=== PATIENT | male | born 1970 | race Caucasian/White ===

== ENCOUNTER 2017-05-18 09:06 | Inpatient (IN) | payer OTHER ==
[~2017-05-18 09:06] MED LIST: TAMSULOSIN HCL 0.4 MG CAP.ER.24H (FP) PO SCH
--- NOTE | 2017-05-18 09:18 | PDOC ---
History of Present Illness - General Chief Complaint: Shortness of Breath Stated Complaint: Shortness of Breath Time Seen by Provider: 05/18/17 09:08 History Source: Patient, EMS - History of Present Illness Initial Comments: 05/18/17 09:37 Patient is a 47 year old male with a PMH of CP, MR, Epilepsy, Factor VIII disorder, osteoporosis, testicular hypogonadism presents form [facility] for hypoxia, (SpO2 80's) and tachycardic (hr 123) noted this morning. As per [facility], @ bedside patient has had a two day h/o non- productive cough as well as intermittent blood in nares (no active epistaxis). At baseline patient alert, sometimes tracks with eyes but in general is non- responsive. Some sick contacts @ [facility]. At presentation VS significant for tachycardia 121, SpO2 95% on RA, RR 30, afebrile. NKDA Surgical: L femoral neck fracture Past History - Past Medical History Allergies/Adverse Reactions: Allergies Allergy/AdvReac Type Severity Reaction Status Date / Time No Known Allergies Allergy Verified 05/18/17 12:02 Home Medications: Ambulatory Orders Carbamazepine [Carbamazepine ER] 300 mg PO Q12H 05/18/17 Cholecalciferol (Vitamin D3) [Vitamin D3] 2,000 unit PO BID 05/18/17 Diphenhydramine [Benadryl Oral Solution -] 10 ml PO Q6H 05/18/17 Lactase [Lactaid Fast Act] 1 tab PO TID 05/18/17 Lactulose 30 ml PO TID 05/18/17 Levetiracetam 1,000 mg PO TID 05/18/17 Multivitamins [Tab-A-Vit -] 1 tab PO DAILY 05/18/17 [place]-3S/Dha/Epa/Fish Oil [Fish Oil [place]-3 Softgel] 1 each PO BID 05/18/17 Phenobarbital 32.4 mg PO HS 05/18/17 Phenobarbital 64.8 mg PO HS 05/18/17 Rufinamide [Banzel] 200 mg PO BID 05/18/17 Sennosides [Senna] 8.6 mg PO BID 05/18/17 Tamsulosin HCl [Flomax] 0.4 mg PO HS 05/18/17 Disorders: Yes (bilateral nephrolethiasis) Seizures: Yes - Suicide/Smoking/Psychosocial Hx Smoking History: Never smoked *Physical Exam - Physical Exam Comments: 05/18/17 09:50 GENERAL: Awake, eyes closed, diaphoretic, withdraws from pain HEAD: No signs of trauma EYES: PERRLA, EOMI, sclera anicteric, conjunctiva clear ENT: Dried blood @ nares, moist mucosa NECK: Nontender, no stepoffs, Normal ROM, supple, no lymphadenopathy, JVD, or masses LUNGS: B/L Rhonchi and wheezing in anterior and posterior lung tay No crackles HEART: Regular rate and rhythm, normal S1 and S2, no murmurs, rubs or gallops ABDOMEN: Soft, nontender, normoactive bowel sounds. No guarding, no rebound. No masses EXTREMITIES: Normal range of motion, B/L pedal edema - noted to be chronic SKIN: Warm, Dry, normal turgor, no rashes or lesions noted. ED Treatment Course - LABORATORY CBC & Chemistry Diagram: 05/18/17 10:05 05/18/17 11:20 Medical Decision Making - Medical Decision Making 05/18/17 09:56 47 year old male presents from [facility] with reported hypoxia (SpO2 80's). Physical exam significant for B/L rhonci, wheezing. DDx includes PNA, Influenza. Duo-Nebs x2. Reassess. 05/18/17 10:15 HR 117, SpO2 95% on RA, Labs and Influenza A pending. ECG shows NSR, HR 123, no HENRY/STD non-ischemic ECG. 05/18/17 10:23 BP 158/111, Tachycardic @ 120's 05/18/17 10:36 As patient remains hypoxic, will start patient on BIPAP. 05/18/17 11:27 Lactic Acid 2.5, likely 2/2 to dehydration --> 1 L IV normal saline 05/18/17 11:56 CXR shows PVR. No infiltrate/consolidation Repeat VS: BP 147/91, HR 115, SpO2 95% on BIPAP (). Will start prophylatic abx - tachycardia, continued rhonci, suspect PNA. Will admit for observation, further evaluation. Hospitalist paged 05/18/17 12:02 Patient initially responding appropriately to BIPAP however subsequently somnolent. ABG ordered to r/o hypercapnia. 05/18/17 12:03 Patient admitted to inpatient hospitalist service. Requests CT scan to r/o infiltrates. 05/18/17 13:23 ABG shows PCO2 50.8, O2 71.2, pH 7.32 -- will continue to monitor in ED, CT once patient stabilized. 05/18/17 18:22 Patient transferred to inpatient medicine floor. *DC/Admit/Observation/Transfer Diagnosis at time of Disposition: Shortness of breath - Discharge Dispostion Condition at time of disposition: Fair Admit: Yes - Referrals - Patient Instructions - Post Discharge Activity
[2017-05-18] MEDS ORDERED: ALBUTEROL SO4 2.5/IPRATROPIUM 0.5 INH SOL 3 ML VIAL.NEB. NEB ONE ×4 (09:21→15:18)
--- NOTE | 2017-05-18 09:22 | PDOC ---
Attending Attestation - Resident Resident Name: StaceyRenate - ED Attending Attestation I have performed the following: I have examined & evaluated the patient, The case was reviewed & discussed with the resident, I agree w/resident's findings & plan, Exceptions are as noted - HPI HPI: 05/18/17 09:42 47-year-old gentleman history of factor VIII (deficiency?), cerebral palsy, profound MR sent for evaluation of hypoxia from his facility, there was also mention of epistaxis has since resolved. Per the patient's Aide the patient was fine 2 days ago he was off yesterday so is uncertain of the patient's status he does endorse some coughing the past few days, no fever. Per the aide there is also been a cough, cold going around at the patient's facility. On arrival by EMS the patient was in no distress however he did have rhonchorous breath sounds bilaterally with some wheezing. His vitals revealed O2 sat in the low 90s on room air. There was some pitting edema that is chronic per aide. Suspect cold versus influenza versus pneumonia. Will check labs, chest x-ray, will go to note for symptomatically relief Will check EKG 05/18/17 19:33 - Physicial Exam PE: 05/18/17 19:34 see above - Critical Care Time Total Critical Care Time: 45 Critical Care Statement: The care of this patient involved high complexity decision making to prevent further life threatening deterioration of the patient 's condition and/or to evaluate & treat vital organ system(s) failure or risk of failure. - Medical Decision Making pts labs reviewed lactic acid was at 2.5, was rpeated and was normal trop was at .10, will repeat ct cest sugestive of pna pt s/p abx will admit pt for further mangaement pt currently on bipap and seems sable 05/18/17 19:33 Heart Score/ECG Review - ECG Impressions Comment:: 05/18/17 11:00 Twelve-lead EKG was performed and reviewed by me. There is normal sinus rhythm Rate of 123 Nonspecific T wave abnormality
[2017-05-18 09:57] VITALS: BMI 25.4
[2017-05-18] MEDS ORDERED: ALBUTEROL SO4 0.083% IH SOL 2.5 MG/3 ML VIAL.NEB. NEB ONE (10:05)
[2017-05-18 10:26] LABS: BASO % 0.3 % (0-2.0); EOS % 0.2 % (0-4.5); HEMOGLOBIN 13.4 GM/dL (11.7-16.9); LYMPH % 7.4 % (8-40); MCH 29.2 pg (25.7-33.7); MCHC 32.7 g/dl (32.0-35.9); MEAN CELL VOLUME 89.2 fl (80-96); MEAN PLT VOLUME 9.3 fl (7.5-11.1); MONO % 4.9 % (3.8-10.2); NEUT % 87.2 % (42.8-82.8); PLATELET COUNT 243 K/MM3 (134-434); RDW 17.8 % (11.9-15.9)
[2017-05-18] MEDS ORDERED: ACETAMINOPHEN 1000 MG/100 ML VIAL (NON FORMULARY) IVPB ONE (10:45)
[2017-05-18 10:46] LABS: INR 1.15 (0.82-1.09)
[2017-05-18 10:49] LABS: ACTIVATED PTT 31.2 SECONDS (26.9-34.4)
[2017-05-18 10:58] LABS: VENOUS PC02 52.2 mmHg (38-52); VENOUS PH 7.32 (7.32-7.42); VENOUS PO2 89.1 mmHg (28-48)
[2017-05-18] MEDS ORDERED: ACETAMINOPHEN INJECTION 100 ML IVPB ONE (10:58)
[2017-05-18] MEDS ORDERED: SODIUM CHLORIDE 0.9% 500 ML INFUS.BAG IV ONE (11:27)
[2017-05-18 11:42] LABS: ALBUMIN 2.6 g/dl (3.4-5.0); ALK PHOS 124 U/L (45-117); ANION GAP 6 (8-16); BILIRUBIN,TOTAL 0.1 mg/dL (0.2-1.0); BLOOD UREA NITROGEN 15 mg/dL (7-18); CALCIUM 8.1 mg/dL (8.5-10.1); CHLORIDE 112 mmol/L (98-107); CO2 28 mmol/L (21-32); CREATININE 0.9 mg/dL (0.7-1.3); GLUCOSE,RANDOM 154 mg/dL (74-106); POTASSIUM 3.5 mmol/L (3.5-5.1); SGOT/AST 21 U/L (15-37); SGPT/ALT 31 U/L (12-78); SODIUM 146 mmol/L (136-145)
[2017-05-18 11:50] LABS: URINE APPEARANCE CLEAR; URINE BILIRUBIN NEGATIVE (<2.0 mg/dL); URINE BLOOD NEGATIVE (NEGATIVE); URINE COLOR AMBER; URINE GLUCOSE (UA) NEGATIVE (NEGATIVE); URINE KETONE TRACE (NEGATIVE); URINE LEUK ESTERASE NEGATIVE (NEGATIVE); URINE NITRITE NEGATIVE (NEGATIVE); URINE UROBILINOGEN NEGATIVE mg/dL (0.2-1.0)
[2017-05-18 11:51] LABS: URINE PROTEIN 3+ (NEGATIVE)
[2017-05-18 11:54] LABS: EPI CELLS RARE /HPF (FEW); GRANULAR CASTS 2 /lpf; URINE HYALINE CAST 32 /lpf; URINE MUCUS FEW
[2017-05-18] MEDS ORDERED: VANCOMYCIN 1,500 MG in DEXTROSE 5%-WATER - 500 ML IVPB ONE (11:54)
[2017-05-18] MEDS ORDERED: PIPERACIL/TAZOB 3.375 GM 3.375 GM/50 ML PREMIX IVPB ONE (11:55)
[2017-05-18] MEDS ORDERED: PIPERACILLIN/TAZOB 3.375 GM 3.375 GM/50 ML BAG IVPB ONE (12:05)
[2017-05-18 12:33] LABS: ARTERIAL BLD GAS O2 SATURATION 91.8 % (90-98.9); ARTERIAL BLOOD GAS BASE EXCESS -0.9 meq/l (-2-2); ARTERIAL BLOOD GAS PCO2 50.8 mmHg (35-45); ARTERIAL BLOOD GAS PO2 71.2 mmHg (80-100); ARTERIAL BLOOD GAS pH 7.32 (7.35-7.45); CARBOXYHEMOGLOBIN 1.8 gm% (0.5-2.0)
[2017-05-18 12:37] LABS: ALLENS TEST POSITIVE
--- NOTE | 2017-05-18 13:23 | HP ---
CHIEF COMPLAINT: Hypoxia, cough PCP: Dr. Eisenberg, [facility] HISTORY OF PRESENT ILLNESS: 47 year-old male resident of [facility], with a PMH significant for profound intellectual disability, cerebral palsy, seizure disorder, and Factor VIII deficiency. Brought to ED with non-productive cough, hypoxia with SpO2 80s , and tachycardia to 120s. ER course was notable for: (1) T 99.3, WBC 11.0 (2) ABG 7.32/50/71/25/92% on BiPAP 30% FiO2 (3) CXR: progressive congestive changes, possible infiltrate (4) Zosyn x 1; Vanco x 1; duoneb x 1; NS x 1L; Tylenol IV 1g x 1 Recent Travel No PAST MEDICAL HISTORY: Profound intellectual disability Cerebral palsy Seizure disorder Factor VIII deficiency PAST SURGICAL HISTORY: Left femoral neck fracture repair Social History: Smoking: no Alcohol: no Drugs: no Family History: Allergies No Known Allergies Allergy (Verified 05/18/17 12:02) HOME MEDICATIONS: Home Medications Medication Instructions Recorded Carbamazepine [Carbamazepine ER] 300 mg PO Q12H 05/18/17 Cholecalciferol (Vitamin D3) 2,000 unit PO BID 05/18/17 [Vitamin D3] Diphenhydramine [Benadryl Oral 10 ml PO Q6H 05/18/17 Solution -] Lactase [Lactaid Fast Act] 1 tab PO TID 05/18/17 Lactulose 30 ml PO TID 05/18/17 Levetiracetam 1,000 mg PO TID 05/18/17 Multivitamins [Tab-A-Vit -] 1 tab PO DAILY 05/18/17 [place]-3S/Dha/Epa/Fish Oil [Fish 1 each PO BID 05/18/17 Oil [place]-3 Softgel] Phenobarbital 32.4 mg PO HS 05/18/17 Phenobarbital 64.8 mg PO HS 05/18/17 Rufinamide [Banzel] 200 mg PO BID 05/18/17 Sennosides [Senna] 8.6 mg PO BID 05/18/17 Tamsulosin HCl [Flomax] 0.4 mg PO HS 05/18/17 REVIEW OF SYSTEMS Unable to obtain due to patient's mental status PHYSICAL EXAMINATION Vital Signs - 24 hr 05/18/17 05/18/17 05/18/17 09:10 10:00 11:18 Temperature 99.3 F Pulse Rate 121 H 87 Pulse Rate [ 118 H Apical] Respiratory 30 H 32 H Rate Blood Pressure 151/89 Blood Pressure 157/102 [Left Arm] O2 Sat by Pulse 95 97 99 Oximetry (%) 05/18/17 11:27 Temperature Pulse Rate Pulse Rate [ 118 H Apical] Respiratory 28 H Rate Blood Pressure Blood Pressure 162/94 [Left Arm] O2 Sat by Pulse 94 L Oximetry (%) GENERAL: Eyes closed but resists opening; non-verbal at baseline, does not follow commands; on BiPAP HEAD: Normal with no signs of trauma. EYES: Pupils equal, round and reactive to light, extraocular movements intact, sclera anicteric, conjunctiva clear. No lid lag. LUNGS: Rhonchorous breath sounds; tachypnic HEART: Regular rate and rhythm, normal S1 and S2 ABDOMEN: Soft, nontender, not distended, normoactive bowel sounds, no guarding, no rebound UPPER EXTREMITIES: 2+ pulses, warm, well-perfused. No cyanosis. No clubbing. No peripheral edema. LOWER EXTREMITIES: 2+ pulses, warm, well-perfused. No calf tenderness. 1+ bilateral pedal and pretibial edema Laboratory Results - last 24 hr 05/18/17 05/18/17 05/18/17 10:05 10:15 10:15 WBC 11.0 H RBC 4.60 Hgb 13.4 Hct 41.0 MCV 89.2 MCH 29.2 MCHC 32.7 RDW 17.8 H Plt Count 243 MPV 9.3 Neutrophils % 87.2 H Lymphocytes % 7.4 L Monocytes % 4.9 Eosinophils % 0.2 Basophils % 0.3 PT with INR 13.00 H INR 1.15 H PTT (Actin FS) 31.2 Puncture Site ABG pH ABG pCO2 at Pt Temp ABG pO2 at Pt Temp ABG HCO3 ABG O2 Sat (Measured) ABG O2 Content ABG Base Excess Adrian Test VBG pH POC VBG pCO2 POC VBG pO2 Mixed VBG HCO3 Carboxyhemoglobin Methemoglobin O2 Delivery Device Oxygen Flow Rate Vent Mode Vent Rate Mechanical Rate PEEP Pressure Support Vent Sodium Potassium Chloride Carbon Dioxide Anion Gap BUN Creatinine Creat Clearance w eGFR Random Glucose Lactic Acid 2.5 H* Calcium Total Bilirubin AST ALT Alkaline Phosphatase Troponin I Total Protein Albumin Urine Color Urine Appearance Urine pH Ur Specific [place] Urine Protein Urine Glucose (UA) Urine Ketones Urine Blood Urine Nitrite Urine Bilirubin Urine Urobilinogen Ur Leukocyte Esterase Urine WBC (Auto) Urine RBC (Auto) Ur Epithelial Cells Hyaline Casts Granular Casts Urine Mucus 05/18/17 05/18/17 05/18/17 10:48 11:20 11:20 WBC RBC Hgb Hct MCV MCH MCHC RDW Plt Count MPV Neutrophils % Lymphocytes % Monocytes % Eosinophils % Basophils % PT with INR INR PTT (Actin FS) Puncture Site ABG pH ABG pCO2 at Pt Temp ABG pO2 at Pt Temp ABG HCO3 ABG O2 Sat (Measured) ABG O2 Content ABG Base Excess Adrian Test VBG pH 7.32 POC VBG pCO2 52.2 H POC VBG pO2 89.1 H Mixed VBG HCO3 26.1 H Carboxyhemoglobin Methemoglobin O2 Delivery Device Oxygen Flow Rate Vent Mode Vent Rate Mechanical Rate PEEP Pressure Support Vent Sodium 146 H Potassium 3.5 Chloride 112 H Carbon Dioxide 28 Anion Gap 6 L BUN 15 Creatinine 0.9 Creat Clearance w eGFR > 60 Random Glucose 154 H Lactic Acid Calcium 8.1 L Total Bilirubin 0.1 L AST 21 ALT 31 Alkaline Phosphatase 124 H Troponin I 0.10 H Total Protein 6.0 L Albumin 2.6 L Urine Color [place] Urine Appearance Clear Urine pH 5.0 Ur Specific [place] 1.032 Urine Protein 3+ H Urine Glucose (UA) Negative Urine Ketones Trace H Urine Blood Negative Urine Nitrite Negative Urine Bilirubin Negative Urine Urobilinogen Negative Ur Leukocyte Esterase Negative Urine WBC (Auto) 7 Urine RBC (Auto) 6 Ur Epithelial Cells Rare Hyaline Casts 32 Granular Casts 2 Urine Mucus Few 05/18/17 12:20 WBC RBC Hgb Hct MCV MCH MCHC RDW Plt Count MPV Neutrophils % Lymphocytes % Monocytes % Eosinophils % Basophils % PT with INR INR PTT (Actin FS) Puncture Site Right radial ABG pH 7.32 L ABG pCO2 at Pt Temp 50.8 H ABG pO2 at Pt Temp 71.2 L ABG HCO3 25.4 ABG O2 Sat (Measured) 91.8 ABG O2 Content 16.9 ABG Base Excess -0.9 Adrian Test Positive VBG pH POC VBG pCO2 POC VBG pO2 Mixed VBG HCO3 Carboxyhemoglobin 1.8 Methemoglobin 0.9 O2 Delivery Device Bipap Oxygen Flow Rate 30% Vent Mode St Vent Rate 10 Mechanical Rate Yes PEEP 0.0 Pressure Support Vent 10/5 Sodium Potassium Chloride Carbon Dioxide Anion Gap BUN Creatinine Creat Clearance w eGFR Random Glucose Lactic Acid Calcium Total Bilirubin AST ALT Alkaline Phosphatase Troponin I Total Protein Albumin Urine Color Urine Appearance Urine pH Ur Specific [place] Urine Protein Urine Glucose (UA) Urine Ketones Urine Blood Urine Nitrite Urine Bilirubin Urine Urobilinogen Ur Leukocyte Esterase Urine WBC (Auto) Urine RBC (Auto) Ur Epithelial Cells Hyaline Casts Granular Casts Urine Mucus ASSESSMENT/PLAN 47 year-old male resident of [facility], with a PMH significant for profound intellectual disability, cerebral palsy, seizure disorder, and Factor VIII deficiency. Admitted for cough and hypoxia. Hypoxic and hypercapneic respiratory failure Pneumonia --05/18 CT Chest: patchy nodular infiltrates bilateral upper lobes and RML --mild leukocytosis, afebrile --start levofloxacin IV --on BiPAP, repeat ABG pending Heart failure, NOS Small pericardial effusion --05/18 CT chest: very small left pleural effusion; left ventricular dilation ; small pericardial effusion --mild bilateral lower extremity edema --BNP 11,454 --echo ordered --Lasix IV 40mg x 1 Elevated troponins --troponin 0.10-->0.15, third pending --non-specific ST changes in V3-V5 Functional quadriplegia --profound intellectual disability, requires assistance for all ADLs FEN Fluids: PO intake adequate Electrolytes: replete as indicated Nutrition: NPO on BiPAP DVT prophylaxis: Dispo: continues to require inpatient care. Full code. Visit type - Emergency Visit Emergency Visit: Yes ED Registration Date: 05/18/17 Care time: The patient presented to the Emergency Department on the above date and was hospitalized for further evaluation of their emergent condition. - New Patient This patient is new to me today: Yes Date on this admission: 05/18/17 - Critical Care Critical Care patient: No Hospitalist Screening - Colonoscopy Questionnaire Colonoscopy Questionnaire: Colonoscopy Questionnaire - Patient: 50 - 75 years old and never had a screening colonoscopy: No History of colon or rectal polyps, or CA: No History of IBD, Crohn's disease or UC: No History of abdominal radiation therapy as a child: No - Relative: 1 with colon or rectal CA, or polyps at age 60 or younger: Unknown Colon or rectal CA diagnosed at age 45 or younger: Unknown Multiple relatives with colon or rectal CA: Unknown - Outcome: Screening Result: Negative Screen
--- NOTE | 2017-05-18 14:13 | EKG ---
Test Reason : Blood Pressure : / mmHG Vent. Rate : 123 BPM Atrial Rate : 123 BPM P-R Int : 122 ms QRS Dur : 092 ms QT Int : 298 ms P-R-T Axes : 082 054 -01 degrees QTc Int : 426 ms SINUS TACHYCARDIA LEFT ATRIAL ENLARGEMENT NONSPECIFIC T WAVE ABNORMALITY ABNORMAL ECG WHEN COMPARED WITH ECG OF 23-OCT-2014 12:58, NON-SPECIFIC CHANGE IN ST SEGMENT IN ANTERIOR LEADS Confirmed by ANCELMO OTTO, PAL ([id number]) on 05/18/2017 2:12:59 PM Referred By: Confirmed By:PAL AG MD
[2017-05-18] MEDS ORDERED: carBAMazepine 100 MG TAB.CHEW PO SCH (15:00)
[2017-05-18] MEDS ORDERED: LACTASE PO SCH (15:00)
[2017-05-18] MEDS: LACTULOSE 20 GM/30 ML UDC (FOR ORAL USE ONLY) PO SCH ×2 (16:31→23:20)
[2017-05-18] MEDS ORDERED: ASPIRIN 325 MG ENTERIC COATED TABLET (FP) PO ONE (16:35)
[2017-05-18] MEDS ORDERED: carBAMazepine XR 200 MG TAB.ER.12H PO SCH (17:30)
[2017-05-18] MEDS ORDERED: diazePAM ACUDIAL 5-7.5-10 MG 1 EACH KIT PR ONE (17:30)
[2017-05-18] MEDS ORDERED: FUROSEMIDE 40 MG/4 ML INJECTABLE VIAL IVPUSH ONE (18:00)
[2017-05-18] MEDS ORDERED: diazePAM ACUDIAL 5-7.5-10 MG 1 EACH KIT RC PRN (18:00)
[2017-05-18] MEDS: diphenhydrAMINE HCL 12.5 MG/5 ML UNIT-DOSE CUPS PO SCH ×2 (18:04→23:14)
--- NOTE | 2017-05-18 18:40 | CON.CARD ---
Cardiology Consult (text) - Consultation Consultation Note: CC: tachycardia/abnormal troponin. 47 yo resident of [facility] with history of hypoxic injury at /infantile cerebral palsy, epilepsy, osteoporosis s/p multiple fractures, renal stones s/p lithotripsy and stent, testicular hypogonadism who p/w hypoxia/tachycardia, ER course notable for abnormal troponins. Per report, SpO2 80's, tachycardic (hr 123) this morning. As per aide, patient had 2 history of cough, congestion. + sick contacts @ [facility] patient has chronic cough with eating, prefers to eat liquid foods. At baseline patient awake but non-verbal with limited ability to communicate. bed bound. ROS limited due to patient's cognitive status, but did not appear to be in discomfort leading up to the events. s/p abx, ivf, nebs in ER. pmhx/pshx: per hpi, L femoral neck fracture social hx: never smoker. from [facility]. has aide. family hx: per report no cardiac history ros: per hpi Ambulatory Orders Carbamazepine [Carbamazepine ER] 300 mg PO Q12H 05/18/17 Cholecalciferol (Vitamin D3) [Vitamin D3] 2,000 unit PO BID 05/18/17 Diphenhydramine [Benadryl Oral Solution -] 10 ml PO Q6H 05/18/17 Lactase [Lactaid Fast Act] 1 tab PO TID 05/18/17 Lactulose 30 ml PO TID 05/18/17 Levetiracetam 1,000 mg PO TID 05/18/17 Multivitamins [Tab-A-Vit -] 1 tab PO DAILY 05/18/17 [place]-3S/Dha/Epa/Fish Oil [Fish Oil [place]-3 Softgel] 1 each PO BID 05/18/17 Phenobarbital 32.4 mg PO HS 05/18/17 Phenobarbital 64.8 mg PO HS 05/18/17 Rufinamide [Banzel] 200 mg PO BID 05/18/17 Sennosides [Senna] 8.6 mg PO BID 05/18/17 Tamsulosin HCl [Flomax] 0.4 mg PO HS 05/18/17 Current Medications Aspirin (Asa -) 81 mg PO DAILY CATHERINE Carbamazepine (Tegretol Xr -) 600 mg PO BID CATHERINE Diazepam (Diastat Rectal Gel -) 5 mg RC PRN PRN PRN Reason: SEIZURE Stop: 05/19/17 17:59 Diphenhydramine HCl (Benadryl Oral Solution -) 25 mg PO QID [facility] Last Admin: 05/18/17 18:04 Dose: Not Given Heparin Sodium (Porcine) (Heparin -) 5,000 unit SQ TID [facility] Lactulose (Cephulac (Oral Use)) 30 gm PO TID [facility] Last Admin: 05/18/17 16:31 Dose: Not Given Levetiracetam (Keppra -) 1,000 mg PO TID [facility] Non-Formulary Medication (Lactase [Lactaid Fast Act]) 1 tab PO TID [facility] Non-Formulary Medication (Rufinamide [Banzel]) 1,400 mg PO BID [facility] Phenobarbital (Phenobarbital -) 30 mg PO HS [facility] Phenobarbital (Phenobarbital -) 60 mg PO HS [facility] Senna (Senna -) 1 tab PO BID [facility] Tamsulosin HCl (Flomax -) 0.4 mg PO 0830 [facility] Zonisamide (Zonegran -) 500 mg PO HS [facility] Vital Signs - 24 hr 05/18/17 05/18/17 05/18/17 09:10 10:00 11:18 Temperature 99.3 F Pulse Rate 121 H 87 Pulse Rate [ 118 H Apical] Respiratory 30 H 32 H Rate Blood Pressure 151/89 Blood Pressure 157/102 [Left Arm] O2 Sat by Pulse 95 97 99 Oximetry (%) 05/18/17 05/18/17 05/18/17 11:27 13:35 14:40 Temperature 99.8 F H Pulse Rate Pulse Rate [ 118 H 108 H Apical] Respiratory 28 H 27 H Rate Blood Pressure Blood Pressure 162/94 160/99 [Left Arm] O2 Sat by Pulse 94 L 94 L Oximetry (%) 05/18/17 05/18/17 05/18/17 15:44 16:29 16:36 Temperature Pulse Rate Pulse Rate [ 109 H 104 H Apical] Respiratory 28 H 26 H Rate Blood Pressure Blood Pressure 150/98 145/86 [Left Arm] O2 Sat by Pulse 97 100 96 Oximetry (%) 05/18/17 18:37 Temperature Pulse Rate Pulse Rate [ Apical] Respiratory Rate Blood Pressure Blood Pressure [Left Arm] O2 Sat by Pulse 95 Oximetry (%) Intake & Output 05/16/17 05/17/17 05/18/1730/18 07:59 07:59 07:59 07:59 Weight 130 lb nad, on bipap jvd flat, neck supple diffuse rhonchi, nl effort tachycardic, regular. nl s1, s2 no mrg. non-displaced pmi + bs soft nt nd, no hsm ext with trace soft edema. no c/c + dp/pt awake no jaundice, diaphoresis. CBC, BMP 05/18/17 10:05 05/18/17 11:20 Laboratory Tests 05/18/17 05/18/17 05/18/17 10:15 10:15 11:20 INR 1.15 H ABG pH ABG pCO2 at Pt Temp ABG pO2 at Pt Temp O2 Delivery Device Lactic Acid 2.5 H* Total Bilirubin 0.1 L AST 21 ALT 31 Alkaline Phosphatase 124 H Creatine Kinase Troponin I 0.10 H B-Natriuretic Peptide Albumin 2.6 L 05/18/17 05/18/17 05/18/17 12:20 13:20 13:20 INR ABG pH 7.32 L ABG pCO2 at Pt Temp 50.8 H ABG pO2 at Pt Temp 71.2 L O2 Delivery Device Bipap Lactic Acid 1.3 Total Bilirubin AST ALT Alkaline Phosphatase Creatine Kinase 109 Troponin I 0.15 H D B-Natriuretic Peptide Albumin 05/18/17 15:30 INR ABG pH ABG pCO2 at Pt Temp ABG pO2 at Pt Temp O2 Delivery Device Lactic Acid Total Bilirubin AST ALT Alkaline Phosphatase Creatine Kinase Troponin I B-Natriuretic Peptide 93451.31 H Albumin ekg: sinus tach. non-specific st-t wave abnormalities. no acue ischemic changes. tele: sr/sinus tach. chest ct: images and report reviewed. bilateral pulmonary infiltrates. very small left pleural effusion. small pericardial effusion. see emr for detailed findings. ASSESSMENT/PLAN 47 yo resident of [facility] with history of hypoxic injury at /infantile cerebral palsy, epilepsy, osteoporosis s/p multiple fractures, renal stones s/p lithotripsy and stent, testicular hypogonadism who p/w hypoxia/tachycardia, ER course notable for abnormal troponins. sob/hypoxia - chest ct and clinical picture c/w pna/infectious etiology. eval/mgm't per pmd elevated troponins - flat trend c/w demand in setting of tachycardia and infection. no acute ischemic changes on ekg. con't paul. echo pending. - lyte repletion prn - respiratory support per pmd to minimize tachycardia. ok for ivf if needed. - no diagnosis of htn, bp improving with improvement in respiratory status, con' t to monitor. If remains elevated, can consider adding anti-hypertensive. hypernatremia - per pmd.
[2017-05-18] MEDS ORDERED: FUROSEMIDE 40 MG/4 ML INJECTABLE VIAL ONE (18:55)
[2017-05-18 19:11] LABS: ARTERIAL BLD GAS O2 SATURATION 97.4 % (90-98.9); ARTERIAL BLOOD GAS BASE EXCESS -0.1 meq/l (-2-2); ARTERIAL BLOOD GAS PCO2 41.4 mmHg (35-45); ARTERIAL BLOOD GAS PO2 96.7 mmHg (80-100); ARTERIAL BLOOD GAS pH 7.39 (7.35-7.45)
[2017-05-18 19:17] LABS: ALLENS TEST POSITIVE
[2017-05-18] MEDS ORDERED: RUFINAMIDE PO SCH (22:00)
[2017-05-18] MEDS ORDERED: PHENobarbital 30 MG TABLET PO SCH ×3 (22:00)
[2017-05-18] MEDS ORDERED: RUFINAMIDE 200 MG PO SCH (22:00)
[2017-05-18] MEDS: levETIRAcetam 500 MG TABLET (FP) PO SCH (23:04)
[2017-05-18] MEDS: ZONISAMIDE 100 MG CAPSULE PO SCH (23:11)
[2017-05-18] MEDS: HEPARIN NA (PORCINE) 5,000 UNITS/ML 1ML VIAL SQ SCH (23:11)
[2017-05-18] MEDS: SENNOSIDES 8.6MG TABLET (FP) PO SCH (23:13)
[2017-05-19] MEDS: POTASSIUM CHLORIDE 10 MEQ in SODIUM CHLORIDE 100 ML IVPB SCH ×3 (00:18→02:45)
[2017-05-19] MEDS: HEPARIN NA (PORCINE) 5,000 UNITS/ML 1ML VIAL SQ SCH ×3 (07:00→23:08)
[2017-05-19] MEDS: levETIRAcetam 500 MG TABLET (FP) PO SCH ×2 (07:00→13:13)
[2017-05-19] MEDS: LACTULOSE 20 GM/30 ML UDC (FOR ORAL USE ONLY) PO SCH ×3 (07:00→22:31)
[2017-05-19 08:14] LABS: BASO % 0.3 % (0-2.0); EOS % 0.7 % (0-4.5); HEMATOCRIT 40.4 % (35.4-49); LYMPH % 8.7 % (8-40); MCH 28.9 pg (25.7-33.7); MCHC 32.2 g/dl (32.0-35.9); MEAN CELL VOLUME 89.6 fl (80-96); MEAN PLT VOLUME 9.7 fl (7.5-11.1); MONO % 6.2 % (3.8-10.2); NEUT % 84.1 % (42.8-82.8); PLATELET COUNT 236 K/MM3 (134-434); RBC 4.51 M/mm3 (4.00-5.60); RDW 17.9 % (11.9-15.9); WHITE BLOOD COUNT 9.3 K/mm3 (4.0-10.0)
[2017-05-19 08:26] LABS: ALBUMIN 2.3 g/dl (3.4-5.0); ANION GAP 7 (8-16); BLOOD UREA NITROGEN 9 mg/dL (7-18); CALCIUM 7.7 mg/dL (8.5-10.1); CHLORIDE 112 mmol/L (98-107); CO2 30 mmol/L (21-32); GLUCOSE,RANDOM 71 mg/dL (74-106); MAGNESIUM 1.9 mg/dL (1.8-2.4); POTASSIUM 3.9 mmol/L (3.5-5.1); SODIUM 149 mmol/L (136-145)
[2017-05-19 08:30] LABS: ALK PHOS 112 U/L (45-117); BILIRUBIN,TOTAL 0.2 mg/dL (0.2-1.0); CREATININE 0.6 mg/dL (0.7-1.3); PHOSPHOROUS 3.4 mg/dL (2.5-4.9); SGOT/AST 21 U/L (15-37); SGPT/ALT 28 U/L (12-78); TOT PROT 5.6 g/dl (6.4-8.2)
[2017-05-19] MEDS: SENNOSIDES 8.6MG TABLET (FP) PO SCH ×2 (10:00→22:31)
[2017-05-19] MEDS ORDERED: ASPIRIN 81 MG CHEWABLE TABLETS PO SCH (10:00)
[2017-05-19] MEDS: diphenhydrAMINE HCL 12.5 MG/5 ML UNIT-DOSE CUPS PO SCH ×4 (10:00→22:31)
[2017-05-19] MEDS: TAMSULOSIN HCL 0.4 MG CAP.ER.24H (FP) PO SCH (10:01)
[2017-05-19] MEDS: CARBAMAZEPINE PO SCH ×2 (10:03→22:31)
--- NOTE | 2017-05-19 11:27 | PN ---
Progress Note (short form) - Note Progress Note: s: not communicating well, no overnight events o: Vital Signs Period Temp Pulse Resp BP Sys/[place] Pulse Ox Last 24 Hr 98 F-99.8 F 101-118 24-28 145-162/86-109 94-100 nad jvd flat, neck supple diffuse rhonchi, nl effort regular rr. nl s1, s2 no mrg. + bs soft nt nd, no hsm ext with trace soft edema. no c/c awake no jaundice, diaphoresis. Current Medications Generic Name Dose Route Start Last Admin Trade Name Freq PRN Reason Stop Dose Admin Aspirin 81 mg 05/19/17 10:00 05/19/17 10:00 Asa - PO 81 mg DAILY CATHERINE Administration Carbamazepine 400 mg/ 600 mg 05/19/17 10:00 05/19/17 10:03 Carbamazepine 200 mg PO 600 mg BID CATHERINE Administration Diazepam 5 mg 05/18/17 18:00 Diastat Rectal Gel - RC 05/19/17 17:59 PRN PRN SEIZURE Diphenhydramine HCl 25 mg 05/18/17 18:00 05/19/17 10:00 Benadryl Oral Solution - PO 25 mg QID CATHERINE Administration Heparin Sodium (Porcine) 5,000 unit 05/18/17 22:00 05/19/17 07:00 Heparin - SQ 5,000 unit TID CATHERINE Administration Lactulose 30 gm 05/18/17 15:15 05/19/17 07:00 Cephulac (Oral Use) PO 30 gm TID CATHERINE Administration Levetiracetam 1,000 mg 05/18/17 22:00 05/19/17 07:00 Keppra - PO 1,000 mg TID CATHERINE Administration Non-Formulary Medication 1 tab 05/18/17 15:00 Lactase [Lactaid Fast Act] PO TID CATHERINE Non-Formulary Medication 1,400 mg 05/18/17 22:00 Rufinamide [Banzel] PO BID CATHERINE Phenobarbital 30 mg 05/18/17 22:00 05/18/17 23:11 Phenobarbital - PO 30 mg HS CATHERINE Administration Phenobarbital 60 mg 05/18/17 22:00 05/18/17 23:11 Phenobarbital - PO 60 mg HS CATHERINE Administration Senna 1 tab 05/18/17 22:00 05/19/17 10:00 Senna - PO 1 tab BID CATHERINE Administration Tamsulosin HCl 0.4 mg 05/19/17 08:30 05/19/17 10:01 Flomax - PO 0.4 mg 0830 CATHERINE Administration Zonisamide 500 mg 05/18/17 22:00 05/18/17 23:11 Zonegran - PO Not Given HS CATHERINE CBC, BMP 05/19/17 06:49 05/19/17 06:49 ekg: sinus tach. non-specific st-t wave abnormalities. no acue ischemic changes. tele: sr/sinus tach. chest ct: images and report reviewed. bilateral pulmonary infiltrates. very small left pleural effusion. small pericardial effusion. see emr for detailed findings. ASSESSMENT/PLAN 47 yo resident of [facility] with history of hypoxic injury at /infantile cerebral palsy, epilepsy, osteoporosis s/p multiple fractures, renal stones s/p lithotripsy and stent, testicular hypogonadism who p/w hypoxia/tachycardia, ER course notable for abnormal troponins. sob/hypoxia - chest ct and clinical picture c/w pna/infectious etiology. elevated troponins - flat trend c/w demand in setting of tachycardia and infection. no acute ischemic changes on ekg. echo pending. - lyte repletion prn - respiratory support per pmd to minimize tachycardia. ok for ivf if needed. - no diagnosis of htn, bp improving with improvement in respiratory status, con' t to monitor. hypernatremia - per pmd.
--- NOTE | 2017-05-19 14:00 | PN ---
Physical Exam: SUBJECTIVE: Patient seen and examined at bedside. OBJECTIVE: Vital Signs Period Temp Pulse Resp BP Sys/Velasco Pulse Ox Last 24 Hr 98 F-99.8 F 101-110 24-28 145-153/86-109 95-100 GENERAL: Awake, eyes open, reacting to physical stimuli, more alert than yesterday LUNGS: Rhonchorous breath sounds, wheezing, tachypnic HEART: Regular rate and rhythm, normal S1 and S2 ABDOMEN: Soft, nontender, not distended, normoactive bowel sounds, no guarding, no rebound UPPER EXTREMITIES: 2+ pulses, warm, well-perfused. No cyanosis. No clubbing. No peripheral edema. LOWER EXTREMITIES: 2+ pulses, warm, well-perfused. No calf tenderness. 1+ bilateral pedal and pretibial edema Laboratory Results - last 24 hr 05/18/17 05/18/17 05/18/17 13:20 13:20 15:30 WBC RBC Hgb Hct MCV MCH MCHC RDW Plt Count MPV Neutrophils % Lymphocytes % Monocytes % Eosinophils % Basophils % Anticoagulation Therapy Puncture Site ABG pH ABG pCO2 at Pt Temp ABG pO2 at Pt Temp ABG HCO3 ABG O2 Sat (Measured) ABG O2 Content ABG Base Excess Adrian Test O2 Delivery Device Oxygen Flow Rate Vent Mode Vent Rate Mechanical Rate Pressure Support Vent Sodium Potassium Chloride Carbon Dioxide Anion Gap BUN Creatinine Creat Clearance w eGFR Random Glucose Lactic Acid 1.3 Calcium Phosphorus Magnesium Total Bilirubin AST ALT Alkaline Phosphatase Creatine Kinase 109 Troponin I 0.15 H D B-Natriuretic Peptide 20881.31 H Total Protein Albumin 05/18/17 05/18/17 05/19/17 19:00 20:00 06:49 WBC 9.3 RBC 4.51 Hgb 13.0 Hct 40.4 MCV 89.6 MCH 28.9 MCHC 32.2 RDW 17.9 H Plt Count 236 MPV 9.7 Neutrophils % 84.1 H Lymphocytes % 8.7 Monocytes % 6.2 Eosinophils % 0.7 D Basophils % 0.3 Anticoagulation Therapy No Result Required. Puncture Site Right radial ABG pH 7.39 ABG pCO2 at Pt Temp 41.4 ABG pO2 at Pt Temp 96.7 D ABG HCO3 24.4 ABG O2 Sat (Measured) 97.4 ABG O2 Content 18.7 ABG Base Excess -0.1 Adrian Test Positive O2 Delivery Device Bipap Oxygen Flow Rate 30 Vent Mode No Result Required. Vent Rate No Result Required. Mechanical Rate No Result Required. Pressure Support Vent No Result Required. Sodium Potassium Chloride Carbon Dioxide Anion Gap BUN Creatinine Creat Clearance w eGFR Random Glucose Lactic Acid Calcium Phosphorus Magnesium Total Bilirubin AST ALT Alkaline Phosphatase Creatine Kinase Troponin I 0.10 H D B-Natriuretic Peptide Total Protein Albumin 05/19/17 06:49 WBC RBC Hgb Hct MCV MCH MCHC RDW Plt Count MPV Neutrophils % Lymphocytes % Monocytes % Eosinophils % Basophils % Anticoagulation Therapy Puncture Site ABG pH ABG pCO2 at Pt Temp ABG pO2 at Pt Temp ABG HCO3 ABG O2 Sat (Measured) ABG O2 Content ABG Base Excess Adrian Test O2 Delivery Device Oxygen Flow Rate Vent Mode Vent Rate Mechanical Rate Pressure Support Vent Sodium 149 H Potassium 3.9 Chloride 112 H Carbon Dioxide 30 Anion Gap 7 L BUN 9 D Creatinine 0.6 L D Creat Clearance w eGFR > 60 Random Glucose 71 L D Lactic Acid Calcium 7.7 L Phosphorus 3.4 Magnesium 1.9 Total Bilirubin 0.2 D AST 21 ALT 28 Alkaline Phosphatase 112 Creatine Kinase Troponin I B-Natriuretic Peptide Total Protein 5.6 L Albumin 2.3 L Active Medications Generic Name Dose Route Start Last Admin Trade Name Freq PRN Reason Stop Dose Admin Aspirin 81 mg 05/19/17 10:00 05/19/17 10:00 Asa - PO 81 mg DAILY CATHERINE Administration Carbamazepine 400 mg/ 600 mg 05/19/17 10:00 05/19/17 10:03 Carbamazepine 200 mg PO 600 mg BID CATHERINE Administration Diazepam 5 mg 05/18/17 18:00 Diastat Rectal Gel - RC 05/19/17 17:59 PRN PRN SEIZURE Diphenhydramine HCl 25 mg 05/18/17 18:00 05/19/17 13:13 Benadryl Oral Solution - PO 25 mg QID CATHERINE Administration Heparin Sodium (Porcine) 5,000 unit 05/18/17 22:00 05/19/17 13:13 Heparin - SQ 5,000 unit TID CATHERINE Administration Levofloxacin 750 mg in 150 mls @ 100 mls/hr 05/19/17 13:45 Levaquin 750 Mg Premixed Ivpb - IVPB 05/24/17 11:29 DAILY CATHERINE Lactulose 30 gm 05/18/17 15:15 05/19/17 13:13 Cephulac (Oral Use) PO 30 gm TID CATHERINE Administration Levetiracetam 1,000 mg 05/18/17 22:00 05/19/17 13:13 Keppra - PO 1,000 mg TID CATHERINE Administration Non-Formulary Medication 1 tab 05/18/17 15:00 Lactase [Lactaid Fast Act] PO TID CATHERINE Non-Formulary Medication 1,400 mg 05/18/17 22:00 Rufinamide [Banzel] PO BID CATHERINE Phenobarbital 30 mg 05/18/17 22:00 05/18/17 23:11 Phenobarbital - PO 30 mg HS CATHERINE Administration Phenobarbital 60 mg 05/18/17 22:00 05/18/17 23:11 Phenobarbital - PO 60 mg HS CATHERINE Administration Senna 1 tab 05/18/17 22:00 05/19/17 10:00 Senna - PO 1 tab BID CATHERINE Administration Tamsulosin HCl 0.4 mg 05/19/17 08:30 05/19/17 10:01 Flomax - PO 0.4 mg 0830 CATHERINE Administration Zonisamide 500 mg 05/18/17 22:00 05/18/17 23:11 Zonegran - PO Not Given HS CATHERINE ASSESSMENT/PLAN 47 year-old male resident of [facility], with a PMH significant for profound intellectual disability, cerebral palsy, seizure disorder, systolic heart failure, and Factor VIII deficiency. Admitted for cough and hypoxia. Hypoxic and hypercapneic respiratory failure Pneumonia --05/18 CT Chest: patchy nodular infiltrates bilateral upper lobes and RML --fever to 101, leukocytosis resolved --continue levofloxacin IV --bronchospasms, start solumedrol 40mg q8h --sats 87% on room air, 100% on NRB; respiratory to titrate O2 to 95% Systolic heart failure Small pericardial effusion --05/19 Echo: suboptimal study but LV function "at least" moderately reduced, cannot exclude RWMA --05/18 CT chest: very small left pleural effusion; left ventricular dilation ; small pericardial effusion --mild bilateral lower extremity edema --BNP 11,454 --Lasix IV 40mg daily --strict I&Os, daily weights --cardiology following Elevated troponins --troponin 0.10-->0.15-->0.10, flat trending, likely result of infection --non-specific ST changes in V3-V5 Functional quadriplegia --profound intellectual disability, requires assistance for all ADLs FEN Fluids: PO intake adequate Electrolytes: replete as indicated Nutrition: NPO on BiPAP DVT prophylaxis: Dispo: continues to require inpatient care. Full code. Visit type - Emergency Visit Emergency Visit: Yes ED Registration Date: 05/18/17 Care time: The patient presented to the Emergency Department on the above date and was hospitalized for further evaluation of their emergent condition. - New Patient This patient is new to me today: No - Critical Care Critical Care patient: No
[2017-05-19] MEDS ORDERED: FUROSEMIDE 40 MG/4 ML INJECTABLE VIAL IVPUSH SCH (14:15)
[2017-05-19] MEDS ORDERED: ACETAMINOPHEN 325 MG TABLET (FP) PO PRN (14:24)
[2017-05-19] MEDS ORDERED: ALBUTEROL SO4 2.5/IPRATROPIUM 0.5 INH SOL 3 ML VIAL.NEB. NEB PRN (15:38)
[2017-05-19] MEDS ORDERED: ALBUTEROL SO4 0.083% IH SOL 2.5 MG/3 ML VIAL.NEB. NEB PRN (15:40)
[2017-05-19] MEDS ORDERED: FOSPHENYTOIN SODIUM 1,000 MG in SODIUM CHLORIDE 100 ML IVPB ONE (16:22)
[2017-05-19] MEDS ORDERED: ACETAMINOPHEN 1000 MG/100 ML VIAL (NON FORMULARY) IVPB ONE (16:25)
[2017-05-19] MEDS ORDERED: LORazepam 2 MG/ML SDV VIAL IVPUSH ONE (16:30)
--- NOTE | 2017-05-19 16:30 | RAPID ---
Physical Examination Vital Signs: Vital Signs Temperature 101 F H 05/19/17 14:26 Pulse Rate 93 H 05/19/17 14:26 Respiratory Rate 24 05/19/17 08:16 Blood Pressure 128/87 05/19/17 14:26 O2 Sat by Pulse Oximetry (%) 98 05/19/17 08:16 Constitutional: Yes: Diaphoresis Neurological: Yes: Seizure Labs: CBC, BMP 05/19/17 06:49 05/19/17 06:49 Rapid Response - Rapid Response Assessment: Summoned to patient's room by natural gas treating unit operator. Patient found in bed, on his left side , with generalized tonic-clonic movements of the upper body. Patient on NRB at 15L and satting 98 percent. According to MANAN Wood, patient started seizing at 15: 55. Patient given Diastat at 16:05. He continued to seize. At 16:05 given ativan 2mg IVP x 1 and seizure activity continued. Discussed with Dr. Cote, neurologist. Will give fosphenytoin 1000mg IVPB over 30 minutes, and then 200mg IVPB q12h. This will be in addition to all of the other anti-seizure medications patient receives. Seizure activity stopped at 16:45. Lasted 50 minutes. Patient maintained O2 sat >95% throughout. Will get cbc, cmp, Mg, Phos. Will get CXR. Tylenol IV 1g q6h scheduled Will broaden antibiotic coverage to Vanc and Zosyn. Suctioning. ID consult. Neuro consult. Transfer to ICU. Critical Care Total Critical Care Time (in minutes): 90 Critical Care Statement: The care of this patient involved high complexity decision making to prevent further life threatening deterioration of the patient 's condition and/or to evaluate & treat vital organ system(s) failure or risk of failure.
[2017-05-19] MEDS: methylPREDNISolone NA SUCC 40 MG/1 ML VIAL IVPUSH SCH ×2 (16:40→20:11)
[2017-05-19] MEDS ORDERED: VANCOMYCIN 1,000 MG in DEXTROSE 5%-WATER - 250 ML IVPB SCH (17:00)
[2017-05-19] MEDS: ACETAMINOPHEN 1000 MG/100 ML VIAL (NON FORMULARY) IVPB SCH (17:08)
--- NOTE | 2017-05-19 17:15 | PN ---
Progress Note (short form) - Note Progress Note: ID consult dictated imp/reccd 47 year old man with profound MR, CP, seizure disorder admitted with hypoxia cough and fever chest ct with bilateral nodular infiltrates treated with vancomycin/zosyn/levaquin in ED seen by cardiology for positive troponin today developed seizures intermittently lasting 45 minutes and is being transferred to ICU asked to see for management of pneumonia he is fed by aides, no GT status epilepticus pneumonia- ?aspiration d/c levaquin vanco/zosyn f/u cultures urinary antigens Problem List - Problems (1) Status epilepticus Code(s): G40.901 - EPILEPSY, UNSP, NOT INTRACTABLE, WITH STATUS EPILEPTICUS (2) Pneumonia Code(s): J18.9 - PNEUMONIA, UNSPECIFIED ORGANISM
[2017-05-19 17:34] LABS: ARTERIAL BLOOD GAS BASE EXCESS 0.3 meq/l (-2-2); ARTERIAL BLOOD GAS PCO2 68.4 mmHg (35-45); ARTERIAL BLOOD GAS pH 7.25 (7.35-7.45)
[2017-05-19 17:40] LABS: ALLENS TEST POSITIVE
[2017-05-19] MEDS: ALBUTEROL SO4 2.5/IPRATROPIUM 0.5 INH SOL 3 ML VIAL.NEB. NEB SCH ×2 (17:46→19:55)
[2017-05-19] MEDS ORDERED: PIPERACIL/TAZOB 3.375 GM 3.375 GM/50 ML PREMIX IVPB SCH (18:00)
[2017-05-19] MEDS ORDERED: PIPERACILLIN/TAZOB 3.375 GM 3.375 GM in DEXTROSE 5%-WATER - 50 ML IVPB SCH (18:00)
[2017-05-19] MEDS ORDERED: PIPERACILLIN/TAZOB 4.5 GM/100 ML PREMIX BAG IVPB SCH (18:00)
--- NOTE | 2017-05-19 18:49 | CONSULT ---
Consultation: REQUESTING PROVIDER: CONSULT REQUEST: We have been asked to medically evaluate this patient to monitor airway in post-ictal state. HISTORY OF PRESENT ILLNESS: 47M with PMH of seizure disorder, cerebral palsy, Factor VIII deficiency, profound intellectual disability, admitted from [facility] for sepsis 2/ 2 lung source (with non-productive cough, hypoxia (SpO2 to 80's), tachypnea and tachycardia). Today pt had status epilepticus (seizing for 50 minutes), and was transferred to ICU for airway monitoring in post-ictal state. REVIEW OF SYSTEMS: Pt is nonverbal. PHYSICAL EXAMINATION Vital Signs - 24 hr 05/18/17 05/18/17 05/18/17 18:37 19:18 19:26 Temperature 98 F Pulse Rate Pulse Rate [ 103 H Apical] Respiratory 26 H Rate Blood Pressure Blood Pressure 151/101 [Left Arm] O2 Sat by Pulse 95 100 Oximetry (%) 05/18/17 05/18/17 05/18/17 20:31 21:10 21:50 Temperature 99.5 F Pulse Rate 102 H Pulse Rate [ 106 H Apical] Respiratory 24 24 Rate Blood Pressure 153/98 Blood Pressure 148/109 [Left Arm] O2 Sat by Pulse 100 99 99 Oximetry (%) 05/19/17 05/19/17 05/19/17 00:34 02:45 03:42 Temperature 99.2 F Pulse Rate 104 H Pulse Rate [ Apical] Respiratory 24 Rate Blood Pressure 152/98 Blood Pressure [Left Arm] O2 Sat by Pulse 96 98 Oximetry (%) 05/19/17 05/19/17 05/19/17 06:00 06:06 07:58 Temperature 99.6 F Pulse Rate 101 H Pulse Rate [ Apical] Respiratory 24 Rate Blood Pressure 150/88 Blood Pressure [Left Arm] O2 Sat by Pulse 98 98 Oximetry (%) 05/19/17 05/19/17 05/19/17 08:10 08:16 14:26 Temperature 99.3 F 101 F H Pulse Rate 110 H 93 H Pulse Rate [ Apical] Respiratory 24 24 Rate Blood Pressure 149/87 128/87 Blood Pressure [Left Arm] O2 Sat by Pulse 98 Oximetry (%) GENERAL: post-ictal, eyes closed, diaphoretic. HEAD: Normal with no signs of trauma. EYES: SALLY. EARS, NOSE, THROAT: small amount of blood at Left nare. [facility] Aid at bedside said this is unchanged, and happens sometimes from the nasal cannula. LUNGS: Rhonchorous breath sounds, tachypneic. HEART: Regular rate and rhythm, normal S1 and S2 without murmur, rub or gallop. ABDOMEN: Soft, nontender, not distended, normoactive bowel sounds, no guarding. LOWER EXTREMITIES: Warm, well-perfused. No peripheral edema. NEUROLOGICAL: No facial droop. Unable to complete neuro exam as pt unable to follow commands or answer questions. Laboratory Results - last 24 hr 05/18/17 05/18/17 05/18/17 15:30 19:00 20:00 WBC RBC Hgb Hct MCV MCH MCHC RDW Plt Count MPV Neutrophils % Lymphocytes % Monocytes % Eosinophils % Basophils % Anticoagulation Therapy No Result Required. Puncture Site Right radial ABG pH 7.39 ABG pCO2 at Pt Temp 41.4 ABG pO2 at Pt Temp 96.7 D ABG HCO3 24.4 ABG O2 Sat (Measured) 97.4 ABG O2 Content 18.7 ABG Base Excess -0.1 Adrian Test Positive O2 Delivery Device Bipap Oxygen Flow Rate 30 Vent Mode No Result Required. Vent Rate No Result Required. Mechanical Rate No Result Required. Pressure Support Vent No Result Required. Sodium Potassium Chloride Carbon Dioxide Anion Gap BUN Creatinine Creat Clearance w eGFR Random Glucose Calcium Phosphorus Magnesium Total Bilirubin AST ALT Alkaline Phosphatase Troponin I 0.10 H D B-Natriuretic Peptide 48301.31 H Total Protein Albumin 05/19/17 05/19/17 05/19/17 06:49 06:49 17:10 WBC 9.3 RBC 4.51 Hgb 13.0 Hct 40.4 MCV 89.6 MCH 28.9 MCHC 32.2 RDW 17.9 H Plt Count 236 MPV 9.7 Neutrophils % 84.1 H Lymphocytes % 8.7 Monocytes % 6.2 Eosinophils % 0.7 D Basophils % 0.3 Anticoagulation Therapy No Result Required. Puncture Site ABG pH ABG pCO2 at Pt Temp ABG pO2 at Pt Temp ABG HCO3 ABG O2 Sat (Measured) ABG O2 Content ABG Base Excess Adrian Test O2 Delivery Device No Result Required. Oxygen Flow Rate No Result Required. Vent Mode No Result Required. Vent Rate No Result Required. Mechanical Rate No Result Required. Pressure Support Vent No Result Required. Sodium 149 H Potassium 3.9 Chloride 112 H Carbon Dioxide 30 Anion Gap 7 L BUN 9 D Creatinine 0.6 L D Creat Clearance w eGFR > 60 Random Glucose 71 L D Calcium 7.7 L Phosphorus 3.4 Magnesium 1.9 Total Bilirubin 0.2 D AST 21 ALT 28 Alkaline Phosphatase 112 Troponin I B-Natriuretic Peptide Total Protein 5.6 L Albumin 2.3 L Active Medications Generic Name Dose Route Start Last Admin Trade Name Freq PRN Reason Stop Dose Admin Acetaminophen 1,000 mg 05/19/17 17:00 05/19/17 17:08 Ofirmev Injection - IVPB 05/20/17 11:01 Not Given Q6H CATHERINE Albuterol Sulfate 1 amp 05/19/17 15:40 Ventolin 0.083% Nebulizer Soln - NEB Q4H PRN SHORT OF BREATH/WHEEZING Albuterol/Ipratropium 1 amp 05/19/17 16:00 Duoneb - NEB RQID CATHERINE Aspirin 81 mg 05/19/17 10:00 05/19/17 10:00 Asa - PO 81 mg DAILY CATHERINE Administration Carbamazepine 400 mg/ 600 mg 05/19/17 10:00 05/19/17 10:03 Carbamazepine 200 mg PO 600 mg BID CATHERINE Administration Chlorhexidine Gluconate 1 applic 05/19/17 22:00 Hibiclens For Decolonization - TP HS CATHERINE Diazepam 5 mg 05/18/17 18:00 05/19/17 16:38 Diastat Rectal Gel - RC 05/19/17 17:59 5 mg PRN PRN Administration SEIZURE Diphenhydramine HCl 25 mg 05/18/17 18:00 05/19/17 17:08 Benadryl Oral Solution - PO Not Given QID [facility] Fosphenytoin Sodium 200 mg 05/20/17 06:00 Cerebyx - IVPB Q12H [facility] Heparin Sodium (Porcine) 5,000 unit 05/18/17 22:00 05/19/17 13:13 Heparin - SQ 5,000 unit TID [facility] Administration Vancomycin HCl 1,000 mg/ 250 mls @ 250 mls/hr 05/19/17 17:00 Dextrose IVPB Q12H [facility] Protocol Piperacillin Sod/Tazobactam 100 mls @ 200 mls/hr 05/19/17 18:00 Sod 4.5 gm/ Dextrose IVPB Q8H-IV CATHERINE Lactulose 30 gm 05/18/17 15:15 05/19/17 13:13 Cephulac (Oral Use) PO 30 gm TID CATHERINE Administration Levetiracetam 1,000 mg 05/18/17 22:00 05/19/17 13:13 Keppra - PO 1,000 mg TID CATHERINE Administration Methylprednisolone Sodium Succinate 40 mg 05/19/17 14:45 05/19/17 16:40 Solu-Medrol - IVPUSH 40 mg Q8H-IV CATHERINE Administration Mupirocin 1 applic 05/19/17 22:00 Bactroban Ointment (For Decolonization) - NS 05/24/17 21:59 BID CATHERINE Non-Formulary Medication 1 tab 05/18/17 15:00 Lactase [Lactaid Fast Act] PO TID CATHERINE Non-Formulary Medication 1,400 mg 05/18/17 22:00 Rufinamide [Banzel] PO BID CATHERINE Phenobarbital 30 mg 05/18/17 22:00 05/18/17 23:11 Phenobarbital - PO 30 mg HS CATHERINE Administration Phenobarbital 60 mg 05/18/17 22:00 05/18/17 23:11 Phenobarbital - PO 60 mg HS CATHERINE Administration Senna 1 tab 05/18/17 22:00 05/19/17 10:00 Senna - PO 1 tab BID CATHERINE Administration Tamsulosin HCl 0.4 mg 05/19/17 08:30 05/19/17 10:01 Flomax - PO 0.4 mg 0830 CATHERINE Administration Zonisamide 500 mg 05/18/17 22:00 05/18/17 23:11 Zonegran - PO Not Given HS CATHERINE IMAGIN05/19/17 CXR -> Shallow inspiration with low lung volumes. Pulmonary vascular congestion has increased since prior study. Patchy ely airspace opacities, small Left pleural effusion with atelectasis vs consolidation in Left lung base , unchanged. 05/19/17 Echo -> Although wall motion not well visualized, Left ventricular systolic function appears grossly at least moderately reduced. No pericardial effusion. ASSESSMENT/PLAN: 47M with PMH of seizure disorder, cerebral palsy, Factor VIII deficiency, profound intellectual disability, admitted from [facility] for sepsis 2/ 2 pneumonia, and transferred to ICU s/p status epilepticus for 50 minutes on . # status epilepticus - monitor airway patency and O2 sat - continue O2 prn, currently on Venti mask 50% satting at 98% - pt given Diastat, Ativan, and Fosphenytoin during seizure - Fosphenytoin IVPB BID added - continue home meds of Carbamazepine, Keppra, Phenobarbital - continue Diazepam prn and Zonegran # pneumonia - f/u CXR results as above, showing low lung volumes, otherwise unchanged - IV antibiotics broadened to Vancomycin and Zosyn - ID Consult - continue suctioning prn - bipap contraindicated if pt remains unconscious, will continue to monitor - duoneb QID added - continue Albuterol and Solu-medrol # small pericardial effusion - Echo results as above, Left ventriclar systolic function moderately reduced - Lasix 40mg IVpush given today # FEN - Fluids: hold for diuresis - Electrolytes: hypernatremia noted, continue to monitor - Nutrition: npo # Prophylaxis - DVT ppx with Heparin TID Dispo: We will continue to follow the patient. Thank you for this consultative opportunity. <Charla Guzman - Last Filed: 05/19/17 18:54> Consultation: REQUESTING PROVIDER: CONSULT REQUEST: We have been asked to medically evaluate this patient for ( specify). HISTORY OF PRESENT ILLNESS: REVIEW OF SYSTEMS: CONSTITUTIONAL: Absent: fever, chills, diaphoresis, generalized weakness, malaise, loss of appetite, weight change HEENT: Absent: rhinorrhea, nasal congestion, throat pain, throat swelling, difficulty swallowing, mouth swelling, ear pain, eye pain, visual changes CARDIOVASCULAR: Absent: chest pain, syncope, palpitations, irregular heart rate, lightheadedness , peripheral edema RESPIRATORY: Absent: cough, shortness of breath, dyspnea with exertion, orthopnea, wheezing, stridor, hemoptysis GASTROINTESTINAL: Absent: abdominal pain, abdominal distension, nausea, vomiting, diarrhea, constipation, melena, hematochezia GENITOURINARY: Absent: dysuria, frequency, urgency, hesitancy, hematuria, flank pain, genital pain MUSCULOSKELETAL: Absent: myalgia, arthralgia, joint swelling, back pain, neck pain SKIN: Absent: rash, itching, pallor HEMATOLOGIC/IMMUNOLOGIC: Absent: easy bleeding, easy bruising, lymphadenopathy, frequent infections ENDOCRINE: Absent: unexplained weight gain, unexplained weight loss, heat intolerance, cold intolerance NEUROLOGIC: Absent: headache, focal weakness or paresthesias, dizziness, unsteady gait, seizure, mental status changes, bladder or bowel incontinence PSYCHIATRIC: Absent: anxiety, depression, suicidal or homicidal ideation, hallucinations. PHYSICAL EXAMINATION Vital Signs - 24 hr 05/19/17 05/19/17 05/19/17 18:15 18:30 20:00 Temperature 101 F H Pulse Rate 112 H 105 H Respiratory 26 H 28 H Rate Blood Pressure 163/95 148/72 O2 Sat by Pulse 97 Oximetry (%) 05/19/17 05/19/17 05/19/17 20:36 20:47 23:00 Temperature 99.3 F Pulse Rate 104 H Respiratory 26 H 28 H Rate Blood Pressure 141/79 O2 Sat by Pulse 100 98 Oximetry (%) 05/20/17 05/20/17 05/20/17 00:00 02:00 06:44 Temperature 100.7 F H 100.6 F H Pulse Rate 107 H 104 H 91 H Respiratory 26 H 26 H 26 H Rate Blood Pressure 155/82 150/89 144/79 O2 Sat by Pulse Oximetry (%) 05/20/17 05/20/17 05/20/17 08:00 08:30 10:00 Temperature 99 F 98.9 F Pulse Rate 97 H 96 H Respiratory 26 H 26 H 24 Rate Blood Pressure 129/94 130/76 O2 Sat by Pulse 98 Oximetry (%) 05/20/17 12:00 Temperature Pulse Rate 96 H Respiratory 24 Rate Blood Pressure 131/68 O2 Sat by Pulse Oximetry (%) GENERAL: Awake, alert, and fully oriented, in no acute distress. HEAD: Normal with no signs of trauma. EYES: Pupils equal, round and reactive to light, extraocular movements intact, sclera anicteric, conjunctiva clear. No lid lag. EARS, NOSE, THROAT: Ears normal, nares patent, oropharynx clear without exudates. Moist mucous membranes. NECK: Normal range of motion, supple without lymphadenopathy, JVD, or masses. LUNGS: Breath sounds equal, clear to auscultation bilaterally. No wheezes, and no crackles. No accessory muscle use. HEART: Regular rate and rhythm, normal S1 and S2 without murmur, rub or gallop. ABDOMEN: Soft, nontender, not distended, normoactive bowel sounds, no guarding, no rebound, no masses. No hepatomegaly or splenomegaly. MUSCULOSKELETAL: Normal range of motion at all joints. No bony deformities or tenderness. No CVA tenderness. UPPER EXTREMITIES: 2+ pulses, warm, well-perfused. No cyanosis. No clubbing. Cap refill <2 seconds. No peripheral edema. LOWER EXTREMITIES: 2+ pulses, warm, well-perfused. No calf tenderness. No peripheral edema. NEUROLOGICAL: Cranial nerves II-XII intact. Normal speech. Normal gait. PSYCHIATRIC: Cooperative. Good eye contact. Appropriate mood and affect. SKIN: Warm, dry, normal turgor, no rashes or lesions noted. Laboratory Results - last 24 hr 05/19/17 05/19/17 05/19/17 17:10 18:30 18:30 WBC 8.4 RBC 4.64 Hgb 13.5 Hct 42.1 MCV 90.7 MCH 29.1 MCHC 32.1 RDW 17.9 H Plt Count 264 MPV 9.3 Neutrophils % 79.3 Lymphocytes % 13.0 D Monocytes % 7.1 Eosinophils % 0.3 Basophils % 0.3 Anticoagulation Therapy No Result Required. Puncture Site Left radial ABG pH 7.25 L ABG pCO2 at Pt Temp 68.4 H* D ABG pO2 at Pt Temp 109.0 H ABG HCO3 29.0 H ABG O2 Sat (Measured) 97.0 ABG O2 Content 18.9 ABG Base Excess 0.3 Adrian Test Positive O2 Delivery Device No Result Required. Oxygen Flow Rate Yes Vent Mode No Result Required. Vent Rate No Result Required. Mechanical Rate No Result Required. Pressure Support Vent No Result Required. Sodium 156 H Potassium 4.1 Chloride 120 H Carbon Dioxide 29 Anion Gap 7 L BUN 12 D Creatinine 0.9 D Creat Clearance w eGFR > 60 Random Glucose 76 Calcium 8.3 L Magnesium Total Bilirubin 0.2 AST 35 D ALT 38 D Alkaline Phosphatase 128 H Total Protein 6.2 L Albumin 2.5 L Phenytoin Carbamazepine 05/19/17 05/20/17 05/20/17 19:30 05:55 05:55 WBC 10.3 H RBC 4.38 Hgb 13.1 Hct 39.6 MCV 90.3 MCH 29.9 MCHC 33.1 RDW 18.0 H Plt Count 263 MPV 9.3 Neutrophils % 85.7 H Lymphocytes % 8.7 D Monocytes % 5.4 Eosinophils % 0.0 D Basophils % 0.2 Anticoagulation Therapy No Result Required. Puncture Site Right radial ABG pH 7.33 L ABG pCO2 at Pt Temp 52.0 H D ABG pO2 at Pt Temp 89.4 ABG HCO3 26.7 H ABG O2 Sat (Measured) 96.3 ABG O2 Content 19.6 ABG Base Excess 0.4 Adrian Test Positive O2 Delivery Device Ventimask Oxygen Flow Rate Fio2 50% Vent Mode No Result Required. Vent Rate No Result Required. Mechanical Rate No Result Required. Pressure Support Vent No Result Required. Sodium 156 H Potassium 4.0 Chloride 118 H Carbon Dioxide 28 Anion Gap 10 BUN 15 D Creatinine 0.8 Creat Clearance w eGFR Random Glucose 68 L Calcium 8.3 L Magnesium 2.4 D Total Bilirubin AST ALT Alkaline Phosphatase Total Protein Albumin Phenytoin Carbamazepine 05/20/17 05:55 WBC RBC Hgb Hct MCV MCH MCHC RDW Plt Count MPV Neutrophils % Lymphocytes % Monocytes % Eosinophils % Basophils % Anticoagulation Therapy Puncture Site ABG pH ABG pCO2 at Pt Temp ABG pO2 at Pt Temp ABG HCO3 ABG O2 Sat (Measured) ABG O2 Content ABG Base Excess Adrian Test O2 Delivery Device Oxygen Flow Rate Vent Mode Vent Rate Mechanical Rate Pressure Support Vent Sodium Potassium Chloride Carbon Dioxide Anion Gap BUN Creatinine Creat Clearance w eGFR Random Glucose Calcium Magnesium Total Bilirubin AST ALT Alkaline Phosphatase Total Protein Albumin Phenytoin < 2.5 L Carbamazepine 4.8 Active Medications Generic Name Dose Route Start Last Admin Trade Name Freq PRN Reason Stop Dose Admin Albuterol Sulfate 1 amp 05/20/17 08:46 Ventolin 0.083% Nebulizer Soln - NEB Q4H PRN SHORT OF BREATH/WHEEZING Albuterol/Ipratropium 1 amp 05/20/17 12:00 05/20/17 12:09 Duoneb - NEB 1 amp RQID CATHERINE Administration Aspirin 81 mg 05/20/17 10:00 05/20/17 10:33 Asa - PO 81 mg DAILY CATHERINE Administration Carbamazepine 400 mg/ 600 mg 05/20/17 10:00 05/20/17 10:35 Carbamazepine 200 mg PO 600 mg BID CATHERINE Administration Chlorhexidine Gluconate 1 applic 05/19/17 22:00 05/19/17 21:35 Hibiclens For Decolonization - TP 1 applic HS CATHERINE Administration Diphenhydramine HCl 25 mg 05/20/17 10:00 05/20/17 14:17 Benadryl Oral Solution - PO 25 mg QID CATHERINE Administration Fosphenytoin Sodium 200 mg 05/20/17 06:00 05/20/17 08:30 Cerebyx - IVPB 200 mg Q12H CATHERINE Administration Heparin Sodium (Porcine) 5,000 unit 05/20/17 14:00 05/20/17 14:18 Heparin - SQ 5,000 unit TID CATHERINE Administration Piperacillin Sod/Tazobactam 100 mls @ 200 mls/hr 05/19/17 18:00 05/20/17 13: 21 Sod 4.5 gm/ Dextrose IVPB 200 mls/hr Q8H-IV CATHERINE Administration Dextrose 1,000 mls @ 42 mls/hr 05/20/17 01:45 05/20/17 01:00 D5w - IV 42 mls/hr ASDIR CATHERINE Administration Lactulose 30 gm 05/20/17 14:00 05/20/17 14:17 Cephulac (Oral Use) PO 30 gm TID CATHERINE Administration Levetiracetam 1,000 mg 05/19/17 22:00 05/20/17 14:18 Keppra Injection - IVPB 1,000 mg TID CATHERINE Administration Methylprednisolone Sodium Succinate 40 mg 05/20/17 10:00 05/20/17 10:33 Solu-Medrol - IVPUSH 40 mg Q8H-IV CATHERINE Administration Mupirocin 1 applic 05/19/17 22:00 05/20/17 10:33 Bactroban Ointment (For Decolonization) - NS 05/24/17 21:59 1 applic BID CATHERINE Administration Non-Formulary Medication 1 tab 05/20/17 14:00 Lactase [Lactaid Fast Act] PO TID CATHERINE Non-Formulary Medication 1,400 mg 05/20/17 10:00 Rufinamide [Banzel] PO BID CATHERINE Phenobarbital 90 mg 05/19/17 22:00 05/20/17 00:10 Phenobarbital Injection - IV 90 mg HS CATHERINE Administration Senna 1 tab 05/20/17 10:00 05/20/17 10:32 Senna - PO 1 tab BID CATHERINE Administration Tamsulosin HCl 0.4 mg 05/21/17 08:30 Flomax - PO 0830 CATHERINE Zonisamide 500 mg 05/20/17 22:00 Zonegran - PO HS CATHERINE ASSESSMENT/PLAN: Dispo: We will continue to follow the patient. Thank you for this consultative opportunity. <Christel Cote - Last Filed: 05/20/17 14:49> Visit type - Emergency Visit Emergency Visit: Yes ED Registration Date: 05/18/17 Care time: The patient presented to the Emergency Department on the above date and was hospitalized for further evaluation of their emergent condition. - New Patient This patient is new to me today: Yes Date on this admission: 05/19/17 - Critical Care Critical Care patient: Yes Total Critical Care Time (in minutes): 45 Critical Care Statement: The care of this patient involved high complexity decision making to prevent further life threatening deterioration of the patient 's condition and/or to evaluate & treat vital organ system(s) failure or risk of failure. <Charla Guzman - Last Filed: 05/19/17 18:54>
[2017-05-19 18:55] LABS: BASO % 0.3 % (0-2.0); EOS % 0.3 % (0-4.5); HEMATOCRIT 42.1 % (35.4-49); HEMOGLOBIN 13.5 GM/dL (11.7-16.9); MCH 29.1 pg (25.7-33.7); MCHC 32.1 g/dl (32.0-35.9); MEAN CELL VOLUME 90.7 fl (80-96); MEAN PLT VOLUME 9.3 fl (7.5-11.1); MONO % 7.1 % (3.8-10.2); NEUT % 79.3 % (42.8-82.8); PLATELET COUNT 264 K/MM3 (134-434); RBC 4.64 M/mm3 (4.00-5.60); RDW 17.9 % (11.9-15.9); WHITE BLOOD COUNT 8.4 K/mm3 (4.0-10.0)
[2017-05-19 20:11] LABS: ARTERIAL BLD GAS O2 SATURATION 96.3 % (90-98.9); ARTERIAL BLOOD GAS BASE EXCESS 0.4 meq/l (-2-2); ARTERIAL BLOOD GAS PO2 89.4 mmHg (80-100); ARTERIAL BLOOD GAS pH 7.33 (7.35-7.45)
[2017-05-19 20:13] LABS: ALLENS TEST POSITIVE
[2017-05-19] MEDS: VANCOMYCIN 1,000 MG in DEXTROSE 5%-WATER - 250 ML IVPB SCH (20:24)
[2017-05-19 20:27] LABS: ALBUMIN 2.5 g/dl (3.4-5.0); ANION GAP 7 (8-16); BLOOD UREA NITROGEN 12 mg/dL (7-18); CALCIUM 8.3 mg/dL (8.5-10.1); CHLORIDE 120 mmol/L (98-107); CO2 29 mmol/L (21-32); CREATININE 0.9 mg/dL (0.7-1.3); GLUCOSE,RANDOM 76 mg/dL (74-106); POTASSIUM 4.1 mmol/L (3.5-5.1); SGOT/AST 35 U/L (15-37); SODIUM 156 mmol/L (136-145)
[2017-05-19 20:41] LABS: ALK PHOS 128 U/L (45-117); BILIRUBIN,TOTAL 0.2 mg/dL (0.2-1.0); SGPT/ALT 38 U/L (12-78); TOT PROT 6.2 g/dl (6.4-8.2)
--- NOTE | 2017-05-19 21:12 | CONS ---
INFECTIOUS DISEASE CONSULTATION DATE OF CONSULTATION: DATE OF DICTATION: 05/19/2017 REQUESTING PHYSICIAN: The hospitalist service. This is a 47-year-old man from the [facility]. He was admitted yesterday from the [facility] with complaints of nonproductive cough, hypoxia, and tachycardia. He had apparently had a progressive cough there for the last 2 days. At baseline, he is alert but is generally nonresponsive. He has a history of cerebral palsy, profound mental retardation, and seizure disorder. He was admitted via the emergency room. He received fluids and antibiotics. He had a low-grade fever of 99.8. He was given a dose of vancomycin, Zosyn, and Levaquin in the emergency room and admitted on Levaquin. This afternoon, he had a fever of 101. He had generalized seizures that were prolonged. Per the aide from the [facility] [place], he does occasionally have seizures. He has seen him have seizures in the past, but it is unclear how often. He says it is not very often and definitely not monthly. MEDICATIONS AT THE LONG TERM: Include testosterone, oxycodone, phenobarbital, Diastat, Keppra, Banzel, carbamazepine, vitamin D3, multivitamins, tamsulosin, Lactaid, diphenhydramine, lactulose, fish oil, senna. PAST MEDICAL HISTORY: Notable for infantile cerebral palsy, seizure disorder, congenital scoliosis, mild myopia. Apparently, he has a history of factor VIII deficiency. He has had a left femoral neck fracture repair. ALLERGIES: He has no known drug allergies. SOCIAL HISTORY: He resides at the [facility]. There is no smoking or illicit drug use. FAMILY HISTORY: Not available. REVIEW OF SYSTEMS: As well, not obtainable. PHYSICAL EXAMINATION: General: He has a moist cough. Vital Signs: His T-max is 101. Pulse is 93, blood pressure 128/87. He is on a nonrebreather mask, saturating 98%. HEENT: He is normocephalic. Eyes are anicteric. Lungs: He has bilateral rhonchi. Heart: Regular rate and rhythm. Abdomen: Soft, nontender. Extremities: Without edema. DIAGNOSTIC DATA: His white count on admission was 11, this morning is 9.3; platelets are 236. BUN is 9 and creatinine 0.6. Liver function tests are normal. He has positive troponins of 0.10. Urinalysis is negative. Cultures are pending. Influenza screen is negative. CAT scan of his chest was done in the emergency room and shows bilateral pulmonary infiltrates, patchy nodular infiltrates in both lungs; very small left pleural effusion with cardiomegaly. In summary, this is a 47-year-old man from the [facility] with cerebral palsy, profound mental retardation, seizure disorder, admitted for pneumonia, who now has status and has been sedated with benzodiazepines and is to be transferred to the ICU. I am asked to see him for management of pneumonia. As well, he could have aspiration given the fevers. Would recommend switching him to vancomycin and Zosyn at this time. Would stop his Levaquin. Cultures have been sent and are pending. Would send urinary antigens as well for completion; it can sometimes help us make a diagnosis. Would follow up his cultures and make further recommendations. He should have a followup chest x-ray tomorrow. Of note, he is being followed by Cardiology for positive troponins. He is to be seen by Neurology as well. Further recommendations to follow. I discussed his case with the hospitalist. The ICU has been called to evaluate for ICU admission. TYSHAWN PATRICK M.D. [id number]
--- NOTE | 2017-05-19 21:20 | CONSULT ---
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 Noted to have BUL opacities on CXR. Admitted and being treated for HCAP with Zosyn and Vanco m/l 2/2 to aspiration pneumonitis. Cardiology consulted for + troponins m/l demand ischemia in setting of SOB and tachycardia. Also noted to have a BNP>11,000. While on the floor [employer] called for seizure. Found to be in status epilepticus resistant to ativan doses. Neuro consulted and loaded with fosphenytoin 1G. Seizure resolved after ~50mins. He is now transferred to ICU for continued treatment. In ICU non verbal, with some labored breathing, O2 sat 99% on 50% venti-mask, BP 148/72, HR 105. Rhonchorous breath sounds, no cough. 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, seizures) - Alcohol/Substance Use Hx Alcohol Use: No - Smoking History Smoking history: Never smoked Home Medications - Allergies Allergies/Adverse Reactions: Allergies Allergy/AdvReac Type Severity Reaction Status Date / Time No Known Allergies Allergy Verified 05/18/17 12:02 - Home Medications Home Medications: Ambulatory Orders Carbamazepine [Carbamazepine ER] 300 mg PO Q12H 05/18/17 Cholecalciferol (Vitamin D3) [Vitamin D3] 2,000 unit PO BID 05/18/17 Diphenhydramine [Benadryl Oral Solution -] 10 ml PO Q6H 05/18/17 Lactase [Lactaid Fast Act] 1 tab PO TID 05/18/17 Lactulose 30 ml PO TID 05/18/17 Levetiracetam 1,000 mg PO TID 05/18/17 Multivitamins [Tab-A-Vit -] 1 tab PO DAILY 05/18/17 Berkey-3S/Dha/Epa/Fish Oil [Fish Oil Berkey-3 Softgel] 1 each PO BID 05/18/17 Phenobarbital 32.4 mg PO HS 05/18/17 Phenobarbital 64.8 mg PO HS 05/18/17 Rufinamide [Banzel] 200 mg PO BID 05/18/17 Sennosides [Senna] 8.6 mg PO BID 05/18/17 Tamsulosin HCl [Flomax] 0.4 mg PO HS 05/18/17 Family Disease History - Family Disease History Family History: Unable to Obtain Review of Systems Unable to obtain ROS, reason: Unable- non-verbal Physical Exam Vital Signs: Vital Signs Temperature 101 F H 05/19/17 18:15 Pulse Rate 112 H 05/19/17 18:15 Respiratory Rate 26 H 05/19/17 20:36 Blood Pressure 163/95 05/19/17 18:15 O2 Sat by Pulse Oximetry (%) 98 05/19/17 20:47 Intake & Output 05/16/17 05/17/17 05/18/17 05/19/17 23:59 23:59 23:59 23:59 Intake Total 470 Balance 470 Weight 58.967 kg Constitutional: Yes: Well Nourished, Mild Distress Eyes: Yes: Conjunctiva Clear, PERRL HENT: Yes: Atraumatic Neck: Yes: Trachea Midline Cardiovascular: Yes: Tachycardia, S1, S2 Respiratory: Yes: On Venti-Mask, Rhonchi Gastrointestinal: Yes: Normal Bowel Sounds, Soft, Abdomen, Obese Renal/: Yes: Incontinence Extremities: Yes: Deformity, Other (Warm) Edema: No Peripheral Pulses WNL: Yes Neurological: Yes: Other (Grimaces and grunts with stimulation) Labs: CBC, BMP 05/19/17 18:30 05/19/17 18:30 CBC,CMP WBC 8.4 K/mm3 (4.0-10.0) 05/19/17 18:30 RBC 4.64 M/mm3 (4.00-5.60) 05/19/17 18:30 Hgb 13.5 GM/dL (11.7-16.9) 05/19/17 18:30 Hct 42.1 % (35.4-49) 05/19/17 18:30 MCV 90.7 fl (80-96) 05/19/17 18:30 MCH 29.1 pg (25.7-33.7) 05/19/17 18:30 MCHC 32.1 g/dl (32.0-35.9) 05/19/17 18:30 RDW 17.9 % (11.9-15.9) H 05/19/17 18:30 Plt Count 264 K/MM3 (134-434) 05/19/17 18:30 MPV 9.3 fl (7.5-11.1) 05/19/17 18:30 Neutrophils % 79.3 % (42.8-82.8) 05/19/17 18:30 Lymphocytes % 13.0 % (8-40) D 05/19/17 18:30 Monocytes % 7.1 % (3.8-10.2) 05/19/17 18:30 Eosinophils % 0.3 % (0-4.5) 05/19/17 18:30 Basophils % 0.3 % (0-2.0) 05/19/17 18:30 Sodium 156 mmol/L (136-145) H 05/19/17 18:30 Potassium 4.1 mmol/L (3.5-5.1) 05/19/17 18:30 Chloride 120 mmol/L (98-107) H 05/19/17 18:30 Carbon Dioxide 29 mmol/L (21-32) 05/19/17 18:30 Anion Gap 7 (8-16) L 05/19/17 18:30 BUN 12 mg/dL (7-18) D 05/19/17 18:30 Creatinine 0.9 mg/dL (0.7-1.3) D 05/19/17 18:30 Creat Clearance w eGFR > 60 (>60) 05/19/17 18:30 Random Glucose 76 mg/dL (74-106) 05/19/17 18:30 Lactic Acid 1.3 mmol/L (0.0-2.0) 05/18/17 13:20 Calcium 8.3 mg/dL (8.5-10.1) L 05/19/17 18:30 Phosphorus 3.4 mg/dL (2.5-4.9) 05/19/17 06:49 Magnesium 1.9 mg/dL (1.8-2.4) 05/19/17 06:49 Total Bilirubin 0.2 mg/dL (0.2-1.0) 05/19/17 18:30 AST 35 U/L (15-37) D 05/19/17 18:30 ALT 38 U/L (12-78) D 05/19/17 18:30 Alkaline Phosphatase 128 U/L (45-117) H 05/19/17 18:30 Creatine Kinase 109 IU/L (39-308) 05/18/17 13:20 Troponin I 0.10 ng/ml (0.00-0.05) H D 05/18/17 20:00 B-Natriuretic Peptide 56969.31 pg/ml (5-125) H 05/18/17 15:30 Total Protein 6.2 g/dl (6.4-8.2) L 05/19/17 18:30 Albumin 2.5 g/dl (3.4-5.0) L 05/19/17 18:30 Current Medications Acetaminophen (Ofirmev Injection -) 1,000 mg IVPB Q6H [facility] Stop: 05/20/17 11:01 Last Admin: 05/19/17 17:08 Dose: Not Given Albuterol Sulfate (Ventolin 0.083% Nebulizer Soln -) 1 amp NEB Q4H PRN PRN Reason: SHORT OF BREATH/WHEEZING Albuterol/Ipratropium (Duoneb -) 1 amp NEB RQID [facility] Last Admin: 05/19/17 19:55 Dose: 1 amp Aspirin (Asa -) 81 mg PO DAILY [facility] Last Admin: 05/19/17 10:00 Dose: 81 mg Carbamazepine 400 mg/ (Carbamazepine 200 mg) 600 mg PO BID [facility] Last Admin: 05/19/17 10:03 Dose: 600 mg Chlorhexidine Gluconate (Hibiclens For Decolonization -) 1 applic TP HS [facility] Last Admin: 05/19/17 21:35 Dose: 1 applic Diphenhydramine HCl (Benadryl Oral Solution -) 25 mg PO QID [facility] Last Admin: 05/19/17 17:08 Dose: Not Given Fosphenytoin Sodium (Cerebyx -) 200 mg IVPB Q12H [facility] Heparin Sodium (Porcine) (Heparin -) 5,000 unit SQ TID [facility] Last Admin: 05/19/17 13:13 Dose: 5,000 unit Vancomycin HCl 1,000 mg/ (Dextrose) 250 mls @ 250 mls/hr IVPB Q12H [facility] PRN Reason: Protocol Last Admin: 05/19/17 20:24 Dose: 250 mls/hr Piperacillin Sod/Tazobactam (Sod 4.5 gm/ Dextrose) 100 mls @ 200 mls/hr IVPB Q8H-IV [facility] Last Admin: 05/19/17 21:34 Dose: 200 mls/hr Lactulose (Cephulac (Oral Use)) 30 gm PO TID [facility] Last Admin: 05/19/17 13:13 Dose: 30 gm Levetiracetam (Keppra Injection -) 1,000 mg IVPB TID [facility] Methylprednisolone Sodium Succinate (Solu-Medrol -) 40 mg IVPUSH Q8H-IV [facility] Last Admin: 05/19/17 20:11 Dose: 40 mg Mupirocin (Bactroban Ointment (For Decolonization) -) 1 applic NS BID [facility] Stop: 05/24/17 21:59 Last Admin: 05/19/17 21:34 Dose: 1 applic Non-Formulary Medication (Lactase [Lactaid Fast Act]) 1 tab PO TID [facility] Non-Formulary Medication (Rufinamide [Banzel]) 1,400 mg PO BID [facility] Phenobarbital (Phenobarbital Injection -) 90 mg IV HS [facility] Senna (Senna -) 1 tab PO BID [facility] Last Admin: 05/19/17 10:00 Dose: 1 tab Tamsulosin HCl (Flomax -) 0.4 mg PO 0830 [facility] Last Admin: 05/19/17 10:01 Dose: 0.4 mg Zonisamide (Zonegran -) 500 mg PO [facility] Last Admin: 05/18/17 23:11 Dose: Not Given Imaging - Results Chest X-ray: Report Reviewed Problem List - Problems (1) Pneumonia Code(s): J18.9 - PNEUMONIA, UNSPECIFIED ORGANISM (2) Shortness of breath Code(s): R06.02 - SHORTNESS OF BREATH (3) Status epilepticus Code(s): G40.901 - EPILEPSY, UNSP, NOT INTRACTABLE, WITH STATUS EPILEPTICUS Assessment/Plan 47yom with PMHx of cerebral palsy,seizure disorder, profound intellectual disability, Factor VIII deficiency admitted with hypoxic respiratory dysfunction m/l d/t HCAP+/- aspiration pneumonitis hospital course c/b episode of status epilepticus lasting ~50mins. Plan: -O2 support for o2sat>92% -Regular CPT and pulm toilet -Aspiration precautions -Continue antibiotics for empiric HCAP coverage Zosyn and vanco -Consider Azithro for atypicals -f/u cultures -Trend lactate -lasix diuresis for possible CHF -Demand ischemia- trend troponin -Monitor UOP and BMP -Hypernatremia-calculated free water deficit; D5W repletion -Continue anti epileptics as IV dosing -NPO -DVT prophylaxis Jeanne Calles, RAFAELAP CC time 35mins
[2017-05-19] MEDS: MUPIROCIN 2% TOPICAL OINTMENT FOR DECOLONIZATION NS SCH (21:34)
[2017-05-19] MEDS: PIPERACILLIN/TAZOB 4.5 GM 4.5 GM in DEXTROSE 5%-WATER 100 ML IVPB SCH (21:34)
[2017-05-19] MEDS ORDERED: CHLORHEXIDINE GLUCONATE 4% CLEANSER FOR DECOLONIZATION TP SCH (22:00)
[2017-05-19] MEDS ORDERED: VANCOMYCIN 1,250 MG in DEXTROSE 5%-WATER - 250 ML IVPB ONE (22:00)
[2017-05-19] MEDS ORDERED: VANCOMYCIN 1,250 MG in DEXTROSE 5%-WATER - 250 ML IVPB SCH (22:00)
[2017-05-19] MEDS ORDERED: PHENobarbital SODIUM 130 MG/1 ML VIAL IV SCH (22:00)
[2017-05-19] MEDS: ZONISAMIDE 100 MG CAPSULE PO SCH (22:31)
[2017-05-19] MEDS: levETIRAcetam 500 MG/5 ML INJECTION VIAL IVPB SCH (23:45)
[2017-05-20] MEDS: ACETAMINOPHEN 1000 MG/100 ML VIAL (NON FORMULARY) IVPB SCH ×3 (01:14→11:05)
[2017-05-20] MEDS: PIPERACILLIN/TAZOB 4.5 GM 4.5 GM in DEXTROSE 5%-WATER 100 ML IVPB SCH ×3 (01:32→19:36)
[2017-05-20] MEDS: methylPREDNISolone NA SUCC 40 MG/1 ML VIAL IVPUSH SCH ×2 (01:32→19:36)
[2017-05-20] MEDS ORDERED: DEXTROSE 5%-WATER - 1,000 ML IV SCH ×3 (01:45→19:00)
[2017-05-20] MEDS ORDERED: FOSPHENYTOIN SODIUM 100 MG/2 ML VIAL IVPB SCH (06:00)
[2017-05-20 06:35] LABS: BASO % 0.2 % (0-2.0); HEMATOCRIT 39.6 % (35.4-49); HEMOGLOBIN 13.1 GM/dL (11.7-16.9); LYMPH % 8.7 % (8-40); MCH 29.9 pg (25.7-33.7); MCHC 33.1 g/dl (32.0-35.9); MEAN CELL VOLUME 90.3 fl (80-96); MEAN PLT VOLUME 9.3 fl (7.5-11.1); MONO % 5.4 % (3.8-10.2); NEUT % 85.7 % (42.8-82.8); PLATELET COUNT 263 K/MM3 (134-434); RBC 4.38 M/mm3 (4.00-5.60); WHITE BLOOD COUNT 10.3 K/mm3 (4.0-10.0)
[2017-05-20] MEDS: VANCOMYCIN 1,000 MG in DEXTROSE 5%-WATER - 250 ML IVPB SCH (06:48)
[2017-05-20] MEDS: HEPARIN NA (PORCINE) 5,000 UNITS/ML 1ML VIAL SQ SCH ×2 (06:49→21:59)
[2017-05-20] MEDS: LACTULOSE 20 GM/30 ML UDC (FOR ORAL USE ONLY) PO SCH ×2 (06:49→21:59)
--- NOTE | 2017-05-20 06:51 | PN ---
Progress Note, Physician Chief Complaint: ID Vancomycin and Zosyn day 1 Fever noted - Current Medication List Current Medications: Active Medications Acetaminophen (Ofirmev Injection -) 1,000 mg IVPB Q6H [facility] Stop: 05/20/17 11:01 Last Admin: 05/20/17 06:35 Dose: 1,000 mg Albuterol Sulfate (Ventolin 0.083% Nebulizer Soln -) 1 amp NEB Q4H PRN PRN Reason: SHORT OF BREATH/WHEEZING Albuterol/Ipratropium (Duoneb -) 1 amp NEB RQID [facility] Last Admin: 05/19/17 19:55 Dose: 1 amp Aspirin (Asa -) 81 mg PO DAILY [facility] Last Admin: 05/19/17 10:00 Dose: 81 mg Carbamazepine 400 mg/ (Carbamazepine 200 mg) 600 mg PO BID [facility] Last Admin: 05/19/17 22:31 Dose: Not Given Chlorhexidine Gluconate (Hibiclens For Decolonization -) 1 applic TP HS [facility] Last Admin: 05/19/17 21:35 Dose: 1 applic Diphenhydramine HCl (Benadryl Oral Solution -) 25 mg PO QID [facility] Last Admin: 05/19/17 22:31 Dose: Not Given Fosphenytoin Sodium (Cerebyx -) 200 mg IVPB Q12H [facility] Heparin Sodium (Porcine) (Heparin -) 5,000 unit SQ TID [facility] Last Admin: 05/19/17 23:08 Dose: 5,000 unit Vancomycin HCl 1,000 mg/ (Dextrose) 250 mls @ 250 mls/hr IVPB Q12H [facility] PRN Reason: Protocol Last Admin: 05/19/17 20:24 Dose: 250 mls/hr Piperacillin Sod/Tazobactam (Sod 4.5 gm/ Dextrose) 100 mls @ 200 mls/hr IVPB Q8H-IV [facility] Last Admin: 05/20/17 01:32 Dose: 200 mls/hr Dextrose (D5w -) 1,000 mls @ 42 mls/hr IV [facility] Last Admin: 05/20/17 01:00 Dose: 42 mls/hr Lactulose (Cephulac (Oral Use)) 30 gm PO TID [facility] Last Admin: 05/19/17 22:31 Dose: Not Given Levetiracetam (Keppra Injection -) 1,000 mg IVPB TID [facility] Last Admin: 05/19/17 23:45 Dose: 1,000 mg Methylprednisolone Sodium Succinate (Solu-Medrol -) 40 mg IVPUSH Q8H-IV [facility] Last Admin: 05/20/17 01:32 Dose: 40 mg Mupirocin (Bactroban Ointment (For Decolonization) -) 1 applic NS BID [facility] Stop: 05/24/17 21:59 Last Admin: 05/19/17 21:34 Dose: 1 applic Non-Formulary Medication (Lactase [Lactaid Fast Act]) 1 tab PO TID [facility] Non-Formulary Medication (Rufinamide [Banzel]) 1,400 mg PO BID [facility] Phenobarbital (Phenobarbital Injection -) 90 mg IV [facility] Last Admin: 05/20/17 00:10 Dose: 90 mg Senna (Senna -) 1 tab PO BID [facility] Last Admin: 05/19/17 22:31 Dose: Not Given Tamsulosin HCl (Flomax -) 0.4 mg PO 0830 [facility] Last Admin: 05/19/17 10:01 Dose: 0.4 mg Zonisamide (Zonegran -) 500 mg PO [facility] Last Admin: 05/19/17 22:31 Dose: Not Given - Objective Vital Signs: Vital Signs Temperature 100.6 F H 05/20/17 06:44 Pulse Rate 91 H 05/20/17 06:44 Respiratory Rate 26 H 05/20/17 06:44 Blood Pressure 144/79 05/20/17 06:44 O2 Sat by Pulse Oximetry (%) 98 05/19/17 20:47 Constitutional: Yes: Mild Distress Cardiovascular: Yes: S1, S2 Respiratory: Yes: WNL, Regular, CTA Bilaterally, Tachypnea Gastrointestinal: Yes: Soft. No: Tenderness Edema: No Labs: INR, PTT INR 1.15 (0.82-1.09) H 05/18/17 10:15 Assessment/Plan Microbiology 05/18/17 11:20 Urine - Urine Clean Catch Urine Culture - Final NO GROWTH OBTAINED 05/18/17 10:22 Nasopharyngeal Swab Influenza Types A,B Antigen (NELSY) - Final 05/18/17 10:22 Nasopharyngeal Swab - Final 05/18/17 09:57 Blood - Peripheral Venous Blood Culture - Preliminary NO GROWTH OBTAINED AFTER 24 HOURS, INCUBATION TO CONTINUE FOR 4 DAYS. 05/18/17 09:57 Blood - Peripheral Venous Blood Culture - Preliminary NO GROWTH OBTAINED AFTER 24 HOURS, INCUBATION TO CONTINUE FOR 4 DAYS. Laboratory Tests 05/19/17 05/19/17 05/19/17 18:30 18:30 19:30 WBC 8.4 Hgb Plt Count 264 ABG pH 7.33 L ABG pCO2 at Pt Temp 52.0 H D ABG pO2 at Pt Temp 89.4 Oxygen Flow Rate Fio2 50% BUN 12 D Creatinine 0.9 D 05/20/17 05:55 WBC Pending Hgb Pending Plt Count Pending ABG pH ABG pCO2 at Pt Temp ABG pO2 at Pt Temp Oxygen Flow Rate BUN Creatinine Assesment Seizures Status epilepiticus Pneumonia ? aspiration Respiratory failure Cerebral palsy Plan Stop vanomycin and continue Zosyn as ordered Gita Pelayo MD
[2017-05-20 06:59] LABS: CHLORIDE 118 mmol/L (98-107); SODIUM 156 mmol/L (136-145)
[2017-05-20 07:04] LABS: ANION GAP 10 (8-16); BLOOD UREA NITROGEN 15 mg/dL (7-18); CALCIUM 8.3 mg/dL (8.5-10.1); CO2 28 mmol/L (21-32); CREATININE 0.8 mg/dL (0.7-1.3); GLUCOSE,RANDOM 68 mg/dL (74-106); MAGNESIUM 2.4 mg/dL (1.8-2.4)
[2017-05-20 07:14] LABS: CARBAMAZEPINE (TEGRETOL) 4.8 ug/ml (4.0-12.0); PHENYTOIN (DILANTIN) < 2.5 ug/ml (10.0-20.0)
[2017-05-20] MEDS: ALBUTEROL SO4 2.5/IPRATROPIUM 0.5 INH SOL 3 ML VIAL.NEB. NEB SCH ×3 (08:15→21:35)
[2017-05-20] MEDS: TAMSULOSIN HCL 0.4 MG CAP.ER.24H (FP) PO SCH (08:30)
[2017-05-20] MEDS ORDERED: ALBUTEROL SO4 0.083% IH SOL 2.5 MG/3 ML VIAL.NEB. NEB PRN ×2 (08:46→17:12)
[2017-05-20] MEDS: levETIRAcetam 500 MG/5 ML INJECTION VIAL IVPB SCH ×3 (09:30→21:59)
[2017-05-20] MEDS ORDERED: methylPREDNISolone NA SUCC 40 MG/1 ML VIAL IVPUSH SCH (10:00)
[2017-05-20] MEDS ORDERED: SENNOSIDES 8.6MG TABLET (FP) PO SCH (10:00)
[2017-05-20] MEDS ORDERED: ASPIRIN 81 MG CHEWABLE TABLETS PO SCH (10:00)
[2017-05-20] MEDS ORDERED: CARBAMAZEPINE PO SCH ×2 (10:00)
[2017-05-20] MEDS ORDERED: RUFINAMIDE PO SCH ×2 (10:00→22:00)
[2017-05-20] MEDS: MUPIROCIN 2% TOPICAL OINTMENT FOR DECOLONIZATION NS SCH (10:33)
[2017-05-20] MEDS: diphenhydrAMINE HCL 12.5 MG/5 ML UNIT-DOSE CUPS PO SCH ×4 (10:41→21:56)
--- NOTE | 2017-05-20 10:52 | PN ---
Progress Note (short form) - Note Progress Note: PULMONARY/CCM Pt seen and examined in the ICU. No further seizures noted. Febrile to 101 overnight. Saturating 100% on 50% ventimask. Last Vital Signs Temp Pulse Resp BP Pulse Ox 100.6 F H 91 H 26 H 144/79 98 05/20/17 06:44 05/20/17 06:44 05/20/17 08:30 05/20/17 06:44 05/20/17 08:30 Intake & Output 05/17/17 05/18/17 05/19/17 05/20/17 23:59 23:59 23:59 23:59 Intake Total 1020 Balance 1020 Weight 58.967 kg 66.814 kg Gen: somnolent but arousable Heart: RRR Lung: bilateral rhonchi, wheezes Abd: soft, nontender Ext: no edema CBC, BMP 05/20/17 05:55 05/20/17 05:55 Active Medications Acetaminophen (Ofirmev Injection -) 1,000 mg IVPB Q6H [facility] Stop: 05/20/17 11:01 Last Admin: 05/20/17 06:35 Dose: 1,000 mg Albuterol Sulfate (Ventolin 0.083% Nebulizer Soln -) 1 amp NEB Q4H PRN PRN Reason: SHORT OF BREATH/WHEEZING Albuterol/Ipratropium (Duoneb -) 1 amp NEB RQID [facility] Aspirin (Asa -) 81 mg PO DAILY [facility] Last Admin: 05/20/17 10:33 Dose: 81 mg Carbamazepine 400 mg/ (Carbamazepine 200 mg) 600 mg PO BID [facility] Last Admin: 05/20/17 10:35 Dose: 600 mg Chlorhexidine Gluconate (Hibiclens For Decolonization -) 1 applic TP HS [facility] Last Admin: 05/19/17 21:35 Dose: 1 applic Diphenhydramine HCl (Benadryl Oral Solution -) 25 mg PO QID [facility] Last Admin: 05/20/17 10:41 Dose: 25 mg Fosphenytoin Sodium (Cerebyx -) 200 mg IVPB Q12H [facility] Last Admin: 05/20/17 08:30 Dose: 200 mg Heparin Sodium (Porcine) (Heparin -) 5,000 unit SQ TID [facility] Piperacillin Sod/Tazobactam (Sod 4.5 gm/ Dextrose) 100 mls @ 200 mls/hr IVPB Q8H-IV [facility] Last Admin: 05/20/17 01:32 Dose: 200 mls/hr Dextrose (D5w -) 1,000 mls @ 42 mls/hr IV [facility] Last Admin: 05/20/17 01:00 Dose: 42 mls/hr Lactulose (Cephulac (Oral Use)) 30 gm PO TID [facility] Levetiracetam (Keppra Injection -) 1,000 mg IVPB TID [facility] Last Admin: 05/20/17 09:30 Dose: 1,000 mg Methylprednisolone Sodium Succinate (Solu-Medrol -) 40 mg IVPUSH Q8H-IV [facility] Last Admin: 05/20/17 10:33 Dose: 40 mg Mupirocin (Bactroban Ointment (For Decolonization) -) 1 applic NS BID [facility] Stop: 05/24/17 21:59 Last Admin: 05/20/17 10:33 Dose: 1 applic Non-Formulary Medication (Lactase [Lactaid Fast Act]) 1 tab PO TID [facility] Non-Formulary Medication (Rufinamide [Banzel]) 1,400 mg PO BID [facility] Phenobarbital (Phenobarbital Injection -) 90 mg IV HS [facility] Last Admin: 05/20/17 00:10 Dose: 90 mg Senna (Senna -) 1 tab PO BID [facility] Last Admin: 05/20/17 10:32 Dose: 1 tab Tamsulosin HCl (Flomax -) 0.4 mg PO 0830 [facility] Zonisamide (Zonegran -) 500 mg PO [facility] A/P Status Epilepticus resolved Seizure Disorder Pneumonia likely Aspiration Acute Bronchospasm Hypernatremia Mental Retardation Cerebral Palsy - continue antibiotics - f/u cultures - continue medrol - inhaled bronchodilators - taper FiO2 to keep SpO2 >90%, can place on nasal cannula - aspiration precautions - continue antiepileptics - seizure precautions - DVT prophylaxis - can monitor on floor
[2017-05-20] MEDS ORDERED: HEPARIN NA (PORCINE) 5,000 UNITS/ML 1ML VIAL SQ SCH (14:00)
[2017-05-20] MEDS ORDERED: LACTASE PO SCH ×2 (14:00→22:00)
[2017-05-20] MEDS ORDERED: LACTULOSE 20 GM/30 ML UDC (FOR ORAL USE ONLY) PO SCH (14:00)
--- NOTE | 2017-05-20 14:40 | CON.NEURO ---
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 Noted to have BUL opacities on CXR. Admitted and being treated for HCAP with Zosyn and Vanco m/l 2/2 to aspiration pneumonitis. Cardiology consulted for + troponins m/l demand ischemia in setting of SOB and tachycardia. Also noted to have a BNP>11,000. While on the floor [employer] ROOM NURSE called for seizure. Found to be in status epilepticus resistant to ativan doses. Neuro consulted and loaded with fosphenytoin 1G. Seizure resolved after ~50mins. He is now transferred to ICU for continued treatment. 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, seizures) - Alcohol/Substance Use Hx Alcohol Use: No - Smoking History Smoking history: Never smoked Home Medications - Allergies Allergies/Adverse Reactions: Allergies Allergy/AdvReac Type Severity Reaction Status Date / Time No Known Allergies Allergy Verified 05/18/17 12:02 - Home Medications Home Medications: Ambulatory Orders Carbamazepine [Carbamazepine ER] 300 mg PO Q12H 05/18/17 Cholecalciferol (Vitamin D3) [Vitamin D3] 2,000 unit PO BID 05/18/17 Diphenhydramine [Benadryl Oral Solution -] 10 ml PO Q6H 05/18/17 Lactase [Lactaid Fast Act] 1 tab PO TID 05/18/17 Lactulose 30 ml PO TID 05/18/17 Levetiracetam 1,000 mg PO TID 05/18/17 Multivitamins [Tab-A-Vit -] 1 tab PO DAILY 05/18/17 [place]-3S/Dha/Epa/Fish Oil [Fish Oil [place]-3 Softgel] 1 each PO BID 05/18/17 Phenobarbital 32.4 mg PO HS 05/18/17 Phenobarbital 64.8 mg PO HS 05/18/17 Rufinamide [Banzel] 200 mg PO BID 05/18/17 Sennosides [Senna] 8.6 mg PO BID 05/18/17 Tamsulosin HCl [Flomax] 0.4 mg PO HS 05/18/17 Physical Exam-Neuro Vital Signs: Vital Signs Temperature 98.9 F 05/20/17 10:00 Pulse Rate 96 H 05/20/17 12:00 Respiratory Rate 24 05/20/17 12:00 Blood Pressure 131/68 05/20/17 12:00 O2 Sat by Pulse Oximetry (%) 98 05/20/17 08:30 Labs: CBC, BMP 05/20/17 05:55 05/20/17 05:55 INR, PTT INR 1.15 (0.82-1.09) H 05/18/17 10:15 - Neuro Exam Level Of Consciousness: Yes: Obtunded (To deep pain opens eyes, does not follow commands) Eyes: Yes: PERRL Speech: Other (Non-verbal) Mini Mental Exam: Not testable DTR's: 0 Left Achilles, 0 Right Achilles (Bilat knees-3+), 2+ Left Bicep, 2+ Right Bicep, 2+ Left Tricep, 2+ Right Tricep, 2+ Left Brachioradialis Babinski: Present (atrophic bilat LEs, bilat upgoing toes) Motor Strength: 1/5: Right Arm, Left Arm (Moves both arms to pain only, not legs ) Gait: Other (Not testable) Assessment/Plan Pt. with hypoxic brain inj. at seizure d/o, now being rx. for pneumonia ? aspiration,respiratory failure. He does not appear to be status epilepticus now. Seizures likely trigerred by infectiopn. Suggest: Cont standing doses of AEDs -Fosphenytoin 300mg daily i/v for now. After infection is treated can d/c fosphenytoin Thank you, Nirav Cote MD
[2017-05-20] MEDS ORDERED: LORazepam 2 MG/ML SDV VIAL IVPUSH ONE (18:00)
--- NOTE | 2017-05-20 18:11 | PN ---
Progress Note (short form) - Note Progress Note: cc: hypoxic resp failure. s: currently appears comfortable on nasal cannula. transferred out of icu. no other events per aide at bedside. o: Current Medications Albuterol Sulfate (Ventolin 0.083% Nebulizer Soln -) 1 amp NEB Q4H PRN PRN Reason: SHORT OF BREATH/WHEEZING Albuterol/Ipratropium (Duoneb -) 1 amp NEB RQID [facility] Aspirin (Asa -) 81 mg PO DAILY [facility] Carbamazepine 400 mg/ (Carbamazepine 200 mg) 600 mg PO BID [facility] Diphenhydramine HCl (Benadryl Oral Solution -) 25 mg PO QID [facility] Fosphenytoin Sodium (Cerebyx -) 200 mg IVPB Q12H [facility] Heparin Sodium (Porcine) (Heparin -) 5,000 unit SQ TID [facility] Dextrose (D5w -) 1,000 mls @ 42 mls/hr IV [facility] Piperacillin Sod/Tazobactam (Sod 4.5 gm/ Dextrose) 100 mls @ 200 mls/hr IVPB Q8H-IV [facility] Lactulose (Cephulac (Oral Use)) 30 gm PO TID [facility] Levetiracetam (Keppra Injection -) 1,000 mg IVPB TID [facility] Methylprednisolone Sodium Succinate (Solu-Medrol -) 40 mg IVPUSH Q8H-IV [facility] Non-Formulary Medication (Lactase [Lactaid Fast Act]) 1 tab PO TID [facility] Non-Formulary Medication (Rufinamide [Banzel]) 1,400 mg PO BID [facility] Phenobarbital (Phenobarbital Injection -) 90 mg IV HS [facility] Senna (Senna -) 1 tab PO BID [facility] Tamsulosin HCl (Flomax -) 0.4 mg PO DAILY@0830 [facility] Zonisamide (Zonegran -) 500 mg PO HS [facility] Vital Signs - 24 hr 05/19/17 05/19/17 05/19/17 18:15 18:30 20:00 Temperature 101 F H Pulse Rate 112 H 105 H Respiratory 26 H 28 H Rate Blood Pressure 163/95 148/72 O2 Sat by Pulse 97 Oximetry (%) 05/19/17 05/19/17 05/19/17 20:36 20:47 23:00 Temperature 99.3 F Pulse Rate 104 H Respiratory 26 H 28 H Rate Blood Pressure 141/79 O2 Sat by Pulse 100 98 Oximetry (%) 05/20/17 05/20/17 05/20/17 00:00 02:00 06:44 Temperature 100.7 F H 100.6 F H Pulse Rate 107 H 104 H 91 H Respiratory 26 H 26 H 26 H Rate Blood Pressure 155/82 150/89 144/79 O2 Sat by Pulse Oximetry (%) 05/20/17 05/20/17 05/20/17 08:00 08:30 10:00 Temperature 99 F 98.9 F Pulse Rate 97 H 96 H Respiratory 26 H 26 H 24 Rate Blood Pressure 129/94 130/76 O2 Sat by Pulse 98 Oximetry (%) 05/20/17 05/20/17 12:00 16:00 Temperature Pulse Rate 96 H 90 Respiratory 24 26 H Rate Blood Pressure 131/68 125/78 O2 Sat by Pulse Oximetry (%) Intake & Output 05/18/17 05/19/17 05/20/17 05/21/17 07:59 07:59 07:59 07:59 Intake Total 300 720 Balance 300 720 Weight 130 lb 147 lb 4.8 oz nad, non-verbal jvd flat, neck supple diffuse rhonchi, nl effort regular rr. nl s1, s2 no mrg. + bs soft nt nd, no hsm ext with trace soft edema. no c/c awake + dp/pt no jaundice, diaphoresis. CBC, BMP 05/20/17 05:55 05/20/17 05:55 ekg: sinus tach. non-specific st-t wave abnormalities. no acue ischemic changes. tele: sr/sinus tach. chest ct: images and report reviewed. bilateral pulmonary infiltrates. very small left pleural effusion. small pericardial effusion. see emr for detailed findings. 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 sob/hypoxia - chest ct and clinical picture c/w pna/infectious etiology. elevated troponins - flat trend c/w demand in setting of tachycardia and infection. no acute ischemic changes on ekg. echo pending. - lyte repletion prn - respiratory support per pmd to minimize tachycardia. ok for ivf if needed. - no diagnosis of htn, bp improving with improvement in respiratory status, con' t to monitor. hypernatremia - per pmd. seizures - improved. ongoing mgm't per neuro/pmd
--- NOTE | 2017-05-20 18:47 | PN ---
Physical Exam: SUBJECTIVE: Patient seen and examined. Stable on NC, sleeping, aid at bedside. OBJECTIVE: Vital Signs Period Temp Pulse Resp BP Sys/Velasco Pulse Ox Last 24 Hr 98.9 F-100.7 F 87-107 24-28 125-155/68-94 98-100 PE Neuro: sleeping, no distress, non verbal Pulm: rhonchi + NC CV: s1 s2 rrr Abd: s nt nd +bs Ext: RUE scratches red, non draining Laboratory Results - last 24 hr 05/19/17 05/19/17 05/19/17 18:30 18:30 19:30 WBC 8.4 RBC 4.64 Hgb 13.5 Hct 42.1 MCV 90.7 MCH 29.1 MCHC 32.1 RDW 17.9 H Plt Count 264 MPV 9.3 Neutrophils % 79.3 Lymphocytes % 13.0 D Monocytes % 7.1 Eosinophils % 0.3 Basophils % 0.3 Anticoagulation Therapy No Result Required. Puncture Site Right radial ABG pH 7.33 L ABG pCO2 at Pt Temp 52.0 H D ABG pO2 at Pt Temp 89.4 ABG HCO3 26.7 H ABG O2 Sat (Measured) 96.3 ABG O2 Content 19.6 ABG Base Excess 0.4 Adrian Test Positive O2 Delivery Device Ventimask Oxygen Flow Rate Fio2 50% Vent Mode No Result Required. Vent Rate No Result Required. Mechanical Rate No Result Required. Pressure Support Vent No Result Required. Sodium 156 H Potassium 4.1 Chloride 120 H Carbon Dioxide 29 Anion Gap 7 L BUN 12 D Creatinine 0.9 D Creat Clearance w eGFR > 60 Random Glucose 76 Calcium 8.3 L Magnesium Total Bilirubin 0.2 AST 35 D ALT 38 D Alkaline Phosphatase 128 H Total Protein 6.2 L Albumin 2.5 L Phenytoin Carbamazepine 05/20/17 05/20/17 05/20/17 05:55 05:55 05:55 WBC 10.3 H RBC 4.38 Hgb 13.1 Hct 39.6 MCV 90.3 MCH 29.9 MCHC 33.1 RDW 18.0 H Plt Count 263 MPV 9.3 Neutrophils % 85.7 H Lymphocytes % 8.7 D Monocytes % 5.4 Eosinophils % 0.0 D Basophils % 0.2 Anticoagulation Therapy Puncture Site ABG pH ABG pCO2 at Pt Temp ABG pO2 at Pt Temp ABG HCO3 ABG O2 Sat (Measured) ABG O2 Content ABG Base Excess Adrian Test O2 Delivery Device Oxygen Flow Rate Vent Mode Vent Rate Mechanical Rate Pressure Support Vent Sodium 156 H Potassium 4.0 Chloride 118 H Carbon Dioxide 28 Anion Gap 10 BUN 15 D Creatinine 0.8 Creat Clearance w eGFR Random Glucose 68 L Calcium 8.3 L Magnesium 2.4 D Total Bilirubin AST ALT Alkaline Phosphatase Total Protein Albumin Phenytoin < 2.5 L Carbamazepine 4.8 Active Medications Generic Name Dose Route Start Last Admin Trade Name Freq PRN Reason Stop Dose Admin Albuterol Sulfate 1 amp 05/20/17 17:12 Ventolin 0.083% Nebulizer Soln - NEB Q4H PRN SHORT OF BREATH/WHEEZING Albuterol/Ipratropium 1 amp 05/20/17 20:00 Duoneb - NEB RQID CATHERINE Aspirin 81 mg 05/21/17 10:00 Asa - PO DAILY CATHERINE Carbamazepine 400 mg/ 600 mg 05/20/17 22:00 Carbamazepine 200 mg PO BID [facility]INE Diphenhydramine HCl 25 mg 05/20/17 18:00 Benadryl Oral Solution - PO QID CATHERINE Fosphenytoin Sodium 200 mg 05/20/17 20:30 Cerebyx - IVPB Q12H C[facility]INE Heparin Sodium (Porcine) 5,000 unit 05/20/17 22:00 Heparin - SQ TID CATHERINE Dextrose 1,000 mls @ 42 mls/hr 05/20/17 17:12 D5w - IV ASDIR CATHERINE Piperacillin Sod/Tazobactam 100 mls @ 200 mls/hr 05/20/17 18:00 Sod 4.5 gm/ Dextrose IVPB Q8H-IV [facility]INE Lactulose 30 gm 05/20/17 22:00 Cephulac (Oral Use) PO TID CATHERINE Levetiracetam 1,000 mg 05/20/17 22:00 Keppra Injection - IVPB TID CATHERINE Methylprednisolone Sodium Succinate 40 mg 05/20/17 18:00 Solu-Medrol - IVPUSH Q8H-IV CATHERINE Non-Formulary Medication 1 tab 05/20/17 22:00 Lactase [Lactaid Fast Act] PO TID CATHERINE Non-Formulary Medication 1,400 mg 05/20/17 22:00 Rufinamide [Banzel] PO BID CATHERINE Phenobarbital 90 mg 05/20/17 22:00 Phenobarbital Injection - IV HS CATHERINE Senna 1 tab 05/20/17 22:00 Senna - PO BID CATHERINE Tamsulosin HCl 0.4 mg 05/21/17 08:30 Flomax - PO DAILY@0830 C[facility]INE Zonisamide 500 mg 05/20/17 22:00 Zonegran - PO HS CATHERINE Imaging: - 05/19 Echo: suboptimal study but LV function "at least" moderately reduced, cannot exclude RWMA - 05/18 CT chest: very small left pleural effusion; left ventricular dilation; small pericardial effusion Assessment: 47 year old male with PMHx of 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 with hypoxia, tachycardia and cough, treated for HCAP, was sent to ICU after [employer] for status epilepticus ~50mins, resistant to ativan , now returns to floor. Plan: 1. Seizures - Fosphenytoin 300mg daily - can dc after infection cleared - Keppra 1000mg TID - Carbamazepine 600mg BID - Appreciate neuro assistance 2. Hypoxic and hypercapneic respiratory failure - Improving - Stable on NC 3. Pneumonia - Zosyn q8h - Solumdrol 40mg q8hr 4. Elevated troponins - Trops flat, likely demand d.t infectious process - Echo LV moderately reduced 5. Functional quadriplegia - Profound intellectual disability, requires assistance for all ADLs 6. Hypernatremia - Start DW5 100cc/hr x1L - Trend Visit type - Emergency Visit Emergency Visit: Yes ED Registration Date: 05/18/17 Care time: The patient presented to the Emergency Department on the above date and was hospitalized for further evaluation of their emergent condition. - New Patient This patient is new to me today: Yes Date on this admission: 05/20/17 - Critical Care Critical Care patient: No
[2017-05-20] MEDS: FOSPHENYTOIN SODIUM 100 MG/2 ML VIAL IVPB SCH (21:56)
[2017-05-20] MEDS ORDERED: PHENobarbital SODIUM 130 MG/1 ML VIAL IV SCH (22:00)
[2017-05-20] MEDS: SENNOSIDES 8.6MG TABLET (FP) PO SCH (22:00)
[2017-05-20] MEDS ORDERED: ZONISAMIDE 100 MG CAPSULE PO SCH (22:00)
[2017-05-20] MEDS: CARBAMAZEPINE PO SCH (23:06)
[2017-05-20] MEDS: ZONISAMIDE 100 MG CAPSULE PO SCH (23:08)
[2017-05-20] MEDS: PHENobarbital SODIUM 65 MG/1 ML VIAL IVPUSH SCH (23:21)
[2017-05-21] MEDS: PIPERACILLIN/TAZOB 4.5 GM 4.5 GM in DEXTROSE 5%-WATER 100 ML IVPB SCH ×3 (02:48→17:54)
[2017-05-21] MEDS: methylPREDNISolone NA SUCC 40 MG/1 ML VIAL IVPUSH SCH ×3 (02:48→17:54)
[2017-05-21] MEDS ORDERED: FUROSEMIDE 40 MG/4 ML INJECTABLE VIAL IVPUSH ONE (03:04)
[2017-05-21 03:17] LABS: ARTERIAL BLD GAS O2 SATURATION 96.5 % (90-98.9); ARTERIAL BLOOD GAS BASE EXCESS -1.6 meq/l (-2-2); ARTERIAL BLOOD GAS PO2 99.2 mmHg (80-100)
[2017-05-21 03:18] LABS: ALLENS TEST POSITIVE
[2017-05-21 03:19] LABS: ARTERIAL BLOOD GAS PCO2 67.4 mmHg (35-45); ARTERIAL BLOOD GAS pH 7.24 (7.35-7.45)
--- NOTE | 2017-05-21 03:43 | HOSP ---
Subjective - Review of Symptoms Events since last encounter: Hospitalist Encounter Notified by the nurse that the patient was tachycardiac 130's, in respiratory distress. Arrived to bedside, patient was lethargic- baseline, tachypneic, with rales and crackles throughout, using accessory muscles. Ordered Lasix 40mg IV stat, EKG In patient's current state ghe will need to be transferred to ICU for intubation Advised the Nursing Product Support Sales Representative of pt's status, bed assigned Call placed to Anesthesia for Intubation Pt's Health Aide was at bedside was made aware Patient was intubated by the Anesthesiologist and placed on mechanical ventilation Vent Settings: 450/14/60/5 NGT placed by RN Chest Xray- pending Pts vitals: T 103, P 111, BP 119/70, Spo2 98% Tylenol pr ordered Pulmonary: Yes: Dyspnea Physical Examination Vital Signs: Vital Signs Temperature 98.9 F 05/20/17 22:00 Pulse Rate 96 H 05/20/17 22:00 Respiratory Rate 24 05/20/17 22:00 Blood Pressure 109/80 05/20/17 22:00 O2 Sat by Pulse Oximetry (%) 98 05/20/17 21:00 Labs: CBC, BMP 05/20/17 05:55 05/20/17 05:55 Hospitalist Encounter Assessment: 47 year-old male resident of [facility], with a PMH significant for profound intellectual disability, cerebral palsy, seizure disorder, and Factor VIII deficiency. Admitted for cough and hypoxia. Outcome: Resp status has improved Vitals: P 104, BP 119/70, Spo2 99% Will continue with current ABXs IVF d/c Will repeat ABG in 2hrs Critical Care Total Critical Care Time (in minutes): 60 Critical Care Statement: The care of this patient involved high complexity decision making to prevent further life threatening deterioration of the patient 's condition and/or to evaluate & treat vital organ system(s) failure or risk of failure.
[2017-05-21] MEDS ORDERED: ACETAMINOPHEN 650 MG SUPP.RECT PR PRN (04:15)
[2017-05-21] MEDS: PROPOFOL 1,000,000 MCG/100 ML VIAL IVPB SCH ×3 (06:00→12:19)
[2017-05-21 06:19] LABS: BASO % 0.2 % (0-2.0); HEMATOCRIT 43.7 % (35.4-49); HEMOGLOBIN 13.9 GM/dL (11.7-16.9); LYMPH % 3.7 % (8-40); MCH 28.7 pg (25.7-33.7); MCHC 31.9 g/dl (32.0-35.9); MEAN PLT VOLUME 9.7 fl (7.5-11.1); MONO % 4.1 % (3.8-10.2); PLATELET COUNT 265 K/MM3 (134-434); RBC 4.85 M/mm3 (4.00-5.60); RDW 18.2 % (11.9-15.9); WHITE BLOOD COUNT 12.9 K/mm3 (4.0-10.0)
[2017-05-21 06:29] LABS: ALBUMIN 2.3 g/dl (3.4-5.0); ANION GAP 8 (8-16); BILIRUBIN,TOTAL 0.2 mg/dL (0.2-1.0); BLOOD UREA NITROGEN 13 mg/dL (7-18); CALCIUM 7.9 mg/dL (8.5-10.1); CHLORIDE 116 mmol/L (98-107); CO2 30 mmol/L (21-32); CREATININE 1.1 mg/dL (0.7-1.3); GLUCOSE,RANDOM 208 mg/dL (74-106); MAGNESIUM 1.9 mg/dL (1.8-2.4); PHOSPHOROUS 2.7 mg/dL (2.5-4.9); POTASSIUM 3.6 mmol/L (3.5-5.1); SGOT/AST 38 U/L (15-37); SGPT/ALT 46 U/L (12-78); SODIUM 154 mmol/L (136-145); TOT PROT 5.8 g/dl (6.4-8.2)
[2017-05-21 06:30] LABS: ALK PHOS 114 U/L (45-117)
[2017-05-21 06:49] LABS: ALLENS TEST POSITIVE; ARTERIAL BLD GAS O2 SATURATION 98.5 % (90-98.9); ARTERIAL BLOOD GAS PCO2 42.8 mmHg (35-45); ARTERIAL BLOOD GAS PO2 99.8 mmHg (80-100); ARTERIAL BLOOD GAS pH 7.45 (7.35-7.45)
[2017-05-21] MEDS: HEPARIN NA (PORCINE) 5,000 UNITS/ML 1ML VIAL SQ SCH ×3 (07:01→21:49)
[2017-05-21] MEDS: levETIRAcetam 500 MG/5 ML INJECTION VIAL IVPB SCH ×3 (07:06→21:49)
[2017-05-21] MEDS: LACTULOSE 20 GM/30 ML UDC (FOR ORAL USE ONLY) PO SCH ×3 (07:32→21:50)
--- NOTE | 2017-05-21 07:55 | PN ---
Progress Note (short form) - Note Progress Note: chart reviewed transferred back to ICU for respiratory distress intubated febrile to 103.2 on propofol Vital Signs Period Temp Pulse Resp BP Sys/Velasco Pulse Ox Last 24 Hr 98.9 F-103.6 F 83-126 14-38 98-168/59-96 97-98 cor-rrr lungs decreased bs at bases abd soft,nt ext no edema cxray enlarged heart, increased markings 05/21/17 05:05 05/21/17 05:05 Microbiology 05/18/17 09:57 Blood - Peripheral Venous Blood Culture - Preliminary NO GROWTH OBTAINED AFTER 48 HOURS, INCUBATION TO CONTINUE FOR 3 DAYS. 05/18/17 09:57 Blood - Peripheral Venous Blood Culture - Preliminary NO GROWTH OBTAINED AFTER 48 HOURS, INCUBATION TO CONTINUE FOR 3 DAYS. 05/18/17 11:20 Urine - Urine Clean Catch Urine Culture - Final NO GROWTH OBTAINED 05/18/17 10:22 Nasopharyngeal Swab Influenza Types A,B Antigen (NELSY) - Final 05/18/17 10:22 Nasopharyngeal Swab - Final a/p acute respiratory failure fevers probable aspiration pneumonia he did have pneumonia on admission so will resume atypical coverage with zithromax apparently history of renal stones, check renal/bladder sonogram suctioned sputum for culture/gram staine legionella urinary antigen status epilepticus- on meds cp/mr over 35 minutes spent in the care of this ICU patient Problem List - Problems (1) Status epilepticus Code(s): G40.901 - EPILEPSY, UNSP, NOT INTRACTABLE, WITH STATUS EPILEPTICUS (2) Pneumonia Code(s): J18.9 - PNEUMONIA, UNSPECIFIED ORGANISM
[2017-05-21] MEDS: ALBUTEROL SO4 2.5/IPRATROPIUM 0.5 INH SOL 3 ML VIAL.NEB. NEB SCH ×4 (08:20→20:11)
[2017-05-21] MEDS ORDERED: TAMSULOSIN HCL 0.4 MG CAP.ER.24H (FP) PO SCH (08:30)
--- NOTE | 2017-05-21 09:24 | PN ---
Progress Note (short form) - Note Progress Note: PULMONARY/CCM Pt seen and examined in the ICU. Transferred back down for respiratory failure. Febrile, tachycardic. Last Vital Signs Temp Pulse Resp BP Pulse Ox 102 F H 83 14 98/59 98 05/21/17 06:00 05/21/17 06:00 05/21/17 08:30 05/21/17 06:00 05/21/17 04:28 Intake & Output 05/18/17 05/19/17 05/20/17 05/21/17 23:59 23:59 23:59 23:59 Intake Total 1020 510 210 Balance 1020 510 210 Weight 58.967 kg 66.814 kg 63.6 kg Gen: intubated, sedated Heart: tachycardic, regular Lung: bilateral rhonchi, wheezes Abd: soft, nontender Ext: no edema, +groin rash CBC, BMP 05/21/17 05:05 05/21/17 05:05 Active Medications Acetaminophen (Tylenol Suppository -) 650 mg MN Q6H PRN PRN Reason: FEVER Last Admin: 05/21/17 08:56 Dose: 650 mg Albuterol Sulfate (Ventolin 0.083% Nebulizer Soln -) 1 amp NEB Q4H PRN PRN Reason: SHORT OF BREATH/WHEEZING Albuterol/Ipratropium (Duoneb -) 1 amp NEB RQID [facility] Last Admin: 05/21/17 08:20 Dose: 1 amp Aspirin (Asa -) 81 mg PO DAILY [facility] Carbamazepine 400 mg/ (Carbamazepine 200 mg) 600 mg PO BID [facility] Last Admin: 05/20/17 23:06 Dose: 600 mg Diphenhydramine HCl (Benadryl Oral Solution -) 25 mg PO QID [facility] Last Admin: 05/20/17 21:56 Dose: 25 mg Fosphenytoin Sodium (Cerebyx -) 200 mg IVPB Q12H [facility] Last Admin: 05/20/17 21:56 Dose: 200 mg Heparin Sodium (Porcine) (Heparin -) 5,000 unit SQ TID [facility] Last Admin: 05/21/17 07:01 Dose: 5,000 unit Piperacillin Sod/Tazobactam (Sod 4.5 gm/ Dextrose) 100 mls @ 200 mls/hr IVPB Q8H-IV CATHERINE Last Admin: 05/21/17 02:48 Dose: 200 mls/hr Propofol (Diprivan -) 1,000,000 mcg in 100 mls @ 2.004 mls/hr IVPB TITR CATHERINE; 5 MCG/KG/MIN PRN Reason: Protocol Last Admin: 05/21/17 07:00 Dose: 25 mcg/kg/min, 10.022 mls/hr Azithromycin 500 mg/ Dextrose 250 mls @ 250 mls/hr IVPB DAILY [facility] Vancomycin HCl 1,000 mg/ (Dextrose) 250 mls @ 250 mls/hr IVPB BID [facility] Lactulose (Cephulac (Oral Use)) 30 gm PO TID [facility] Last Admin: 05/21/17 07:32 Dose: Not Given Levetiracetam (Keppra Injection -) 1,000 mg IVPB TID [facility] Last Admin: 05/21/17 07:06 Dose: 1,000 mg Methylprednisolone Sodium Succinate (Solu-Medrol -) 40 mg IVPUSH Q8H-IV [facility] Last Admin: 05/21/17 02:48 Dose: 40 mg Non-Formulary Medication (Lactase [Lactaid Fast Act]) 1 tab PO TID [facility] Non-Formulary Medication (Rufinamide [Banzel]) 1,400 mg PO BID [facility] Phenobarbital (Phenobarbital Injection -) 90 mg IVPUSH [facility] Last Admin: 05/20/17 23:21 Dose: 90 mg Senna (Senna -) 1 tab PO BID [facility] Last Admin: 05/20/17 22:00 Dose: 1 tab Tamsulosin HCl (Flomax -) 0.4 mg PO DAILY@0830 [facility] Zonisamide (Zonegran -) 500 mg PO [facility] Last Admin: 05/20/17 23:08 Dose: 500 mg A/P Acute Hypoxic and Hypercapneic Respiratory Failure Status Epilepticus resolved Seizure Disorder Pneumonia likely Aspiration Sepsis Acute Bronchospasm Hypernatremia Mental Retardation Cerebral Palsy - continue antibiotics - f/u cultures - replace free water - continue antiepileptics - seizure precautions - continue medrol - inhaled bronchodilators - taper FiO2 to keep SpO2 >90% - spontaneos breathing trials as tolerated - DVT/GI prophylaxis - continue ICU monitoring critical care time spent in reviewing chart, evaluating patient and formulating plan 35 min
[2017-05-21] MEDS ORDERED: DEXTROSE 5%-WATER - 1,000 ML IV SCH (09:45)
[2017-05-21] MEDS: TAMSULOSIN HCL 0.4 MG CAP.ER.24H (FP) PO SCH (09:49)
[2017-05-21] MEDS: FOSPHENYTOIN SODIUM 100 MG/2 ML VIAL IVPB SCH ×2 (09:49→21:42)
[2017-05-21] MEDS: diphenhydrAMINE HCL 12.5 MG/5 ML UNIT-DOSE CUPS PO SCH ×4 (10:00→21:50)
[2017-05-21] MEDS ORDERED: VANCOMYCIN 1 GRAM (PRE-DOCKED) 1,000 MG/250 ML BAG IVPB SCH (10:00)
[2017-05-21] MEDS ORDERED: FAMOTIDINE IV 20 MG/12 ML VIAL IVPUSH SCH (10:30)
--- NOTE | 2017-05-21 11:01 | PN ---
Physical Exam: SUBJECTIVE: Patient seen and examined in ICU. intubated AC mode, sedated. Aid at bedside OBJECTIVE: Vital Signs Period Temp Pulse Resp BP Sys/Velasco Pulse Ox Last 24 Hr 98.9 F-103.6 F 83-126 14-38 98-168/59-96 97-98 PE Neuro: sedated Pulm: intubated, course bs rhonchi CV: s1 s2 rrr Abd: s nt nd +bs : jo Ext: RUE scratches red, non draining Laboratory Results - last 24 hr 05/21/17 05/21/17 05/21/17 03:14 03:17 05:05 WBC 12.9 H RBC 4.85 Hgb 13.9 Hct 43.7 MCV 90.0 MCH 28.7 MCHC 31.9 L RDW 18.2 H Plt Count 265 MPV 9.7 Neutrophils % 92.0 H Lymphocytes % 3.7 L D Monocytes % 4.1 Eosinophils % 0.0 Basophils % 0.2 Anticoagulation Therapy Puncture Site Right radial ABG pH 7.24 L* ABG pCO2 at Pt Temp 67.4 H* D ABG pO2 at Pt Temp 99.2 ABG HCO3 27.5 H ABG O2 Sat (Measured) 96.5 ABG O2 Content 20.3 ABG Base Excess -1.6 Adrian Test Positive O2 Delivery Device Bipap Oxygen Flow Rate 65% Vent Mode S/t Vent Rate 20 Mechanical Rate PEEP 0.0 Pressure Support Vent 10/5 Sodium Potassium Chloride Carbon Dioxide Anion Gap BUN Creatinine Creat Clearance w eGFR POC Glucometer 158 Random Glucose Calcium Phosphorus Magnesium Total Bilirubin AST ALT Alkaline Phosphatase Total Protein Albumin 05/21/17 05/21/17 05:05 06:30 WBC RBC Hgb Hct MCV MCH MCHC RDW Plt Count MPV Neutrophils % Lymphocytes % Monocytes % Eosinophils % Basophils % Anticoagulation Therapy No Result Required. Puncture Site Right radial ABG pH 7.45 D ABG pCO2 at Pt Temp 42.8 D ABG pO2 at Pt Temp 99.8 ABG HCO3 29.2 H ABG O2 Sat (Measured) 98.5 ABG O2 Content 18.7 ABG Base Excess 5.0 H Adrian Test Positive O2 Delivery Device No Result Required. Oxygen Flow Rate No Result Required. Vent Mode No Result Required. Vent Rate 12 Mechanical Rate No Result Required. PEEP Pressure Support Vent 450 Sodium 154 H Potassium 3.6 Chloride 116 H Carbon Dioxide 30 Anion Gap 8 BUN 13 Creatinine 1.1 D Creat Clearance w eGFR > 60 POC Glucometer Random Glucose 208 H D Calcium 7.9 L Phosphorus 2.7 D Magnesium 1.9 D Total Bilirubin 0.2 AST 38 H ALT 46 D Alkaline Phosphatase 114 Total Protein 5.8 L Albumin 2.3 L Active Medications Generic Name Dose Route Start Last Admin Trade Name Freq PRN Reason Stop Dose Admin Acetaminophen 650 mg 05/21/17 04:15 05/21/17 08:56 Tylenol Suppository - [place] 650 mg Q6H PRN Administration FEVER Albuterol Sulfate 1 amp 05/20/17 17:12 Ventolin 0.083% Nebulizer Soln - NEB Q4H PRN SHORT OF BREATH/WHEEZING Albuterol/Ipratropium 1 amp 05/20/17 20:00 05/21/17 08:20 Duoneb - NEB 1 amp RQID CATHERINE Administration Aspirin 81 mg 05/21/17 10:00 Asa - PO DAILY C[facility] Carbamazepine 400 mg/ 600 mg 05/20/17 22:00 05/20/17 23:06 Carbamazepine 200 mg PO 600 mg BID CATHERINE Administration Diphenhydramine HCl 25 mg 05/20/17 18:00 05/20/17 21:56 Benadryl Oral Solution - PO 25 mg QID CATHERINE Administration Fosphenytoin Sodium 200 mg 05/20/17 20:30 05/21/17 09:49 Cerebyx - IVPB 200 mg Q12H CATHERINE Administration Heparin Sodium (Porcine) 5,000 unit 05/20/17 22:00 05/21/17 07:01 Heparin - SQ 5,000 unit TID CATHERINE Administration Piperacillin Sod/Tazobactam 100 mls @ 200 mls/hr 05/20/17 18:00 05/21/17 02: 48 Sod 4.5 gm/ Dextrose IVPB 200 mls/hr Q8H-IV CATHERINE Administration Propofol 1,000,000 mcg in 100 mls @ 2.004 mls/hr 05/21/17 05:45 05/21/17 07: 00 Diprivan - IVPB 25 mcg/kg/min TITR CATHERINE 10.022 mls/hr Protocol Administration 5 MCG/KG/MIN Azithromycin 500 mg/ Dextrose 250 mls @ 250 mls/hr 05/21/17 10:00 IVPB DAILY [facility] Vancomycin HCl 1,000 mg/ 250 mls @ 250 mls/hr 05/21/17 10:00 Dextrose IVPB BID CATHERINE Dextrose 1,000 mls @ 75 mls/hr 05/21/17 09:45 D5w - IV 05/21/17 23:04 ASDIR CATHERINE Famotidine/Sodium Chloride 20 mg in 50 mls @ 100 mls/hr 05/21/17 11:00 Pepcid 20 Mg Premixed Ivpb - IVPB BID C[facility]ERINE Lactulose 30 gm 05/20/17 22:00 05/21/17 07:32 Cephulac (Oral Use) PO Not Given TID CATHERINE Levetiracetam 1,000 mg 05/20/17 22:00 05/21/17 07:06 Keppra Injection - IVPB 1,000 mg TID CATHERINE Administration Methylprednisolone Sodium Succinate 40 mg 05/20/17 18:00 05/21/17 02:48 Solu-Medrol - IVPUSH 40 mg Q8H-IV CATHERINE Administration Non-Formulary Medication 1 tab 05/20/17 22:00 Lactase [Lactaid Fast Act] PO TID CATHERINE Non-Formulary Medication 1,400 mg 05/20/17 22:00 Rufinamide [Banzel] PO BID CATHERINE Nystatin 1 applic 05/21/17 10:00 Nystop Powder - TP DAILY [facility] Phenobarbital 90 mg 05/20/17 22:30 05/20/17 23:21 Phenobarbital Injection - IVPUSH 90 mg HS CATHERINE Administration Senna 1 tab 05/20/17 22:00 05/20/17 22:00 Senna - PO 1 tab BID C[facility]ERINE Administration Tamsulosin HCl 0.4 mg 05/21/17 08:30 05/21/17 09:49 Flomax - PO 0.4 mg DAILY@0830 [facility] Administration Zonisamide 500 mg 05/20/17 22:00 05/20/17 23:08 Zonegran - PO 500 mg HS CATHERINE Administration Imaging: - 05/19 Echo: suboptimal study but LV function "at least" moderately reduced, cannot exclude RWMA - 05/18 CT chest: very small left pleural effusion; left ventricular dilation; small pericardial effusion Assessment: 47 year old male with PMHx of 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 Plan: 1. Acute hypoxic respiratory failure - Intubated, sedated - Spontaneous breathing trials 2. Fever - Follow sputum and urine cx 3. Seizures - Fosphenytoin 300mg daily - can dc after infection cleared - Keppra 1000mg TID - Carbamazepine 600mg BID - Appreciate neuro assistance 4. Pneumonia - Zosyn q8h - Solumdrol 40mg q8hr 5. Elevated troponins - Trops flat, likely demand d.t infectious process - Echo LV moderately reduced 6. Functional quadriplegia - Profound intellectual disability, requires assistance for all ADLs 7. Hypernatremia - Improved - D5w 75cc/hr Visit type - Emergency Visit Emergency Visit: Yes ED Registration Date: 05/18/17 Care time: The patient presented to the Emergency Department on the above date and was hospitalized for further evaluation of their emergent condition. - New Patient This patient is new to me today: No - Critical Care Critical Care patient: No
[2017-05-21] MEDS ORDERED: PT OWN MED DRAWER 7, Y5N ONE ×5 (11:10→21:19)
[2017-05-21] MEDS: FAMOTIDINE 20 MG/50 ML IVPB 20 MG/50 ML MG IVPB SCH ×2 (11:26→21:44)
[2017-05-21] MEDS: ASPIRIN 81 MG CHEWABLE TABLETS PO SCH (11:26)
[2017-05-21] MEDS: CARBAMAZEPINE PO SCH (11:26)
[2017-05-21] MEDS: NYSTATIN POWDER 100,000 UNITS/GM - 15 GM TOPICAL POWDER TP SCH (11:27)
[2017-05-21] MEDS: VANCOMYCIN 1,000 MG in DEXTROSE 5%-WATER - 250 ML IVPB SCH ×2 (11:27→21:51)
[2017-05-21] MEDS: SENNOSIDES 8.6MG TABLET (FP) PO SCH ×2 (13:31→21:51)
[2017-05-21] MEDS: AZITHROMYCIN IVPB 500 MG in DEXTROSE 5%-WATER - 250 ML IVPB SCH (15:30)
--- NOTE | 2017-05-21 15:58 | EKG ---
Test Reason : Blood Pressure : / mmHG Vent. Rate : 129 BPM Atrial Rate : 129 BPM P-R Int : 114 ms QRS Dur : 090 ms QT Int : 306 ms P-R-T Axes : 081 023 063 degrees QTc Int : 448 ms SINUS TACHYCARDIA LEFT ATRIAL ENLARGEMENT LEFT VENTRICULAR HYPERTROPHY NONSPECIFIC ST ABNORMALITY ABNORMAL ECG Confirmed by MD FELIPA, RALPH ([id number] on 05/21/2017 3:57:48 PM Referred By: Confirmed By:RALPH LEO MD
--- NOTE | 2017-05-21 17:18 | PN ---
Progress Note (short form) - Note Progress Note: cc: hypoxic resp failure S: intubated overnight for worsening resp distress, transferred to icu. sedated on propofol drip. sbp's on low end. + uop. Current Medications Acetaminophen (Tylenol Suppository -) 650 mg [place] Q6H PRN PRN Reason: FEVER Last Admin: 05/21/17 08:56 Dose: 650 mg Albuterol Sulfate (Ventolin 0.083% Nebulizer Soln -) 1 amp NEB Q4H PRN PRN Reason: SHORT OF BREATH/WHEEZING Albuterol/Ipratropium (Duoneb -) 1 amp NEB RQID [facility] Last Admin: 05/21/17 16:00 Dose: 1 amp Aspirin (Asa -) 81 mg PO DAILY [facility] Last Admin: 05/21/17 11:26 Dose: 81 mg Carbamazepine 400 mg/ (Carbamazepine 200 mg) 600 mg PO BID [facility] Last Admin: 05/21/17 11:26 Dose: 600 mg Diphenhydramine HCl (Benadryl Oral Solution -) 25 mg PO QID [facility] Last Admin: 05/21/17 14:20 Dose: 25 mg Fosphenytoin Sodium (Cerebyx -) 200 mg IVPB Q12H [facility] Last Admin: 05/21/17 09:49 Dose: 200 mg Heparin Sodium (Porcine) (Heparin -) 5,000 unit SQ TID [facility] Last Admin: 05/21/17 14:41 Dose: 5,000 unit Piperacillin Sod/Tazobactam (Sod 4.5 gm/ Dextrose) 100 mls @ 200 mls/hr IVPB Q8H-IV [facility] Last Admin: 05/21/17 11:25 Dose: 200 mls/hr Propofol (Diprivan -) 1,000,000 mcg in 100 mls @ 2.004 mls/hr IVPB TITR [facility]; 5 MCG/KG/MIN PRN Reason: Protocol Last Admin: 05/21/17 12:19 Dose: 25 mcg/kg/min, 10.022 mls/hr Azithromycin 500 mg/ Dextrose 250 mls @ 250 mls/hr IVPB DAILY [facility] Last Admin: 05/21/17 15:30 Dose: 250 mls/hr Vancomycin HCl 1,000 mg/ (Dextrose) 250 mls @ 250 mls/hr IVPB BID [facility] Last Admin: 04/01/18 11:27 Dose: 250 mls/hr Dextrose (D5w -) 1,000 mls @ 75 mls/hr IV ASDIR [facility] Stop: 05/21/17 23:04 Last Admin: 05/21/17 11:28 Dose: 75 mls/hr Famotidine/Sodium Chloride (Pepcid 20 Mg Premixed Ivpb -) 20 mg in 50 mls @ 100 mls/hr IVPB BID [facility] Last Admin: 05/21/17 11:26 Dose: 100 mls/hr Lactulose (Cephulac (Oral Use)) 30 gm PO TID [facility] Last Admin: 05/21/17 14:13 Dose: Not Given Levetiracetam (Keppra Injection -) 1,000 mg IVPB TID [facility] Last Admin: 05/21/17 14:33 Dose: 1,000 mg Methylprednisolone Sodium Succinate (Solu-Medrol -) 40 mg IVPUSH Q8H-IV [facility] Last Admin: 05/21/17 11:26 Dose: 40 mg Non-Formulary Medication (Lactase [Lactaid Fast Act]) 1 tab PO TID [facility] Non-Formulary Medication (Rufinamide [Banzel]) 1,400 mg PO BID [facility] Nystatin (Nystop Powder -) 1 applic TP DAILY [facility] Last Admin: 05/21/17 11:27 Dose: 1 applic Phenobarbital (Phenobarbital Injection -) 90 mg IVPUSH [facility] Last Admin: 05/20/17 23:21 Dose: 90 mg Senna (Senna -) 1 tab PO BID [facility] Last Admin: 05/21/17 13:31 Dose: Not Given Tamsulosin HCl (Flomax -) 0.4 mg PO DAILY@0830 [facility] Last Admin: 05/21/17 09:49 Dose: 0.4 mg Zonisamide (Zonegran -) 500 mg PO [facility] Last Admin: 05/20/17 23:08 Dose: 500 mg Vital Signs - 24 hr 05/20/17 05/20/17 05/21/17 21:00 22:00 02:00 Temperature 98.9 F Pulse Rate 96 H Respiratory 24 Rate Blood Pressure 109/80 O2 Sat by Pulse 98 97 Oximetry (%) 05/21/17 05/21/17 05/21/17 03:40 04:00 04:28 Temperature 103.6 F H 101.2 F H Pulse Rate 126 H 116 H 110 H Respiratory 38 H 25 H 14 Rate Blood Pressure 168/96 119/70 O2 Sat by Pulse 98 Oximetry (%) 05/21/17 05/21/17 05/21/17 06:00 07:36 08:00 Temperature 102 F H 102.1 F H Pulse Rate 83 80 Respiratory 15 14 13 Rate Blood Pressure 98/59 102/62 O2 Sat by Pulse Oximetry (%) 05/21/17 05/21/17 05/21/17 08:30 09:30 10:00 Temperature 101.4 F H Pulse Rate 78 Respiratory 14 16 15 Rate Blood Pressure 131/71 O2 Sat by Pulse Oximetry (%) 05/21/17 05/21/17 05/21/17 11:45 14:00 14:35 Temperature 100.5 F H Pulse Rate 85 Respiratory 14 16 14 Rate Blood Pressure 123/70 O2 Sat by Pulse Oximetry (%) 05/21/17 05/21/17 05/21/17 16:00 16:15 16:59 Temperature 100.3 F H Pulse Rate 79 Respiratory 14 14 Rate Blood Pressure 108/74 O2 Sat by Pulse 99 Oximetry (%) Intake & Output 05/19/17 05/20/17 05/21/17 05/22/17 07:59 07:59 07:59 07:59 Intake Total 300 720 720 Output Total 600 Balance 300 720 720 -600 Weight 130 lb 147 lb 4.8 oz 140 lb 3.424 oz intubated, sedated nad, non-verbal jvd flat, neck supple diffuse rhonchi, nl effort regular rr. nl s1, s2 no mrg. + bs soft nt nd, no hsm ext with trace soft edema. no c/c + dp/pt no jaundice, diaphoresis. CBC, BMP 05/21/17 05:05 05/21/17 05:05 ekg: sinus tach. non-specific st-t wave abnormalities. no acue ischemic changes. tele: sr/sinus tach. echo 04/2017 tds: gross decrease in systolic fn (moderate). tds for rwma. RV/ atria not well visualized. no significant MV/AV abnormaliteis. TV/PV not well visualized. no pericardial effusion. chest ct: images and report reviewed. bilateral pulmonary infiltrates. very small left pleural effusion. small pericardial effusion. see emr for detailed findings. 05/20 cxr: no significant change. ASSESSMENT/PLAN 47 yo resident of [facility] with history of hypoxic injury at /infantile cerebral palsy, epilepsy, osteoporosis s/p multiple fractures, renal stones s/p lithotripsy and stent, testicular hypogonadism who p/w hypoxia/tachycardia, ER course notable for abnormal troponins. sob/hypoxia - chest ct and clinical picture c/w pna/infectious etiology. - s/p resp decompensation/intubation 05/21. ongoing mgm't per pmd/pulm/critical care. - recommend cvp in light of cardiomyopathy and increase in volume intake. elevated troponins - flat trend c/w demand in setting of tachycardia and infection. no acute ischemic changes on ekg. - lyte repletion prn - echo with new systolic cardiomyopathy in setting of pna. Recommend reassessment of EF as outpatient when acute illness improves to assess for resolution. hypernatremia - per pmd. cct 35 min
[2017-05-21] MEDS: PHENobarbital SODIUM 65 MG/1 ML VIAL IVPUSH SCH (21:50)
[2017-05-21] MEDS: carBAMazepine 200 MG TABLET NGT SCH (21:51)
[2017-05-21] MEDS: ZONISAMIDE 100 MG CAPSULE PO SCH (21:52)
[2017-05-21] MEDS ORDERED: carBAMazepine 200 MG TABLET PO SCH (22:00)
[2017-05-22] MEDS: methylPREDNISolone NA SUCC 40 MG/1 ML VIAL IVPUSH SCH ×3 (03:11→18:22)
[2017-05-22] MEDS: PIPERACILLIN/TAZOB 4.5 GM 4.5 GM in DEXTROSE 5%-WATER 100 ML IVPB SCH ×3 (03:11→17:38)
[2017-05-22] MEDS: LACTULOSE 20 GM/30 ML UDC (FOR ORAL USE ONLY) PO SCH ×3 (05:56→21:21)
[2017-05-22] MEDS: levETIRAcetam 500 MG/5 ML INJECTION VIAL IVPB SCH ×3 (05:56→21:18)
[2017-05-22] MEDS: HEPARIN NA (PORCINE) 5,000 UNITS/ML 1ML VIAL SQ SCH ×3 (05:56→21:20)
[2017-05-22] MEDS: PROPOFOL 1,000,000 MCG/100 ML VIAL IVPB SCH ×5 (05:56→21:21)
[2017-05-22 06:01] LABS: BASO % 0.3 % (0-2.0); EOS % 2.1 % (0-4.5); HEMATOCRIT 38.6 % (35.4-49); HEMOGLOBIN 12.7 GM/dL (11.7-16.9); LYMPH % 12.4 % (8-40); MCH 29.1 pg (25.7-33.7); MCHC 32.9 g/dl (32.0-35.9); MEAN CELL VOLUME 88.3 fl (80-96); MEAN PLT VOLUME 9.5 fl (7.5-11.1); MONO % 3.8 % (3.8-10.2); NEUT % 81.4 % (42.8-82.8); PLATELET COUNT 209 K/MM3 (134-434); RBC 4.37 M/mm3 (4.00-5.60); RDW 17.6 % (11.9-15.9); WHITE BLOOD COUNT 8.4 K/mm3 (4.0-10.0)
[2017-05-22 06:26] LABS: CHLORIDE 109 mmol/L (98-107); SODIUM 143 mmol/L (136-145)
[2017-05-22 06:34] LABS: ALBUMIN 1.8 g/dl (3.4-5.0); ALK PHOS 88 U/L (45-117); ANION GAP 8 (8-16); BILIRUBIN,TOTAL 0.3 mg/dL (0.2-1.0); BLOOD UREA NITROGEN 9 mg/dL (7-18); CO2 26 mmol/L (21-32); CREATININE 0.7 mg/dL (0.7-1.3); GLUCOSE,RANDOM 111 mg/dL (74-106); MAGNESIUM 1.8 mg/dL (1.8-2.4); PHOSPHOROUS 2.6 mg/dL (2.5-4.9); SGOT/AST 26 U/L (15-37); SGPT/ALT 37 U/L (12-78)
[2017-05-22 06:47] LABS: ARTERIAL BLOOD GAS BASE EXCESS 2.6 meq/l (-2-2); ARTERIAL BLOOD GAS pH 7.49 (7.35-7.45)
[2017-05-22 06:50] LABS: ALLENS TEST POSITIVE
--- NOTE | 2017-05-22 07:02 | PN ---
Progress Note, Physician Chief Complaint: ID Intubated Zosyn continues with addition of Azithromycin - Current Medication List Current Medications: Active Medications Acetaminophen (Tylenol Suppository -) 650 mg [place] Q6H PRN PRN Reason: FEVER Last Admin: 05/21/17 08:56 Dose: 650 mg Albuterol Sulfate (Ventolin 0.083% Nebulizer Soln -) 1 amp NEB Q4H PRN PRN Reason: SHORT OF BREATH/WHEEZING Albuterol/Ipratropium (Duoneb -) 1 amp NEB RQID [facility] Last Admin: 05/21/17 20:11 Dose: 1 amp Aspirin (Asa -) 81 mg PO DAILY [facility] Last Admin: 05/21/17 11:26 Dose: 81 mg Carbamazepine (Tegretol -) 600 mg NGT BID [facility] Last Admin: 05/21/17 21:51 Dose: 600 mg Diphenhydramine HCl (Benadryl Oral Solution -) 25 mg PO QID [facility] Last Admin: 05/21/17 21:50 Dose: 25 mg Fosphenytoin Sodium (Cerebyx -) 200 mg IVPB Q12H [facility] Last Admin: 05/21/17 21:42 Dose: 200 mg Heparin Sodium (Porcine) (Heparin -) 5,000 unit SQ TID [facility] Last Admin: 05/22/17 05:56 Dose: 5,000 unit Piperacillin Sod/Tazobactam (Sod 4.5 gm/ Dextrose) 100 mls @ 200 mls/hr IVPB Q8H-IV [facility] Last Admin: 05/22/17 03:11 Dose: 200 mls/hr Propofol (Diprivan -) 1,000,000 mcg in 100 mls @ 2.004 mls/hr IVPB TITR [facility]; 5 MCG/KG/MIN PRN Reason: Protocol Last Admin: 05/22/17 05:56 Dose: 25 mcg/kg/min, 10.022 mls/hr Azithromycin 500 mg/ Dextrose 250 mls @ 250 mls/hr IVPB DAILY [facility] Last Admin: 05/21/17 15:30 Dose: 250 mls/hr Vancomycin HCl 1,000 mg/ (Dextrose) 250 mls @ 250 mls/hr IVPB BID [facility] Last Admin: 05/21/17 21:51 Dose: 250 mls/hr Famotidine/Sodium Chloride (Pepcid 20 Mg Premixed Ivpb -) 20 mg in 50 mls @ 100 mls/hr IVPB BID [facility] Last Admin: 05/21/17 21:44 Dose: 100 mls/hr Lactulose (Cephulac (Oral Use)) 30 gm PO TID [facility] Last Admin: 05/22/17 05:56 Dose: Not Given Levetiracetam (Keppra Injection -) 1,000 mg IVPB TID [facility] Last Admin: 05/22/17 05:56 Dose: 1,000 mg Methylprednisolone Sodium Succinate (Solu-Medrol -) 40 mg IVPUSH Q8H-IV [facility] Last Admin: 05/22/17 03:11 Dose: 40 mg Non-Formulary Medication (Lactase [Lactaid Fast Act]) 1 tab PO TID [facility] Non-Formulary Medication (Rufinamide [Banzel]) 1,400 mg PO BID [facility] Nystatin (Nystop Powder -) 1 applic TP DAILY [facility] Last Admin: 05/21/17 11:27 Dose: 1 applic Phenobarbital (Phenobarbital Injection -) 90 mg IVPUSH [facility] Last Admin: 05/21/17 21:50 Dose: 90 mg Senna (Senna -) 1 tab PO BID [facility] Last Admin: 05/21/17 21:51 Dose: Not Given Tamsulosin HCl (Flomax -) 0.4 mg PO DAILY@0830 [facility] Last Admin: 05/21/17 09:49 Dose: 0.4 mg Zonisamide (Zonegran -) 500 mg PO [facility] Last Admin: 05/21/17 21:52 Dose: 500 mg - Objective Vital Signs: Vital Signs Temperature 98.7 F 05/22/17 04:00 Pulse Rate 59 L 05/22/17 04:00 Respiratory Rate 16 05/22/17 05:32 Blood Pressure 120/78 05/22/17 04:00 O2 Sat by Pulse Oximetry (%) 99 05/21/17 16:59 Cardiovascular: Yes: S1, S2 Respiratory: Yes: WNL, Regular, CTA Bilaterally, Rhonchi Gastrointestinal: Yes: Soft. No: Tenderness Edema: No Labs: CBC, BMP 05/22/17 05:00 05/22/17 05:00 INR, PTT INR 1.15 (0.82-1.09) H 05/18/17 10:15 Assessment/Plan Microbiology 05/21/17 09:20 Urine - Urine Gunn Legionella Antigen - Final 05/21/17 09:20 Urine - Urine Gunn Streptococcus pneumoniae Antigen (M - Final 05/21/17 09:20 Sputum - Endotrachea Suction/Ventilator Gram Stain - Final 05/18/17 11:20 Urine - Urine Clean Catch Urine Culture - Final NO GROWTH OBTAINED 05/18/17 10:22 Nasopharyngeal Swab Influenza Types A,B Antigen (NELSY) - Final 05/18/17 10:22 Nasopharyngeal Swab - Final 05/18/17 09:57 Blood - Peripheral Venous Blood Culture - Preliminary NO GROWTH OBTAINED AFTER 72 HOURS, INCUBATION TO CONTINUE FOR 2 DAYS. 05/18/17 09:57 Blood - Peripheral Venous Blood Culture - Preliminary NO GROWTH OBTAINED AFTER 72 HOURS, INCUBATION TO CONTINUE FOR 2 DAYS. Laboratory Tests 05/22/17 05/22/17 05/22/17 05:00 05:00 06:12 WBC 8.4 D Hgb 12.7 Hct 38.6 Plt Count 209 D ABG pH Pending ABG pCO2 at Pt Temp Pending ABG pO2 at Pt Temp Pending BUN 9 D Total Bilirubin 0.3 D AST 26 D Assessment Respiratory failure Status epilepticus Fever secondary pneumonia unspecified as of now Plan Pending sputum cultures continue current therapy Gita OTTO
[2017-05-22 07:06] LABS: ARTERIAL BLD GAS O2 SATURATION 99.9 % (90-98.9)
[2017-05-22 08:01] LABS: CALCIUM 6.9 mg/dL (8.5-10.1); POTASSIUM 2.7 mmol/L (3.5-5.1)
[2017-05-22] MEDS: ALBUTEROL SO4 2.5/IPRATROPIUM 0.5 INH SOL 3 ML VIAL.NEB. NEB SCH ×3 (08:15→15:27)
[2017-05-22] MEDS ORDERED: PT OWN MED DRAWER 7, Y5N ONE ×4 (09:21→21:28)
[2017-05-22] MEDS: SENNOSIDES 8.6MG TABLET (FP) PO SCH ×2 (09:47→21:18)
[2017-05-22] MEDS: carBAMazepine 200 MG TABLET NGT SCH ×2 (09:48→22:13)
[2017-05-22] MEDS: TAMSULOSIN HCL 0.4 MG CAP.ER.24H (FP) PO SCH (09:48)
[2017-05-22] MEDS: FAMOTIDINE 20 MG/50 ML IVPB 20 MG/50 ML MG IVPB SCH ×2 (09:49→21:18)
[2017-05-22] MEDS: diphenhydrAMINE HCL 12.5 MG/5 ML UNIT-DOSE CUPS PO SCH ×4 (09:49→22:11)
[2017-05-22] MEDS: ASPIRIN 81 MG CHEWABLE TABLETS PO SCH (09:49)
[2017-05-22] MEDS: AZITHROMYCIN IVPB 500 MG in DEXTROSE 5%-WATER - 250 ML IVPB SCH (09:50)
[2017-05-22] MEDS: FOSPHENYTOIN SODIUM 100 MG/2 ML VIAL IVPB SCH (10:08)
[2017-05-22] MEDS: VANCOMYCIN 1,000 MG in DEXTROSE 5%-WATER - 250 ML IVPB SCH ×2 (10:16→21:20)
--- NOTE | 2017-05-22 11:04 | PN ---
Physical Exam: SUBJECTIVE: Patient seen and examined at bedside in ICU. OBJECTIVE: Vital Signs Period Temp Pulse Resp BP Sys/Velasco Pulse Ox Last 24 Hr 98.5 F-100.5 F 53-85 14-18 102-132/67-81 99-99 GENERAL: Intubated. Sedated. LUNGS: Rhonchorous breath sounds, wheezing HEART: Regular rate and rhythm, normal S1 and S2 ABDOMEN: Soft, nontender, not distended, normoactive bowel sounds, no guarding, no rebound UPPER EXTREMITIES: 2+ pulses, warm, well-perfused. No cyanosis. No clubbing. No peripheral edema. LOWER EXTREMITIES: 2+ pulses, warm, well-perfused. No calf tenderness. 1+ bilateral pedal and pretibial edema Laboratory Results - last 24 hr 05/20/17 05/22/17 05/22/17 05:55 05:00 05:00 WBC 8.4 D RBC 4.37 Hgb 12.7 Hct 38.6 MCV 88.3 MCH 29.1 MCHC 32.9 RDW 17.6 H Plt Count 209 D MPV 9.5 Neutrophils % 81.4 Lymphocytes % 12.4 D Monocytes % 3.8 Eosinophils % 2.1 D Basophils % 0.3 Puncture Site ABG pH ABG pCO2 at Pt Temp ABG pO2 at Pt Temp ABG HCO3 ABG O2 Sat (Measured) ABG O2 Content ABG Base Excess Adrian Test O2 Delivery Device Oxygen Flow Rate Vent Rate PEEP Pressure Support Vent Sodium 143 Potassium 2.7 L* D Chloride 109 H Carbon Dioxide 26 Anion Gap 8 BUN 9 D Creatinine 0.7 D Creat Clearance w eGFR > 60 Random Glucose 111 H D Calcium 6.9 L* Phosphorus 2.6 Magnesium 1.8 Total Bilirubin 0.3 D AST 26 D ALT 37 Alkaline Phosphatase 88 D Total Protein 5.0 L Albumin 1.8 L D Levetiracetam 28.8 05/22/17 06:12 WBC RBC Hgb Hct MCV MCH MCHC RDW Plt Count MPV Neutrophils % Lymphocytes % Monocytes % Eosinophils % Basophils % Puncture Site Right radial ABG pH 7.49 H ABG pCO2 at Pt Temp 33.0 L D ABG pO2 at Pt Temp 156.0 H* ABG HCO3 25.1 ABG O2 Sat (Measured) 99.9 H* ABG O2 Content 18.2 ABG Base Excess 2.6 H Adrian Test Positive O2 Delivery Device Vent Oxygen Flow Rate 40% Vent Rate 14 PEEP 5.0 Pressure Support Vent 450 Sodium Potassium Chloride Carbon Dioxide Anion Gap BUN Creatinine Creat Clearance w eGFR Random Glucose Calcium Phosphorus Magnesium Total Bilirubin AST ALT Alkaline Phosphatase Total Protein Albumin Levetiracetam Active Medications Generic Name Dose Route Start Last Admin Trade Name Freq PRN Reason Stop Dose Admin Acetaminophen 650 mg 05/21/17 04:15 05/21/17 08:56 Tylenol Suppository - [place] 650 mg Q6H PRN Administration FEVER Albuterol Sulfate 1 amp 05/20/17 17:12 Ventolin 0.083% Nebulizer Soln - NEB Q4H PRN SHORT OF BREATH/WHEEZING Albuterol/Ipratropium 1 amp 05/20/17 20:00 05/22/17 08:15 Duoneb - NEB 1 amp RQID [facility] Administration Aspirin 81 mg 05/21/17 10:00 05/22/17 09:49 Asa - PO 81 mg DAILY [facility] Administration Carbamazepine 600 mg 05/21/17 22:00 05/22/17 09:48 Tegretol - NGT 600 mg BID [facility] Administration Diphenhydramine HCl 25 mg 05/20/17 18:00 05/22/17 09:49 Benadryl Oral Solution - PO 25 mg QID [facility] Administration Fosphenytoin Sodium 200 mg 05/20/17 20:30 05/22/17 10:08 Cerebyx - IVPB 200 mg Q12H [facility] Administration Heparin Sodium (Porcine) 5,000 unit 05/20/17 22:00 05/22/17 05:56 Heparin - SQ 5,000 unit TID [facility] Administration Piperacillin Sod/Tazobactam 100 mls @ 200 mls/hr 05/20/17 18:00 05/22/17 03: 11 Sod 4.5 gm/ Dextrose IVPB 200 mls/hr Q8H-IV [facility] Administration Propofol 1,000,000 mcg in 100 mls @ 2.004 mls/hr 05/21/17 05:45 05/22/17 05: 56 Diprivan - IVPB 25 mcg/kg/min TITR [facility] 10.022 mls/hr Protocol Administration 5 MCG/KG/MIN Azithromycin 500 mg/ Dextrose 250 mls @ 250 mls/hr 05/21/17 10:00 05/22/17 09 :50 IVPB 250 mls/hr DAILY [facility] Administration Vancomycin HCl 1,000 mg/ 250 mls @ 250 mls/hr 05/21/17 10:00 05/22/17 10:16 Dextrose IVPB 250 mls/hr BID [facility] Administration Famotidine/Sodium Chloride 20 mg in 50 mls @ 100 mls/hr 05/21/17 11:00 09:49 Pepcid 20 Mg Premixed Ivpb - IVPB 100 mls/hr BID [facility] Administration Lactulose 30 gm 05/20/17 22:00 05/22/17 05:56 Cephulac (Oral Use) PO Not Given TID [facility] Levetiracetam 1,000 mg 05/20/17 22:00 05/22/17 05:56 Keppra Injection - IVPB 1,000 mg TID [facility] Administration Methylprednisolone Sodium Succinate 40 mg 05/20/17 18:00 05/22/17 09:48 Solu-Medrol - IVPUSH 40 mg Q8H-IV [facility] Administration Non-Formulary Medication 1,400 mg 05/20/17 22:00 Rufinamide [Banzel] PO BID [facility] Nystatin 1 applic 05/21/17 10:00 05/21/17 11:27 Nystop Powder - TP 1 applic DAILY [facility] Administration Phenobarbital 90 mg 05/20/17 22:30 05/21/17 21:50 Phenobarbital Injection - IVPUSH 90 mg HS [facility] Administration Senna 1 tab 05/20/17 22:00 05/22/17 09:47 Senna - PO 1 tab BID [facility] Administration Tamsulosin HCl 0.4 mg 05/21/17 08:30 05/22/17 09:48 Flomax - PO 0.4 mg DAILY@0830 [facility] Administration Zonisamide 500 mg 05/20/17 22:00 05/21/17 21:52 Zonegran - PO 500 mg HS [facility] Administration Imaging: - 05/19 Echo: suboptimal study but LV function "at least" moderately reduced, cannot exclude RWMA - 05/18 CT chest: patchy nodular infiltrates bilateral upper lobes and RML; very small left pleural effusion; left ventricular dilation; small pericardial effusion 47 year-old male resident of [facility], with a PMH significant for profound intellectual disability, cerebral palsy, seizure disorder, systolic heart failure, and Factor VIII deficiency. Admitted for pneumonia. Hospital course complicated by status epilepticus x 50 minutes. Now intubated, sedated in ICU. Hypoxic and hypercapneic respiratory failure Pneumonia --continue Zosyn, azithromycin --solumedrol Seizure disorder Status epilepticus episode 05/19 --continue rufinamide, carbamazepine, Keppra, zonisamide, phenobarbitol, fosphenytoin (per neuro, switch to 300mg IVPB daily) Systolic heart failure Small pericardial effusion --Lasix PRN, maintain negative balance --CVP monitoring recommended to ICU team by cardiology --net negative balance --strict I&Os, daily weights --cardiology following Elevated troponins --troponin 0.10-->0.15-->0.10, flat trending, likely result of infection --non-specific ST changes in V3-V5 Hypokalemia --repleted Hypernatremia --resolved Functional quadriplegia --profound intellectual disability, requires assistance for all ADLs FEN Fluids: PO intake adequate Electrolytes: replete as indicated Nutrition: tube feeds DVT prophylaxis: subq heparin Dispo: continues to require ICU level care. Full code. Visit type - Emergency Visit Emergency Visit: Yes ED Registration Date: 05/18/17 Care time: The patient presented to the Emergency Department on the above date and was hospitalized for further evaluation of their emergent condition. - New Patient This patient is new to me today: No - Critical Care Critical Care patient: Yes Total Critical Care Time (in minutes): 35 Critical Care Statement: The care of this patient involved high complexity decision making to prevent further life threatening deterioration of the patient 's condition and/or to evaluate & treat vital organ system(s) failure or risk of failure.
[2017-05-22] MEDS: NYSTATIN POWDER 100,000 UNITS/GM - 15 GM TOPICAL POWDER TP SCH (11:49)
--- NOTE | 2017-05-22 11:54 | PN ---
Teaching Attending Note Name of Resident: Charla Guzman ATTENDING PHYSICIAN STATEMENT I saw and evaluated the patient. I reviewed the resident's note and discussed the case with the resident. I agree with the resident's findings and plan as documented. SUBJECTIVE: Patient seen and examined in the ICU. Remains intubated and sedated. AC Mode of vent, 40% FiO2. No pressors. CXR: Improving infiltrates Intake & Output 05/19/17 05/20/17 05/21/17 05/22/17 23:59 23:59 23:59 23:59 Intake Total 1630 447 5884 1550 Output Total 800 600 Balance 7433 898 8585 950 Weight 147 lb 4.8 oz 140 lb 3.424 oz 143 lb 1.28 oz Last Vital Signs Temp Pulse Resp BP Pulse Ox 98.5 F 63 14 124/77 99 05/22/17 10:00 05/22/17 10:22 05/22/17 10:00 05/22/17 10:00 05/22/17 10:22 Active Medications Acetaminophen (Tylenol Suppository -) 650 mg [place] Q6H PRN PRN Reason: FEVER Last Admin: 05/21/17 08:56 Dose: 650 mg Albuterol Sulfate (Ventolin 0.083% Nebulizer Soln -) 1 amp NEB Q4H PRN PRN Reason: SHORT OF BREATH/WHEEZING Albuterol/Ipratropium (Duoneb -) 1 amp NEB RQID [facility] Last Admin: 05/22/17 08:15 Dose: 1 amp Aspirin (Asa -) 81 mg PO DAILY [facility] Last Admin: 05/22/17 09:49 Dose: 81 mg Carbamazepine (Tegretol -) 600 mg NGT BID [facility] Last Admin: 05/22/17 09:48 Dose: 600 mg Diphenhydramine HCl (Benadryl Oral Solution -) 25 mg PO QID [facility] Last Admin: 05/22/17 09:49 Dose: 25 mg Fosphenytoin Sodium (Cerebyx -) 200 mg IVPB Q12H [facility] Last Admin: 05/22/17 10:08 Dose: 200 mg Heparin Sodium (Porcine) (Heparin -) 5,000 unit SQ TID [facility] Last Admin: 05/22/17 05:56 Dose: 5,000 unit Piperacillin Sod/Tazobactam (Sod 4.5 gm/ Dextrose) 100 mls @ 200 mls/hr IVPB Q8H-IV [facility] Last Admin: 05/22/17 11:48 Dose: 200 mls/hr Propofol (Diprivan -) 1,000,000 mcg in 100 mls @ 2.004 mls/hr IVPB TITR [facility]; 5 MCG/KG/MIN PRN Reason: Protocol Last Admin: 05/22/17 05:56 Dose: 25 mcg/kg/min, 10.022 mls/hr Azithromycin 500 mg/ Dextrose 250 mls @ 250 mls/hr IVPB DAILY [facility] Last Admin: 05/22/17 09:50 Dose: 250 mls/hr Vancomycin HCl 1,000 mg/ (Dextrose) 250 mls @ 250 mls/hr IVPB BID [facility] Last Admin: 05/22/17 10:16 Dose: 250 mls/hr Famotidine/Sodium Chloride (Pepcid 20 Mg Premixed Ivpb -) 20 mg in 50 mls @ 100 mls/hr IVPB BID [facility] Last Admin: 05/22/17 09:49 Dose: 100 mls/hr Lactulose (Cephulac (Oral Use)) 30 gm PO TID [facility] Last Admin: 05/22/17 05:56 Dose: Not Given Levetiracetam (Keppra Injection -) 1,000 mg IVPB TID [facility] Last Admin: 05/22/17 05:56 Dose: 1,000 mg Methylprednisolone Sodium Succinate (Solu-Medrol -) 40 mg IVPUSH Q8H-IV [facility] Last Admin: 05/22/17 09:48 Dose: 40 mg Non-Formulary Medication (Rufinamide [Banzel]) 1,400 mg PO BID [facility] Nystatin (Nystop Powder -) 1 applic TP DAILY [facility] Last Admin: 05/22/17 11:49 Dose: 1 applic Phenobarbital (Phenobarbital Injection -) 90 mg IVPUSH [facility] Last Admin: 05/21/17 21:50 Dose: 90 mg Senna (Senna -) 1 tab PO BID [facility] Last Admin: 05/22/17 09:47 Dose: 1 tab Tamsulosin HCl (Flomax -) 0.4 mg PO DAILY@0830 [facility] Last Admin: 05/22/17 09:48 Dose: 0.4 mg Zonisamide (Zonegran -) 500 mg PO [facility] Last Admin: 05/21/17 21:52 Dose: 500 mg Gen: intubated, sedated Heart: tachycardic, regular Lung: bilateral rhonchi, wheezes Abd: soft, nontender Ext: no edema, +groin rash Laboratory Results - last 24 hr 05/20/17 05/22/17 05/22/17 05:55 05:00 05:00 WBC 8.4 D RBC 4.37 Hgb 12.7 Hct 38.6 MCV 88.3 MCH 29.1 MCHC 32.9 RDW 17.6 H Plt Count 209 D MPV 9.5 Neutrophils % 81.4 Lymphocytes % 12.4 D Monocytes % 3.8 Eosinophils % 2.1 D Basophils % 0.3 Puncture Site ABG pH ABG pCO2 at Pt Temp ABG pO2 at Pt Temp ABG HCO3 ABG O2 Sat (Measured) ABG O2 Content ABG Base Excess Adrian Test O2 Delivery Device Oxygen Flow Rate Vent Rate PEEP Pressure Support Vent Sodium 143 Potassium 2.7 L* D Chloride 109 H Carbon Dioxide 26 Anion Gap 8 BUN 9 D Creatinine 0.7 D Creat Clearance w eGFR > 60 Random Glucose 111 H D Calcium 6.9 L* Phosphorus 2.6 Magnesium 1.8 Total Bilirubin 0.3 D AST 26 D ALT 37 Alkaline Phosphatase 88 D Total Protein 5.0 L Albumin 1.8 L D Levetiracetam 28.8 05/22/17 06:12 WBC RBC Hgb Hct MCV MCH MCHC RDW Plt Count MPV Neutrophils % Lymphocytes % Monocytes % Eosinophils % Basophils % Puncture Site Right radial ABG pH 7.49 H ABG pCO2 at Pt Temp 33.0 L D ABG pO2 at Pt Temp 156.0 H* ABG HCO3 25.1 ABG O2 Sat (Measured) 99.9 H* ABG O2 Content 18.2 ABG Base Excess 2.6 H Adrian Test Positive O2 Delivery Device Vent Oxygen Flow Rate 40% Vent Rate 14 PEEP 5.0 Pressure Support Vent 450 Sodium Potassium Chloride Carbon Dioxide Anion Gap BUN Creatinine Creat Clearance w eGFR Random Glucose Calcium Phosphorus Magnesium Total Bilirubin AST ALT Alkaline Phosphatase Total Protein Albumin Levetiracetam A/P Acute Hypoxic and Hypercapneic Respiratory Failure Status Epilepticus resolved Seizure Disorder Pneumonia likely Aspiration Sepsis Acute Bronchospasm Hypernatremia Mental Retardation Cerebral Palsy - continue antibiotics - replace lytes - continue antiepileptics - seizure precautions - medrol - inhaled bronchodilators - taper FiO2 to keep SpO2 >90% - spontaneous breathing trials as tolerated - DVT/GI prophylaxis - continue ICU monitoring Dr Cary Critical care time spent in reviewing chart, evaluating patient and formulating plan 35 min
[2017-05-22] MEDS ORDERED: POTASSIUM CHLORIDE ORAL LIQUID 20 MEQ/15 ML PO ONE ×4 (12:15→23:30)
[2017-05-22] MEDS: KCL 10 MEQ IVPB 10 MEQ/100 ML INFUS.BAG IVPB SCH ×3 (13:38→16:02)
--- NOTE | 2017-05-22 14:52 | PN ---
Physical Exam: SUBJECTIVE: Patient seen and examined in the ICU. Pt is intubated and sedated, looks comfortable. FiO2 reduced from 40% to 30% this morning. OBJECTIVE: Vital Signs Period Temp Pulse Resp BP Sys/Velasco Pulse Ox Last 24 Hr 98.5 F-100.3 F 53-79 14-18 102-132/67-81 97-99 GENERAL: intubated, sedated, looks comfortable LUNGS: ely rhonchorous breath sounds, wheezes to Left upper lung appreciated on anterior auscultation HEART: Regular rate and rhythm, normal S1 and S2 without murmur, rub or gallop. ABDOMEN: Soft, nontender, not distended. LOWER EXTREMITIES: Warm, well-perfused. No peripheral edema. NEUROLOGICAL: No facial droop. Unable to complete neuro exam as pt unable to follow commands or answer questions. Laboratory Results - last 24 hr 05/20/17 05/22/17 05/22/17 05:55 05:00 05:00 WBC 8.4 D RBC 4.37 Hgb 12.7 Hct 38.6 MCV 88.3 MCH 29.1 MCHC 32.9 RDW 17.6 H Plt Count 209 D MPV 9.5 Neutrophils % 81.4 Lymphocytes % 12.4 D Monocytes % 3.8 Eosinophils % 2.1 D Basophils % 0.3 Puncture Site ABG pH ABG pCO2 at Pt Temp ABG pO2 at Pt Temp ABG HCO3 ABG O2 Sat (Measured) ABG O2 Content ABG Base Excess Adrian Test O2 Delivery Device Oxygen Flow Rate Vent Rate PEEP Pressure Support Vent Sodium 143 Potassium 2.7 L* D Chloride 109 H Carbon Dioxide 26 Anion Gap 8 BUN 9 D Creatinine 0.7 D Creat Clearance w eGFR > 60 Random Glucose 111 H D Calcium 6.9 L* Phosphorus 2.6 Magnesium 1.8 Total Bilirubin 0.3 D AST 26 D ALT 37 Alkaline Phosphatase 88 D Total Protein 5.0 L Albumin 1.8 L D Levetiracetam 28.8 05/22/17 06:12 WBC RBC Hgb Hct MCV MCH MCHC RDW Plt Count MPV Neutrophils % Lymphocytes % Monocytes % Eosinophils % Basophils % Puncture Site Right radial ABG pH 7.49 H ABG pCO2 at Pt Temp 33.0 L D ABG pO2 at Pt Temp 156.0 H* ABG HCO3 25.1 ABG O2 Sat (Measured) 99.9 H* ABG O2 Content 18.2 ABG Base Excess 2.6 H Adrian Test Positive O2 Delivery Device Vent Oxygen Flow Rate 40% Vent Rate 14 PEEP 5.0 Pressure Support Vent 450 Sodium Potassium Chloride Carbon Dioxide Anion Gap BUN Creatinine Creat Clearance w eGFR Random Glucose Calcium Phosphorus Magnesium Total Bilirubin AST ALT Alkaline Phosphatase Total Protein Albumin Levetiracetam Active Medications Generic Name Dose Route Start Last Admin Trade Name Freq PRN Reason Stop Dose Admin Acetaminophen 650 mg 05/21/17 04:15 05/21/17 08:56 Tylenol Suppository - MT 650 mg Q6H PRN Administration FEVER Albuterol Sulfate 1 amp 05/20/17 17:12 Ventolin 0.083% Nebulizer Soln - NEB Q4H PRN SHORT OF BREATH/WHEEZING Albuterol/Ipratropium 1 amp 05/20/17 20:00 05/22/17 11:35 Duoneb - NEB 1 amp RQID CATHERINE Administration Aspirin 81 mg 05/21/17 10:00 05/22/17 09:49 Asa - PO 81 mg DAILY CATHERINE Administration Carbamazepine 600 mg 05/21/17 22:00 05/22/17 09:48 Tegretol - NGT 600 mg BID CATHERINE Administration Diphenhydramine HCl 25 mg 05/20/17 18:00 05/22/17 14:16 Benadryl Oral Solution - PO 25 mg QID CATHERINE Administration Fosphenytoin Sodium 200 mg 05/20/17 20:30 05/22/17 10:08 Cerebyx - IVPB 200 mg Q12H CATHERINE Administration Heparin Sodium (Porcine) 5,000 unit 05/20/17 22:00 05/22/17 14:15 Heparin - SQ 5,000 unit TID CATHERINE Administration Piperacillin Sod/Tazobactam 100 mls @ 200 mls/hr 05/20/17 18:00 05/22/17 11: 48 Sod 4.5 gm/ Dextrose IVPB 200 mls/hr Q8H-IV CATHERINE Administration Propofol 1,000,000 mcg in 100 mls @ 2.004 mls/hr 05/21/17 05:45 05/22/17 05: 56 Diprivan - IVPB 25 mcg/kg/min TITR CATHERINE 10.022 mls/hr Protocol Administration 5 MCG/KG/MIN Azithromycin 500 mg/ Dextrose 250 mls @ 250 mls/hr 05/21/17 10:00 05/22/17 09 :50 IVPB 250 mls/hr DAILY CATHERINE Administration Vancomycin HCl 1,000 mg/ 250 mls @ 250 mls/hr 05/21/17 10:00 05/22/17 10:16 Dextrose IVPB 250 mls/hr BID CATHERINE Administration Famotidine/Sodium Chloride 20 mg in 50 mls @ 100 mls/hr 05/21/17 11:00 09:49 Pepcid 20 Mg Premixed Ivpb - IVPB 100 mls/hr BID CATHERINE Administration Potassium Chloride 10 meq in 100 mls @ 100 mls/hr 05/22/17 12:00 05/22/17 13: 38 Potassium Chloride 10 Meq Premix Ivpb - IVPB 05/22/17 14:59 100 mls/hr Q60M CATHERINE Administration Lactulose 30 gm 05/20/17 22:00 05/22/17 13:38 Cephulac (Oral Use) PO Not Given TID CATHERINE Levetiracetam 1,000 mg 05/20/17 22:00 05/22/17 13:49 Keppra Injection - IVPB 1,000 mg TID CATHERINE Administration Methylprednisolone Sodium Succinate 40 mg 05/20/17 18:00 05/22/17 09:48 Solu-Medrol - IVPUSH 40 mg Q8H-IV CATHERINE Administration Non-Formulary Medication 1,400 mg 05/20/17 22:00 Rufinamide [Banzel] PO BID CATHERINE Nystatin 1 applic 05/21/17 10:00 05/22/17 11:49 Nystop Powder - TP 1 applic DAILY CATHERINE Administration Phenobarbital 90 mg 05/20/17 22:30 05/21/17 21:50 Phenobarbital Injection - IVPUSH 90 mg HS CATHERINE Administration Senna 1 tab 05/20/17 22:00 05/22/17 09:47 Senna - PO 1 tab BID CATHERINE Administration Tamsulosin HCl 0.4 mg 05/21/17 08:30 05/22/17 09:48 Flomax - PO 0.4 mg DAILY@0830 CATHERINE Administration Zonisamide 500 mg 05/20/17 22:00 05/21/17 21:52 Zonegran - PO 500 mg HS CATHERINE Administration IMAGIN05/21/17 Renal US -> both kidneys unremarkable 05/22/17 CXR -> slight improvement, retro cardiac area appears better aerated ASSESSMENT/PLAN: 47M with PMH of seizure disorder, cerebral palsy, Factor VIII deficiency, profound intellectual disability, admitted from [facility] for sepsis 2/ 2 pneumonia. # acute on chronic hypoxic and hypercapneic respiratory failure - taper FiO2 to keep SpO2 > 90% - continue duonebs, Albuterol prn - continue Solu-medrol - spontaneous breathing trials as tolerated # status epilepticus - resolved # seizure disorder - continue home meds of Carbamazepine, Keppra, Phenobarbital - continue Diazepam prn, Fosphenytoin, and Zonegran # sepsis 2/2 pneumonia - likely 2/2 aspiration - ID (Dr. Pelayo) recs appreciated: continue current therapy of IV Azithromycin, Vancomycin and Zosyn - continue suctioning prn - blood cultures (-) x 72 hrs # FEN - Fluids: water 20 ml/hr in addition to tube feeding - Electrolytes: hypokalemia repleted with KCl 10meq IVPB x 3 bags and with K- dur oral liquid 40 meq, continue to monitor - Nutrition: Osmolite 1.2 @ 20 ml/hr, increase to goal of 50 ml/hr x 24 hrs. # Prophylaxis - DVT ppx with Heparin TID - GI ppx with Pepcid Visit type - Emergency Visit Emergency Visit: Yes ED Registration Date: 05/18/17 Care time: The patient presented to the Emergency Department on the above date and was hospitalized for further evaluation of their emergent condition. - New Patient This patient is new to me today: No - Critical Care Critical Care patient: Yes Total Critical Care Time (in minutes): 45 Critical Care Statement: The care of this patient involved high complexity decision making to prevent further life threatening deterioration of the patient 's condition and/or to evaluate & treat vital organ system(s) failure or risk of failure.
[2017-05-22 16:15] LABS: ANION GAP 9 (8-16); BLOOD UREA NITROGEN 8 mg/dL (7-18); CALCIUM 7.2 mg/dL (8.5-10.1); CHLORIDE 110 mmol/L (98-107); CO2 26 mmol/L (21-32); CREATININE 0.8 mg/dL (0.7-1.3); GLUCOSE,RANDOM 159 mg/dL (74-106); SODIUM 145 mmol/L (136-145)
--- NOTE | 2017-05-22 16:42 | PN ---
Progress Note (short form) - Note Progress Note: cc: hypoxic resp failure S: IVF down titrated yesterday, also given lasix 40 mg x 1, but still overall net positive. + uop. cxr improved today. hypernatremia resolved, but now hypokalemic. Current Medications Acetaminophen (Tylenol Suppository -) 650 mg IN Q6H PRN PRN Reason: FEVER Last Admin: 05/21/17 08:56 Dose: 650 mg Albuterol Sulfate (Ventolin 0.083% Nebulizer Soln -) 1 amp NEB Q4H PRN PRN Reason: SHORT OF BREATH/WHEEZING Albuterol/Ipratropium (Duoneb -) 1 amp NEB RQID [facility] Last Admin: 05/22/17 15:27 Dose: 1 amp Aspirin (Asa -) 81 mg PO DAILY [facility] Last Admin: 05/22/17 09:49 Dose: 81 mg Carbamazepine (Tegretol -) 600 mg NGT BID [facility] Last Admin: 05/22/17 09:48 Dose: 600 mg Diphenhydramine HCl (Benadryl Oral Solution -) 25 mg PO QID [facility] Last Admin: 05/22/17 14:16 Dose: 25 mg Fosphenytoin Sodium (Cerebyx -) 200 mg IVPB Q12H [facility] Last Admin: 05/22/17 10:08 Dose: 200 mg Heparin Sodium (Porcine) (Heparin -) 5,000 unit SQ TID [facility] Last Admin: 05/22/17 14:15 Dose: 5,000 unit Piperacillin Sod/Tazobactam (Sod 4.5 gm/ Dextrose) 100 mls @ 200 mls/hr IVPB Q8H-IV [facility] Last Admin: 05/22/17 11:48 Dose: 200 mls/hr Propofol (Diprivan -) 1,000,000 mcg in 100 mls @ 2.004 mls/hr IVPB TITR CATHERINE; 5 MCG/KG/MIN PRN Reason: Protocol Last Admin: 05/22/17 05:56 Dose: 25 mcg/kg/min, 10.022 mls/hr Azithromycin 500 mg/ Dextrose 250 mls @ 250 mls/hr IVPB DAILY [facility] Last Admin: 05/22/17 09:50 Dose: 250 mls/hr Vancomycin HCl 1,000 mg/ (Dextrose) 250 mls @ 250 mls/hr IVPB BID [facility] Last Admin: 05/22/17 10:16 Dose: 250 mls/hr Famotidine/Sodium Chloride (Pepcid 20 Mg Premixed Ivpb -) 20 mg in 50 mls @ 100 mls/hr IVPB BID [facility] Last Admin: 05/22/17 09:49 Dose: 100 mls/hr Lactulose (Cephulac (Oral Use)) 30 gm PO TID [facility] Last Admin: 05/22/17 13:38 Dose: Not Given Levetiracetam (Keppra Injection -) 1,000 mg IVPB TID [facility] Last Admin: 05/22/17 13:49 Dose: 1,000 mg Methylprednisolone Sodium Succinate (Solu-Medrol -) 40 mg IVPUSH Q8H-IV [facility] Last Admin: 05/22/17 09:48 Dose: 40 mg Non-Formulary Medication (Rufinamide [Banzel]) 1,400 mg PO BID [facility] Nystatin (Nystop Powder -) 1 applic TP DAILY [facility] Last Admin: 05/22/17 11:49 Dose: 1 applic Phenobarbital (Phenobarbital Injection -) 90 mg IVPUSH [facility] Last Admin: 05/21/17 21:50 Dose: 90 mg Senna (Senna -) 1 tab PO BID [facility] Last Admin: 05/22/17 09:47 Dose: 1 tab Tamsulosin HCl (Flomax -) 0.4 mg PO DAILY@0830 [facility] Last Admin: 05/22/17 09:48 Dose: 0.4 mg Zonisamide (Zonegran -) 500 mg PO [facility] Last Admin: 05/21/17 21:52 Dose: 500 mg Vital Signs - 24 hr 05/21/17 05/21/17 05/21/17 16:59 18:02 18:42 Temperature 99.7 F H Pulse Rate 70 Respiratory 14 14 Rate Blood Pressure 115/69 O2 Sat by Pulse 99 Oximetry (%) 05/21/17 05/21/17 05/21/17 20:00 20:20 21:00 Temperature 99.9 F H 99.8 F H Pulse Rate 65 64 Respiratory 14 14 15 Rate Blood Pressure 123/67 O2 Sat by Pulse Oximetry (%) 05/21/17 05/21/17 05/22/17 21:10 22:20 00:00 Temperature 99.3 F 99 F Pulse Rate 65 62 Respiratory 15 14 Rate Blood Pressure 123/67 110/71 O2 Sat by Pulse Oximetry (%) 05/22/17 05/22/17 05/22/17 00:04 02:00 02:36 Temperature 98.7 F Pulse Rate 56 L Respiratory 14 18 14 Rate Blood Pressure 102/69 O2 Sat by Pulse Oximetry (%) 05/22/17 05/22/17 05/22/17 04:00 05:32 06:00 Temperature 98.7 F 98.7 F Pulse Rate 59 L 53 L Respiratory 16 16 16 Rate Blood Pressure 120/78 113/77 O2 Sat by Pulse Oximetry (%) 05/22/17 05/22/17 05/22/17 08:00 08:30 10:00 Temperature 98.5 F Pulse Rate 66 60 Respiratory 14 15 14 Rate Blood Pressure 132/81 124/77 O2 Sat by Pulse Oximetry (%) 05/22/17 05/22/17 05/22/17 10:20 10:22 11:35 Temperature Pulse Rate 63 Respiratory 14 Rate Blood Pressure O2 Sat by Pulse 97 99 Oximetry (%) 05/22/17 05/22/17 05/22/17 12:00 14:00 14:05 Temperature Pulse Rate 56 L 64 Respiratory 14 16 15 Rate Blood Pressure 124/68 138/97 O2 Sat by Pulse Oximetry (%) 05/22/17 05/22/17 16:00 16:33 Temperature Pulse Rate 69 Respiratory 14 Rate Blood Pressure 125/91 O2 Sat by Pulse 100 Oximetry (%) Intake & Output 05/20/17 05/21/17 05/22/17 05/23/17 07:59 07:59 07:59 07:59 Intake Total 486 725 4826 Output Total 1400 1300 Balance 360 097 8124 -1300 Weight 147 lb 4.8 oz 140 lb 3.424 oz 143 lb 1.28 oz intubated, sedated nad, non-verbal jvd flat, neck supple diffuse rhonchi, nl effort regular rr. nl s1, s2 no mrg. + bs soft nt nd, no hsm ext with trace soft edema. no c/c + dp/pt no jaundice, diaphoresis. CBC, BMP 05/22/17 05:00 Laboratory Tests 05/21/17 05/22/17 05/22/17 05:05 05:00 06:12 ABG pH 7.49 H ABG pCO2 at Pt Temp 33.0 L D ABG pO2 at Pt Temp 156.0 H* O2 Delivery Device Vent Oxygen Flow Rate 40% Potassium 3.6 Magnesium 1.8 Total Bilirubin 0.3 D AST 26 D ALT 37 Alkaline Phosphatase 88 D Total Protein 5.0 L ekg: sinus tach. non-specific st-t wave abnormalities. no acue ischemic changes. tele: sr --> sb echo 04/2017 tds: gross decrease in systolic fn (moderate). tds for rwma. RV/ atria not well visualized. no significant MV/AV abnormaliteis. TV/PV not well visualized. no pericardial effusion. chest ct: images and report reviewed. bilateral pulmonary infiltrates. very small left pleural effusion. small pericardial effusion. see emr for detailed findings. 05/20 cxr: no significant change. 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 sob/hypoxia - chest ct and clinical picture c/w pna/infectious etiology. - s/p resp decompensation/intubation 05/21. ongoing mgm't per pmd/pulm/critical care. - recommend cvp in light of cardiomyopathy and increase in volume intake. elevated troponins/new systolic cardiomyopathy - flat trend c/w demand in setting of tachycardia and infection. no acute ischemic changes on ekg. - lyte repletion prn - echo with new systolic cardiomyopathy in setting of pna. Recommend reassessment of EF as outpatient when acute illness improves to assess for resolution. hypernatremia - s/p IVF. resolved. per pmd. cct 35 min
[2017-05-22 16:58] LABS: POTASSIUM 2.8 mmol/L (3.5-5.1)
[2017-05-22] MEDS ORDERED: POTASSIUM CHLORIDE TABS 20 MEQ TABLET.ER (FP) PO ONE (17:20)
[2017-05-22] MEDS ORDERED: KCL 10 MEQ IVPB 10 MEQ/100 ML INFUS.BAG IVPB SCH (17:30)
[2017-05-22] MEDS ORDERED: MAGNESIUM SULF 50% (8.12 MEQ/2 ML-1 GM VIAL) IVPB ONE (18:00)
[2017-05-22] MEDS ORDERED: FOSPHENYTOIN SODIUM 100 MG in SODIUM CHLORIDE 100 ML IVPB ONE (18:14)
[2017-05-22] MEDS ORDERED: SODIUM CHLORIDE 100 ML with POTASSIUM CHLORIDE 10 MEQ IVPB SCH (18:15)
[2017-05-22] MEDS ORDERED: WATER IVPB ONE (19:45)
[2017-05-22] MEDS ORDERED: DEXTROSE 5% IVPB ONE (19:45)
[2017-05-22] MEDS ORDERED: FOSPHENYTOIN SODIUM IVPB ONE (19:45)
[2017-05-22 20:57] LABS: MAGNESIUM 2.3 mg/dL (1.8-2.4); POTASSIUM 3.3 mmol/L (3.5-5.1)
[2017-05-22] MEDS: POTASSIUM CHLORIDE 10 MEQ in SODIUM CHLORIDE 100 ML IVPB SCH ×2 (21:17→22:36)
[2017-05-22] MEDS: ZONISAMIDE 100 MG CAPSULE PO SCH (22:12)
[2017-05-22] MEDS: PHENobarbital SODIUM 65 MG/1 ML VIAL IVPUSH SCH (22:38)
[2017-05-23] MEDS ORDERED: PROPOFOL 1,000,000 MCG/100 ML VIAL ONE (00:16)
[2017-05-23] MEDS: POTASSIUM CHLORIDE 10 MEQ in SODIUM CHLORIDE 100 ML IVPB SCH (00:49)
[2017-05-23] MEDS: PIPERACILLIN/TAZOB 4.5 GM 4.5 GM in DEXTROSE 5%-WATER 100 ML IVPB SCH ×3 (02:17→17:36)
[2017-05-23] MEDS: methylPREDNISolone NA SUCC 40 MG/1 ML VIAL IVPUSH SCH ×3 (02:17→17:35)
[2017-05-23] MEDS ORDERED: PT OWN MED DRAWER 7, Y5N ONE ×4 (06:01→17:26)
[2017-05-23] MEDS: levETIRAcetam 500 MG/5 ML INJECTION VIAL IVPB SCH ×3 (06:04→22:46)
[2017-05-23] MEDS: HEPARIN NA (PORCINE) 5,000 UNITS/ML 1ML VIAL SQ SCH ×3 (06:05→22:46)
[2017-05-23] MEDS: LACTULOSE 20 GM/30 ML UDC (FOR ORAL USE ONLY) PO SCH ×3 (06:05→22:50)
[2017-05-23 06:19] LABS: HEMATOCRIT 42.6 % (35.4-49); HEMOGLOBIN 14.1 GM/dL (11.7-16.9); MCH 29.2 pg (25.7-33.7); MCHC 33.1 g/dl (32.0-35.9); MEAN CELL VOLUME 88.4 fl (80-96); MEAN PLT VOLUME 9.8 fl (7.5-11.1); PLATELET COUNT 228 K/MM3 (134-434); RBC 4.82 M/mm3 (4.00-5.60); RDW 17.5 % (11.9-15.9); WHITE BLOOD COUNT 9.3 K/mm3 (4.0-10.0)
[2017-05-23] MEDS: PROPOFOL 1,000,000 MCG/100 ML VIAL IVPB SCH (06:24)
[2017-05-23 06:31] LABS: CHLORIDE 118 mmol/L (98-107); POTASSIUM 4.6 mmol/L (3.5-5.1); SODIUM 147 mmol/L (136-145)
[2017-05-23 06:44] LABS: ANION GAP 8 (8-16); BLOOD UREA NITROGEN 7 mg/dL (7-18); CALCIUM 7.4 mg/dL (8.5-10.1); CO2 21 mmol/L (21-32); CREATININE 0.7 mg/dL (0.7-1.3); GLUCOSE,RANDOM 169 mg/dL (74-106); MAGNESIUM 2.3 mg/dL (1.8-2.4); PHOSPHOROUS 1.9 mg/dL (2.5-4.9)
[2017-05-23] MEDS: ALBUTEROL SO4 2.5/IPRATROPIUM 0.5 INH SOL 3 ML VIAL.NEB. NEB SCH ×5 (07:40→21:30)
--- NOTE | 2017-05-23 08:27 | PN ---
Progress Note (short form) - Note Progress Note: remains intubated afebrile Vital Signs Period Temp Pulse Resp BP Sys/Velasco Pulse Ox Last 24 Hr 97.3 F-98.5 F 56-90 14-16 96-138/63-97 97-100 cor-rrr lungs decreased bs at bases abd soft,nt ext no edema CBC, BMP 05/23/17 05:00 05/23/17 05:00 Microbiology 05/18/17 09:57 Blood - Peripheral Venous Blood Culture - Preliminary NO GROWTH OBTAINED AFTER 96 HOURS, INCUBATION TO CONTINUE FOR 1 DAYS. 05/18/17 09:57 Blood - Peripheral Venous Blood Culture - Preliminary NO GROWTH OBTAINED AFTER 96 HOURS, INCUBATION TO CONTINUE FOR 1 DAYS. 05/21/17 09:20 Sputum - Endotrachea Suction/Ventilator Gram Stain - Final 05/21/17 09:20 Sputum - Endotrachea Suction/Ventilator Sputum Culture - Preliminary Yeast Like Organism 05/21/17 09:20 Urine - Urine Gunn Legionella Antigen - Final 05/21/17 09:20 Urine - Urine Gunn Streptococcus pneumoniae Antigen (M - Final 05/18/17 11:20 Urine - Urine Clean Catch Urine Culture - Final NO GROWTH OBTAINED 05/18/17 10:22 Nasopharyngeal Swab Influenza Types A,B Antigen (NELSY) - Final 05/18/17 10:22 Nasopharyngeal Swab - Final meds reviewed cxray pending renal/bladder sono- no hydro a/p acute respiratory failure fevers probable aspiration pneumonia cp/mr cultures reviewed no MRSA isolated so will d/c vancomycin continue zosyn/zithromax-day #3 zosyn, day #2 zithromax Problem List - Problems (1) Status epilepticus Code(s): G40.901 - EPILEPSY, UNSP, NOT INTRACTABLE, WITH STATUS EPILEPTICUS (2) Pneumonia Code(s): J18.9 - PNEUMONIA, UNSPECIFIED ORGANISM
[2017-05-23] MEDS ORDERED: FOSPHENYTOIN SODIUM 100 MG/2 ML VIAL IVPB SCH (10:00)
--- NOTE | 2017-05-23 10:24 | PN ---
Progress Note (short form) - Note Progress Note: cc: hypoxic resp failure S: + uop. cxr improved today. Remains intubated and sedated. Current Medications Acetaminophen (Tylenol Suppository -) 650 mg NV Q6H PRN PRN Reason: FEVER Last Admin: 05/21/17 08:56 Dose: 650 mg Albuterol Sulfate (Ventolin 0.083% Nebulizer Soln -) 1 amp NEB Q4H PRN PRN Reason: SHORT OF BREATH/WHEEZING Albuterol/Ipratropium (Duoneb -) 1 amp NEB RQID [facility] Last Admin: 05/23/17 07:40 Dose: 1 amp Aspirin (Asa -) 81 mg PO DAILY [facility] Last Admin: 05/22/17 09:49 Dose: 81 mg Carbamazepine (Tegretol -) 600 mg NGT BID [facility] Last Admin: 05/22/17 22:13 Dose: 600 mg Diphenhydramine HCl (Benadryl Oral Solution -) 25 mg PO QID [facility] Last Admin: 05/22/17 22:11 Dose: 25 mg Heparin Sodium (Porcine) (Heparin -) 5,000 unit SQ TID [facility] Last Admin: 05/23/17 06:05 Dose: 5,000 unit Piperacillin Sod/Tazobactam (Sod 4.5 gm/ Dextrose) 100 mls @ 200 mls/hr IVPB Q8H-IV [facility] Last Admin: 05/23/17 02:17 Dose: 200 mls/hr Propofol (Diprivan -) 1,000,000 mcg in 100 mls @ 2.004 mls/hr IVPB TITR CATHERINE; 5 MCG/KG/MIN PRN Reason: Protocol Last Admin: 05/23/17 06:24 Dose: Not Given Azithromycin 500 mg/ Dextrose 250 mls @ 250 mls/hr IVPB DAILY [facility] Last Admin: 05/22/17 09:50 Dose: 250 mls/hr Famotidine/Sodium Chloride (Pepcid 20 Mg Premixed Ivpb -) 20 mg in 50 mls @ 100 mls/hr IVPB BID [facility] Last Admin: 05/22/17 21:18 Dose: 100 mls/hr Fosphenytoin Sodium 300 mg/ (Dextrose) 106 mls @ 424 mls/hr IVPB DAILY [facility] Sodium Phosphate 15 mm/ (Dextrose) 255 mls @ 62.5 mls/hr IVPB ONCE ONE Stop: 05/23/17 11:28 Lactulose (Cephulac (Oral Use)) 30 gm PO TID [facility] Last Admin: 05/23/17 06:05 Dose: Not Given Levetiracetam (Keppra Injection -) 1,000 mg IVPB TID [facility] Last Admin: 05/23/17 06:04 Dose: 1,000 mg Methylprednisolone Sodium Succinate (Solu-Medrol -) 40 mg IVPUSH Q8H-IV [facility] Last Admin: 05/23/17 02:17 Dose: 40 mg Non-Formulary Medication (Rufinamide [Banzel]) 1,400 mg PO BID [facility] Nystatin (Nystop Powder -) 1 applic TP DAILY [facility] Last Admin: 05/22/17 11:49 Dose: 1 applic Phenobarbital (Phenobarbital Injection -) 90 mg IVPUSH [facility] Last Admin: 05/22/17 22:38 Dose: 90 mg Senna (Senna -) 1 tab PO BID [facility] Last Admin: 05/22/17 21:18 Dose: 1 tab Tamsulosin HCl (Flomax -) 0.4 mg PO DAILY@0830 [facility] Last Admin: 05/22/17 09:48 Dose: 0.4 mg Zonisamide (Zonegran -) 500 mg PO [facility] Last Admin: 05/22/17 22:12 Dose: 500 mg Vital Signs - 24 hr 05/22/17 05/22/17 05/22/17 11:35 12:00 14:00 Temperature Pulse Rate 56 L 64 Respiratory 14 14 16 Rate Blood Pressure 124/68 138/97 O2 Sat by Pulse Oximetry (%) 05/22/17 05/22/17 05/22/17 14:05 16:00 16:25 Temperature Pulse Rate 69 Respiratory 15 14 14 Rate Blood Pressure 125/91 O2 Sat by Pulse Oximetry (%) 05/22/17 05/22/17 05/22/17 16:33 18:00 18:47 Temperature Pulse Rate 68 Respiratory 14 14 Rate Blood Pressure 107/81 O2 Sat by Pulse 100 Oximetry (%) 05/22/17 05/22/17 05/22/17 20:00 21:00 21:30 Temperature Pulse Rate 68 Respiratory 14 14 14 Rate Blood Pressure 125/90 O2 Sat by Pulse Oximetry (%) 05/22/17 05/23/1705/23/18 22:00 00:00 00:31 Temperature 98.3 F Pulse Rate 68 90 Respiratory 14 14 14 Rate Blood Pressure 111/76 102/63 O2 Sat by Pulse 100 Oximetry (%) 05/23/17 05/23/17 05/23/17 02:00 03:30 04:00 Temperature 97.3 F L Pulse Rate 63 70 Respiratory 14 14 14 Rate Blood Pressure 99/72 96/70 O2 Sat by Pulse Oximetry (%) 05/23/17 05/23/17 05/23/17 06:00 06:40 08:00 Temperature 97.8 F Pulse Rate 67 68 Respiratory 14 15 14 Rate Blood Pressure 101/80 128/84 O2 Sat by Pulse 100 Oximetry (%) 05/23/17 05/23/17 08:16 08:18 Temperature Pulse Rate 74 Respiratory 16 Rate Blood Pressure O2 Sat by Pulse 97 Oximetry (%) Intake & Output 05/21/17 05/22/17 05/23/17 05/24/17 07:59 07:59 07:59 07:59 Intake Total 720 4223 1551 Output Total 1400 2900 Balance 720 2823 -1349 Weight 140 lb 3.424 oz 143 lb 1.28 oz 145 lb intubated, sedated nad, non-verbal jvd flat, neck supple diffuse rhonchi, nl effort regular rr. nl s1, s2 no mrg. + bs soft nt nd, no hsm ext with trace soft edema. no c/c + dp/pt no jaundice, diaphoresis. CBC, BMP 05/23/17 05:00 05/23/17 05:00 mg 2.3 ekg: sinus tach. non-specific st-t wave abnormalities. no acue ischemic changes. tele: echo 04/2017 tds: gross decrease in systolic fn (moderate). tds for rwma. RV/ atria not well visualized. no significant MV/AV abnormaliteis. TV/PV not well visualized. no pericardial effusion. chest ct: images and report reviewed. bilateral pulmonary infiltrates. very small left pleural effusion. small pericardial effusion. see emr for detailed findings. 05/20 cxr: no significant change. ASSESSMENT/PLAN 47 yo resident of [facility] with history of hypoxic injury at /infantile cerebral palsy, epilepsy, osteoporosis s/p multiple fractures, renal stones s/p lithotripsy and stent, testicular hypogonadism who p/w hypoxia/tachycardia, ER course notable for abnormal troponins. sob/hypoxia/sepsis - chest ct and clinical picture c/w pna/infectious etiology. - s/p resp decompensation/intubation 05/21. ongoing mgm't per pmd/pulm/critical care. - consider monitoring cvp in light of cardiomyopathy and increase in volume intake. elevated troponins/new systolic cardiomyopathy - flat trend c/w demand in setting of tachycardia and infection. no acute ischemic changes on ekg. - lyte repletion prn - echo with new systolic cardiomyopathy in setting of pna/sepsis. Recommend reassessment of EF as outpatient when acute illness improves to assess for resolution. hypernatremia - s/p IVF. On tube feeds. Improving. Ongoing mgm't per pmd/critical care team. status epilepticus - resolved. ongoing seizure mgm't per neuro. cct 35 min
[2017-05-23] MEDS: ASPIRIN 81 MG CHEWABLE TABLETS PO SCH (10:32)
[2017-05-23] MEDS: diphenhydrAMINE HCL 12.5 MG/5 ML UNIT-DOSE CUPS PO SCH ×3 (10:32→22:50)
[2017-05-23] MEDS: WATER IVPB SCH (10:33)
[2017-05-23] MEDS: DEXTROSE 5% IVPB SCH (10:33)
[2017-05-23] MEDS: FOSPHENYTOIN SODIUM IVPB SCH (10:33)
[2017-05-23] MEDS: FAMOTIDINE 20 MG/50 ML IVPB 20 MG/50 ML MG IVPB SCH ×2 (10:34→22:46)
[2017-05-23] MEDS: NYSTATIN POWDER 100,000 UNITS/GM - 15 GM TOPICAL POWDER TP SCH (10:34)
[2017-05-23] MEDS: SENNOSIDES 8.6MG TABLET (FP) PO SCH ×2 (10:34→22:50)
[2017-05-23] MEDS: TAMSULOSIN HCL 0.4 MG CAP.ER.24H (FP) PO SCH (10:34)
[2017-05-23] MEDS: carBAMazepine 200 MG TABLET NGT SCH ×2 (10:36→22:50)
[2017-05-23] MEDS: AZITHROMYCIN IVPB 500 MG in DEXTROSE 5%-WATER - 250 ML IVPB SCH (10:37)
[2017-05-23] MEDS ORDERED: SODIUM PHOSPHATE - 15 MM in DEXTROSE 5%-WATER - 250 ML IVPB ONE (10:45)
--- NOTE | 2017-05-23 12:04 | PN ---
Teaching Attending Note Name of Resident: Charla Guzman ATTENDING PHYSICIAN STATEMENT I saw and evaluated the patient. I reviewed the resident's note and discussed the case with the resident. I agree with the resident's findings and plan as documented. SUBJECTIVE: Patient seen and examined in the ICU. Remains intubated and sedated. AC Mode of vent, 30% FiO2. No pressors. CXR: Improved infiltrates Intake & Output 05/20/17 05/21/17 05/22/17 05/23/17 23:59 23:59 23:59 23:59 Intake Total 510 2883 1650 1451 Output Total 800 2500 1000 Balance 510 2083 -850 451 Weight 147 lb 4.8 oz 140 lb 3.424 oz 143 lb 1.28 oz 145 lb Last Vital Signs Temp Pulse Resp BP Pulse Ox 98 F 64 16 104/68 97 05/23/17 10:00 05/23/17 10:00 05/23/17 11:10 05/23/17 10:00 05/23/17 08:18 Active Medications Acetaminophen (Tylenol Suppository -) 650 mg MA Q6H PRN PRN Reason: FEVER Last Admin: 05/21/17 08:56 Dose: 650 mg Albuterol Sulfate (Ventolin 0.083% Nebulizer Soln -) 1 amp NEB Q4H PRN PRN Reason: SHORT OF BREATH/WHEEZING Albuterol/Ipratropium (Duoneb -) 1 amp NEB RQID [facility] Last Admin: 05/23/17 11:28 Dose: 1 amp Aspirin (Asa -) 81 mg PO DAILY [facility] Last Admin: 05/23/17 10:32 Dose: 81 mg Carbamazepine (Tegretol -) 600 mg NGT BID [facility] Last Admin: 05/23/17 10:36 Dose: 600 mg Diphenhydramine HCl (Benadryl Oral Solution -) 25 mg PO QID [facility] Last Admin: 05/23/17 10:32 Dose: 25 mg Heparin Sodium (Porcine) (Heparin -) 5,000 unit SQ TID [facility] Last Admin: 05/23/17 06:05 Dose: 5,000 unit Piperacillin Sod/Tazobactam (Sod 4.5 gm/ Dextrose) 100 mls @ 200 mls/hr IVPB Q8H-IV [facility] Last Admin: 05/23/17 10:38 Dose: 200 mls/hr Propofol (Diprivan -) 1,000,000 mcg in 100 mls @ 2.004 mls/hr IVPB TITR [facility]; 5 MCG/KG/MIN PRN Reason: Protocol Last Admin: 05/23/17 06:24 Dose: Not Given Azithromycin 500 mg/ Dextrose 250 mls @ 250 mls/hr IVPB DAILY [facility] Last Admin: 05/23/17 10:37 Dose: 250 mls/hr Famotidine/Sodium Chloride (Pepcid 20 Mg Premixed Ivpb -) 20 mg in 50 mls @ 100 mls/hr IVPB BID [facility] Last Admin: 05/23/17 10:34 Dose: 100 mls/hr Fosphenytoin Sodium 300 mg/ (Dextrose) 106 mls @ 424 mls/hr IVPB DAILY [facility] Last Admin: 05/23/17 10:33 Dose: 424 mls/hr Sodium Phosphate 15 mm/ (Dextrose) 255 mls @ 62.5 mls/hr IVPB ONCE ONE Stop: 05/23/17 14:49 Lactulose (Cephulac (Oral Use)) 30 gm PO TID [facility] Last Admin: 05/23/17 06:05 Dose: Not Given Levetiracetam (Keppra Injection -) 1,000 mg IVPB TID [facility] Last Admin: 05/23/17 06:04 Dose: 1,000 mg Methylprednisolone Sodium Succinate (Solu-Medrol -) 40 mg IVPUSH Q8H-IV [facility] Last Admin: 05/23/17 10:35 Dose: 40 mg Non-Formulary Medication (Rufinamide [Banzel]) 1,400 mg PO BID [facility] Nystatin (Nystop Powder -) 1 applic TP DAILY [facility] Last Admin: 05/23/17 10:34 Dose: 1 applic Phenobarbital (Phenobarbital Injection -) 90 mg IVPUSH [facility] Last Admin: 05/22/17 22:38 Dose: 90 mg Senna (Senna -) 1 tab PO BID [facility] Last Admin: 05/23/17 10:34 Dose: 1 tab Tamsulosin HCl (Flomax -) 0.4 mg PO DAILY@0830 [facility] Last Admin: 05/23/17 10:34 Dose: Not Given Zonisamide (Zonegran -) 500 mg PO [facility] Last Admin: 05/22/17 22:12 Dose: 500 mg Gen: intubated, sedated Heart: tachycardic, regular Lung: few scattered rhonchi, no wheezes Abd: soft, nontender Ext: no edema, +groin rash Laboratory Results - last 24 hr 05/22/17 05/22/17 05/23/17 15:10 20:05 05:00 WBC 9.3 RBC 4.82 Hgb 14.1 D Hct 42.6 MCV 88.4 MCH 29.2 MCHC 33.1 RDW 17.5 H Plt Count 228 MPV 9.8 Sodium 145 Potassium 2.8 L* 3.3 L Chloride 110 H Carbon Dioxide 26 Anion Gap 9 BUN 8 Creatinine 0.8 Random Glucose 159 H D Calcium 7.2 L Phosphorus Magnesium 2.3 D 05/23/17 05:00 WBC RBC Hgb Hct MCV MCH MCHC RDW Plt Count MPV Sodium 147 H Potassium 4.6 D Chloride 118 H Carbon Dioxide 21 Anion Gap 8 BUN 7 Creatinine 0.7 Random Glucose 169 H Calcium 7.4 L Phosphorus 1.9 L D Magnesium 2.3 A/P Acute Hypoxic and Hypercapneic Respiratory Failure Status Epilepticus resolved Seizure Disorder Pneumonia likely Aspiration Sepsis Acute Bronchospasm Hypernatremia Mental Retardation Cerebral Palsy - ABX per ID - continue antiepileptics - seizure precautions - Medrol - Inhaled bronchodilators - taper FiO2 to keep SpO2 >90% - Spontaneous breathing trials with hopes of extubation - DVT/GI prophylaxis - continue ICU monitoring Dr Cary Critical care time spent in reviewing chart, evaluating patient and formulating plan 35 min
--- NOTE | 2017-05-23 14:38 | PN ---
Physical Exam: SUBJECTIVE: Patient seen and examined in the ICU. Pt was successfully extubated this afternoon. Pt remains afebrile. No pressors. OBJECTIVE: Vital Signs Period Temp Pulse Resp BP Sys/Velasco Pulse Ox Last 24 Hr 97.3 F-98.3 F 63-91 14-16 96-128/63-91 97-100 GENERAL: nonverbal, NAD LUNGS: CTAB HEART: Regular rate and rhythm, normal S1 and S2 without murmur, rub or gallop. ABDOMEN: Soft, nontender, not distended, normoactive bowel sounds. LOWER EXTREMITIES: Warm, well-perfused. No peripheral edema. NEUROLOGICAL: No facial droop. Unable to complete neuro exam as pt unable to follow commands or answer questions. Laboratory Results - last 24 hr 05/22/17 05/22/17 05/23/17 15:10 20:05 05:00 WBC 9.3 RBC 4.82 Hgb 14.1 D Hct 42.6 MCV 88.4 MCH 29.2 MCHC 33.1 RDW 17.5 H Plt Count 228 MPV 9.8 Sodium 145 Potassium 2.8 L* 3.3 L Chloride 110 H Carbon Dioxide 26 Anion Gap 9 BUN 8 Creatinine 0.8 Random Glucose 159 H D Calcium 7.2 L Phosphorus Magnesium 2.3 D 05/23/17 05:00 WBC RBC Hgb Hct MCV MCH MCHC RDW Plt Count MPV Sodium 147 H Potassium 4.6 D Chloride 118 H Carbon Dioxide 21 Anion Gap 8 BUN 7 Creatinine 0.7 Random Glucose 169 H Calcium 7.4 L Phosphorus 1.9 L D Magnesium 2.3 Active Medications Generic Name Dose Route Start Last Admin Trade Name Lloydq PRN Reason Stop Dose Admin Acetaminophen 650 mg 05/21/17 04:15 05/21/17 08:56 Tylenol Suppository - [place] 650 mg Q6H PRN Administration FEVER Albuterol Sulfate 1 amp 05/20/17 17:12 Ventolin 0.083% Nebulizer Soln - NEB Q4H PRN SHORT OF BREATH/WHEEZING Albuterol/Ipratropium 1 amp 05/20/17 20:00 05/23/17 12:40 Duoneb - NEB Not Given RQID [facility] Aspirin 81 mg 05/21/17 10:00 05/23/17 10:32 Asa - PO 81 mg DAILY [facility] Administration Carbamazepine 600 mg 05/21/17 22:00 05/23/17 10:36 Tegretol - NGT 600 mg BID [facility] Administration Diphenhydramine HCl 25 mg 05/20/17 18:00 05/23/17 10:32 Benadryl Oral Solution - PO 25 mg QID [facility] Administration Heparin Sodium (Porcine) 5,000 unit 05/20/17 22:00 05/23/17 06:05 Heparin - SQ 5,000 unit TID [facility] Administration Piperacillin Sod/Tazobactam 100 mls @ 200 mls/hr 05/20/17 18:00 05/23/17 10: 38 Sod 4.5 gm/ Dextrose IVPB 200 mls/hr Q8H-IV [facility] Administration Propofol 1,000,000 mcg in 100 mls @ 2.004 mls/hr 05/21/17 05:45 05/23/17 06: 24 Diprivan - IVPB Not Given TITR [facility] Protocol 5 MCG/KG/MIN Azithromycin 500 mg/ Dextrose 250 mls @ 250 mls/hr 05/21/17 10:00 05/23/17 10 :37 IVPB 250 mls/hr DAILY [facility] Administration Famotidine/Sodium Chloride 20 mg in 50 mls @ 100 mls/hr 05/21/17 11:00 10:34 Pepcid 20 Mg Premixed Ivpb - IVPB 100 mls/hr BID [facility] Administration Fosphenytoin Sodium 300 mg/ 106 mls @ 424 mls/hr 05/23/17 10:00 05/23/17 10: 33 Dextrose IVPB 424 mls/hr DAILY [facility] Administration Sodium Phosphate 15 mm/ 255 mls @ 62.5 mls/hr 05/23/17 10:45 Dextrose IVPB 05/23/17 14:49 ONCE ONE Lactulose 30 gm 05/20/17 22:00 05/23/17 06:05 Cephulac (Oral Use) PO Not Given TID [facility] Levetiracetam 1,000 mg 05/20/17 22:00 05/23/17 06:04 Keppra Injection - IVPB 1,000 mg TID [facility] Administration Methylprednisolone Sodium Succinate 40 mg 05/20/17 18:00 05/23/17 10:35 Solu-Medrol - IVPUSH 40 mg Q8H-IV [facility] Administration Non-Formulary Medication 1,400 mg 05/20/17 22:00 Rufinamide [Banzel] PO BID [facility] Nystatin 1 applic 05/21/17 10:00 05/23/17 10:34 Nystop Powder - TP 1 applic DAILY [facility] Administration Phenobarbital 90 mg 05/20/17 22:30 05/22/17 22:38 Phenobarbital Injection - IVPUSH 90 mg HS [facility] Administration Senna 1 tab 05/20/17 22:00 05/23/17 10:34 Senna - PO 1 tab BID [facility] Administration Tamsulosin HCl 0.4 mg 05/21/17 08:30 05/23/17 10:34 Flomax - PO Not Given DAILY@0830 [facility] Zonisamide 500 mg 05/20/17 22:00 05/22/17 22:12 Zonegran - PO 500 mg HS [facility] Administration IMAGIN05/23/17 CXR -> low inspiration. No evidence of vascular congestive changes, PTX , pulmonary consolidations. ASSESSMENT/PLAN: 47M with PMH of seizure disorder, cerebral palsy, Factor VIII deficiency, profound intellectual disability, admitted from [facility] for sepsis 2/ 2 pneumonia. # sepsis 2/2 pneumonia - likely 2/2 aspiration - ID (Dr. Palomo) recs appreciated: Vancomycin D/Bobby since no MRSA isolated. - Day 3 of IV Zosyn and Day 2 of IV Azithromycin - continue suctioning prn - blood cultures (-) x 5 days # acute on chronic hypoxic and hypercapneic respiratory failure - successful extubation this afternoon - continue duonebs, Albuterol prn - continue Solu-medrol # status epilepticus - resolved # seizure disorder - continue home meds of Carbamazepine, Keppra, Phenobarbital - continue Diazepam prn, Fosphenytoin, and Zonegran # electrolyte abnormalities - hypophosphatemia repleted with Sodium Phosphate IVPB 15 mm in D5 - hypernatremia noted, additional water increased to 25 ml/hr # FEN - Fluids: water 25 ml/hr in addition to tube feeding - Electrolytes: continue to monitor - Nutrition: Osmolite 1.2 @ 20 ml/hr, increase to goal of 50 ml/hr x 24 hrs # Prophylaxis - DVT ppx with Heparin TID - GI ppx with Pepcid Visit type - Emergency Visit Emergency Visit: Yes ED Registration Date: 05/18/17 Care time: The patient presented to the Emergency Department on the above date and was hospitalized for further evaluation of their emergent condition. - New Patient This patient is new to me today: No - Critical Care Critical Care patient: Yes Total Critical Care Time (in minutes): 45 Critical Care Statement: The care of this patient involved high complexity decision making to prevent further life threatening deterioration of the patient 's condition and/or to evaluate & treat vital organ system(s) failure or risk of failure.
--- NOTE | 2017-05-23 15:10 | PN ---
Physical Exam: SUBJECTIVE: Patient seen and examined at bedside in ICU. OBJECTIVE: Vital Signs Period Temp Pulse Resp BP Sys/Velasco Pulse Ox Last 24 Hr 97.3 F-98.3 F 63-91 14-16 96-128/63-91 97-100 GENERAL: Awake. Extubated on venti mask. In no apparent distress. LUNGS: Wheezing appreciated anteriorly; no accessory muscle use HEART: Regular rate and rhythm, S1, S2 ABDOMEN: Soft, nontender, nondistended, normoactive bowel sounds, no guarding, no rebound EXTREMITIES: 2+ pulses, warm, well-perfused, no edema. Laboratory Results - last 24 hr 05/22/17 05/22/17 05/23/17 15:10 20:05 05:00 WBC 9.3 RBC 4.82 Hgb 14.1 D Hct 42.6 MCV 88.4 MCH 29.2 MCHC 33.1 RDW 17.5 H Plt Count 228 MPV 9.8 Sodium 145 Potassium 2.8 L* 3.3 L Chloride 110 H Carbon Dioxide 26 Anion Gap 9 BUN 8 Creatinine 0.8 Random Glucose 159 H D Calcium 7.2 L Phosphorus Magnesium 2.3 D 05/23/17 05:00 WBC RBC Hgb Hct MCV MCH MCHC RDW Plt Count MPV Sodium 147 H Potassium 4.6 D Chloride 118 H Carbon Dioxide 21 Anion Gap 8 BUN 7 Creatinine 0.7 Random Glucose 169 H Calcium 7.4 L Phosphorus 1.9 L D Magnesium 2.3 Active Medications Generic Name Dose Route Start Last Admin Trade Name Freq PRN Reason Stop Dose Admin Acetaminophen 650 mg 05/21/17 04:15 05/21/17 08:56 Tylenol Suppository - [place] 650 mg Q6H PRN Administration FEVER Albuterol Sulfate 1 amp 05/20/17 17:12 Ventolin 0.083% Nebulizer Soln - NEB Q4H PRN SHORT OF BREATH/WHEEZING Albuterol/Ipratropium 1 amp 05/20/17 20:00 05/23/17 12:40 Duoneb - NEB Not Given RQID [facility] Aspirin 81 mg 05/21/17 10:00 05/23/17 10:32 Asa - PO 81 mg DAILY [facility] Administration Carbamazepine 600 mg 05/21/17 22:00 05/23/17 10:36 Tegretol - NGT 600 mg BID [facility] Administration Diphenhydramine HCl 25 mg 05/20/17 18:00 05/23/17 10:32 Benadryl Oral Solution - PO 25 mg QID [facility] Administration Heparin Sodium (Porcine) 5,000 unit 05/20/17 22:00 05/23/17 06:05 Heparin - SQ 5,000 unit TID [facility] Administration Piperacillin Sod/Tazobactam 100 mls @ 200 mls/hr 05/20/17 18:00 05/23/17 10: 38 Sod 4.5 gm/ Dextrose IVPB 200 mls/hr Q8H-IV [facility] Administration Propofol 1,000,000 mcg in 100 mls @ 2.004 mls/hr 05/21/17 05:45 05/23/17 06: 24 Diprivan - IVPB Not Given TITR [facility] Protocol 5 MCG/KG/MIN Azithromycin 500 mg/ Dextrose 250 mls @ 250 mls/hr 05/21/17 10:00 05/23/17 10 :37 IVPB 250 mls/hr DAILY [facility] Administration Famotidine/Sodium Chloride 20 mg in 50 mls @ 100 mls/hr 05/21/17 11:00 10:34 Pepcid 20 Mg Premixed Ivpb - IVPB 100 mls/hr BID [facility] Administration Fosphenytoin Sodium 300 mg/ 106 mls @ 424 mls/hr 05/23/17 10:00 05/23/17 10: 33 Dextrose IVPB 424 mls/hr DAILY [facility] Administration Lactulose 30 gm 05/20/17 22:00 05/23/17 06:05 Cephulac (Oral Use) PO Not Given TID [facility] Levetiracetam 1,000 mg 05/20/17 22:00 05/23/17 06:04 Keppra Injection - IVPB 1,000 mg TID [facility] Administration Methylprednisolone Sodium Succinate 40 mg 05/20/17 18:00 05/23/17 10:35 Solu-Medrol - IVPUSH 40 mg Q8H-IV [facility] Administration Non-Formulary Medication 1,400 mg 05/20/17 22:00 Rufinamide [Banzel] PO BID [facility] Nystatin 1 applic 05/21/17 10:00 05/23/17 10:34 Nystop Powder - TP 1 applic DAILY [facility] Administration Phenobarbital 90 mg 05/20/17 22:30 05/22/17 22:38 Phenobarbital Injection - IVPUSH 90 mg HS [facility] Administration Senna 1 tab 05/20/17 22:00 05/23/17 10:34 Senna - PO 1 tab BID [facility] Administration Tamsulosin HCl 0.4 mg 05/21/17 08:30 05/23/17 10:34 Flomax - PO Not Given DAILY@0830 [facility] Zonisamide 500 mg 05/20/17 22:00 05/22/17 22:12 Zonegran - PO 500 mg HS [facility] Administration Imaging: - 05/19 Echo: suboptimal study but LV function "at least" moderately reduced, cannot exclude RWMA - 05/18 CT chest: patchy nodular infiltrates bilateral upper lobes and RML; very small left pleural effusion; left ventricular dilation; small pericardial effusion ASSESSMENT/PLAN 47 year-old male resident of [facility], with a PMH significant for profound intellectual disability, cerebral palsy, seizure disorder, systolic heart failure, and Factor VIII deficiency. Admitted for pneumonia. Hospital course complicated by status epilepticus x 50 minutes. Intubated 05/21, extubated 05/23. Hypoxic and hypercapneic respiratory failure, improved Pneumonia --extubated today --continue Zosyn (day #3), azithromycin (day #2) --solumedrol Seizure disorder Status epilepticus episode 05/19 --no further seizure activity --continue rufinamide, carbamazepine, Keppra, zonisamide, phenobarbitol, --continue fosphenytoin; per neuro, switch to 300mg IVPB daily; can d/c once infection clears Systolic heart failure Small pericardial effusion --see echo above --Lasix PRN, maintain negative balance --CVP monitoring recommended to ICU team by cardiology --strict I&Os, daily weights --cardiology following Elevated troponins --troponin 0.10-->0.15-->0.10, flat trending, likely result of infection --non-specific ST changes in V3-V5 Hypokalemia --repleted Hypernatremia --increase free water to 30mL/hr with tube feeds Functional quadriplegia --profound intellectual disability, requires assistance for all ADLs FEN Fluids: PO intake adequate Electrolytes: replete as indicated Nutrition: tube feeds DVT prophylaxis: subq heparin Dispo: continues to require ICU level care. Full code. Visit type - Emergency Visit Emergency Visit: Yes ED Registration Date: 05/18/17 Care time: The patient presented to the Emergency Department on the above date and was hospitalized for further evaluation of their emergent condition. - New Patient This patient is new to me today: No - Critical Care Critical Care patient: Yes Total Critical Care Time (in minutes): 35 Critical Care Statement: The care of this patient involved high complexity decision making to prevent further life threatening deterioration of the patient 's condition and/or to evaluate & treat vital organ system(s) failure or risk of failure.
--- NOTE | 2017-05-23 17:12 | PN ---
Progress Note (short form) - Note Progress Note: Pt extubated today; discontinuing NG feeds as pt does not have NGT at this moment --Pt will need Speech and swallow evaluation, but would recommend seeing tomorrow for pt's musculature to strengthen
[2017-05-23] MEDS: PHENobarbital SODIUM 65 MG/1 ML VIAL IVPUSH SCH (22:47)
[2017-05-23] MEDS: ZONISAMIDE 100 MG CAPSULE PO SCH (22:50)
[2017-05-24] MEDS: PIPERACILLIN/TAZOB 4.5 GM 4.5 GM in DEXTROSE 5%-WATER 100 ML IVPB SCH ×3 (02:41→17:50)
[2017-05-24] MEDS: methylPREDNISolone NA SUCC 40 MG/1 ML VIAL IVPUSH SCH ×3 (02:44→21:20)
[2017-05-24] MEDS ORDERED: PT OWN MED DRAWER 7, Y5N ONE ×4 (06:13→20:10)
[2017-05-24] MEDS: levETIRAcetam 500 MG/5 ML INJECTION VIAL IVPB SCH ×3 (06:21→21:21)
[2017-05-24] MEDS: HEPARIN NA (PORCINE) 5,000 UNITS/ML 1ML VIAL SQ SCH ×3 (06:21→21:20)
[2017-05-24] MEDS: LACTULOSE 20 GM/30 ML UDC (FOR ORAL USE ONLY) PO SCH ×4 (06:23→21:20)
[2017-05-24] MEDS: PROPOFOL 1,000,000 MCG/100 ML VIAL IVPB SCH (06:23)
[2017-05-24 07:48] LABS: ANION GAP 9 (8-16); BLOOD UREA NITROGEN 10 mg/dL (7-18); CALCIUM 7.5 mg/dL (8.5-10.1); CHLORIDE 114 mmol/L (98-107); CO2 23 mmol/L (21-32); CREATININE 0.7 mg/dL (0.7-1.3); GLUCOSE,RANDOM 92 mg/dL (74-106); PHOSPHOROUS 3.9 mg/dL (2.5-4.9); SODIUM 146 mmol/L (136-145)
[2017-05-24] MEDS ORDERED: FUROSEMIDE 40 MG/4 ML INJECTABLE VIAL IVPUSH ONE (07:50)
[2017-05-24] MEDS: ALBUTEROL SO4 2.5/IPRATROPIUM 0.5 INH SOL 3 ML VIAL.NEB. NEB SCH ×4 (08:53→21:23)
[2017-05-24] MEDS: diphenhydrAMINE HCL 12.5 MG/5 ML UNIT-DOSE CUPS PO SCH ×5 (10:04→21:16)
[2017-05-24] MEDS: ASPIRIN 81 MG CHEWABLE TABLETS PO SCH (10:04)
[2017-05-24] MEDS: NYSTATIN POWDER 100,000 UNITS/GM - 15 GM TOPICAL POWDER TP SCH (10:04)
[2017-05-24] MEDS: TAMSULOSIN HCL 0.4 MG CAP.ER.24H (FP) PO SCH (10:04)
[2017-05-24] MEDS: FAMOTIDINE 20 MG/50 ML IVPB 20 MG/50 ML MG IVPB SCH ×2 (10:05→21:16)
[2017-05-24] MEDS: carBAMazepine 200 MG TABLET NGT SCH ×2 (10:07→22:20)
[2017-05-24] MEDS: SENNOSIDES 8.6MG TABLET (FP) PO SCH ×2 (10:07→21:21)
[2017-05-24] MEDS: AZITHROMYCIN IVPB 500 MG in DEXTROSE 5%-WATER - 250 ML IVPB SCH (10:08)
--- NOTE | 2017-05-24 10:59 | PN ---
Progress Note (short form) - Note Progress Note: cc: hypoxic resp failure S: extubated. appears comfortable. does not communicate well Current Medications Generic Name Dose Route Start Last Admin Trade Name Freq PRN Reason Stop Dose Admin Acetaminophen 650 mg 05/21/17 04:15 05/21/17 08:56 Tylenol Suppository - [place] 650 mg Q6H PRN Administration FEVER Albuterol Sulfate 1 amp 05/20/17 17:12 Ventolin 0.083% Nebulizer Soln - NEB Q4H PRN SHORT OF BREATH/WHEEZING Albuterol/Ipratropium 1 amp 05/20/17 20:00 05/24/17 08:53 Duoneb - NEB 1 amp RQID [facility] Administration Aspirin 81 mg 05/21/17 10:00 05/24/17 10:04 Asa - PO 81 mg DAILY [facility] Administration Carbamazepine 600 mg 05/21/17 22:00 05/24/17 10:07 Tegretol - NGT 600 mg BID [facility] Administration Diphenhydramine HCl 25 mg 05/20/17 18:00 05/24/17 10:04 Benadryl Oral Solution - PO 25 mg QID [facility] Administration Heparin Sodium (Porcine) 5,000 unit 05/20/17 22:00 05/24/17 06:21 Heparin - SQ 5,000 unit TID [facility] Administration Piperacillin Sod/Tazobactam 100 mls @ 200 mls/hr 05/20/17 18:00 05/24/17 10: 08 Sod 4.5 gm/ Dextrose IVPB 200 mls/hr Q8H-IV [facility] Administration Propofol 1,000,000 mcg in 100 mls @ 2.004 mls/hr 05/21/17 05:45 05/24/17 06: 23 Diprivan - IVPB Not Given TITR [facility] Protocol 5 MCG/KG/MIN Azithromycin 500 mg/ Dextrose 250 mls @ 250 mls/hr 05/21/17 10:00 05/24/17 10 :08 IVPB 250 mls/hr DAILY [facility] Administration Famotidine/Sodium Chloride 20 mg in 50 mls @ 100 mls/hr 05/21/17 11:00 10:05 Pepcid 20 Mg Premixed Ivpb - IVPB 100 mls/hr BID [facility] Administration Fosphenytoin Sodium 300 mg/ 106 mls @ 424 mls/hr 05/23/17 10:00 05/23/17 10: 33 Dextrose IVPB 424 mls/hr DAILY [facility] Administration Dextrose/Sodium Chloride 1,000 mls @ 50 mls/hr 05/24/17 08:15 D5-1/2ns - IV ASDIR C[facility]INE Lactulose 30 gm 05/20/17 22:00 05/24/17 06:23 Cephulac (Oral Use) PO Not Given TID [facility] Levetiracetam 1,000 mg 05/20/17 22:00 05/24/17 06:21 Keppra Injection - IVPB 1,000 mg TID [facility] Administration Methylprednisolone Sodium Succinate 40 mg 05/20/17 18:00 05/24/17 10:07 Solu-Medrol - IVPUSH 40 mg Q8H-IV [facility] Administration Non-Formulary Medication 1,400 mg 05/20/17 22:00 Rufinamide [Banzel] PO BID [facility] Nystatin 1 applic 05/21/17 10:00 05/24/17 10:04 Nystop Powder - TP 1 applic DAILY [facility] Administration Phenobarbital 90 mg 05/20/17 22:30 05/23/17 22:47 Phenobarbital Injection - IVPUSH 90 mg HS [facility]INE Administration Senna 1 tab 05/20/17 22:00 05/24/17 10:07 Senna - PO 1 tab BID [facility] Administration Tamsulosin HCl 0.4 mg 05/21/17 08:30 05/24/17 10:04 Flomax - PO 0.4 mg DAILY@0830 [facility] Administration Zonisamide 500 mg 05/20/17 22:00 05/23/17 22:50 Zonegran - PO 500 mg HS CATHERINE Administration Vital Signs Period Temp Pulse Resp BP Sys/Velasco Pulse Ox Last 24 Hr 98.0 F-98.4 F 76-91 14-32 107-128/65-91 99-100 nad, non-verbal jvd flat, neck supple diffuse rhonchi, nl effort regular rr. nl s1, s2 no mrg. + bs soft nt nd, no hsm ext with trace soft edema. no c/c no jaundice, diaphoresis. CBC, BMP 05/23/17 05:00 05/24/17 06:05 ekg: sinus tach. non-specific st-t wave abnormalities. no acue ischemic changes. tele: sr echo 04/2017 tds: gross decrease in systolic fn (moderate). tds for rwma. RV/ atria not well visualized. no significant MV/AV abnormaliteis. TV/PV not well visualized. no pericardial effusion. chest ct: images and report reviewed. bilateral pulmonary infiltrates. very small left pleural effusion. small pericardial effusion. see emr for detailed findings. 05/20 cxr: no significant change. ASSESSMENT/PLAN 47 yo resident of [facility] with history of hypoxic injury at /infantile cerebral palsy, epilepsy, osteoporosis s/p multiple fractures, renal stones s/p lithotripsy and stent, testicular hypogonadism who p/w hypoxia/tachycardia, ER course notable for abnormal troponins. sob/hypoxia/sepsis - chest ct and clinical picture c/w pna/infectious etiology. - s/p resp decompensation/intubation 05/21. ongoing mgm't per pmd/pulm/critical care. now extubated. elevated troponins/new systolic cardiomyopathy - flat trend c/w demand in setting of tachycardia and infection. no acute ischemic changes on ekg. - lyte repletion prn - echo with new systolic cardiomyopathy in setting of pna/sepsis. Recommend reassessment of EF as outpatient when acute illness improves to assess for resolution. hypernatremia - s/p IVF. On tube feeds. Improving. Ongoing mgm't per pmd/critical care team. status epilepticus - resolved. ongoing seizure mgm't per neuro.
--- NOTE | 2017-05-24 11:07 | PN ---
Teaching Attending Note Name of Resident: Charla Guzman ATTENDING PHYSICIAN STATEMENT I saw and evaluated the patient. I reviewed the resident's note and discussed the case with the resident. I agree with the resident's findings and plan as documented. SUBJECTIVE: Pt seen and examined in the ICU. Extubated yesterday without incident. Saturating well on 40% ventimask. Pt nonverbal. OBJECTIVE: Last Vital Signs Temp Pulse Resp BP Pulse Ox 98.4 F 83 32 H 124/80 100 05/24/17 10:00 05/24/17 10:00 05/24/17 10:00 05/24/17 10:00 05/24/17 08:50 Intake & Output 05/21/17 05/22/17 05/23/17 05/24/17 23:59 23:59 23:59 23:59 Intake Total 2883 1650 1955 410 Output Total 800 2500 1900 200 Balance 2083 -850 55 210 Weight 63.6 kg 64.9 kg 65.771 kg 65.68 kg Gen: mildly tachypneic at rest Heart: RRR Lung: decreased breath sounds at the bases Abd: soft, nontender Ext: no edema CBC, BMP 05/23/17 05:00 05/24/17 06:05 Active Medications Acetaminophen (Tylenol Suppository -) 650 mg CO Q6H PRN PRN Reason: FEVER Last Admin: 05/21/17 08:56 Dose: 650 mg Albuterol Sulfate (Ventolin 0.083% Nebulizer Soln -) 1 amp NEB Q4H PRN PRN Reason: SHORT OF BREATH/WHEEZING Albuterol/Ipratropium (Duoneb -) 1 amp NEB RQID [facility] Last Admin: 05/24/17 08:53 Dose: 1 amp Aspirin (Asa -) 81 mg PO DAILY [facility] Last Admin: 05/24/17 10:04 Dose: 81 mg Carbamazepine (Tegretol -) 600 mg NGT BID [facility] Last Admin: 05/24/17 10:07 Dose: 600 mg Diphenhydramine HCl (Benadryl Oral Solution -) 25 mg PO QID [facility] Last Admin: 05/24/17 10:04 Dose: 25 mg Heparin Sodium (Porcine) (Heparin -) 5,000 unit SQ TID [facility] Last Admin: 05/24/17 06:21 Dose: 5,000 unit Piperacillin Sod/Tazobactam (Sod 4.5 gm/ Dextrose) 100 mls @ 200 mls/hr IVPB Q8H-IV [facility] Last Admin: 05/24/17 10:08 Dose: 200 mls/hr Propofol (Diprivan -) 1,000,000 mcg in 100 mls @ 2.004 mls/hr IVPB TITR [facility]; 5 MCG/KG/MIN PRN Reason: Protocol Last Admin: 05/24/17 06:23 Dose: Not Given Azithromycin 500 mg/ Dextrose 250 mls @ 250 mls/hr IVPB DAILY [facility] Last Admin: 05/24/17 10:08 Dose: 250 mls/hr Famotidine/Sodium Chloride (Pepcid 20 Mg Premixed Ivpb -) 20 mg in 50 mls @ 100 mls/hr IVPB BID [facility] Last Admin: 05/24/17 10:05 Dose: 100 mls/hr Fosphenytoin Sodium 300 mg/ (Dextrose) 106 mls @ 424 mls/hr IVPB DAILY [facility] Last Admin: 05/23/17 10:33 Dose: 424 mls/hr Dextrose/Sodium Chloride (D5-1/2ns -) 1,000 mls @ 50 mls/hr IV ASDIR [facility] Lactulose (Cephulac (Oral Use)) 30 gm PO TID [facility] Last Admin: 05/24/17 06:23 Dose: Not Given Levetiracetam (Keppra Injection -) 1,000 mg IVPB TID [facility] Last Admin: 05/24/17 06:21 Dose: 1,000 mg Methylprednisolone Sodium Succinate (Solu-Medrol -) 40 mg IVPUSH Q8H-IV [facility] Last Admin: 05/24/17 10:07 Dose: 40 mg Non-Formulary Medication (Rufinamide [Banzel]) 1,400 mg PO BID [facility] Nystatin (Nystop Powder -) 1 applic TP DAILY [facility] Last Admin: 05/24/17 10:04 Dose: 1 applic Phenobarbital (Phenobarbital Injection -) 90 mg IVPUSH HS [facility] Last Admin: 05/23/17 22:47 Dose: 90 mg Senna (Senna -) 1 tab PO BID [facility] Last Admin: 05/24/17 10:07 Dose: 1 tab Tamsulosin HCl (Flomax -) 0.4 mg PO DAILY@0830 [facility] Last Admin: 05/24/17 10:04 Dose: 0.4 mg Zonisamide (Zonegran -) 500 mg PO HS [facility] Last Admin: 05/23/17 22:50 Dose: 500 mg ASSESSMENT AND PLAN: Acute Hypoxic and Hypercapneic Respiratory Failure improving Status Epilepticus resolved Seizure Disorder Pneumonia likely Aspiration Sepsis Acute Bronchospasm Hypernatremia Mental Retardation Cerebral Palsy - continue antibiotics - replace free water - continue antiepileptics - seizure precautions - continue medrol, can decrease to q12h - inhaled bronchodilators - taper FiO2 to keep SpO2 >90% - aspiration precautions - DVT/GI prophylaxis - continue ICU monitoring critical care time spent in reviewing chart, evaluating patient and formulating plan 35 min
--- NOTE | 2017-05-24 11:57 | PN ---
Physical Exam: SUBJECTIVE: Patient seen and examined in the ICU. Pt alert, nonverbal. Pt remains afebrile. No pressors. OBJECTIVE: Vital Signs Period Temp Pulse Resp BP Sys/Velasco Pulse Ox Last 24 Hr 98.0 F-98.4 F 76-91 14-32 107-128/65-91 99-100 GENERAL: nonverbal, NAD NECK: Supple, no JVD. LUNGS: CTAB, tachypneic HEART: Regular rate and rhythm, normal S1 and S2 without murmur, rub or gallop. ABDOMEN: Soft, nontender, not distended, normoactive bowel sounds. LOWER EXTREMITIES: Warm, well-perfused. No peripheral edema. Laboratory Results - last 24 hr 05/24/17 06:05 Sodium 146 H Potassium 4.0 Chloride 114 H Carbon Dioxide 23 Anion Gap 9 BUN 10 D Creatinine 0.7 Random Glucose 92 D Calcium 7.5 L Phosphorus 3.9 D Magnesium 2.0 Active Medications Generic Name Dose Route Start Last Admin Trade Name Freq PRN Reason Stop Dose Admin Acetaminophen 650 mg 05/21/17 04:15 05/21/17 08:56 Tylenol Suppository - NM 650 mg Q6H PRN Administration FEVER Albuterol Sulfate 1 amp 05/20/17 17:12 Ventolin 0.083% Nebulizer Soln - NEB Q4H PRN SHORT OF BREATH/WHEEZING Albuterol/Ipratropium 1 amp 05/20/17 20:00 05/24/17 08:53 Duoneb - NEB 1 amp RQID [facility] Administration Aspirin 81 mg 05/21/17 10:00 05/24/17 10:04 Asa - PO 81 mg DAILY [facility] Administration Carbamazepine 600 mg 05/21/17 22:00 05/24/17 10:07 Tegretol - NGT 600 mg BID [facility] Administration Diphenhydramine HCl 25 mg 05/20/17 18:00 05/24/17 10:04 Benadryl Oral Solution - PO 25 mg QID [facility] Administration Heparin Sodium (Porcine) 5,000 unit 05/20/17 22:00 05/24/17 06:21 Heparin - SQ 5,000 unit TID [facility] Administration Piperacillin Sod/Tazobactam 100 mls @ 200 mls/hr 05/20/17 18:00 05/24/17 10: 08 Sod 4.5 gm/ Dextrose IVPB 200 mls/hr Q8H-IV [facility] Administration Propofol 1,000,000 mcg in 100 mls @ 2.004 mls/hr 05/21/17 05:45 05/24/17 06: 23 Diprivan - IVPB Not Given TITR [facility] Protocol 5 MCG/KG/MIN Azithromycin 500 mg/ Dextrose 250 mls @ 250 mls/hr 05/21/17 10:00 05/24/17 10 :08 IVPB 250 mls/hr DAILY [facility] Administration Famotidine/Sodium Chloride 20 mg in 50 mls @ 100 mls/hr 05/21/17 11:00 10:05 Pepcid 20 Mg Premixed Ivpb - IVPB 100 mls/hr BID [facility] Administration Fosphenytoin Sodium 300 mg/ 106 mls @ 424 mls/hr 05/23/17 10:00 05/23/17 10: 33 Dextrose IVPB 424 mls/hr DAILY [facility] Administration Dextrose/Sodium Chloride 1,000 mls @ 50 mls/hr 05/24/17 08:15 D5-1/2ns - IV ASDIR [facility] Lactulose 30 gm 05/20/17 22:00 05/24/17 06:23 Cephulac (Oral Use) PO Not Given TID [facility] Levetiracetam 1,000 mg 05/20/17 22:00 05/24/17 06:21 Keppra Injection - IVPB 1,000 mg TID [facility] Administration Methylprednisolone Sodium Succinate 40 mg 05/24/17 22:00 Solu-Medrol - IVPUSH BID [facility] Non-Formulary Medication 1,400 mg 05/20/17 22:00 Rufinamide [Banzel] PO BID [facility] Nystatin 1 applic 05/21/17 10:00 05/24/17 10:04 Nystop Powder - TP 1 applic DAILY [facility] Administration Phenobarbital 90 mg 05/20/17 22:30 05/23/17 22:47 Phenobarbital Injection - IVPUSH 90 mg HS [facility] Administration Senna 1 tab 05/20/17 22:00 05/24/17 10:07 Senna - PO 1 tab BID [facility] Administration Tamsulosin HCl 0.4 mg 05/21/17 08:30 05/24/17 10:04 Flomax - PO 0.4 mg DAILY@0830 [facility] Administration Zonisamide 500 mg 05/20/17 22:00 04/03/18 22:50 Zonegran - PO 500 mg HS [facility] Administration IMAGIN05/24/17 CXR -> some congestive changes with some atelectasis at Left lung base. ASSESSMENT/PLAN: 47M with PMH of seizure disorder, cerebral palsy, Factor VIII deficiency, profound intellectual disability, admitted from [facility] for sepsis 2/ 2 pneumonia. # sepsis 2/2 pneumonia - likely 2/2 aspiration - Day 4 of IV Zosyn and Day 3 of IV Azithromycin - continue suctioning prn # acute on chronic hypoxic and hypercapneic respiratory failure - improving - continue duonebs, Albuterol prn - taper Solu-medrol # status epilepticus - resolved # seizure disorder - continue home meds of Carbamazepine, Keppra, Phenobarbital - continue Diazepam prn, Fosphenytoin, and Zonegran # FEN - Fluids: D5-1/2NS @ 50 ml/hr - Electrolytes: hypernatremia again noted, continue to monitor - Nutrition: low cholesterol, low fat, lactose free diet # Prophylaxis - DVT ppx with Heparin TID - GI ppx with Pepcid Visit type - Emergency Visit Emergency Visit: Yes ED Registration Date: 05/18/17 Care time: The patient presented to the Emergency Department on the above date and was hospitalized for further evaluation of their emergent condition. - New Patient This patient is new to me today: No - Critical Care Critical Care patient: Yes Total Critical Care Time (in minutes): 40 Critical Care Statement: The care of this patient involved high complexity decision making to prevent further life threatening deterioration of the patient 's condition and/or to evaluate & treat vital organ system(s) failure or risk of failure.
[2017-05-24] MEDS: DEXTROSE 5%-0.45% SALINE 1,000 ML IV SCH (14:13)
[2017-05-24] MEDS: WATER IVPB SCH (14:14)
[2017-05-24] MEDS: FOSPHENYTOIN SODIUM IVPB SCH (14:14)
[2017-05-24] MEDS: DEXTROSE 5% IVPB SCH (14:14)
--- NOTE | 2017-05-24 15:13 | PN ---
Progress Note (short form) - Note Progress Note: extubated yesterday no oxygen! oxygen sat is 98% resting comfortably Vital Signs Period Temp Pulse Resp BP Sys/Velasco Pulse Ox Last 24 Hr 98.0 F-98.6 F 77-104 15-32 111-134/73-91 90-100 cor-rrr lungs decreased bs at bases abd soft,nt ext no edema CBC, BMP 05/23/17 05:00 05/24/17 06:05 Microbiology 05/21/17 09:20 Sputum - Endotrachea Suction/Ventilator Gram Stain - Final 05/21/17 09:20 Sputum - Endotrachea Suction/Ventilator Sputum Culture - Final Yeast Like Organism 05/18/17 09:57 Blood - Peripheral Venous Blood Culture - Final NO GROWTH AFTER 5 DAYS INCUBATION 05/18/17 09:57 Blood - Peripheral Venous Blood Culture - Final NO GROWTH AFTER 5 DAYS INCUBATION 05/21/17 09:20 Urine - Urine Gunn Legionella Antigen - Final 05/21/17 09:20 Urine - Urine Gunn Streptococcus pneumoniae Antigen (M - Final 05/18/17 11:20 Urine - Urine Clean Catch Urine Culture - Final NO GROWTH OBTAINED 05/18/17 10:22 Nasopharyngeal Swab Influenza Types A,B Antigen (NELSY) - Final 05/18/17 10:22 Nasopharyngeal Swab - Final a/p s/p extubation probable aspiration pneumonia cp/mr continue zosyn day #4 will d/c zithromax- Problem List - Problems (1) Status epilepticus Code(s): G40.901 - EPILEPSY, UNSP, NOT INTRACTABLE, WITH STATUS EPILEPTICUS (2) Pneumonia Code(s): J18.9 - PNEUMONIA, UNSPECIFIED ORGANISM
--- NOTE | 2017-05-24 17:19 | PN ---
Physical Exam: SUBJECTIVE: Patient seen and examined in ICU. OBJECTIVE: Vital Signs Period Temp Pulse Resp BP Sys/Velasco Pulse Ox Last 24 Hr 98.0 F-98.6 F 77-104 15-32 111-134/65-91 90-100 GENERAL: Awake. Extubated on nebulizer mask. Eyes open, responds to touch. LUNGS: Minimal wheezing, much improved HEART: Regular rate and rhythm, S1, S2 ABDOMEN: Soft, nontender, nondistended, normoactive bowel sounds, no guarding, no rebound EXTREMITIES: 2+ pulses, warm, well-perfused, no edema. Laboratory Results - last 24 hr 05/24/17 06:05 Sodium 146 H Potassium 4.0 Chloride 114 H Carbon Dioxide 23 Anion Gap 9 BUN 10 D Creatinine 0.7 Random Glucose 92 D Calcium 7.5 L Phosphorus 3.9 D Magnesium 2.0 Active Medications Generic Name Dose Route Start Last Admin Trade Name Freq PRN Reason Stop Dose Admin Acetaminophen 650 mg 05/21/17 04:15 05/21/17 08:56 Tylenol Suppository - AL 650 mg Q6H PRN Administration FEVER Albuterol Sulfate 1 amp 05/20/17 17:12 Ventolin 0.083% Nebulizer Soln - NEB Q4H PRN SHORT OF BREATH/WHEEZING Albuterol/Ipratropium 1 amp 05/20/17 20:00 05/24/17 15:58 Duoneb - NEB 1 amp RQID [facility] Administration Aspirin 81 mg 05/21/17 10:00 05/24/17 10:04 Asa - PO 81 mg DAILY [facility] Administration Carbamazepine 600 mg 05/21/17 22:00 05/24/17 10:07 Tegretol - NGT 600 mg BID [facility] Administration Diphenhydramine HCl 25 mg 05/20/17 18:00 05/24/17 14:26 Benadryl Oral Solution - PO Not Given QID [facility] Heparin Sodium (Porcine) 5,000 unit 05/20/17 22:00 05/24/17 14:20 Heparin - SQ 5,000 unit TID [facility] Administration Piperacillin Sod/Tazobactam 100 mls @ 200 mls/hr 05/20/17 18:00 05/24/17 10: 08 Sod 4.5 gm/ Dextrose IVPB 200 mls/hr Q8H-IV [facility] Administration Famotidine/Sodium Chloride 20 mg in 50 mls @ 100 mls/hr 05/21/17 11:00 10:05 Pepcid 20 Mg Premixed Ivpb - IVPB 100 mls/hr BID [facility] Administration Fosphenytoin Sodium 300 mg/ 106 mls @ 424 mls/hr 05/23/17 10:00 05/24/17 14: 14 Dextrose IVPB 424 mls/hr DAILY [facility] Administration Dextrose/Sodium Chloride 1,000 mls @ 50 mls/hr 05/24/17 08:15 05/24/17 14:13 D5-1/2ns - IV 50 mls/hr ASDIR [facility] Administration Lactulose 30 gm 05/20/17 22:00 05/24/17 14:27 Cephulac (Oral Use) PO Not Given TID [facility] Levetiracetam 1,000 mg 05/20/17 22:00 05/24/17 14:19 Keppra Injection - IVPB 1,000 mg TID [facility] Administration Methylprednisolone Sodium Succinate 40 mg 05/24/17 22:00 Solu-Medrol - IVPUSH BID [facility] Non-Formulary Medication 1,400 mg 05/20/17 22:00 Rufinamide [Banzel] PO BID [facility] Nystatin 1 applic 05/21/17 10:00 05/24/17 10:04 Nystop Powder - TP 1 applic DAILY [facility] Administration Phenobarbital 90 mg 05/20/17 22:30 05/23/17 22:47 Phenobarbital Injection - IVPUSH 90 mg HS [facility] Administration Senna 1 tab 05/20/17 22:00 05/24/17 10:07 Senna - PO 1 tab BID [facility] Administration Tamsulosin HCl 0.4 mg 05/21/17 08:30 05/24/17 10:04 Flomax - PO 0.4 mg DAILY@0830 [facility] Administration Zonisamide 500 mg 05/20/17 22:00 05/23/17 22:50 Zonegran - PO 500 mg HS [facility] Administration Imaging: - 05/19 Echo: suboptimal study but LV function "at least" moderately reduced, cannot exclude RWMA - 05/18 CT chest: patchy nodular infiltrates bilateral upper lobes and RML; very small left pleural effusion; left ventricular dilation; small pericardial effusion ASSESSMENT/PLAN 47 year-old male resident of [facility], with a PMH significant for profound intellectual disability, cerebral palsy, seizure disorder, systolic heart failure, and Factor VIII deficiency. Admitted for pneumonia. Hospital course complicated by status epilepticus x 50 minutes. Intubated 05/21, extubated 05/23. Hypoxic and hypercapneic respiratory failure, improved Pneumonia --extubated 05/23 --continue Zosyn (day #4), azithromycin (completed 4 days) --solumedrol Seizure disorder Status epilepticus episode 05/19 --no further seizure activity --continue rufinamide, carbamazepine, Keppra, zonisamide, phenobarbitol, --continue fosphenytoin; per neuro, switch to 300mg IVPB daily; can d/c once infection clears Systolic heart failure Small pericardial effusion --see echo above --Lasix PRN, maintain negative balance --CVP monitoring recommended to ICU team by cardiology --strict I&Os, daily weights --cardiology following Elevated troponins --troponin 0.10-->0.15-->0.10, flat trending, likely result of infection --non-specific ST changes in V3-V5 Hypokalemia --repleted Hypernatremia --increase free water to 30mL/hr with tube feeds Functional quadriplegia --profound intellectual disability, requires assistance for all ADLs FEN Fluids: PO intake adequate Electrolytes: replete as indicated Nutrition: tube feeds DVT prophylaxis: subq heparin Dispo: continues to require ICU level care. Full code. Visit type - Emergency Visit Emergency Visit: Yes ED Registration Date: 05/18/17 Care time: The patient presented to the Emergency Department on the above date and was hospitalized for further evaluation of their emergent condition. - New Patient This patient is new to me today: No - Critical Care Critical Care patient: Yes Total Critical Care Time (in minutes): 35 Critical Care Statement: The care of this patient involved high complexity decision making to prevent further life threatening deterioration of the patient 's condition and/or to evaluate & treat vital organ system(s) failure or risk of failure.
[2017-05-24] MEDS ORDERED: DEXTROSE 5%-WATER 100 ML IVPB ONE (17:43)
[2017-05-24] MEDS ORDERED: PIPERACILLIN/TAZOBACTAM 4.5 GM VIAL IVPB ONE (17:43)
[2017-05-24] MEDS: PHENobarbital SODIUM 65 MG/1 ML VIAL IVPUSH SCH (21:21)
[2017-05-24] MEDS: ZONISAMIDE 100 MG CAPSULE PO SCH (22:20)
[2017-05-25] MEDS ORDERED: PIPERACILLIN/TAZOBACTAM 4.5 GM VIAL IVPB ONE ×3 (02:35→16:53)
[2017-05-25] MEDS ORDERED: DEXTROSE 5%-WATER 100 ML IVPB ONE ×3 (02:36→16:54)
[2017-05-25] MEDS: PIPERACILLIN/TAZOB 4.5 GM 4.5 GM in DEXTROSE 5%-WATER 100 ML IVPB SCH ×3 (02:51→17:11)
[2017-05-25] MEDS ORDERED: PT OWN MED DRAWER 7, Y5N ONE ×5 (04:01→20:24)
[2017-05-25] MEDS: levETIRAcetam 500 MG/5 ML INJECTION VIAL IVPB SCH ×3 (05:53→21:23)
[2017-05-25] MEDS: HEPARIN NA (PORCINE) 5,000 UNITS/ML 1ML VIAL SQ SCH ×3 (05:53→21:22)
[2017-05-25] MEDS: LACTULOSE 20 GM/30 ML UDC (FOR ORAL USE ONLY) PO SCH (05:53)
--- NOTE | 2017-05-25 06:31 | PN ---
Progress Note, Physician Chief Complaint: ID Remains stable ON antibiotics( since admission) 7 days High fever initially however temp flat for some time NAD - Current Medication List Current Medications: Active Medications Acetaminophen (Tylenol Suppository -) 650 mg TN Q6H PRN PRN Reason: FEVER Last Admin: 05/21/17 08:56 Dose: 650 mg Albuterol Sulfate (Ventolin 0.083% Nebulizer Soln -) 1 amp NEB Q4H PRN PRN Reason: SHORT OF BREATH/WHEEZING Albuterol/Ipratropium (Duoneb -) 1 amp NEB RQID [facility] Last Admin: 05/24/17 21:23 Dose: 1 amp Aspirin (Asa -) 81 mg PO DAILY [facility] Last Admin: 05/24/17 10:04 Dose: 81 mg Carbamazepine (Tegretol -) 600 mg NGT BID [facility] Last Admin: 05/24/17 22:20 Dose: 600 mg Diphenhydramine HCl (Benadryl Oral Solution -) 25 mg PO QID [facility] Last Admin: 05/24/17 21:16 Dose: 25 mg Heparin Sodium (Porcine) (Heparin -) 5,000 unit SQ TID [facility] Last Admin: 05/25/17 05:53 Dose: 5,000 unit Piperacillin Sod/Tazobactam (Sod 4.5 gm/ Dextrose) 100 mls @ 200 mls/hr IVPB Q8H-IV [facility] Last Admin: 05/25/17 02:51 Dose: 200 mls/hr Famotidine/Sodium Chloride (Pepcid 20 Mg Premixed Ivpb -) 20 mg in 50 mls @ 100 mls/hr IVPB BID [facility] Last Admin: 05/24/17 21:16 Dose: 100 mls/hr Fosphenytoin Sodium 300 mg/ (Dextrose) 106 mls @ 424 mls/hr IVPB DAILY [facility] Last Admin: 05/24/17 14:14 Dose: 424 mls/hr Dextrose/Sodium Chloride (D5-1/2ns -) 1,000 mls @ 50 mls/hr IV ASDIR [facility] Last Admin: 05/24/17 14:13 Dose: 50 mls/hr Lactulose (Cephulac (Oral Use)) 30 gm PO TID [facility] Last Admin: 05/25/17 05:53 Dose: 30 gm Levetiracetam (Keppra Injection -) 1,000 mg IVPB TID [facility] Last Admin: 05/25/17 05:53 Dose: 1,000 mg Methylprednisolone Sodium Succinate (Solu-Medrol -) 40 mg IVPUSH BID [facility] Last Admin: 05/24/17 21:20 Dose: 40 mg Non-Formulary Medication (Rufinamide [Banzel]) 1,400 mg PO BID [facility] Nystatin (Nystop Powder -) 1 applic TP DAILY [facility] Last Admin: 05/24/17 10:04 Dose: 1 applic Phenobarbital (Phenobarbital Injection -) 90 mg IVPUSH [facility] Last Admin: 05/24/17 21:21 Dose: 90 mg Senna (Senna -) 1 tab PO BID [facility] Last Admin: 05/24/17 21:21 Dose: 1 tab Tamsulosin HCl (Flomax -) 0.4 mg PO DAILY@0830 [facility] Last Admin: 05/24/17 10:04 Dose: 0.4 mg Zonisamide (Zonegran -) 500 mg PO [facility] Last Admin: 05/24/17 22:20 Dose: 500 mg - Objective Vital Signs: Vital Signs Temperature 98.6 F 05/25/17 06:00 Pulse Rate 91 H 05/25/17 06:00 Respiratory Rate 20 05/25/17 06:00 Blood Pressure 135/83 05/25/17 06:00 O2 Sat by Pulse Oximetry (%) 94 L 05/25/17 06:00 Constitutional: Yes: Well Nourished Cardiovascular: Yes: S1, S2 Respiratory: Yes: WNL, Regular, CTA Bilaterally, Diminished Gastrointestinal: Yes: WNL, Normal Bowel Sounds, Soft. No: Tenderness Edema: No Labs: CBC, BMP 05/23/17 05:00 05/24/17 06:05 INR, PTT INR 1.15 (0.82-1.09) H 05/18/17 10:15 Assessment/Plan Microbiology 05/21/17 09:20 Urine - Urine Gunn Legionella Antigen - Final 05/21/17 09:20 Urine - Urine Gunn Streptococcus pneumoniae Antigen (M - Final 05/21/17 09:20 Sputum - Endotrachea Suction/Ventilator Gram Stain - Final 05/21/17 09:20 Sputum - Endotrachea Suction/Ventilator Sputum Culture - Final Yeast Like Organism 05/18/17 11:20 Urine - Urine Clean Catch Urine Culture - Final NO GROWTH OBTAINED 05/18/17 10:22 Nasopharyngeal Swab Influenza Types A,B Antigen (NELSY) - Final 05/18/17 10:22 Nasopharyngeal Swab - Final 05/18/17 09:57 Blood - Peripheral Venous Blood Culture - Final NO GROWTH AFTER 5 DAYS INCUBATION 05/18/17 09:57 Blood - Peripheral Venous Blood Culture - Final NO GROWTH AFTER 5 DAYS INCUBATION Laboratory Tests 05/23/17 05/23/17 05:00 05:00 WBC 9.3 Hgb 14.1 D Plt Count 228 BUN 7 Creatinine 0.7 Assessment Presumed he aspirated with bilateral infiltrates seen on initial chest CT unspecified PNA Respiratory failure now extubated Seizure disorder Cerebral palsy Plan Will place order to stop antibiotics tomorrow and will sign off now Please recall if needed Gita OTTO
--- NOTE | 2017-05-25 07:46 | PN ---
Physical Exam: SUBJECTIVE: Patient seen and examined in ICU. He is awake, appears stable, no resp distress. Aid at bedside OBJECTIVE: Vital Signs Period Temp Pulse Resp BP Sys/Velasco Pulse Ox Last 24 Hr 98.4 F-99.6 F 80-104 17-36 101-141/55-91 90-100 PE Neuro: awake, alert, non verbal Pulm: scattered rhonchi, + cough CV: s1 s2 rrr no mrg Abd: s nt nd + bs : Jo Ext: no le edema CMP Sodium 147 mmol/L (136-145) H 05/25/17 07:24 Potassium 4.1 mmol/L (3.5-5.1) 05/25/17 07:24 Chloride 114 mmol/L (98-107) H 05/25/17 07:24 Carbon Dioxide 21 mmol/L (21-32) 05/25/17 07:24 Anion Gap 12 (8-16) 05/25/17 07:24 BUN 12 mg/dL (7-18) 05/25/17 07:24 Creatinine 0.8 mg/dL (0.7-1.3) 05/25/17 07:24 Creat Clearance w eGFR > 60 (>60) 05/22/17 05:00 Calcium 8.0 mg/dL (8.5-10.1) L 05/25/17 07:24 Total Bilirubin 0.3 mg/dL (0.2-1.0) D 05/22/17 05:00 AST 26 U/L (15-37) D 05/22/17 05:00 ALT 37 U/L (12-78) 05/22/17 05:00 Alkaline Phosphatase 88 U/L (45-117) D 05/22/17 05:00 Total Protein 5.0 g/dl (6.4-8.2) L 05/22/17 05:00 Albumin 1.8 g/dl (3.4-5.0) L D 05/22/17 05:00 Active Medications Generic Name Dose Route Start Last Admin Trade Name Freq PRN Reason Stop Dose Admin Acetaminophen 650 mg 05/21/17 04:15 05/21/17 08:56 Tylenol Suppository - [place] 650 mg Q6H PRN Administration FEVER Albuterol Sulfate 1 amp 05/20/17 17:12 Ventolin 0.083% Nebulizer Soln - NEB Q4H PRN SHORT OF BREATH/WHEEZING Albuterol/Ipratropium 1 amp 05/20/17 20:00 05/24/17 21:23 Duoneb - NEB 1 amp RQID CATHERINE Administration Aspirin 81 mg 05/21/17 10:00 05/24/17 10:04 Asa - PO 81 mg DAILY CATHERINE Administration Carbamazepine 600 mg 05/21/17 22:00 05/24/17 22:20 Tegretol - NGT 600 mg BID CATHERINE Administration Diphenhydramine HCl 25 mg 05/20/17 18:00 05/24/17 21:16 Benadryl Oral Solution - PO 25 mg QID CATHERINE Administration Heparin Sodium (Porcine) 5,000 unit 05/20/17 22:00 05/25/17 05:53 Heparin - SQ 5,000 unit TID CATHERINE Administration Piperacillin Sod/Tazobactam 100 mls @ 200 mls/hr 05/20/17 18:00 05/25/17 02: 51 Sod 4.5 gm/ Dextrose IVPB 05/26/17 03:00 200 mls/hr Q8H-IV CATHERINE Administration Famotidine/Sodium Chloride 20 mg in 50 mls @ 100 mls/hr 05/21/17 11:00 21:16 Pepcid 20 Mg Premixed Ivpb - IVPB 100 mls/hr BID CATHERINE Administration Fosphenytoin Sodium 300 mg/ 106 mls @ 424 mls/hr 05/23/17 10:00 05/24/17 14: 14 Dextrose IVPB 424 mls/hr DAILY CATHERINE Administration Dextrose/Sodium Chloride 1,000 mls @ 50 mls/hr 05/24/17 08:15 05/24/17 14:13 D5-1/2ns - IV 50 mls/hr ASDIR CATHERINE Administration Lactulose 30 gm 05/20/17 22:00 05/25/17 05:53 Cephulac (Oral Use) PO 30 gm TID CATHERINE Administration Levetiracetam 1,000 mg 05/20/17 22:00 05/25/17 05:53 Keppra Injection - IVPB 1,000 mg TID CATHERINE Administration Methylprednisolone Sodium Succinate 40 mg 05/24/17 22:00 05/24/17 21:20 Solu-Medrol - IVPUSH 40 mg BID CATHERINE Administration Non-Formulary Medication 1,400 mg 05/20/17 22:00 Rufinamide [Banzel] PO BID CATHERINE Nystatin 1 applic 05/21/17 10:00 05/24/17 10:04 Nystop Powder - TP 1 applic DAILY CATHERINE Administration Phenobarbital 90 mg 05/20/17 22:30 05/24/17 21:21 Phenobarbital Injection - IVPUSH 90 mg HS CATHERINE Administration Senna 1 tab 05/20/17 22:00 05/24/17 21:21 Senna - PO 1 tab BID CATHERINE Administration Tamsulosin HCl 0.4 mg 05/21/17 08:30 05/24/17 10:04 Flomax - PO 0.4 mg DAILY@0830 CATHERINE Administration Zonisamide 500 mg 05/20/17 22:00 05/24/17 22:20 Zonegran - PO 500 mg HS CATHERINE Administration Assessment: 47 year old male with PMHx of 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 Plan: 1. Hypoxic and hypercapneic respiratory failure - s/p extubation, stable on RA - Continue solumedrol 40mg BID 2. Pneumonia - Complete antibiotic course tomorrow - Appreciate ID assistance 3. Seizure disorder - s/p status epilepticus episode 05/19 - Continue rufinamide, carbamazepine, Keppra, zonisamide, phenobarbitol, - Changed fosphenytoin daily, will DC on discharge 4. Systolic heart failure - Lasix PRN, maintain negative balance - DC jo today, start voiding trial 5. Elevated troponins - Trops flat, likely due to infectious process 6. Hypernatremia - Start 250cc water flushes x24 hrs - Stop IVF - Free water to 30mL/hr with tube feeds 7. Functional quadriplegia - Profound intellectual disability, requires assistance for all ADLs 8. DVT prophylaxis: subq heparin Dispo: - Transfer to floor Visit type - Emergency Visit Emergency Visit: Yes ED Registration Date: 05/18/17 Care time: The patient presented to the Emergency Department on the above date and was hospitalized for further evaluation of their emergent condition. - New Patient This patient is new to me today: No - Critical Care Critical Care patient: No
[2017-05-25] MEDS: ALBUTEROL SO4 2.5/IPRATROPIUM 0.5 INH SOL 3 ML VIAL.NEB. NEB SCH ×4 (08:29→20:32)
[2017-05-25 08:39] LABS: ANION GAP 12 (8-16); BLOOD UREA NITROGEN 12 mg/dL (7-18); CHLORIDE 114 mmol/L (98-107); CO2 21 mmol/L (21-32); CREATININE 0.8 mg/dL (0.7-1.3); GLUCOSE,RANDOM 85 mg/dL (74-106); MAGNESIUM 2.1 mg/dL (1.8-2.4); PHOSPHOROUS 2.4 mg/dL (2.5-4.9); POTASSIUM 4.1 mmol/L (3.5-5.1); SODIUM 147 mmol/L (136-145)
--- NOTE | 2017-05-25 08:58 | PN ---
Physical Exam: SUBJECTIVE: Patient seen and examined. Overnight, no acute events. Pt afebrile, resting comfortably in bed, non-verbal at baseline. Per aid, pt acting his normal self. OBJECTIVE: Vital Signs Period Temp Pulse Resp BP Sys/Velasco Pulse Ox Last 24 Hr 98.4 F-99.6 F 83-104 18-36 101-141/55-84 90-98 GENERAL: middle aged male, lying in bed, awake, comfortable, non-verbal HEENT: NC, AT LUNGS: anterior lung sounds clear HEART: Regular rate and rhythm, S1, S2 without murmur, rub or gallop. ABDOMEN: soft, NT, ND EXTREMITIES: 2+ pulses, warm, well-perfused, no edema. NEUROLOGICAL: EOMI, PEARRLLA Active Medications Generic Name Dose Route Start Last Admin Trade Name Freq PRN Reason Stop Dose Admin Acetaminophen 650 mg 05/21/17 04:15 05/21/17 08:56 Tylenol Suppository - [place] 650 mg Q6H PRN Administration FEVER Albuterol Sulfate 1 amp 05/20/17 17:12 Ventolin 0.083% Nebulizer Soln - NEB Q4H PRN SHORT OF BREATH/WHEEZING Albuterol/Ipratropium 1 amp 05/20/17 20:00 05/25/17 08:29 Duoneb - NEB Not Given RQID CATHERINE Aspirin 81 mg 05/21/17 10:00 05/24/17 10:04 Asa - PO 81 mg DAILY CATHERINE Administration Carbamazepine 600 mg 05/21/17 22:00 05/24/17 22:20 Tegretol - NGT 600 mg BID CATHERINE Administration Diphenhydramine HCl 25 mg 05/20/17 18:00 05/24/17 21:16 Benadryl Oral Solution - PO 25 mg QID CATHERINE Administration Heparin Sodium (Porcine) 5,000 unit 05/20/17 22:00 05/25/17 05:53 Heparin - SQ 5,000 unit TID CATHERINE Administration Piperacillin Sod/Tazobactam 100 mls @ 200 mls/hr 05/20/17 18:00 05/25/17 02: 51 Sod 4.5 gm/ Dextrose IVPB 05/26/17 03:00 200 mls/hr Q8H-IV CATHERINE Administration Fosphenytoin Sodium 300 mg/ 106 mls @ 424 mls/hr 05/23/17 10:00 05/24/17 14: 14 Dextrose IVPB 424 mls/hr DAILY CATHERINE Administration Dextrose/Sodium Chloride 1,000 mls @ 50 mls/hr 05/24/17 08:15 05/24/17 14:13 D5-1/2ns - IV 50 mls/hr ASDIR CATHERINE Administration Lactulose 30 gm 05/20/17 22:00 05/25/17 05:53 Cephulac (Oral Use) PO 30 gm TID CATHERINE Administration Levetiracetam 1,000 mg 05/20/17 22:00 05/25/17 05:53 Keppra Injection - IVPB 1,000 mg TID CATHERINE Administration Methylprednisolone Sodium Succinate 40 mg 05/24/17 22:00 05/24/17 21:20 Solu-Medrol - IVPUSH 40 mg BID CATHERINE Administration Non-Formulary Medication 1,400 mg 05/20/17 22:00 Rufinamide [Banzel] PO BID CATHERINE Nystatin 1 applic 05/21/17 10:00 05/24/17 10:04 Nystop Powder - TP 1 applic DAILY CATHERINE Administration Pantoprazole Sodium 40 mg 05/25/17 10:00 Protonix - PO DAILY CATHERINE Phenobarbital 90 mg 05/20/17 22:30 05/24/17 21:21 Phenobarbital Injection - IVPUSH 90 mg HS CATHERINE Administration Senna 1 tab 05/20/17 22:00 05/24/17 21:21 Senna - PO 1 tab BID CATHERINE Administration Tamsulosin HCl 0.4 mg 05/21/17 08:30 05/24/17 10:04 Flomax - PO 0.4 mg DAILY@0830 CATHERINE Administration Zonisamide 500 mg 05/20/17 22:00 05/24/17 22:20 Zonegran - PO 500 mg HS CATHERINE Administration ASSESSMENT/PLAN: 47M w/ hx of seizure disorder, cerebral palsy, Factor VIII deficiency, profound intellectual disability, admitted from [facility] for sepsis 2/2 pneumonia, being treated with zosyn. ID # sepsis 2/2 pneumonia- no fever, no leukocytosis - ID on board, recs appreciated. - Day 5 of IV Zosyn - continue suctioning prn Resp # acute on chronic hypoxic and hypercapneic respiratory failure - improving - satting 94% on RA - continue duonebs, Albuterol prn - change from solumedrol 40mg BID to prednisone 30mg daily. Continue for 3 days , then can discontinue. Neuro # status epilepticus - resolved # seizure disorder - continue home meds of Carbamazepine, Keppra, Phenobarbital - continue Diazepam prn, Fosphenytoin, and Zonegran. Per neuro, can d/c fosphenytoin once infection clears. - rufinamide not on formulary in pharmacy. Will restart on d/c GI #diarrhea - hold senna and lactulose -monitor for resolution FEN/ppx - Fluids: D5-1/2NS @ 50 ml/hr - Electrolytes: slight hypernatremia - Nutrition: dysphagia puree - DVT ppx with Heparin TID - GI ppx with Pepcid Dispo - stable for transfer to floors or home Case discussed with attending, Dr. Cary. -Eleuterio Cox MD PGY1 ICU Team Visit type - Emergency Visit Emergency Visit: Yes ED Registration Date: 05/18/17 Care time: The patient presented to the Emergency Department on the above date and was hospitalized for further evaluation of their emergent condition. - New Patient This patient is new to me today: Yes Date on this admission: 05/25/17 - Critical Care Critical Care patient: Yes Total Critical Care Time (in minutes): 35 Critical Care Statement: The care of this patient involved high complexity decision making to prevent further life threatening deterioration of the patient 's condition and/or to evaluate & treat vital organ system(s) failure or risk of failure.
[2017-05-25] MEDS: TAMSULOSIN HCL 0.4 MG CAP.ER.24H (FP) PO SCH (09:39)
[2017-05-25] MEDS: ASPIRIN 81 MG CHEWABLE TABLETS PO SCH (09:42)
[2017-05-25] MEDS: PANTOPRAZOLE 40 MG TABLET (FP) PO SCH (09:43)
[2017-05-25] MEDS: methylPREDNISolone NA SUCC 40 MG/1 ML VIAL IVPUSH SCH (09:46)
[2017-05-25] MEDS: carBAMazepine 200 MG TABLET NGT SCH ×2 (09:47→21:23)
[2017-05-25] MEDS: SENNOSIDES 8.6MG TABLET (FP) PO SCH (09:48)
[2017-05-25] MEDS: diphenhydrAMINE HCL 12.5 MG/5 ML UNIT-DOSE CUPS PO SCH ×4 (09:49→21:25)
[2017-05-25] MEDS: NYSTATIN POWDER 100,000 UNITS/GM - 15 GM TOPICAL POWDER TP SCH (09:56)
--- NOTE | 2017-05-25 10:51 | PN ---
Progress Note (short form) - Note Progress Note: cc: hypoxic resp failure S: appears comfortable. does not communicate well Current Medications Generic Name Dose Route Start Last Admin Trade Name Freq PRN Reason Stop Dose Admin Acetaminophen 650 mg 05/21/17 04:15 05/21/17 08:56 Tylenol Suppository - [place] 650 mg Q6H PRN Administration FEVER Albuterol Sulfate 1 amp 05/20/17 17:12 Ventolin 0.083% Nebulizer Soln - NEB Q4H PRN SHORT OF BREATH/WHEEZING Albuterol/Ipratropium 1 amp 05/20/17 20:00 05/25/17 08:29 Duoneb - NEB Not Given RQID CATHERINE Aspirin 81 mg 05/21/17 10:00 05/25/17 09:42 Asa - PO 81 mg DAILY CATHERINE Administration Carbamazepine 600 mg 05/21/17 22:00 05/25/17 09:47 Tegretol - NGT 600 mg BID CATHERINE Administration Diphenhydramine HCl 25 mg 05/20/17 18:00 05/25/17 09:49 Benadryl Oral Solution - PO 25 mg QID CATHERINE Administration Heparin Sodium (Porcine) 5,000 unit 05/20/17 22:00 05/25/17 05:53 Heparin - SQ 5,000 unit TID CATHERINE Administration Piperacillin Sod/Tazobactam 100 mls @ 200 mls/hr 05/20/17 18:00 05/25/17 09: 45 Sod 4.5 gm/ Dextrose IVPB 05/26/17 03:00 200 mls/hr Q8H-IV CATHERINE Administration Fosphenytoin Sodium 300 mg/ 106 mls @ 424 mls/hr 05/23/17 10:00 05/24/17 14: 14 Dextrose IVPB 424 mls/hr DAILY CATHERINE Administration Dextrose/Sodium Chloride 1,000 mls @ 50 mls/hr 05/24/17 08:15 05/24/17 14:13 D5-1/2ns - IV 50 mls/hr ASDIR CATHERINE Administration Lactulose 30 gm 05/20/17 22:00 05/25/17 05:53 Cephulac (Oral Use) PO 30 gm TID CATHERINE Administration Levetiracetam 1,000 mg 05/20/17 22:00 05/25/17 05:53 Keppra Injection - IVPB 1,000 mg TID CATHERINE Administration Methylprednisolone Sodium Succinate 40 mg 05/24/17 22:00 05/25/17 09:46 Solu-Medrol - IVPUSH 40 mg BID CATHERINE Administration Non-Formulary Medication 1,400 mg 05/20/17 22:00 Rufinamide [Banzel] PO BID CATHERINE Nystatin 1 applic 05/21/17 10:00 05/25/17 09:56 Nystop Powder - TP 1 applic DAILY CATHERINE Administration Pantoprazole Sodium 40 mg 05/25/17 10:00 05/25/17 09:43 Protonix - PO 40 mg DAILY CATHERINE Administration Phenobarbital 90 mg 05/20/17 22:30 05/24/17 21:21 Phenobarbital Injection - IVPUSH 90 mg HS CATHERINE Administration Senna 1 tab 05/20/17 22:00 05/25/17 09:48 Senna - PO Not Given BID CATHERINE Tamsulosin HCl 0.4 mg 05/21/17 08:30 05/25/17 09:39 Flomax - PO 0.4 mg DAILY@0830 CATHERINE Administration Zonisamide 500 mg 05/20/17 22:00 05/24/17 22:20 Zonegran - PO 500 mg HS CATHERINE Administration Vital Signs Period Temp Pulse Resp BP Sys/Velasco Pulse Ox Last 24 Hr 98.4 F-99.6 F 84-104 18-36 101-153/55-97 94-98 nad, non-verbal jvd flat, neck supple diffuse rhonchi, nl effort regular rr. nl s1, s2 no mrg. + bs soft nt nd, no hsm ext with trace soft edema. no c/c no jaundice, diaphoresis. CBC, BMP 05/23/17 05:00 05/25/17 07:24 ekg: sinus tach. non-specific st-t wave abnormalities. no acue ischemic changes. tele: sr echo 04/2017 tds: gross decrease in systolic fn (moderate). tds for rwma. RV/ atria not well visualized. no significant MV/AV abnormaliteis. TV/PV not well visualized. no pericardial effusion. chest ct: images and report reviewed. bilateral pulmonary infiltrates. very small left pleural effusion. small pericardial effusion. see emr for detailed findings. 05/20 cxr: no significant change. 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 sob/hypoxia/sepsis - chest ct and clinical picture c/w pna/infectious etiology. - s/p resp decompensation/intubation 05/21. ongoing mgm't per pmd/pulm/critical care. now extubated. elevated troponins/new systolic cardiomyopathy - flat trend c/w demand in setting of tachycardia and infection. no acute ischemic changes on ekg. - lyte repletion prn - echo with new systolic cardiomyopathy in setting of pna/sepsis. Recommend reassessment of EF as outpatient when acute illness improves to assess for resolution. hypernatremia - s/p IVF. On tube feeds. Improving. Ongoing mgm't per pmd/critical care team. status epilepticus - resolved. ongoing seizure mgm't per neuro.
--- NOTE | 2017-05-25 11:43 | PN ---
Teaching Attending Note Name of Resident: Eleuterio Cox ATTENDING PHYSICIAN STATEMENT I saw and evaluated the patient. I reviewed the resident's note and discussed the case with the resident. I agree with the resident's findings and plan as documented. SUBJECTIVE: Patient seen and examined in the ICU. Remains extubated. NAD on NC O2. Intake & Output 05/22/17 05/23/17 05/24/17 05/25/17 23:59 23:59 23:59 23:59 Intake Total 1650 1955 1785 632.5 Output Total 2500 1900 600 250 Balance -175 71 5486 382.5 Weight 143 lb 1.28 oz 145 lb 144 lb 12.8 oz 145 lb 8 oz Last Vital Signs Temp Pulse Resp BP Pulse Ox 98.6 F 95 H 25 H 153/97 94 L 05/25/17 10:00 05/25/17 10:00 05/25/17 10:00 05/25/17 10:00 05/25/17 08:12 Active Medications Acetaminophen (Tylenol Suppository -) 650 mg [place] Q6H PRN PRN Reason: FEVER Last Admin: 05/21/17 08:56 Dose: 650 mg Albuterol Sulfate (Ventolin 0.083% Nebulizer Soln -) 1 amp NEB Q4H PRN PRN Reason: SHORT OF BREATH/WHEEZING Albuterol/Ipratropium (Duoneb -) 1 amp NEB RQID [facility] Last Admin: 05/25/17 08:29 Dose: Not Given Aspirin (Asa -) 81 mg PO DAILY [facility] Last Admin: 05/25/17 09:42 Dose: 81 mg Carbamazepine (Tegretol -) 600 mg NGT BID [facility] Last Admin: 05/25/17 09:47 Dose: 600 mg Diphenhydramine HCl (Benadryl Oral Solution -) 25 mg PO QID [facility] Last Admin: 05/25/17 09:49 Dose: 25 mg Heparin Sodium (Porcine) (Heparin -) 5,000 unit SQ TID [facility] Last Admin: 05/25/17 05:53 Dose: 5,000 unit Piperacillin Sod/Tazobactam (Sod 4.5 gm/ Dextrose) 100 mls @ 200 mls/hr IVPB Q8H-IV CATHERINE Stop: 05/26/17 03:00 Last Admin: 05/25/17 09:45 Dose: 200 mls/hr Fosphenytoin Sodium 300 mg/ (Dextrose) 106 mls @ 424 mls/hr IVPB DAILY [facility] Last Admin: 05/24/17 14:14 Dose: 424 mls/hr Dextrose/Sodium Chloride (D5-1/2ns -) 1,000 mls @ 50 mls/hr IV ASDIR [facility] Last Admin: 05/24/17 14:13 Dose: 50 mls/hr Lactulose (Cephulac (Oral Use)) 30 gm PO TID [facility] Last Admin: 05/25/17 05:53 Dose: 30 gm Levetiracetam (Keppra Injection -) 1,000 mg IVPB TID [facility] Last Admin: 05/25/17 05:53 Dose: 1,000 mg Non-Formulary Medication (Rufinamide [Banzel]) 1,400 mg PO BID [facility] Nystatin (Nystop Powder -) 1 applic TP DAILY [facility] Last Admin: 05/25/17 09:56 Dose: 1 applic Pantoprazole Sodium (Protonix -) 40 mg PO DAILY [facility] Last Admin: 05/25/17 09:43 Dose: 40 mg Phenobarbital (Phenobarbital Injection -) 90 mg IVPUSH [facility] Last Admin: 05/24/17 21:21 Dose: 90 mg Prednisone (Deltasone -) 30 mg PO DAILY [facility] Senna (Senna -) 1 tab PO BID [facility] Last Admin: 05/25/17 09:48 Dose: Not Given Tamsulosin HCl (Flomax -) 0.4 mg PO DAILY@0830 [facility] Last Admin: 05/25/17 09:39 Dose: 0.4 mg Zonisamide (Zonegran -) 500 mg PO [facility] Last Admin: 05/24/17 22:20 Dose: 500 mg Gen: Extubated, NAD on RA Heart: S1S2, regular Lung: few scattered rhonchi, no wheezes Abd: soft, nontender Ext: no edema, +groin rash Laboratory Results - last 24 hr 05/25/17 07:24 Sodium 147 H Potassium 4.1 Chloride 114 H Carbon Dioxide 21 Anion Gap 12 BUN 12 Creatinine 0.8 Random Glucose 85 Calcium 8.0 L Phosphorus 2.4 L D Magnesium 2.1 A/P Acute Hypoxic and Hypercapneic Respiratory Failure Status Epilepticus resolved Seizure Disorder Pneumonia likely Aspiration Sepsis Acute Bronchospasm Hypernatremia Mental Retardation Cerebral Palsy - Consider change ABX/Steroids to PO therapy - AEDs - Seizure precautions - Inhaled bronchodilators - DVT/GI prophylaxis Dr Cary
[2017-05-25] MEDS ORDERED: SENNOSIDES 8.6MG TABLET (FP) PO PRN (13:02)
[2017-05-25] MEDS ORDERED: LACTULOSE 20 GM/30 ML UDC (FOR ORAL USE ONLY) PO PRN (13:02)
[2017-05-25] MEDS: DEXTROSE 5% IVPB SCH (13:09)
[2017-05-25] MEDS: FOSPHENYTOIN SODIUM IVPB SCH (13:09)
[2017-05-25] MEDS: WATER IVPB SCH (13:09)
[2017-05-25] MEDS ORDERED: NAPH,MB-DB/K PH,MBDB POWDER PACKET PO ONE (14:45)
[2017-05-25] MEDS: DEXTROSE 5%-0.45% SALINE 1,000 ML IV SCH (19:18)
[2017-05-25] MEDS: PHENobarbital SODIUM 65 MG/1 ML VIAL IVPUSH SCH (21:24)
[2017-05-25] MEDS: ZONISAMIDE 100 MG CAPSULE PO SCH (21:24)
[2017-05-26] MEDS: PIPERACILLIN/TAZOB 4.5 GM 4.5 GM in DEXTROSE 5%-WATER 100 ML IVPB SCH (01:11)
[2017-05-26 06:03] LABS: BASO % 0.3 % (0-2.0); EOS % 3.6 % (0-4.5); HEMATOCRIT 40.7 % (35.4-49); HEMOGLOBIN 13.5 GM/dL (11.7-16.9); LYMPH % 20.3 % (8-40); MCH 29.5 pg (25.7-33.7); MCHC 33.3 g/dl (32.0-35.9); MEAN CELL VOLUME 88.6 fl (80-96); MEAN PLT VOLUME 9.6 fl (7.5-11.1); MONO % 5.5 % (3.8-10.2); NEUT % 70.3 % (42.8-82.8); PLATELET COUNT 305 K/MM3 (134-434); RBC 4.59 M/mm3 (4.00-5.60); RDW 18.5 % (11.9-15.9); WHITE BLOOD COUNT 9.6 K/mm3 (4.0-10.0)
[2017-05-26] MEDS: HEPARIN NA (PORCINE) 5,000 UNITS/ML 1ML VIAL SQ SCH ×2 (06:40→15:05)
[2017-05-26] MEDS: levETIRAcetam 500 MG/5 ML INJECTION VIAL IVPB SCH ×2 (06:40→15:07)
[2017-05-26] MEDS: ALBUTEROL SO4 2.5/IPRATROPIUM 0.5 INH SOL 3 ML VIAL.NEB. NEB SCH ×2 (08:25→11:37)
[2017-05-26] MEDS ORDERED: PT OWN MED DRAWER 7, Y5N ONE (09:20)
[2017-05-26] MEDS: PANTOPRAZOLE 40 MG TABLET (FP) PO SCH (09:25)
[2017-05-26] MEDS: TAMSULOSIN HCL 0.4 MG CAP.ER.24H (FP) PO SCH (09:25)
[2017-05-26] MEDS: ASPIRIN 81 MG CHEWABLE TABLETS PO SCH (09:25)
[2017-05-26] MEDS: diphenhydrAMINE HCL 12.5 MG/5 ML UNIT-DOSE CUPS PO SCH ×2 (09:27→15:04)
[2017-05-26] MEDS: carBAMazepine 200 MG TABLET NGT SCH (09:28)
[2017-05-26] MEDS: DEXTROSE 5% IVPB SCH (09:28)
[2017-05-26] MEDS: WATER IVPB SCH (09:28)
[2017-05-26] MEDS: FOSPHENYTOIN SODIUM IVPB SCH (09:28)
[2017-05-26] MEDS: NYSTATIN POWDER 100,000 UNITS/GM - 15 GM TOPICAL POWDER TP SCH (09:28)
[2017-05-26] MEDS ORDERED: predniSONE 20 MG TABLET (UD) PO SCH (10:00)
[2017-05-26] MEDS ORDERED: predniSONE 10 MG TABLET (UD) PO SCH (10:00)
[2017-05-26 10:19] LABS: ANION GAP 10 (8-16); BLOOD UREA NITROGEN 10 mg/dL (7-18); CHLORIDE 113 mmol/L (98-107); CO2 21 mmol/L (21-32); CREATININE 0.9 mg/dL (0.7-1.3); GLUCOSE,RANDOM 92 mg/dL (74-106); MAGNESIUM 1.9 mg/dL (1.8-2.4); PHOSPHOROUS 3.1 mg/dL (2.5-4.9); POTASSIUM 4.3 mmol/L (3.5-5.1); SODIUM 144 mmol/L (136-145)
--- NOTE | 2017-05-26 10:59 | DS ---
Physical Exam: SUBJECTIVE: Patient seen and examined. Stable on RA, appears calm. Events: Will remove jo today, excoriation to buttocks improved, senna and lacutulose stopped. OBJECTIVE: Vital Signs Period Temp Pulse Resp BP Sys/Velasco Pulse Ox Last 24 Hr 98.4 F-99.3 F 88-93 18-35 119-145/71-90 94-94 PE Neuro: awake, alert, non verbal Pulm: scattered rhonchi, + cough CV: s1 s2 rrr no mrg Abd: s nt nd + bs : Jo Ext: no le edema Laboratory Results - last 24 hr 05/26/17 05/26/17 05:05 05:05 WBC 9.6 RBC 4.59 Hgb 13.5 Hct 40.7 MCV 88.6 MCH 29.5 MCHC 33.3 RDW 18.5 H Plt Count 305 D MPV 9.6 Neutrophils % 70.3 Lymphocytes % 20.3 D Monocytes % 5.5 Eosinophils % 3.6 Basophils % 0.3 Sodium 144 Potassium 4.3 Chloride 113 H Carbon Dioxide 21 Anion Gap 10 BUN 10 Creatinine 0.9 Random Glucose 92 Calcium 8.0 L Phosphorus 3.1 D Magnesium 1.9 HOSPITAL COURSE: Date of Admission:05/18/17 Date of Discharge: 05/26/17 Minutes to complete discharge: 38 Discharge Summary Reason For Visit: HYPOXIA Current Active Problems Pneumonia (Acute) Shortness of breath (Acute) Status epilepticus (Acute) Hospital Course: Assessment: 47 year old male with PMHx of 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 with hypoxia, tachycardia and cough, treated for HCAP, was sent to ICU after [employer] for status epilepticus ~50mins 05/19, Intubated 05/21, extubated 05/23. Plan: 1. Hypoxic and hypercapneic respiratory failure - s/p extubation, stable on RA - Continue solumedrol 40mg BID 2. Pneumonia - Complete antibiotic course tomorrow - Appreciate ID assistance 3. Seizure disorder - s/p status epilepticus episode 05/19 - Continue rufinamide, carbamazepine, Keppra, zonisamide, phenobarbitol, - Changed fosphenytoin daily, will DC on discharge 4. Systolic heart failure - Lasix PRN, maintain negative balance - DC jo today, start voiding trial 5. Elevated troponins - Trops flat, likely due to infectious process 6. Hypernatremia - Start 250cc water flushes x24 hrs - Stop IVF - Free water to 30mL/hr with tube feeds 7. Functional quadriplegia - Profound intellectual disability, requires assistance for all ADLs 8. DVT prophylaxis: subq heparin Dispo: - Transfer to floor Condition: Fair - Instructions Referrals: Byron Mcfarlane MD, MD [Primary Care Provider] - - Home Medications Comprehensive Discharge Medication List: Ambulatory Orders Carbamazepine [Carbamazepine ER] 300 mg PO Q12H 05/18/17 Cholecalciferol (Vitamin D3) [Vitamin D3] 2,000 unit PO BID 05/18/17 Diphenhydramine [Benadryl Oral Solution -] 10 ml PO Q6H 05/18/17 Lactase [Lactaid Fast Act] 1 tab PO TID 05/18/17 Levetiracetam 1,000 mg PO TID 05/18/17 Multivitamins [Tab-A-Vit -] 1 tab PO DAILY 05/18/17 [place]-3S/Dha/Epa/Fish Oil [Fish Oil [place]-3 Softgel] 1 each PO BID 05/18/17 Phenobarbital 32.4 mg PO HS 05/18/17 Phenobarbital 64.8 mg PO HS 05/18/17 Rufinamide [Banzel] 200 mg PO BID 05/18/17 Tamsulosin HCl [Flomax] 0.4 mg PO HS 05/18/17
--- NOTE | 2017-05-26 11:04 | DS ---
Physical Exam: SUBJECTIVE: Patient seen and examined. Stable on RA, appears calm. Events: Will remove jo today, excoriation to buttocks improved, senna and lacutulose stopped. Objective: Vital Signs Period Temp Pulse Resp BP Sys/Velasco Pulse Ox Last 24 Hr 98.4 F-99.3 F 88-93 18-35 119-145/71-90 94-94 PE Neuro: awake, alert, non verbal Pulm: scattered rhonchi, + cough CV: s1 s2 rrr no mrg Abd: s nt nd + bs : Jo Ext: no le edema Laboratory Results - last 24 hr 05/26/17 05/26/17 05:05 05:05 WBC 9.6 RBC 4.59 Hgb 13.5 Hct 40.7 MCV 88.6 MCH 29.5 MCHC 33.3 RDW 18.5 H Plt Count 305 D MPV 9.6 Neutrophils % 70.3 Lymphocytes % 20.3 D Monocytes % 5.5 Eosinophils % 3.6 Basophils % 0.3 Sodium 144 Potassium 4.3 Chloride 113 H Carbon Dioxide 21 Anion Gap 10 BUN 10 Creatinine 0.9 Random Glucose 92 Calcium 8.0 L Phosphorus 3.1 D Magnesium 1.9 HOSPITAL COURSE: Date of Admission:05/18/17 Date of Discharge: 05/26/17 Minutes to complete discharge: 37 Discharge Summary Reason For Visit: HYPOXIA Current Active Problems Pneumonia (Acute) Shortness of breath (Acute) Status epilepticus (Acute) Hospital Course: Discharge Summary: Briefly, this 47 year old male with PMHx of 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 Plan: 1. Hypoxic and hypercapneic respiratory failure - s/p extubation, stable on RA - Completed steroid course 2. Pneumonia - Completed 8 days zosyn, no fever, stable off abx 3. Seizure disorder - s/p status epilepticus episode 05/19 - Continue rufinamide, carbamazepine, Keppra, zonisamide, phenobarbitol, - Stopped fosphenytoin on discharge 4. Systolic heart failure - Not in exacerbation 5. Elevated troponins - Trops flat, likely due to infectious process 6. Hypernatremia - Resolved 7. Functional quadriplegia - Profound intellectual disability, requires assistance for all ADLs Dispo: - Return to [facility], d/w Dr. Eisenberg, DC summary to be sent to ATT: Dr. Cristina Avery Condition: Stable - Instructions Diet, Activity, Other Instructions: Please return to the ED for any new, persistent, or worsening symptoms. Follow up with your PCP in 1 week Resume home medications as directed Referrals: Bennie Evans MD [Staff Physician] - Byron Mcfarlane MD, MD [Primary Care Provider] - Disposition: HOME - Home Medications Comprehensive Discharge Medication List: Ambulatory Orders Carbamazepine [Carbamazepine ER] 300 mg PO Q12H 05/18/17 Cholecalciferol (Vitamin D3) [Vitamin D3] 2,000 unit PO BID 05/18/17 Diphenhydramine [Benadryl 12.5 MG/5 ML Oral Solution -] 10 ml PO Q6H 05/18/17 Lactase [Lactaid Fast Act] 1 tab PO TID 05/18/17 Levetiracetam 1,000 mg PO TID 05/18/17 Multivitamins [Multivit ([facility] Formulary)] 1 tab PO DAILY 05/18/17 Rumsey-3S/Dha/Epa/Fish Oil [Fish Oil Rumsey-3 Softgel] 1 each PO BID 05/18/17 Phenobarbital 32.4 mg PO HS 05/18/17 Phenobarbital 64.8 mg PO HS 05/18/17 Rufinamide [Banzel] 200 mg PO BID 05/18/17 Tamsulosin HCl [Flomax] 0.4 mg PO HS 05/18/17 This patient is new to me today: No Emergency Visit: Yes ED Registration Date: 05/18/17 Care time: The patient presented to the Emergency Department on the above date and was hospitalized for further evaluation of their emergent condition. Critical Care patient: No - Discharge Referral Referred to [facility] Med P.C.: No
--- NOTE | 2017-05-26 11:45 | PN ---
Teaching Attending Note Name of Resident: Charla Guzman ATTENDING PHYSICIAN STATEMENT I saw and evaluated the patient. I reviewed the resident's note and discussed the case with the resident. I agree with the resident's findings and plan as documented. SUBJECTIVE: Patient seen and examined in the ICU. Remains extubated. NAD on RA. Intake & Output 05/23/17 05/24/17 05/25/17 05/26/17 23:59 23:59 23:59 23:59 Intake Total 1955 1785 1482.5 1000 Output Total 5446 391 5747 1300 Balance 55 1185 432.5 -300 Weight 145 lb 144 lb 12.8 oz 145 lb 8 oz 141 lb 1.533 oz Last Vital Signs Temp Pulse Resp BP Pulse Ox 98.6 F 93 H 35 H 141/87 94 L 05/26/17 10:00 05/26/17 10:00 05/26/17 10:00 05/26/17 10:00 05/26/17 08:55 Active Medications Acetaminophen (Tylenol Suppository -) 650 mg OH Q6H PRN PRN Reason: FEVER Last Admin: 05/21/17 08:56 Dose: 650 mg Albuterol Sulfate (Ventolin 0.083% Nebulizer Soln -) 1 amp NEB Q4H PRN PRN Reason: SHORT OF BREATH/WHEEZING Albuterol/Ipratropium (Duoneb -) 1 amp NEB RQID [facility] Last Admin: 05/26/17 11:37 Dose: 1 amp Aspirin (Asa -) 81 mg PO DAILY [facility] Last Admin: 05/26/17 09:25 Dose: 81 mg Carbamazepine (Tegretol -) 600 mg NGT BID [facility] Last Admin: 05/26/17 09:28 Dose: 600 mg Diphenhydramine HCl (Benadryl Oral Solution -) 25 mg PO QID [facility] Last Admin: 05/26/17 09:27 Dose: 25 mg Heparin Sodium (Porcine) (Heparin -) 5,000 unit SQ TID [facility] Last Admin: 05/26/17 06:40 Dose: 5,000 unit Lactulose (Cephulac (Oral Use)) 30 gm PO TID PRN PRN Reason: CONSTIPATION Levetiracetam (Keppra Injection -) 1,000 mg IVPB TID [facility] Last Admin: 05/26/17 06:40 Dose: 1,000 mg Nystatin (Nystop Powder -) 1 applic TP DAILY [facility] Last Admin: 05/26/17 09:28 Dose: 1 applic Pantoprazole Sodium (Protonix -) 40 mg PO DAILY [facility] Last Admin: 05/26/17 09:25 Dose: 40 mg Phenobarbital (Phenobarbital Injection -) 90 mg IVPUSH HS [facility] Last Admin: 05/25/17 21:24 Dose: 90 mg Prednisone (Deltasone -) 40 mg PO DAILY [facility] Last Admin: 05/26/17 09:26 Dose: 40 mg Senna (Senna -) 1 tab PO BID PRN PRN Reason: CONSTIPATION Tamsulosin HCl (Flomax -) 0.4 mg PO DAILY@0830 [facility] Last Admin: 05/26/17 09:25 Dose: 0.4 mg Zonisamide (Zonegran -) 500 mg PO HS [facility] Last Admin: 05/25/17 21:24 Dose: 500 mg Gen: Extubated, NAD on RA Heart: S1S2, regular Lung: few scattered rhonchi, no wheezes Abd: soft, nontender Ext: no edema, +groin rash Laboratory Results - last 24 hr 05/26/17 05/26/17 05:05 05:05 WBC 9.6 RBC 4.59 Hgb 13.5 Hct 40.7 MCV 88.6 MCH 29.5 MCHC 33.3 RDW 18.5 H Plt Count 305 D MPV 9.6 Neutrophils % 70.3 Lymphocytes % 20.3 D Monocytes % 5.5 Eosinophils % 3.6 Basophils % 0.3 Sodium 144 Potassium 4.3 Chloride 113 H Carbon Dioxide 21 Anion Gap 10 BUN 10 Creatinine 0.9 Random Glucose 92 Calcium 8.0 L Phosphorus 3.1 D Magnesium 1.9 A/P Acute Hypoxic and Hypercapneic Respiratory Failure Status Epilepticus resolved Seizure Disorder Pneumonia likely Aspiration Sepsis Acute Bronchospasm Hypernatremia Mental Retardation Cerebral Palsy - AEDs - Seizure precautions - Inhaled bronchodilators - DVT/GI prophylaxis - D/C planning Dr Cary
--- NOTE | 2017-05-26 15:03 | PN ---
Physical Exam: SUBJECTIVE: Patient seen and examined in the ICU. Pt alert, nonverbal. Pt remains afebrile. No pressors. NAD on room air. OBJECTIVE: Vital Signs Period Temp Pulse Resp BP Sys/Velasco Pulse Ox Last 24 Hr 98.4 F-99.2 F 88-93 18-35 119-145/71-90 94-94 GENERAL: nonverbal, NAD NECK: Supple, no JVD. LUNGS: CTAB HEART: Regular rate and rhythm, normal S1 and S2 without murmur, rub or gallop. ABDOMEN: Soft, nontender, not distended, normoactive bowel sounds. LOWER EXTREMITIES: Warm, well-perfused. No peripheral edema. Laboratory Results - last 24 hr 05/26/17 05/26/17 05:05 05:05 WBC 9.6 RBC 4.59 Hgb 13.5 Hct 40.7 MCV 88.6 MCH 29.5 MCHC 33.3 RDW 18.5 H Plt Count 305 D MPV 9.6 Neutrophils % 70.3 Lymphocytes % 20.3 D Monocytes % 5.5 Eosinophils % 3.6 Basophils % 0.3 Sodium 144 Potassium 4.3 Chloride 113 H Carbon Dioxide 21 Anion Gap 10 BUN 10 Creatinine 0.9 Random Glucose 92 Calcium 8.0 L Phosphorus 3.1 D Magnesium 1.9 Active Medications Generic Name Dose Route Start Last Admin Trade Name Freq PRN Reason Stop Dose Admin Acetaminophen 650 mg 05/21/17 04:15 05/21/17 08:56 Tylenol Suppository - PA 650 mg Q6H PRN Administration FEVER Albuterol Sulfate 1 amp 05/20/17 17:12 Ventolin 0.083% Nebulizer Soln - NEB Q4H PRN SHORT OF BREATH/WHEEZING Albuterol/Ipratropium 1 amp 05/20/17 20:00 05/26/17 11:37 Duoneb - NEB 1 amp RQID CATHERINE Administration Aspirin 81 mg 05/21/17 10:00 05/26/17 09:25 Asa - PO 81 mg DAILY CATHERINE Administration Carbamazepine 600 mg 05/21/17 22:00 05/26/17 09:28 Tegretol - NGT 600 mg BID CATHERINE Administration Diphenhydramine HCl 25 mg 05/20/17 18:00 05/26/17 09:27 Benadryl Oral Solution - PO 25 mg QID CATHERINE Administration Heparin Sodium (Porcine) 5,000 unit 05/20/17 22:00 05/26/17 06:40 Heparin - SQ 5,000 unit TID CATHERINE Administration Lactulose 30 gm 05/25/17 13:02 Cephulac (Oral Use) PO TID PRN CONSTIPATION Levetiracetam 1,000 mg 05/20/17 22:00 05/26/17 06:40 Keppra Injection - IVPB 1,000 mg TID CATHERINE Administration Nystatin 1 applic 05/21/17 10:00 05/26/17 09:28 Nystop Powder - TP 1 applic DAILY CATHERINE Administration Pantoprazole Sodium 40 mg 05/25/17 10:00 05/26/17 09:25 Protonix - PO 40 mg DAILY CATHERINE Administration Phenobarbital 90 mg 05/20/17 22:30 05/25/17 21:24 Phenobarbital Injection - IVPUSH 90 mg HS CATHERINE Administration Prednisone 40 mg 05/26/17 10:00 05/26/17 09:26 Deltasone - PO 40 mg DAILY CATHERINE Administration Senna 1 tab 05/25/17 13:02 Senna - PO BID PRN CONSTIPATION Tamsulosin HCl 0.4 mg 05/21/17 08:30 05/26/17 09:25 Flomax - PO 0.4 mg DAILY@0830 CATHERINE Administration Zonisamide 500 mg 05/20/17 22:00 05/25/17 21:24 Zonegran - PO 500 mg HS CATHERINE Administration ASSESSMENT/PLAN: 47M with PMH of seizure disorder, cerebral palsy, Factor VIII deficiency, profound intellectual disability, admitted from [facility] for sepsis 2/ 2 pneumonia. # sepsis 2/2 pneumonia - likely 2/2 aspiration - Day 6 of IV Zosyn - last day - continue suctioning prn - Chest PT # acute on chronic hypoxic and hypercapneic respiratory failure - improving - continue duonebs, Albuterol prn - continue Prednisone # status epilepticus - resolved # seizure disorder - continue home meds of Carbamazepine, Keppra, Phenobarbital - continue Zonegran # FEN - Fluids: po - Electrolytes: wnl - Nutrition: dysphagia puree diet # Prophylaxis - DVT ppx with Heparin TID - GI ppx with Protonix # dispo - pt stable for discharge back to [facility] Visit type - Emergency Visit Emergency Visit: Yes ED Registration Date: 05/18/17 Care time: The patient presented to the Emergency Department on the above date and was hospitalized for further evaluation of their emergent condition. - New Patient This patient is new to me today: No - Critical Care Critical Care patient: Yes Total Critical Care Time (in minutes): 38 Critical Care Statement: The care of this patient involved high complexity decision making to prevent further life threatening deterioration of the patient 's condition and/or to evaluate & treat vital organ system(s) failure or risk of failure.
[2017-05-26 15:46] VITALS: BP 141/98; PULSE 96; TEMP 98.8
== END 2017-05-26 16:00 | DRG 720 ==
LOC: JER 09:06 → JERBED 13:00 → J4W 21:07 → JICU 05-19 17:55 → J5S 05-20 18:54 → JICU 05-21 04:33
PROVIDERS: ADMIT Hospitalist; ATTEND Nurse Practitioner Acute Care
PROC: 0CHY7BZ Insertion of Airway into Mouth and Throat, Via Natural or Artificial Opening (ICD-10-PCS; principal; 2017-05-21)
PROC: 5A1945Z Respiratory Ventilation, 24-96 Consecutive Hours (ICD-10-PCS; 2017-05-21)
PROC: 3E0G76Z Introduction of Nutritional Substance into Upper GI, Via Natural or Artificial Opening (ICD-10-PCS; 2017-05-23)
DX: A41.9 Sepsis, unspecified organism (principal); J96.01 Acute respiratory failure with hypoxia; D66 Hereditary factor VIII deficiency; R00.0 Tachycardia, unspecified; E86.0 Dehydration; G80.9 Cerebral palsy, unspecified; J69.0 Pneumonitis due to inhalation of food and vomit; G40.901 Epilepsy, unspecified, not intractable, with status epilepticus; F73 Profound intellectual disabilities; J96.02 Acute respiratory failure with hypercapnia; I31.3 Pericardial effusion (noninflammatory); I50.22 Chronic systolic (congestive) heart failure; R53.2 Functional quadriplegia; J98.01 Acute bronchospasm; E29.1 Testicular hypofunction; E87.0 Hyperosmolality and hypernatremia; I42.8 Other cardiomyopathies; R50.9 Fever, unspecified; E87.6 Hypokalemia; D72.829 Elevated white blood cell count, unspecified; Z87.442 Personal history of urinary calculi
CPT/HCPCS: 36415; 36600; 71045-TC-FY; 71250-TC; 76775-TC; 76856-TC; 80048; 80053; 80156; 80185; 81003; 81015; 82375; 82550; 82803; 82962; 83050; 83605; 83735; 83880; 84100; 84132; 84484; 85025; 85027; 85610; 85730; 87040; 87070; 87077; 87086; 87205; 87804; 87899; 93005; 93010; 93306-TC; 94002; 94640; 94660; 99285-25; J0131; J1644

== ENCOUNTER 2017-07-19 19:25 | Inpatient (IN) | payer OTHER ==
--- NOTE | 2017-07-19 19:48 | PDOC ---
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 patient currently on levaquin and albuterol with no improvement in symptoms. 07/19/17 21:35 Past History - Past Medical History Allergies/Adverse Reactions: Allergies Allergy/AdvReac Type Severity Reaction Status Date / Time No Known Allergies Allergy Verified 05/18/17 12:02 Home Medications: Ambulatory Orders Carbamazepine [Carbamazepine ER] 300 mg PO Q12H 05/18/17 Cholecalciferol (Vitamin D3) [Vitamin D3] 2,000 unit PO BID 05/18/17 Diphenhydramine [Benadryl 12.5 MG/5 ML Oral Solution -] 10 ml PO Q6H 05/18/17 Lactase [Lactaid Fast Act] 1 tab PO TID 05/18/17 Levetiracetam 1,000 mg PO TID 05/18/17 Multivitamins [Multivit ([facility] Formulary)] 1 tab PO DAILY 05/18/17 [place]berg-3S/Dha/Epa/Fish Oil [Fish Oil [place]-3 Softgel] 1 each PO BID 05/18/17 Phenobarbital 32.4 mg PO HS 05/18/17 Phenobarbital 64.8 mg PO HS 05/18/17 Rufinamide [Banzel] 200 mg PO BID 05/18/17 Tamsulosin HCl [Flomax] 0.4 mg PO HS 05/18/17 COPD: No Disorders: Yes (bilateral nephrolethiasis) Seizures: Yes - Surgical History Orthopedic Surgery: Yes (Humerus fracture s/p left girdlestone procedure) - Suicide/Smoking/Psychosocial Hx Smoking History: Never smoked Hx Alcohol Use: No Drug/Substance Use Hx: No *Physical Exam - Physical Exam General Appearance: Yes: Moderate Distress Respiratory/Chest: positive: Labored Respiration, Rapid RR, Decreased Breath Sounds, Rhonchi, Wheezing Cardiovascular: positive: Tachycardia Gastrointestinal/Abdominal: positive: Normal Bowel Sounds, Soft, Distended. negative: Tender Extremity: positive: Normal Capillary Refill, Normal Inspection, Normal Range of Motion Integumentary: positive: Normal Color, Dry, Warm Neurologic: positive: Alert, Other (nonverbal) ED Treatment Course - LABORATORY CBC & Chemistry Diagram: 07/19/17 20:38 07/19/17 21:26 Medical Decision Making - Critical Care Time Total Critical Care Time (minutes): 30 Critical Care Statement: The care of this patient involved high complexity decision making to prevent further life threatening deterioration of the patient 's condition and/or to evaluate & treat vital organ system(s) failure or risk of failure. - Medical Decision Making 07/19/17 21:03 I spoke Nurse Johanna ( charge nurse ) at [facility] , reported that patient has been on q4h neb x 3 days. today received 50 mg prednisone and levaquin x 1 dose. patient with no significant improvement in symptoms patient was send for evaluation. 07/19/17 22:26 decreased breath sounds with wheezing. will start lasix IV x 1 and Bipap support *DC/Admit/Observation/Transfer Diagnosis at time of Disposition: Pulmonary congestion Reactive airway disease with acute exacerbation Qualifiers: Asthma severity: moderate Asthma persistence: persistent Qualified Code(s): J45.41 - Moderate persistent asthma with (acute) exacerbation Pneumonia Qualifiers: Pneumonia type: due to unspecified organism Laterality: unspecified laterality Lung location: unspecified part of lung Qualified Code(s): J18.9 - Pneumonia, unspecified organism - Discharge Dispostion Decision to Admit order: Yes - Referrals - Patient Instructions - Post Discharge Activity
[2017-07-19] MEDS ORDERED: methylPREDNISolone NA SUCC 125 MG/2 ML VIAL IVPB ONE (20:03)
[2017-07-19] MEDS ORDERED: ALBUTEROL SO4 2.5/IPRATROPIUM 0.5 INH SOL 3 ML VIAL.NEB. NEB ONE (20:46)
[2017-07-19] MEDS ORDERED: methylPREDNISolone NA SUCC 125 MG/2 ML VIAL ONE (20:46)
[2017-07-19 20:47] LABS: BASO % 0.2 % (0-2.0); EOS % 0.5 % (0-4.5); HEMOGLOBIN 14.1 GM/dL (11.7-16.9); LYMPH % 6.1 % (8-40); MCH 28.6 pg (25.7-33.7); MEAN CELL VOLUME 89.2 fl (80-96); MEAN PLT VOLUME 8.7 fl (7.5-11.1); NEUT % 88.2 % (42.8-82.8); PLATELET COUNT 385 K/MM3 (134-434); RBC 4.93 M/mm3 (4.00-5.60); RDW 17.8 % (11.9-15.9); WHITE BLOOD COUNT 13.7 K/mm3 (4.0-10.0)
[2017-07-19] MEDS ORDERED: MAGNESIUM SULF 50% (8.12 MEQ/2 ML-1 GM VIAL) IVPB ONE (20:58)
[2017-07-19] MEDS: ALBUTEROL SO4 2.5/IPRATROPIUM 0.5 INH SOL 3 ML VIAL.NEB. NEB SCH ×2 (21:09→21:33)
[2017-07-19] MEDS ORDERED: MAGNESIUM SULF 50% (8.12 MEQ/2 ML-1 GM VIAL) ONE (21:16)
[2017-07-19] MEDS ORDERED: VANCOMYCIN 1 GM PREMIX - 1 GM/200 ML BAG IVPB ONE (21:44)
[2017-07-19] MEDS ORDERED: SODIUM CHLORIDE 0.9% 1000 ML INFUS.BAG IV ONE (21:45)
[2017-07-19 22:00] LABS: ALBUMIN 2.4 g/dl (3.4-5.0); ANION GAP 8 (8-16); BILIRUBIN,TOTAL 0.3 mg/dL (0.2-1.0); BLOOD UREA NITROGEN 11 mg/dL (7-18); CALCIUM 8.4 mg/dL (8.5-10.1); CHLORIDE 105 mmol/L (98-107); CO2 29 mmol/L (21-32); CREATININE 0.7 mg/dL (0.7-1.3); GLUCOSE,RANDOM 123 mg/dL (74-106); SGOT/AST 27 U/L (15-37); SGPT/ALT 33 U/L (12-78); SODIUM 142 mmol/L (136-145); TOT PROT 6.1 g/dl (6.4-8.2)
[2017-07-19 22:02] LABS: ALK PHOS 239 U/L (45-117); N-TERMINAL BNP 8806.08 pg/ml (5-125)
[2017-07-19 22:09] LABS: ARTERIAL BLD GAS O2 SATURATION 99.2 % (90-98.9); ARTERIAL BLOOD GAS BASE EXCESS 3.3 meq/l (-2-2); ARTERIAL BLOOD GAS PCO2 41.6 mmHg (35-45); ARTERIAL BLOOD GAS pH 7.43 (7.35-7.45)
[2017-07-19 22:10] LABS: ALLENS TEST POSITIVE
[2017-07-19 22:17] LABS: PLATELET ESTIMATE ADEQUATE
[2017-07-19] MEDS ORDERED: TERBUTALINE SULFATE 1 MG/1 ML VIAL SQ ONE ×2 (22:18→22:40)
[2017-07-19] MEDS ORDERED: ALBUTEROL SO4 0.083% IH SOL 2.5 MG/3 ML VIAL.NEB. NEB ONE ×2 (22:18→22:40)
[2017-07-19] MEDS ORDERED: FUROSEMIDE 40 MG/4 ML INJECTABLE VIAL IVPUSH ONE (22:26)
[2017-07-19] MEDS ORDERED: VANCOMYCIN 1 GRAM (PRE-DOCKED) 1,000 MG/250 ML BAG IVPB ONE (22:41)
[2017-07-19] MEDS ORDERED: FUROSEMIDE 40 MG/4 ML INJECTABLE VIAL ONE (22:42)
[2017-07-19 23:18] LABS: URINE APPEARANCE SLCLOUDY; URINE BILIRUBIN NEGATIVE (<2.0 mg/dL); URINE BLOOD NEGATIVE (NEGATIVE); URINE GLUCOSE (UA) NEGATIVE (NEGATIVE); URINE KETONE TRACE (NEGATIVE); URINE LEUK ESTERASE NEGATIVE (NEGATIVE); URINE NITRITE NEGATIVE (NEGATIVE); URINE UROBILINOGEN NEGATIVE mg/dL (0.2-1.0)
[2017-07-19 23:19] LABS: URINE COLOR YELLOW; URINE PROTEIN 3+ (NEGATIVE)
[2017-07-19 23:21] LABS: EPI CELLS RARE /HPF (FEW); URINE HYALINE CAST 7 /lpf; URINE MUCUS MODERATE
--- NOTE | 2017-07-19 23:21 | HP ---
CHIEF COMPLAINT: SOB PCP: From [place] HISTORY OF PRESENT ILLNESS: 47 year old male with a hx of CHF, cerebral palsy, epilepsy, hx of fractures, renal stones, factor VIII deficiency presented to hospital for a reported 3 days of shortness of breath. residential reports that he was given several doses of albuterol and started on levaquin 750 today, which they say did not help alleviate his symptoms. He additionally received 50 of prednisone at [facility] which they say did not help. Patient is non-verbal and history is unable to be directly obtained. He recently had a prolonged hospitalization here at [facility] for hospital acquired pneumonia in May. Echocardiogram done on 05/19/2017 showed an EF of 28%. ER course was notable for: (1) LA 2.8 (2) Temp 100.1 (3) Trop 0.06 (4) BNP 8806 (5) WBC 13.7 Recent Travel: none PAST MEDICAL HISTORY: CHF, seizure disorder, cerebral palsy, Factor VIII deficiency, profound intellectual disability,renal stones PAST SURGICAL HISTORY: unknown Social History: Smoking: none Alcohol: none Drugs: none Allergies No Known Allergies Allergy (Verified 05/18/17 12:02) HOME MEDICATIONS: Home Medications Medication Instructions Recorded Carbamazepine [Carbamazepine ER] 300 mg PO Q12H 05/18/17 Cholecalciferol (Vitamin D3) 2,000 unit PO BID 05/18/17 [Vitamin D3] Diphenhydramine [Benadryl 12.5 10 ml PO Q6H 05/18/17 MG/5 ML Oral Solution -] Lactase [Lactaid Fast Act] 1 tab PO TID 05/18/17 Levetiracetam 1,000 mg PO TID 05/18/17 Multivitamins [Multivit ([facility] 1 tab PO DAILY 05/18/17 Formulary)] [place]-3S/Dha/Epa/Fish Oil [Fish 1 each PO BID 05/18/17 Oil [place]-3 Softgel] Phenobarbital 32.4 mg PO HS 05/18/17 Phenobarbital 64.8 mg PO HS 05/18/17 Rufinamide [Banzel] 200 mg PO BID 05/18/17 Tamsulosin HCl [Flomax] 0.4 mg PO HS 05/18/17 REVIEW OF SYSTEMS -Unable to assess due to mental status PHYSICAL EXAMINATION Vital Signs Temperature 100.1 F H 07/19/17 23:26 Pulse Rate 111 H 05/30/18 23:26 Respiratory Rate 26 H 07/19/17 23:26 Blood Pressure 139/99 07/19/17 23:26 O2 Sat by Pulse Oximetry (%) 96 BIPAP 07/20/17 00:37 GENERAL: A&Ox0, moderate distress EYES: PERRLA, EOMI ENT: Moist mucus membranes NECK: No JVD LUNGS: Clear to auscultation, but may have appreciated bibasilar crackles HEART: tachycardic, did not appreciate murmur ABDOMEN: Obese but soft, nontender, BS present EXTREMITIES: 2+ pulses, 2+ pitting edema noted in bilateral lower extremities NEURO: unable to assess due to mental status Laboratory Results - last 24 hr 07/19/17 07/19/17 07/19/17 20:38 20:38 20:38 WBC 13.7 H D RBC 4.93 Hgb 14.1 Hct 44.0 MCV 89.2 MCH 28.6 MCHC 32.0 RDW 17.8 H Plt Count 385 D MPV 8.7 Neutrophils % 88.2 H D Neutrophils % (Manual) 87.0 H Band Neutrophils % 2.0 Lymphocytes % 6.1 L D Lymphocytes % (Manual) 8.0 Monocytes % 5.0 Monocytes % (Manual) 2 L Eosinophils % 0.5 D Eosinophils % (Manual) 1.0 Basophils % 0.2 Basophils % (Manual) 0.0 Nucleated RBC % 0 Platelet Estimate Adequate Anticoagulation Therapy Puncture Site ABG pH ABG pCO2 at Pt Temp ABG pO2 at Pt Temp ABG HCO3 ABG O2 Sat (Measured) ABG O2 Content ABG Base Excess Adrian Test Carboxyhemoglobin Methemoglobin O2 Delivery Device Oxygen Flow Rate Vent Mode Vent Rate Mechanical Rate Pressure Support Vent Sodium Cancelled Potassium Cancelled Chloride Cancelled Carbon Dioxide Cancelled Anion Gap Cancelled BUN Cancelled Creatinine Cancelled Creat Clearance w eGFR Cancelled Random Glucose Cancelled Lactic Acid Calcium Cancelled Total Bilirubin Cancelled AST Cancelled ALT Cancelled Alkaline Phosphatase Cancelled Creatine Kinase Cancelled Troponin I Cancelled B-Natriuretic Peptide Cancelled Total Protein Cancelled Albumin Cancelled Urine Color Urine Appearance Urine pH Ur Specific Beaver Urine Protein Urine Glucose (UA) Urine Ketones Urine Blood Urine Nitrite Urine Bilirubin Urine Urobilinogen Ur Leukocyte Esterase 05/30/18 05/30/18 05/30/18 20:38 21:26 21:55 WBC RBC Hgb Hct MCV MCH MCHC RDW Plt Count MPV Neutrophils % Neutrophils % (Manual) Band Neutrophils % Lymphocytes % Lymphocytes % (Manual) Monocytes % Monocytes % (Manual) Eosinophils % Eosinophils % (Manual) Basophils % Basophils % (Manual) Nucleated RBC % Platelet Estimate Anticoagulation Therapy No Result Required. Puncture Site Right radial ABG pH 7.43 ABG pCO2 at Pt Temp 41.6 D ABG pO2 at Pt Temp 133.0 H D ABG HCO3 27.3 H ABG O2 Sat (Measured) 99.2 H ABG O2 Content 19.0 ABG Base Excess 3.3 H Adrian Test Positive Carboxyhemoglobin 2.0 Methemoglobin 0.9 O2 Delivery Device No Result Required. Oxygen Flow Rate Yes Vent Mode No Result Required. Vent Rate No Result Required. Mechanical Rate No Result Required. Pressure Support Vent No Result Required. Sodium 142 Potassium 4.0 Chloride 105 Carbon Dioxide 29 D Anion Gap 8 BUN 11 Creatinine 0.7 D Creat Clearance w eGFR > 60 Random Glucose 123 H D Lactic Acid 2.8 H* Calcium 8.4 L Total Bilirubin 0.3 AST 27 ALT 33 Alkaline Phosphatase 239 H D Creatine Kinase 61 Troponin I 0.06 H D B-Natriuretic Peptide 8806.08 H Total Protein 6.1 L D Albumin 2.4 L D Urine Color Urine Appearance Urine pH Ur Specific Beaver Urine Protein Urine Glucose (UA) Urine Ketones Urine Blood Urine Nitrite Urine Bilirubin Urine Urobilinogen Ur Leukocyte Esterase 07/19/17 23:05 WBC RBC Hgb Hct MCV MCH MCHC RDW Plt Count MPV Neutrophils % Neutrophils % (Manual) Band Neutrophils % Lymphocytes % Lymphocytes % (Manual) Monocytes % Monocytes % (Manual) Eosinophils % Eosinophils % (Manual) Basophils % Basophils % (Manual) Nucleated RBC % Platelet Estimate Anticoagulation Therapy Puncture Site ABG pH ABG pCO2 at Pt Temp ABG pO2 at Pt Temp ABG HCO3 ABG O2 Sat (Measured) ABG O2 Content ABG Base Excess Adrian Test Carboxyhemoglobin Methemoglobin O2 Delivery Device Oxygen Flow Rate Vent Mode Vent Rate Mechanical Rate Pressure Support Vent Sodium Potassium Chloride Carbon Dioxide Anion Gap BUN Creatinine Creat Clearance w eGFR Random Glucose Lactic Acid Calcium Total Bilirubin AST ALT Alkaline Phosphatase Creatine Kinase Troponin I B-Natriuretic Peptide Total Protein Albumin Urine Color Yellow Urine Appearance Slcloudy Urine pH 5.0 Ur Specific Beaver 1.033 Urine Protein 3+ H Urine Glucose (UA) Negative Urine Ketones Trace H Urine Blood Negative Urine Nitrite Negative Urine Bilirubin Negative Urine Urobilinogen Negative Ur Leukocyte Esterase Negative ASSESSMENT/PLAN: 47 year old male with a hx of CHF, cerebral palsy, epilepsy, hx of fractures, renal stones, factor VIII deficiency presented to hospital for 3 days of SOB and admitted to telemetry for acute CHF exacerbation and sepsis likely 2/2 pneumonia. #Acute Hypoxic Respiratory Failure: likely 2/2 combination of acute CHF exacerbation vs pneumonia -patient has clinical signs of CHF (bibasilar crackles, 2+ pitting edema, acute shortness of breath) and elevated BNP (8806) -telemetry monitoring -Echocardiogram done on 05/19/2017 showed an EF of 28%, but it was a poor and limited study. -repeat echo now -cardiology consult Dr. Sanchez appreciated -f/u EKG -lasix 40 BID -accurate I's/O's -daily weights -hold putting on B-ana laura for now given sepsis-like picture -bipap 30% O2 #Sepsis 2/2 Possible Pneumonia: patient was recently hospitalized for hospital acquired pneumonia, it is possible that patient has recurrent pneumonia that triggered a CHF exacerbation -tachycardic, + leukocytosis, -repeat CXR in AM -repeat ABG at 1am -f/u blood cultures -f/u urine cultures -continue bipap support -vancomycin 1.5gm BID -zosyn 4.5g Q6h -lactic acid 2.8, trend LA -ID consult Dr. Palomo appreciated #Troponinemia: likely 2/2 demand-ischemia due to sepsis -f/u EKG -repeat troponin at 4am #Seizure Disorder: -continue keppra 1000 TID -Continue phenobarbital 60 PO HS (need to confirm medications in AM, patient likely takes alternate dosing based on the day) -continue carbamazepine 300 PO BID -continue rufinamide 200mg PO BID #Retention/BPH: chronic -continue tamsulosin #FEN No standing fluids Replete lytes as necessary in AM NPO while on BIPAP #Prophylaxis -heparin 5000 TID #Disposition -admit telemetry Visit type - Emergency Visit Emergency Visit: Yes ED Registration Date: 07/19/17 Care time: The patient presented to the Emergency Department on the above date and was hospitalized for further evaluation of their emergent condition. - New Patient This patient is new to me today: Yes Date on this admission: 07/20/17 - Critical Care Critical Care patient: No Hospitalist Screening - Colonoscopy Questionnaire Colonoscopy Questionnaire: Colonoscopy Questionnaire - Patient: 50 - 75 years old and never had a screening colonoscopy: Unknown History of colon or rectal polyps, or CA: Unknown History of IBD, Crohn's disease or UC: Unknown History of abdominal radiation therapy as a child: Unknown - Relative: 1 with colon or rectal CA, or polyps at age 60 or younger: Unknown Colon or rectal CA diagnosed at age 45 or younger: Unknown Multiple relatives with colon or rectal CA: Unknown - Outcome: Screening Result: Negative Screen
[2017-07-19] MEDS ORDERED: PATIENT'S OWN MEDICATION (NON-FORMULARY) (Carbamazepine [Carbamazepine Er] 300 MG) PO SCH (23:30)
[2017-07-19] MEDS ORDERED: CARBAMAZEPINE PO SCH (23:45)
[2017-07-20] MEDS ORDERED: VANCOMYCIN 1,500 MG in DEXTROSE 5%-WATER - 250 ML IVPB SCH (00:15)
[2017-07-20] MEDS ORDERED: VANCOMYCIN 500 MG in DEXTROSE 5%-WATER 100 ML IVPB ONE (00:45)
[2017-07-20] MEDS ORDERED: diphenhydrAMINE HCL 12.5 MG/5 ML BULK BOTTLE ONE (01:18)
[2017-07-20] MEDS ORDERED: carBAMazepine 200 MG TABLET ONE (01:19)
[2017-07-20] MEDS: diphenhydrAMINE HCL 12.5 MG/5 ML UNIT-DOSE CUPS PO SCH ×5 (01:21→22:55)
[2017-07-20 03:25] LABS: ARTERIAL BLD GAS O2 SATURATION 97.6 % (90-98.9); ARTERIAL BLOOD GAS BASE EXCESS 4.5 meq/l (-2-2); ARTERIAL BLOOD GAS PCO2 48.9 mmHg (35-45); ARTERIAL BLOOD GAS PO2 98.8 mmHg (80-100)
[2017-07-20 03:26] LABS: ALLENS TEST POSITIVE
[2017-07-20] MEDS ORDERED: PIPERACILLIN/TAZOB 4.5 GM 4.5 GM/100 ML BAG IVPB ONE (03:52)
[2017-07-20] MEDS: PIPERACILLIN/TAZOB 4.5 GM 4.5 GM in DEXTROSE 5%-WATER 100 ML IVPB SCH ×4 (03:55→09:18)
--- NOTE | 2017-07-20 06:07 | PN ---
Teaching Attending Note Name of Resident: Prabhu Kulkarni ATTENDING PHYSICIAN STATEMENT I saw and evaluated the patient. Chart, data, imaging reviewed. I reviewed the resident's note and discussed the case with the resident. I agree with the resident's findings and plan as documented. SUBJECTIVE: 47 year old male with a hx of CHF with systolic dysfunction, cerebral palsy, epilepsy, kidney stones, factor VIII deficiency sent to hospital from correction for 3 days of shortness of breath. In his correction, prior to arrival to ER, patient was given albuterol neb, levaquin 750mg, prednisone 50mg PO which did not alleviate his symptoms. Pt wa reported to be desaturating in correction. Recently had a prolonged hospitalization here at [facility] for hospital acquired pneumonia in May. OBJECTIVE: Last Vital Signs Temp Pulse Resp BP Pulse Ox 100.1 F H 111 H 26 H 139/99 96 07/19/17 23:26 07/19/17 23:26 07/19/17 23:26 07/19/17 23:26 07/20/17 00:37 general- drowsy, nontoxic appearing, nonverbal heent-nc, at bipap mask on neck -supple no jvd cv-s1+s2+rrr chest - bibasilar crackles appreciated abdomen - soft, nt, bs+ ext -2+ pedal edema on lower ext b/l Abnormal Lab Results 07/19/17 07/19/17 07/19/17 20:38 20:38 21:26 WBC 13.7 H D RDW 17.8 H Neutrophils % 88.2 H D Neutrophils % (Manual) 87.0 H Lymphocytes % 6.1 L D Monocytes % (Manual) 2 L ABG pCO2 at Pt Temp ABG pO2 at Pt Temp ABG HCO3 ABG O2 Sat (Measured) ABG Base Excess Random Glucose 123 H D Lactic Acid 2.8 H* Calcium 8.4 L Alkaline Phosphatase 239 H D Troponin I 0.06 H D B-Natriuretic Peptide 8806.08 H Total Protein 6.1 L D Albumin 2.4 L D Urine Protein Urine Ketones 07/19/17 07/19/17 07/20/17 21:55 23:05 03:20 WBC RDW Neutrophils % Neutrophils % (Manual) Lymphocytes % Monocytes % (Manual) ABG pCO2 at Pt Temp 48.9 H ABG pO2 at Pt Temp 133.0 H D ABG HCO3 27.3 H 29.8 H ABG O2 Sat (Measured) 99.2 H ABG Base Excess 3.3 H 4.5 H Random Glucose Lactic Acid Calcium Alkaline Phosphatase Troponin I B-Natriuretic Peptide Total Protein Albumin Urine Protein 3+ H Urine Ketones Trace H CXR -reviewed by me, probable pulmonary vascular congestion ASSESSMENT AND PLAN: #Acute Hypoxic Respiratory Failure: likely 2/2 combination of acute CHF exacerbation vs HAP. CLinical signs of CHF present such as pedal edema, high BNP. Pt has sepsis likely secondary to hospital acquired pneumonia. Lactate has improved. -admit to telemetry -blood cultures x2 -urin culture -sputum culture -lactate is improved -urine legionella ag -vancomycin 1g IV q12hrs -zosyn 3.375g IV q6hrs -azithromycin 500mg IV daily to cover atypicals -ID consult -bipap for now, can downgrade fio2 requirements as tolerated -i/o -daily weights -1L fluid and g Na restriction -bblocker, acei -furosemide 40mg IV q12hrs #Troponinemia: likely 2/2 demand-ischemia due to sepsis -f/u EKG -repeat troponin #DVT ppx -heparin sc
[2017-07-20] MEDS ORDERED: HEPARIN NA (PORCINE) 5,000 UNITS/ML 1ML VIAL ONE (06:37)
[2017-07-20] MEDS ORDERED: FUROSEMIDE 40 MG/4 ML INJECTABLE VIAL ONE (06:37)
[2017-07-20] MEDS ORDERED: levETIRAcetam 500 MG TABLET (FP) PO ONE (06:40)
[2017-07-20] MEDS: HEPARIN NA (PORCINE) 5,000 UNITS/ML 1ML VIAL SQ SCH ×3 (06:45→22:47)
[2017-07-20] MEDS: levETIRAcetam 500 MG TABLET (FP) PO SCH ×3 (06:45→22:47)
[2017-07-20] MEDS: FUROSEMIDE 40 MG/4 ML INJECTABLE VIAL IVPUSH SCH ×2 (06:45→14:32)
[2017-07-20] MEDS: MULTIVITAMINS (DAILY MVI) TABLET (FP) PO SCH (10:00)
[2017-07-20] MEDS ORDERED: LISINOPRIL 5 MG TABLET (FP) PO SCH (10:00)
[2017-07-20] MEDS ORDERED: METOPROLOL TARTRATE 25 MG TABLET (FP) PO SCH (10:00)
[2017-07-20] MEDS: CHOLECALCIFEROL (VITAMIN D3) 1,000 UNIT TABLET (FP) PO SCH ×2 (10:00→22:47)
[2017-07-20] MEDS: OMEGA-3 ACID ETHYL ESTERS (FATTY-ACIDS) 1 GM CAPSULE (FP) PO SCH ×2 (10:00→22:47)
[2017-07-20 10:27] LABS: BASO % 0.3 % (0-2.0); EOS % 0.3 % (0-4.5); HEMATOCRIT 42.4 % (35.4-49); HEMOGLOBIN 13.8 GM/dL (11.7-16.9); LYMPH % 15.2 % (8-40); MCH 28.8 pg (25.7-33.7); MCHC 32.5 g/dl (32.0-35.9); MEAN CELL VOLUME 88.7 fl (80-96); MEAN PLT VOLUME 8.9 fl (7.5-11.1); MONO % 7.3 % (3.8-10.2); NEUT % 76.9 % (42.8-82.8); PLATELET COUNT 356 K/MM3 (134-434); RBC 4.78 M/mm3 (4.00-5.60); RDW 17.7 % (11.9-15.9); WHITE BLOOD COUNT 8.1 K/mm3 (4.0-10.0)
[2017-07-20] MEDS ORDERED: METOPROLOL TARTRATE 25 MG TABLET (FP) ONE (10:40)
[2017-07-20] MEDS ORDERED: LISINOPRIL 5 MG TABLET (FP) ONE (10:41)
[2017-07-20] MEDS ORDERED: VANCOMYCIN 1,500 MG in DEXTROSE 5%-WATER - 500 ML IVPB ONE (11:00)
--- NOTE | 2017-07-20 11:05 | PN ---
Progress Note (short form) - Note Progress Note: ID Consult dictated CHF Possible HCAP/ sepsis CP/MR Pending sepsis workup, empiric zosyn/ zithromax
--- NOTE | 2017-07-20 11:31 | CONS ---
DATE OF CONSULTATION: DATE OF DICTATION: 07/20/2017 HISTORY: The patient is a 47-year-old resident of [facility] with a past medical history of cerebral palsy, mental retardation, recent hospitalization for pneumonia now evaluated for recurrent pneumonia. At the skilled facility, he was noted to be tachypneic and hypoxemic worsening over the last 3 days. He was treated with bronchodilators, prednisone, and empiric Levaquin. Despite treatment, his respiratory status deteriorated. He was evaluated in the emergency room where chest x-ray showed congestion suggestive of congestive heart failure, possible pneumonia. The patient is unable to offer any additional details. No reports of high-grade fever, shaking chills, purulent sputum production, vomiting, or diarrhea. PAST MEDICAL HISTORY: Positive for cerebral palsy, mental retardation, seizure disorder, congestive heart failure, osteoporosis, nephrolithiasis, factor 8 deficiency. PAST SURGICAL HISTORY: Status post Girdlestone procedure. ALLERGIES: No known allergies. MEDICATIONS: Include Carbamazepine, Benadryl, multivitamins, phenobarbital, Flomax. SOCIAL HISTORY: Resident of a custodial facility. Dependent in activities of daily living. No active tobacco or alcohol use. SYSTEMS REVIEW: Neurologic: Positive for mental retardation, seizure disorder. Cardiac: Negative chest pain or palpitations. Respiratory: As per HPI. Gastrointestinal: Negative vomiting or diarrhea. Genitourinary: Negative for urinary tract infection. LABORATORY DATA: White count 13.7 with left shift, hematocrit 44, platelet count 385, BUN 11, creatinine 0.7, lactic acid 2.8. Urine leukocyte esterase negative. Blood and urine cultures are pending. PHYSICAL EXAMINATION: General: He is awake. He is in moderate distress on BiPAP mask. Vital Signs: Temperature 99.1, T-max 100.1, blood pressure 133/95, pulse 99 and regular, respirations 21 per minimal. HEENT: Sclerae anicteric. Heart: Sounds S1, S2. Lungs: Diminished breath sounds bilaterally. Abdomen: Obese, distended. No tenderness elicited. No mass, rebound, or rigidity. Extremities: Have 1+ edema. IMPRESSION: 1. Congestive heart failure. 2. Possible healthcare-acquired pneumonia/sepsis. 3. Cerebral palsy, mental retardation. PLAN: Await sepsis workup. In light of recent admission for pneumonia, would empirically cover for hospital-acquired and atypical pulmonary pathogens with Zosyn and Zithromax. Await sputum culture, urine Legionella, and pneumococcal antigens. Cardiology evaluation. We will follow. Thank you for the kind referral. HO MCDONNELL M.D. [id number]
[2017-07-20 11:50] LABS: ALBUMIN 2.5 g/dl (3.4-5.0); ALK PHOS 225 U/L (45-117); BILIRUBIN,TOTAL 0.4 mg/dL (0.2-1.0); CALCIUM 7.9 mg/dL (8.5-10.1); CO2 31 mmol/L (21-32); CREATININE 0.7 mg/dL (0.7-1.3); GLUCOSE,RANDOM 88 mg/dL (74-106); PHOSPHOROUS 4.3 mg/dL (2.5-4.9); SGPT/ALT 31 U/L (12-78); TOT PROT 6.2 g/dl (6.4-8.2)
--- NOTE | 2017-07-20 11:50 | PN ---
Physical Exam: SUBJECTIVE: Patient seen and examined at bedside. Pt is nonverbal. Sleeping. OBJECTIVE: Vital Signs Period Temp Pulse Resp BP Sys/Velasco Pulse Ox Last 24 Hr 98.6 F-100.1 F 99-111 21-26 117-142/67-99 50-99 Nonverbal. Uncommunicative Limited exam Gen: sleeping on bipap HEENT: NCAT Neck: supple Cor: RRR, normal s1/s2, no m/r/g Pulm: CTA b/l Abd: soft, normoactive bowel sounds Ext: contracted 2/2 cerebral palsy. edematous Laboratory Results - last 24 hr 07/19/17 07/19/17 07/19/17 20:38 20:38 20:38 WBC 13.7 H D RBC 4.93 Hgb 14.1 Hct 44.0 MCV 89.2 MCH 28.6 MCHC 32.0 RDW 17.8 H Plt Count 385 D MPV 8.7 Neutrophils % 88.2 H D Neutrophils % (Manual) 87.0 H Band Neutrophils % 2.0 Lymphocytes % 6.1 L D Lymphocytes % (Manual) 8.0 Monocytes % 5.0 Monocytes % (Manual) 2 L Eosinophils % 0.5 D Eosinophils % (Manual) 1.0 Basophils % 0.2 Basophils % (Manual) 0.0 Nucleated RBC % 0 Platelet Estimate Adequate Anticoagulation Therapy Puncture Site ABG pH ABG pCO2 at Pt Temp ABG pO2 at Pt Temp ABG HCO3 ABG O2 Sat (Measured) ABG O2 Content ABG Base Excess Adrian Test Carboxyhemoglobin Methemoglobin O2 Delivery Device Oxygen Flow Rate Vent Mode Vent Rate Mechanical Rate PEEP Pressure Support Vent Sodium Cancelled Potassium Cancelled Chloride Cancelled Carbon Dioxide Cancelled Anion Gap Cancelled BUN Cancelled Creatinine Cancelled Creat Clearance w eGFR Cancelled Random Glucose Cancelled Lactic Acid Calcium Cancelled Total Bilirubin Cancelled AST Cancelled ALT Cancelled Alkaline Phosphatase Cancelled Creatine Kinase Cancelled Troponin I Cancelled B-Natriuretic Peptide Cancelled Total Protein Cancelled Albumin Cancelled Urine Color Urine Appearance Urine pH Ur Specific [place] Urine Protein Urine Glucose (UA) Urine Ketones Urine Blood Urine Nitrite Urine Bilirubin Urine Urobilinogen Ur Leukocyte Esterase Urine WBC (Auto) Urine RBC (Auto) Ur Epithelial Cells Hyaline Casts Urine Mucus 07/19/17 07/19/17 07/19/17 20:38 21:26 21:55 WBC RBC Hgb Hct MCV MCH MCHC RDW Plt Count MPV Neutrophils % Neutrophils % (Manual) Band Neutrophils % Lymphocytes % Lymphocytes % (Manual) Monocytes % Monocytes % (Manual) Eosinophils % Eosinophils % (Manual) Basophils % Basophils % (Manual) Nucleated RBC % Platelet Estimate Anticoagulation Therapy No Result Required. Puncture Site Right radial ABG pH 7.43 ABG pCO2 at Pt Temp 41.6 D ABG pO2 at Pt Temp 133.0 H D ABG HCO3 27.3 H ABG O2 Sat (Measured) 99.2 H ABG O2 Content 19.0 ABG Base Excess 3.3 H Adrian Test Positive Carboxyhemoglobin 2.0 Methemoglobin 0.9 O2 Delivery Device No Result Required. Oxygen Flow Rate Yes Vent Mode No Result Required. Vent Rate No Result Required. Mechanical Rate No Result Required. PEEP Pressure Support Vent No Result Required. Sodium 142 Potassium 4.0 Chloride 105 Carbon Dioxide 29 D Anion Gap 8 BUN 11 Creatinine 0.7 D Creat Clearance w eGFR > 60 Random Glucose 123 H D Lactic Acid 2.8 H* Calcium 8.4 L Total Bilirubin 0.3 AST 27 ALT 33 Alkaline Phosphatase 239 H D Creatine Kinase 61 Troponin I 0.06 H D B-Natriuretic Peptide 8806.08 H Total Protein 6.1 L D Albumin 2.4 L D Urine Color Urine Appearance Urine pH Ur Specific [place] Urine Protein Urine Glucose (UA) Urine Ketones Urine Blood Urine Nitrite Urine Bilirubin Urine Urobilinogen Ur Leukocyte Esterase Urine WBC (Auto) Urine RBC (Auto) Ur Epithelial Cells Hyaline Casts Urine Mucus 07/19/17 07/20/17 07/20/17 23:05 03:20 04:15 WBC RBC Hgb Hct MCV MCH MCHC RDW Plt Count MPV Neutrophils % Neutrophils % (Manual) Band Neutrophils % Lymphocytes % Lymphocytes % (Manual) Monocytes % Monocytes % (Manual) Eosinophils % Eosinophils % (Manual) Basophils % Basophils % (Manual) Nucleated RBC % Platelet Estimate Anticoagulation Therapy Puncture Site Right radial ABG pH 7.40 ABG pCO2 at Pt Temp 48.9 H ABG pO2 at Pt Temp 98.8 D ABG HCO3 29.8 H ABG O2 Sat (Measured) 97.6 ABG O2 Content 18.5 ABG Base Excess 4.5 H Adrian Test Positive Carboxyhemoglobin Methemoglobin O2 Delivery Device Bipap Oxygen Flow Rate 30% Vent Mode S/t Vent Rate 12 Mechanical Rate PEEP 0.0 Pressure Support Vent 10/5 Sodium Potassium Chloride Carbon Dioxide Anion Gap BUN Creatinine Creat Clearance w eGFR Random Glucose Lactic Acid 1.5 Calcium Total Bilirubin AST ALT Alkaline Phosphatase Creatine Kinase Troponin I B-Natriuretic Peptide Total Protein Albumin Urine Color Yellow Urine Appearance Slcloudy Urine pH 5.0 Ur Specific [place] 1.033 Urine Protein 3+ H Urine Glucose (UA) Negative Urine Ketones Trace H Urine Blood Negative Urine Nitrite Negative Urine Bilirubin Negative Urine Urobilinogen Negative Ur Leukocyte Esterase Negative Urine WBC (Auto) 12 Urine RBC (Auto) 35 Ur Epithelial Cells Rare Hyaline Casts 7 Urine Mucus Moderate 07/20/17 09:30 WBC 8.1 D RBC 4.78 Hgb 13.8 Hct 42.4 MCV 88.7 MCH 28.8 MCHC 32.5 RDW 17.7 H Plt Count 356 MPV 8.9 Neutrophils % 76.9 Neutrophils % (Manual) Band Neutrophils % Lymphocytes % 15.2 D Lymphocytes % (Manual) Monocytes % 7.3 Monocytes % (Manual) Eosinophils % 0.3 Eosinophils % (Manual) Basophils % 0.3 Basophils % (Manual) Nucleated RBC % 0 Platelet Estimate Anticoagulation Therapy Puncture Site ABG pH ABG pCO2 at Pt Temp ABG pO2 at Pt Temp ABG HCO3 ABG O2 Sat (Measured) ABG O2 Content ABG Base Excess Adrian Test Carboxyhemoglobin Methemoglobin O2 Delivery Device Oxygen Flow Rate Vent Mode Vent Rate Mechanical Rate PEEP Pressure Support Vent Sodium Potassium Chloride Carbon Dioxide Anion Gap BUN Creatinine Creat Clearance w eGFR Random Glucose Lactic Acid Calcium Total Bilirubin AST ALT Alkaline Phosphatase Creatine Kinase Troponin I B-Natriuretic Peptide Total Protein Albumin Urine Color Urine Appearance Urine pH Ur Specific [place] Urine Protein Urine Glucose (UA) Urine Ketones Urine Blood Urine Nitrite Urine Bilirubin Urine Urobilinogen Ur Leukocyte Esterase Urine WBC (Auto) Urine RBC (Auto) Ur Epithelial Cells Hyaline Casts Urine Mucus Active Medications Generic Name Dose Route Start Last Admin Trade Name Freq PRN Reason Stop Dose Admin Albuterol/Ipratropium 1 amp 07/20/17 08:58 Duoneb - NEB RQID CATHERINE Carbamazepine 300 mg 07/20/17 01:30 07/20/17 10:00 Tegretol Xr - PO 300 mg BID CATHERINE Administration Cholecalciferol 2,000 unit 07/20/17 10:00 07/20/17 10:00 Vitamin D3 - PO 2,000 unit BID CATHERINE Administration Diphenhydramine HCl 25 mg 07/19/17 23:45 07/20/17 10:00 Benadryl Oral Solution - PO 25 mg QID CATHERINE Administration Furosemide 40 mg 07/20/17 06:00 07/20/17 06:45 Lasix Injection - IVPUSH 40 mg BID@0600,1400 CATHERINE Administration Heparin Sodium (Porcine) 5,000 unit 07/20/17 06:00 07/20/17 06:45 Heparin - SQ 5,000 unit TID CATHERINE Administration Azithromycin 500 mg/ Dextrose 250 mls @ 250 mls/hr 07/20/17 11:50 IVPB DAILY CATHERINE Piperacillin Sod/Tazobactam 50 mls @ 100 mls/hr 07/20/17 18:00 Sod 3.375 gm/ Dextrose IVPB Q8H-IV CATHERINE Protocol Levetiracetam 1,000 mg 07/20/17 06:00 07/20/17 06:45 Keppra - PO 1,000 mg TID CATHERINE Administration Lisinopril 5 mg 07/20/17 10:00 07/20/17 10:00 Prinivil PO 5 mg DAILY CATHERINE Administration Metoprolol Tartrate 25 mg 07/20/17 10:00 07/20/17 10:00 Lopressor - PO 25 mg DAILY CATHERINE Administration Multivitamins/Minerals/Vitamin C 1 tab 07/20/17 10:00 07/20/17 10:00 Tab-A-Vit - PO 1 tab DAILY CATHERINE Administration Non-Formulary Medication 1 tab 07/20/17 06:00 Lactase [Lactaid Fast Act] PO TID [facility] Non-Formulary Medication 200 mg 07/20/17 10:00 Rufinamide [Banzel] PO BID [facility] [id number] Ethyl Esters 1 gm 07/20/17 10:00 07/20/17 10:00 Lovaza - PO 1 gm BID CATHERINE Administration Phenobarbital 60 mg 07/20/17 00:03 Phenobarbital - PO HS CATHERINE Tamsulosin HCl 0.4 mg 07/20/17 22:00 Flomax - PO HS CATHERINE ASSESSMENT/PLAN: Pt is a 47 y/o M with a PMHx of CHF, cerebral palsy, epilepsy, hx of fractures, renal stones, factor VIII deficiency, [facility] resident who presented to hospital for a reported 3 days of shortness of breath. He was admitted for HCAP vs CHF exacerbation. #Acute hypoxic respiratory failure 2/2 HCAP vs CHF exacerbation -clinical findings on admission -severe hypokinesis on echo -Cardio consulted -Lasix -I/O's -Daily weights -holding beta ana laura -Bipap 30% FiO2 #Sepsis ? 2/2 PNA - Recent hospitalization for HCAP - Diffuse congestive changes, ? infiltrate -f/u blood cultures -f/u urine cultures -Off BiPap today -azithromycin -zosyn -lactic acidosis resolved -ID consult appreciated #Pos Trop -likely 2/2 sepsis -trending #Seizure disorder -c/w home meds -Carbamazepine -Keppra -Phenobarbitol #Retention/BPH: chronic -continue tamsulosin #FEN -No standing fluids -lytes wnl -dysphagia puree. feed seated #Prophylaxis -heparin 5000 TID #Disposition -admit telemetry Levi Austin MD PGY-1 IM Visit type - Emergency Visit Emergency Visit: No - New Patient This patient is new to me today: No - Critical Care Critical Care patient: No - Discharge Referral Referred to [facility] No
[2017-07-20 11:53] LABS: ANION GAP 9 (8-16); CHLORIDE 103 mmol/L (98-107); POTASSIUM 3.7 mmol/L (3.5-5.1); SODIUM 143 mmol/L (136-145)
[2017-07-20 11:54] LABS: MAGNESIUM 2.1 mg/dL (1.8-2.4); SGOT/AST 26 U/L (15-37)
[2017-07-20] MEDS: AZITHROMYCIN IVPB 500 MG in DEXTROSE 5%-WATER - 250 ML IVPB SCH (11:55)
[2017-07-20] MEDS ORDERED: ALBUTEROL SO4 2.5/IPRATROPIUM 0.5 INH SOL 3 ML VIAL.NEB. NEB ONE (12:00)
[2017-07-20] MEDS ORDERED: AZITHROMYCIN IVPB 250 ML IVPB ONE (12:00)
[2017-07-20] MEDS: ALBUTEROL SO4 2.5/IPRATROPIUM 0.5 INH SOL 3 ML VIAL.NEB. NEB SCH ×3 (12:03→20:55)
[2017-07-20 13:16] LABS: BLOOD UREA NITROGEN 9 mg/dL (7-18)
[2017-07-20] MEDS ORDERED: PATIENT'S OWN MEDICATION (NON-FORMULARY) (Carbamazepine [Carbamazepine Er] 300 MG) PO SCH (13:45)
[2017-07-20] MEDS ORDERED: LEVETIRACETAM 1000 MG PO SCH (14:00)
[2017-07-20] MEDS ORDERED: ALBUTEROL SO4 2.5/IPRATROPIUM 0.5 INH SOL 3 ML VIAL.NEB. NEB SCH (14:00)
--- NOTE | 2017-07-20 15:29 | EKG ---
Test Reason : Blood Pressure : / mmHG Vent. Rate : 084 BPM Atrial Rate : 084 BPM P-R Int : 132 ms QRS Dur : 096 ms QT Int : 392 ms P-R-T Axes : 070 039 132 degrees QTc Int : 463 ms NORMAL SINUS RHYTHM LEFT ATRIAL ENLARGEMENT NONSPECIFIC T WAVE ABNORMALITY PROLONGED QT ABNORMAL ECG WHEN COMPARED WITH ECG OF 21-MAY-2017 03:12, VENT. RATE HAS DECREASED BY 45 BPM INVERTED T WAVES HAVE REPLACED NONSPECIFIC T WAVE ABNORMALITY IN LATERAL LEADS Confirmed by PAL AG MD ([id number]) on 07/20/2017 3:29:03 PM Referred By: Confirmed By:PAL AG MD
[2017-07-20] MEDS: CLOTRIMAZOLE 1% CREAM 15 GM TUBE TP SCH ×3 (16:19→22:52)
--- NOTE | 2017-07-20 17:17 | PN ---
Teaching Attending Note Name of Resident: Levi Austin ATTENDING PHYSICIAN STATEMENT I saw and evaluated the patient. I reviewed the resident's note and discussed the case with the resident. I agree with the resident's findings and plan as documented. SUBJECTIVE:resting comfortable OBJECTIVE: Last Vital Signs Temp Pulse Resp BP Pulse Ox 97.4 F L 82 20 106/73 98 07/20/17 15:42 07/20/17 15:42 07/20/17 15:42 07/20/17 15:42 07/20/17 15:51 Intake & Output 07/17/17 07/18/17 07/19/17 07/20/17 23:59 23:59 23:59 23:59 Intake Total 100 Balance 100 Weight 166 lb 14.4 oz 166 lb General resting comfortable. responds to painful stimuli, does not open eyes to verbal commands CV S1 S2 RRR no murmur/rub/gallop Lungs mild wheezing, decreased breath sounds bases anteriorly Abdomen soft NT/ND Extremities contracted B/L LE ASSESSMENT AND PLAN: 47yo M wtih PMH systolic CHF, CP, epilepsy from [facility] presented to the ER with shortness of breath for 3 days and found to be septic in the ER 1. Acute hypoxic respiratory failure- initially on bipap and currently saturating well on 3L NC. liekly due to volume overload and possible PNA. will treat both etiologies. supplemental oxygen as needed to maintain spO2 >90% 2. Severe Sepsis due to PNA- with tachycardia, tacypnea and leukocytosis. lactic acidosis resolved. received vanco/zosyn in the ER. evaluated by ID and switched to azithro and Zosyn. will f/u Cx 3. Acute on chronic systolic CHF- remains volume overloaded. on lasix 40mg IV BID. daily weights, strict I&O, echo pending 4. Tropinemia- flat trend of troponins. likely demand due to hypoxia and/or sepsis. will f/u echo for WMA 5. CP 6. epilepsy- no reports of seizure like activity. cont antieleptics 7. DVT ppx- hep sq
[2017-07-20] MEDS ORDERED: DEXTROSE 5%-WATER - 50 ML IVPB ONE (17:58)
[2017-07-20] MEDS ORDERED: PIPERACILLIN/TAZOBACTAM 3.375 GM VIAL IVPB ONE (17:58)
[2017-07-20] MEDS: PIPERACILLIN/TAZOB 3.375 GM 3.375 GM in DEXTROSE 5%-WATER - 50 ML IVPB SCH (18:10)
--- NOTE | 2017-07-20 18:37 | CON.CARD ---
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 progressive sob x 3 days, no improvement on abx and nebs. + recent cold sx's with nasal congestion and cough. Per report, patient has chronic cough with eating, prefers to eat liquid foods. At baseline patient awake but non-verbal with limited ability to communicate. bed bound. s/p 40 mg IV lasix and 1L IVF 07/19. s/p lasix 40 mg IV x 2 today. ROS limited due to patient's cognitive status, pmhx/pshx: per hpi, L femoral neck fracture social hx: never smoker. from [facility]. has aide. family hx: per report no cardiac history ros: per hpi Ambulatory Orders Carbamazepine [Carbamazepine ER] 300 mg PO Q12H 05/18/17 Cholecalciferol (Vitamin D3) [Vitamin D3] 2,000 unit PO BID 05/18/17 Diphenhydramine [Benadryl 12.5 MG/5 ML Oral Solution -] 10 ml PO Q6H 05/18/17 Lactase [Lactaid Fast Act] 1 tab PO TID 05/18/17 Multivitamins [Multivit (RH Formulary)] 1 tab PO DAILY 05/18/17 [place]-3S/Dha/Epa/Fish Oil [Fish Oil [place]-3 Softgel] 1 each PO BID 05/18/17 Phenobarbital 32.4 mg PO HS 05/18/17 Phenobarbital 64.8 mg PO HS 05/18/17 Tamsulosin HCl [Flomax] 0.4 mg PO HS 05/18/17 Carbamazepine [Carbamazepine ER] 300 mg PO BID 07/19/17 Clotrimazole [Lotrimin 1% Cream -] 1 applic TP BID 07/19/17 Diazepam Rectal Gel [Diastat Rectal Gel -] 10 mg OK ONCE PRN 07/19/17 Diphenhydramine [Benadryl Oral Solution -] 25 mg PO Q6H 07/19/17 Hydrocortisone 1% Ointment [Hytone 1% Ointment -] 1 applic TP BID 07/19/17 Lactulose 20 gm PO TID 07/19/17 Levetiracetam 1,000 mg PO TID 07/19/17 Multivitamin [Multiple Vitamins] 1 each PO DAILY 07/19/17 Oxycodone HCl/Acetaminophen [Percocet 5-325 mg Tablet] 1 tab PO Q4H PRN Phenobarbital 32.4 mg PO HS 07/19/17 Sennosides [Senna] 8.6 mg PO BID 07/19/17 Testosterone Cypionate 100 mg IM WEEKLY 07/19/17 Current Medications Albuterol/Ipratropium (Duoneb -) 1 amp NEB RQID [facility] Last Admin: 07/20/17 15:58 Dose: 1 amp Carbamazepine (Tegretol Xr -) 300 mg PO BID [facility] Last Admin: 07/20/17 10:00 Dose: 300 mg Cholecalciferol (Vitamin D3 -) 2,000 unit PO BID [facility] Last Admin: 07/20/17 10:00 Dose: 2,000 unit Clotrimazole (Lotrimin 1% Cream -) 1 applic TP BID [facility] Last Admin: 07/20/17 16:19 Dose: 1 applic Diphenhydramine HCl (Benadryl Oral Solution -) 25 mg PO QID [facility] Last Admin: 07/20/17 18:11 Dose: 25 mg Furosemide (Lasix Injection -) 40 mg IVPUSH BID@0600,1400 [facility] Last Admin: 07/20/17 14:32 Dose: 40 mg Heparin Sodium (Porcine) (Heparin -) 5,000 unit SQ TID [facility] Last Admin: 07/20/17 14:32 Dose: 5,000 unit Azithromycin 500 mg/ Dextrose 250 mls @ 250 mls/hr IVPB DAILY [facility] Last Admin: 07/20/17 11:55 Dose: 250 mls/hr Piperacillin Sod/Tazobactam (Sod 3.375 gm/ Dextrose) 50 mls @ 100 mls/hr IVPB Q8H-IV [facility]; Protocol Last Admin: 07/20/17 18:10 Dose: 100 mls/hr Levetiracetam (Keppra -) 1,000 mg PO TID [facility] Last Admin: 07/20/17 14:32 Dose: 1,000 mg Lisinopril (Prinivil) 5 mg PO DAILY [facility] Last Admin: 07/20/17 10:00 Dose: 5 mg Metoprolol Tartrate (Lopressor -) 25 mg PO DAILY [facility] Last Admin: 07/20/17 10:00 Dose: 25 mg Multivitamins/Minerals/Vitamin C (Tab-A-Vit -) 1 tab PO DAILY [facility] Last Admin: 07/20/17 10:00 Dose: 1 tab Non-Formulary Medication (Lactase [Lactaid Fast Act]) 1 tab PO TID [facility] Non-Formulary Medication (Rufinamide [Banzel]) 200 mg PO BID [facility] Non-Formulary Medication (Testosterone Cypionate [Testosterone Cypionate]) 100 mg IM WEEKLY [facility] [id number] Ethyl Esters (Lovaza -) 1 gm PO BID [facility] Last Admin: 07/20/17 10:00 Dose: 1 gm Phenobarbital (Phenobarbital -) 60 mg PO HS [facility] Senna (Senna -) 1 tab PO BID [facility] Tamsulosin HCl (Flomax -) 0.4 mg PO [facility] Vital Signs - 24 hr 07/19/17 07/19/17 07/19/17 21:03 22:51 23:26 Temperature 100.1 F H Pulse Rate 111 H Pulse Rate [ Apical] Respiratory 26 H Rate Blood Pressure 139/99 Blood Pressure [Left Arm] O2 Sat by Pulse 50 L 98 94 L Oximetry (%) 07/20/17 07/20/17 07/20/17 00:37 02:03 06:03 Temperature 98.6 F 98.9 F Pulse Rate 104 H 101 H Pulse Rate [ Apical] Respiratory 26 H 24 Rate Blood Pressure 142/99 117/89 Blood Pressure [Left Arm] O2 Sat by Pulse 96 Oximetry (%) 07/20/17 07/20/17 07/20/17 07:06 07:30 09:35 Temperature 99.1 F Pulse Rate Pulse Rate [ 99 H Apical] Respiratory 21 Rate Blood Pressure Blood Pressure 133/95 [Left Arm] O2 Sat by Pulse 96 96 99 Oximetry (%) 07/20/17 07/20/17 07/20/17 09:38 12:00 14:12 Temperature 99 F Pulse Rate Pulse Rate [ 101 H 102 H Apical] Respiratory 22 21 Rate Blood Pressure Blood Pressure 128/67 124/85 [Left Arm] O2 Sat by Pulse 96 98 97 Oximetry (%) 07/20/17 07/20/17 15:42 15:51 Temperature 97.4 F L Pulse Rate 82 Pulse Rate [ Apical] Respiratory 20 Rate Blood Pressure 106/73 Blood Pressure [Left Arm] O2 Sat by Pulse 98 Oximetry (%) Intake & Output 07/18/17 07/19/17 07/20/17 07/21/17 07:59 07:59 07:59 07:59 Intake Total 100 Balance 100 Weight 166 lb 14.4 oz 166 lb nad, agitated jvd flat, neck supple diffuse rhonchi, nl effort regular. nl s1, s2 no mrg. non-displaced pmi + bs soft nt nd, no hsm ext with trace soft edema. no c/c + dp/pt awake, alert. non-verbal does not follow commands no jaundice, + diaphoresis. CBC, BMP 07/20/17 09:30 07/20/17 09:30 Selected Entries 07/19/17 23:26 Temperature 100.1 F H Laboratory Tests 05/18/17 07/19/17 07/19/17 15:30 20:38 20:38 Band Neutrophils % 2.0 Lactic Acid 2.8 H* Magnesium Total Bilirubin AST ALT Alkaline Phosphatase Troponin I B-Natriuretic Peptide 05038.31 H Albumin 07/19/17 07/20/17 07/20/17 21:26 04:15 09:30 Band Neutrophils % Lactic Acid 1.5 Magnesium 2.1 Total Bilirubin 0.4 D AST 26 ALT 31 Alkaline Phosphatase 225 H Troponin I 0.06 H D 0.05 B-Natriuretic Peptide 8806.08 H Albumin 2.5 L 07/20/17 12:11 Band Neutrophils % Lactic Acid Magnesium Total Bilirubin AST ALT Alkaline Phosphatase Troponin I 0.10 H D B-Natriuretic Peptide Albumin ekg: sr, new anterolateral t wave changes. tele: sr echo 06/2017: nl lv size. LV sys fn severely reduced. (global). nl rv size/ fn. 1+ lae. nl valves. no pericardial effusion echo 04/2017 tds: gross decrease in systolic fn (moderate). tds for rwma. RV/ atria not well visualized. no significant MV/AV abnormaliteis. TV/PV not well visualized. no pericardial effusion. chest ct 04/2017: images and report reviewed. bilateral pulmonary infiltrates. very small left pleural effusion. small pericardial effusion. see emr for detailed findings. 06/2017 cxr: congestive changes (also described on April cxr when patient had pulmonary infiltrates pna). Possibly superimposed early infiltrate. 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 sob/hypoxia/sepsis - congestive changes similar to April when patient had pulmonary infiltrates and not edema. Patient presented with bandemia, low grade fevers and infectious sx's. Patient had bp drop late afternoon after lasix. BNP lower than prior. - Speech and swallow eval at discretion of pmd. - However, patient's weight up since last admit and with new cardiomyopathy. Would treat pna primarily. would at least decrease lasix to daily dosing and potentially hold if Na increases tomorrow or bun/cr worsens. BIPAP as needed. would benefit from pa/lat cxr to better assess infiltrates. If not possible due to body habitus, can consider repeat chest ct. - daily weights, i/o's, bmp abnormal troponins/new systolic cardiomyopathy - low-intermediate elevation, flat trend with new anterolateral twi c/w demand in setting of tachycardia, hypoxia and infection. - lyte repletion prn - echo with new systolic cardiomyopathy in setting of pna/sepsis. Recommend reassessment of EF as outpatient when PNA resolves completely to assess for improvement. If no improvement than will need outpatient work up for cardiomyopathy. - check tsh. - tele monitoring, lyte repletion prn.
[2017-07-20] MEDS: SENNOSIDES 8.6MG TABLET (FP) PO SCH (22:47)
[2017-07-20] MEDS: TAMSULOSIN HCL 0.4 MG CAP.ER.24H (FP) PO SCH (22:47)
[2017-07-20] MEDS: PHENobarbital 30 MG TABLET PO SCH (22:47)
[2017-07-20] MEDS ORDERED: PT OWN MED DRAWER 7, Y5N ONE (22:52)
[2017-07-21] MEDS ORDERED: DEXTROSE 5%-WATER - 50 ML IVPB ONE ×3 (01:27→17:01)
[2017-07-21] MEDS ORDERED: PIPERACILLIN/TAZOBACTAM 3.375 GM VIAL IVPB ONE ×3 (01:27→17:01)
[2017-07-21] MEDS: PIPERACILLIN/TAZOB 3.375 GM 3.375 GM in DEXTROSE 5%-WATER - 50 ML IVPB SCH ×4 (01:30→17:25)
[2017-07-21] MEDS: levETIRAcetam 500 MG TABLET (FP) PO SCH ×3 (06:36→22:46)
[2017-07-21] MEDS: FUROSEMIDE 40 MG/4 ML INJECTABLE VIAL IVPUSH SCH ×2 (06:36→06:55)
[2017-07-21] MEDS: HEPARIN NA (PORCINE) 5,000 UNITS/ML 1ML VIAL SQ SCH ×3 (06:36→22:46)
[2017-07-21 07:19] LABS: BASO % 0.7 % (0-2.0); EOS % 2.6 % (0-4.5); HEMATOCRIT 38.9 % (35.4-49); HEMOGLOBIN 12.7 GM/dL (11.7-16.9); LYMPH % 16.9 % (8-40); MCH 28.9 pg (25.7-33.7); MCHC 32.6 g/dl (32.0-35.9); MEAN CELL VOLUME 88.8 fl (80-96); MEAN PLT VOLUME 9.3 fl (7.5-11.1); MONO % 6.3 % (3.8-10.2); NEUT % 73.5 % (42.8-82.8); PLATELET COUNT 253 K/MM3 (134-434); RBC 4.38 M/mm3 (4.00-5.60); RDW 17.4 % (11.9-15.9); WHITE BLOOD COUNT 8.6 K/mm3 (4.0-10.0)
[2017-07-21] MEDS: ALBUTEROL SO4 2.5/IPRATROPIUM 0.5 INH SOL 3 ML VIAL.NEB. NEB SCH ×4 (08:10→20:20)
[2017-07-21 08:44] LABS: CHLORIDE 104 mmol/L (98-107); POTASSIUM 3.4 mmol/L (3.5-5.1); SODIUM 145 mmol/L (136-145)
[2017-07-21 09:12] LABS: ALBUMIN 2.2 g/dl (3.4-5.0); ALK PHOS 177 U/L (45-117); ANION GAP 9 (8-16); BILIRUBIN,TOTAL 0.3 mg/dL (0.2-1.0); BLOOD UREA NITROGEN 11 mg/dL (7-18); CALCIUM 7.6 mg/dL (8.5-10.1); CO2 32 mmol/L (21-32); CREATININE 0.8 mg/dL (0.7-1.3); GLUCOSE,RANDOM 68 mg/dL (74-106); SGOT/AST 26 U/L (15-37); SGPT/ALT 28 U/L (12-78); TOT PROT 5.3 g/dl (6.4-8.2)
[2017-07-21] MEDS: diphenhydrAMINE HCL 12.5 MG/5 ML UNIT-DOSE CUPS PO SCH ×4 (10:17→22:45)
[2017-07-21] MEDS: CHOLECALCIFEROL (VITAMIN D3) 1,000 UNIT TABLET (FP) PO SCH ×2 (10:18→22:46)
[2017-07-21] MEDS: OMEGA-3 ACID ETHYL ESTERS (FATTY-ACIDS) 1 GM CAPSULE (FP) PO SCH ×2 (10:18→22:46)
[2017-07-21] MEDS: SENNOSIDES 8.6MG TABLET (FP) PO SCH ×2 (10:18→22:47)
[2017-07-21] MEDS: MULTIVITAMINS (DAILY MVI) TABLET (FP) PO SCH (10:18)
[2017-07-21] MEDS: AZITHROMYCIN IVPB 500 MG in DEXTROSE 5%-WATER - 250 ML IVPB SCH (10:19)
[2017-07-21] MEDS: CLOTRIMAZOLE 1% CREAM 15 GM TUBE TP SCH ×2 (10:19→22:47)
--- NOTE | 2017-07-21 10:58 | CONSULT ---
Admitting History and Physical - Primary Care Physician PCP: Nicci Ortiz - Admission History of Present Illness: Per EMR: 47 year old male with a hx of CHF, cerebral palsy, epilepsy, hx of fractures, renal stones, factor VIII deficiency presented to hospital for 3 days of SOB and admitted to telemetry for acute CHF exacerbation and sepsis likely 2/2 pneumonia. #Acute Hypoxic Respiratory Failure: likely 2/2 combination of acute CHF exacerbation vs pneumonia #Sepsis 2/2 Possible Pneumonia: patient was recently hospitalized for hospital acquired pneumonia, it is possible that patient has recurrent pneumonia that triggered a CHF exacerbation Selected Entries 07/19/17 07/20/17 07/20/17 23:26 02:03 06:03 Supper Temperature 100.1 F H 98.6 F 98.9 F 07/20/17 07/20/17 07/20/17 07:30 12:00 15:42 Supper Temperature 99.1 F 99 F 97.4 F L 07/20/17 07/20/17 07/20/17 17:00 17:30 19:40 Supper Temperature 99.6 F 98.0 F 98.3 F 07/20/17 07/21/17 07/21/17 19:54 02:17 06:00 Supper 100% Temperature 97.6 F 98.2 F Laboratory Tests 07/19/17 07/20/17 07/21/17 20:38 09:30 06:18 WBC 13.7 H D 8.1 D 8.6 On Pureed diet/Honey thick liquids at [facility]. Pt was on ground diet and thin liquid at [place]. This is my first consult with this pt. History Source: Caregiver (from [place]) - Past Medical History TRANSITIONS RN CARE COORDINATOR: Yes: Other (Cerebral Palsy, seizures) - Smoking History Smoking history: Unknown if ever smoked - Alcohol/Substance Use Hx Alcohol Use: No History - Admission Reason For Visit: PULMONARY CONGESTION,REACTIVE AIRWAY DISASE - Diagnostics X-ray: Report Reviewed - General Mental Status: Awake and Alert, Flat Affect Attention: Distractible Ability to Follow Directions: Fair Head/Neck Control: Fair - Hearing Hearing: Normal Hearing Aide: No With Patient: No Speech Evaluation - Communication Primary Language: [place] Communication: Yes: Non-Communicable Oral Expression Ability: Yes: Non-Verbal, Non-Vocal - Swallow Evaluation/Bedside Assessment Current Nutritional Intake: Dysphagia Pureed, Honey Textured Liquids Dentition: Yes: Adequate Facial Symmetry at Rest: Symmetrical Lingual Movement: Symmetric Laryngeal Movement: Labored,delay initiation Rate of Intake: WFL Bolus Size: WFL Labial Seal: Impaired Bilaterally Oral Prep Time: WFL A-P Transit: WFL Pocketing: None Timing of Swallow: Delayed Coughing/Throat Clear: Yes (Delayed after thin water) Recommendations - Speech Evaluation, Impression/Plan Impression: [facility] cdc associate fed pt for me to evaluate. Pt unable to achieve bilabial closure around cup to sip. Water poured into mouth carefully, one sip at a time, with delayed but fairly brisk swallow,with head mildly extended. Initially, no overt symptoms of aspiration. After a minute, reponsive, strong cough generated. Aspiration suspected. Management Liaison reports he always coughs with and without food. - [facility]position [facility] - Dysphagia Impressions/Plan Swallowing Skills: Impaired Dysphagia Impressions: Ongoing Evaluation *Silent aspiration: cannot be R/O at bedside Recommendations: Modified Barium Swallow
--- NOTE | 2017-07-21 11:24 | PN ---
Progress Note (short form) - Note Progress Note: s: does not communicate, appears comfortable, no overnight events o: Vital Signs Period Temp Pulse Resp BP Sys/Velasco Pulse Ox Last 24 Hr 97.4 F-99.6 F 82-102 18-21 89-124/54-85 97-98 nad, agitated jvd flat, neck supple diffuse rhonchi, nl effort regular. nl s1, s2 no mrg. + bs soft nt nd, no hsm ext with trace soft edema. no c/c awake, alert. non-verbal does not follow commands no jaundice, diaphoresis. Current Medications Generic Name Dose Route Start Last Admin Trade Name Freq PRN Reason Stop Dose Admin Albuterol/Ipratropium 1 amp 07/20/17 08:58 07/21/17 08:10 Duoneb - NEB 1 amp RQID [facility]INE Administration Carbamazepine 300 mg 07/20/17 01:30 07/21/17 10:18 Tegretol Xr - PO 300 mg BID [facility]INE Administration Cholecalciferol 2,000 unit 07/20/17 10:00 07/21/17 10:18 Vitamin D3 - PO 2,000 unit BID [facility]ERINE Administration Clotrimazole 1 applic 07/20/17 15:20 07/21/17 10:19 Lotrimin 1% Cream - TP 1 applic BID [facility]ERINE Administration Diphenhydramine HCl 25 mg 07/19/17 23:45 07/21/17 10:17 Benadryl Oral Solution - PO 25 mg QID [facility] Administration Heparin Sodium (Porcine) 5,000 unit 07/20/17 06:00 07/21/17 06:36 Heparin - SQ 5,000 unit TID [facility]INE Administration Azithromycin 500 mg/ Dextrose 250 mls @ 250 mls/hr 07/20/17 11:50 07/21/17 10 :19 IVPB Not Given DAILY [facility]INE Piperacillin Sod/Tazobactam 50 mls @ 100 mls/hr 07/20/17 18:00 07/21/17 10:19 Sod 3.375 gm/ Dextrose IVPB Not Given Q8H-IV [facility] Protocol Levetiracetam 1,000 mg 07/20/17 06:00 07/21/17 06:36 Keppra - PO 1,000 mg TID C[facility]ERINE Administration Multivitamins/Minerals/Vitamin C 1 tab 07/20/17 10:00 07/21/17 10:18 Tab-A-Vit - PO 1 tab DAILY [facility] Administration Non-Formulary Medication 1 tab 07/20/17 06:00 Lactase [Lactaid Fast Act] PO TID C[facility]ERINE Non-Formulary Medication 200 mg 07/20/17 10:00 Rufinamide [Banzel] PO BID [facility]ERINE Non-Formulary Medication 100 mg 07/20/17 13:45 Testosterone Cypionate [Testosterone Cypionate] IM WEEKLY [facility]INE [id number] Ethyl Esters 1 gm 07/20/17 10:00 07/21/17 10:18 Lovaza - PO 1 gm BID [facility]ERINE Administration Phenobarbital 60 mg 07/20/17 00:03 07/20/17 22:47 Phenobarbital - PO 60 mg HS [facility]ATHERINE Administration Senna 1 tab 07/20/17 22:00 07/21/17 10:18 Senna - PO 1 tab BID C[facility]ERINE Administration Tamsulosin HCl 0.4 mg 07/20/17 22:00 07/20/17 22:47 Flomax - PO 0.4 mg HS CATHERINE Administration CBC, BMP 07/21/17 06:18 07/21/17 06:18 ekg: sr, new anterolateral t wave changes. tele: sr, brief nsvt echo 06/2017: nl lv size. LV sys fn severely reduced. (global). nl rv size/ fn. 1+ lae. nl valves. no pericardial effusion echo 04/2017 tds: gross decrease in systolic fn (moderate). tds for rwma. RV/ atria not well visualized. no significant MV/AV abnormaliteis. TV/PV not well visualized. no pericardial effusion. chest ct 04/2017: images and report reviewed. bilateral pulmonary infiltrates. very small left pleural effusion. small pericardial effusion. see emr for detailed findings. 06/2017 cxr: congestive changes (also described on April cxr when patient had pulmonary infiltrates pna). Possibly superimposed early infiltrate. 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 sob/hypoxia/sepsis - congestive changes similar to April when patient had pulmonary infiltrates and not edema. Patient presented with bandemia, low grade fevers and infectious sx's. Patient had bp drop late afternoon after lasix. BNP lower than prior. -holding lasix for now, cont abx abnormal troponins/new systolic cardiomyopathy - low-intermediate elevation, flat trend with new anterolateral twi c/w demand in setting of tachycardia, hypoxia and infection. - lyte repletion prn - echo with new systolic cardiomyopathy in setting of pna/sepsis. Recommend reassessment of EF as outpatient when PNA resolves completely to assess for improvement. If no improvement than will need outpatient work up for cardiomyopathy. -holding bb, jacob due to low bp likely 2/2 infection
--- NOTE | 2017-07-21 13:01 | PN ---
Teaching Attending Note Name of Resident: Levi Austin ATTENDING PHYSICIAN STATEMENT I saw and evaluated the patient. I reviewed the resident's note and discussed the case with the resident. I agree with the resident's findings and plan as documented. SUBJECTIVE: slightly tachypnic OBJECTIVE: Last Vital Signs Temp Pulse Resp BP Pulse Ox 98.2 F 92 H 20 112/69 97 07/21/17 06:00 07/21/17 06:00 07/21/17 06:00 07/21/17 06:00 07/21/17 04:07 Intake & Output 07/18/17 07/19/17 07/20/17 07/21/17 23:59 23:59 23:59 23:59 Intake Total 460 50 Output Total 600 Balance -140 50 Weight 166 lb 14.4 oz 160 lb 8 oz 158 lb General alert, slightly tachypnic CV S1 S2 RRR no murmur/rub/gallop Lungs mild wheezing, decreased breath sounds bases anteriorly Extremities contracted B/L LE 1+ pitting edema ASSESSMENT AND PLAN: 47yo M wtih PMH systolic CHF, CP, epilepsy from [facility] presented to the ER with shortness of breath for 3 days and found to be septic in the ER 1. Acute hypoxic respiratory failure-saturating 97% on 3L NC. slightly tachypnic. improved with raising head of bed. close monitoring. may give lasix if becomes tachypnic again. supplemental oxygen as needed to maintain spO2 >90% 2. Severe Sepsis due to PNA- clinically stable. on azithro/zosyn day 2. ID on board. f/u Cx 3. Acute on chronic systolic CHF- remains volume overloaded. had some periods of hypotension after lasix doses and was cancelled. still appears volume overloaded. will monitor if BP remains stable give lasix. echo done and noted to have global hypokinesis. would benefit from ischemia eval but will need to treat infection first. cardio on board. daily weights, strict I&O, 4. Tropinemia- flat trend of troponins. likely demand due to hypoxia and/or sepsis. ischemia workup when more stable 5. dysphagia- will order swallow eval to assess. 6. CP 7. epilepsy- no reports of seizure like activity. cont antieleptics 8. DVT ppx- hep sq
[2017-07-21] MEDS ORDERED: POTASSIUM CHLORIDE TABS 10 MEQ TABLET.ER (FP) PO ONE (13:02)
--- NOTE | 2017-07-21 17:28 | PN ---
Physical Exam: SUBJECTIVE: Patient seen and examined at bedside. No acute events. OBJECTIVE: Vital Signs Period Temp Pulse Resp BP Sys/Velasco Pulse Ox Last 24 Hr 97.6 F-984 F 83-94 18-20 89-132/54-73 97-97 Nonverbal and Uncommunicative. Limited exam Gen: Off bipap. Sitting in bed in no apparent distress. HEENT: NCAT Neck: supple Cor: RRR, normal s1/s2, no m/r/g Pulm: CTA b/l Abd: soft, normoactive bowel sounds Ext: contracted 2/2 cerebral palsy. edematous Laboratory Results - last 24 hr 07/21/17 07/21/17 06:18 06:18 WBC 8.6 RBC 4.38 Hgb 12.7 Hct 38.9 MCV 88.8 MCH 28.9 MCHC 32.6 RDW 17.4 H Plt Count 253 D MPV 9.3 Neutrophils % 73.5 Lymphocytes % 16.9 Monocytes % 6.3 Eosinophils % 2.6 D Basophils % 0.7 Nucleated RBC % 0 Sodium 145 Potassium 3.4 L Chloride 104 Carbon Dioxide 32 Anion Gap 9 BUN 11 D Creatinine 0.8 Creat Clearance w eGFR > 60 Random Glucose 68 L D Calcium 7.6 L Total Bilirubin 0.3 D AST 26 ALT 28 Alkaline Phosphatase 177 H D Total Protein 5.3 L Albumin 2.2 L Active Medications Generic Name Dose Route Start Last Admin Trade Name Freq PRN Reason Stop Dose Admin Albuterol/Ipratropium 1 amp 07/20/17 08:58 07/21/17 16:55 Duoneb - NEB 1 amp RQID CATHERINE Administration Carbamazepine 300 mg 07/20/17 01:30 07/21/17 10:18 Tegretol Xr - PO 300 mg BID CATHERINE Administration Cholecalciferol 2,000 unit 07/20/17 10:00 07/21/17 10:18 Vitamin D3 - PO 2,000 unit BID CATHERINE Administration Clotrimazole 1 applic 07/20/17 15:20 07/21/17 10:19 Lotrimin 1% Cream - TP 1 applic BID CATHERINE Administration Diphenhydramine HCl 25 mg 07/19/17 23:45 07/21/17 15:01 Benadryl Oral Solution - PO 25 mg QID CATHERINE Administration Heparin Sodium (Porcine) 5,000 unit 07/20/17 06:00 07/21/17 15:01 Heparin - SQ 5,000 unit TID CATHERINE Administration Azithromycin 500 mg/ Dextrose 250 mls @ 250 mls/hr 07/20/17 11:50 07/21/17 10 :19 IVPB Not Given DAILY CATHERINE Piperacillin Sod/Tazobactam 50 mls @ 100 mls/hr 07/20/17 18:00 07/21/17 14:50 Sod 3.375 gm/ Dextrose IVPB 100 mls/hr Q8H-IV C[facility]ERINE Administration Protocol Levetiracetam 1,000 mg 07/20/17 06:00 07/21/17 15:01 Keppra - PO 1,000 mg TID CATHERINE Administration Multivitamins/Minerals/Vitamin C 1 tab 07/20/17 10:00 07/21/17 10:18 Tab-A-Vit - PO 1 tab DAILY C[facility]ERINE Administration Non-Formulary Medication 1 tab 07/20/17 06:00 Lactase [Lactaid Fast Act] PO TID CATHERINE Non-Formulary Medication 200 mg 07/20/17 10:00 Rufinamide [Banzel] PO BID CATHERINE Non-Formulary Medication 100 mg 07/20/17 13:45 Testosterone Cypionate [Testosterone Cypionate] IM WEEKLY CATHERINE [id number] Ethyl Esters 1 gm 07/20/17 10:00 07/21/17 10:18 Lovaza - PO 1 gm BID CATHERINE Administration Phenobarbital 60 mg 07/20/17 00:03 07/20/17 22:47 Phenobarbital - PO 60 mg HS CATHERINE Administration Senna 1 tab 07/20/17 22:00 07/21/17 10:18 Senna - PO 1 tab BID CATHERINE Administration Tamsulosin HCl 0.4 mg 07/20/17 22:00 07/20/17 22:47 Flomax - PO 0.4 mg HS CATHERINE Administration ASSESSMENT/PLAN: Pt is a 47 y/o M with a PMHx of CHF, cerebral palsy, epilepsy, hx of fractures, renal stones, factor VIII deficiency, [facility] resident who presented to hospital for a reported 3 days of shortness of breath. He was admitted for HCAP vs CHF exacerbation. #Acute hypoxic respiratory failure 2/2 HCAP vs CHF exacerbation -clinical findings on admission -severe hypokinesis on echo -Cardio consulted: rec reassessment of cardiac function as out pt, check tsh, CXR -I/O's -Daily weights -holding beta ana laura -raise head of bed #Sepsis ? 2/2 PNA - Recent hospitalization for HCAP - Diffuse congestive changes, ? infiltrate -f/u blood cultures -f/u urine cultures -Off BiPap today -azithromycin -zosyn -lactic acidosis resolved -ID consult appreciated -Speech and swallow eval appreciated. -Modified barium swallow unremarkable #Seizure disorder -c/w home meds -Carbamazepine -Keppra -Phenobarbitol #Retention/BPH: chronic -continue tamsulosin #FEN -No standing fluids -lytes wnl -dysphagia puree. feed seated #Prophylaxis -heparin 5000 TID #Disposition -admit telemetry Levi Austin MD PGY-1 IM Visit type - Emergency Visit Emergency Visit: No - New Patient This patient is new to me today: No - Critical Care Critical Care patient: No - Discharge Referral Referred to [facility] Med [facility] No
[2017-07-21] MEDS: PHENobarbital 30 MG TABLET PO SCH (22:46)
[2017-07-21] MEDS: TAMSULOSIN HCL 0.4 MG CAP.ER.24H (FP) PO SCH (22:46)
[2017-07-22] MEDS ORDERED: PIPERACILLIN/TAZOBACTAM 3.375 GM VIAL IVPB ONE ×4 (01:01→23:45)
[2017-07-22] MEDS ORDERED: DEXTROSE 5%-WATER - 50 ML IVPB ONE ×4 (01:02→23:45)
[2017-07-22] MEDS: PIPERACILLIN/TAZOB 3.375 GM 3.375 GM in DEXTROSE 5%-WATER - 50 ML IVPB SCH ×3 (02:14→17:03)
[2017-07-22] MEDS: levETIRAcetam 500 MG TABLET (FP) PO SCH ×3 (05:43→21:05)
[2017-07-22] MEDS: HEPARIN NA (PORCINE) 5,000 UNITS/ML 1ML VIAL SQ SCH ×3 (05:43→21:03)
[2017-07-22 07:19] LABS: BASO % 0.5 % (0-2.0); EOS % 2.6 % (0-4.5); HEMOGLOBIN 14.1 GM/dL (11.7-16.9); LYMPH % 17.5 % (8-40); MCH 29.5 pg (25.7-33.7); MCHC 32.8 g/dl (32.0-35.9); MEAN CELL VOLUME 89.9 fl (80-96); MEAN PLT VOLUME 8.8 fl (7.5-11.1); NEUT % 73.4 % (42.8-82.8); PLATELET COUNT 354 K/MM3 (134-434); RBC 4.79 M/mm3 (4.00-5.60); RDW 17.6 % (11.9-15.9); WHITE BLOOD COUNT 9.8 K/mm3 (4.0-10.0)
[2017-07-22] MEDS: ALBUTEROL SO4 2.5/IPRATROPIUM 0.5 INH SOL 3 ML VIAL.NEB. NEB SCH ×4 (07:44→20:55)
[2017-07-22 07:53] LABS: CHLORIDE 105 mmol/L (98-107); POTASSIUM 4.4 mmol/L (3.5-5.1); SODIUM 142 mmol/L (136-145)
[2017-07-22 08:17] LABS: ALBUMIN 2.4 g/dl (3.4-5.0); ALK PHOS 178 U/L (45-117); ANION GAP 10 (8-16); BILIRUBIN,TOTAL 0.3 mg/dL (0.2-1.0); BLOOD UREA NITROGEN 11 mg/dL (7-18); CALCIUM 8.2 mg/dL (8.5-10.1); CO2 27 mmol/L (21-32); CREATININE 0.8 mg/dL (0.7-1.3); GLUCOSE,RANDOM 80 mg/dL (74-106); SGOT/AST 26 U/L (15-37); SGPT/ALT 33 U/L (12-78)
[2017-07-22] MEDS ORDERED: PT OWN MED DRAWER 7, Y5N ONE ×2 (08:58→21:28)
[2017-07-22] MEDS: CLOTRIMAZOLE 1% CREAM 15 GM TUBE TP SCH ×2 (09:42→21:03)
[2017-07-22] MEDS: OMEGA-3 ACID ETHYL ESTERS (FATTY-ACIDS) 1 GM CAPSULE (FP) PO SCH ×2 (09:42→21:05)
[2017-07-22] MEDS: diphenhydrAMINE HCL 12.5 MG/5 ML UNIT-DOSE CUPS PO SCH ×4 (09:42→21:05)
[2017-07-22] MEDS: CHOLECALCIFEROL (VITAMIN D3) 1,000 UNIT TABLET (FP) PO SCH ×2 (09:43→21:04)
[2017-07-22] MEDS: MULTIVITAMINS (DAILY MVI) TABLET (FP) PO SCH (09:43)
[2017-07-22] MEDS: SENNOSIDES 8.6MG TABLET (FP) PO SCH ×2 (09:50→21:06)
[2017-07-22] MEDS: AZITHROMYCIN IVPB 500 MG in DEXTROSE 5%-WATER - 250 ML IVPB SCH (09:51)
--- NOTE | 2017-07-22 10:21 | PN ---
Progress Note (short form) - Note Progress Note: resting comfortable Current Medications Generic Name Dose Route Start Last Admin Trade Name Beltran PRN Reason Stop Dose Admin Albuterol/Ipratropium 1 amp 07/20/17 08:58 07/22/17 07:44 Duoneb - NEB 1 amp RQID CATHERINE Administration Carbamazepine 300 mg 07/20/17 01:30 07/22/17 09:51 Tegretol Xr - PO 300 mg BID CATHERINE Administration Cholecalciferol 2,000 unit 07/20/17 10:00 07/22/17 09:43 Vitamin D3 - PO 2,000 unit BID CATHERINE Administration Clotrimazole 1 applic 07/20/17 15:20 07/22/17 09:42 Lotrimin 1% Cream - TP 1 applic BID CATHERINE Administration Diphenhydramine HCl 25 mg 07/19/17 23:45 07/22/17 09:42 Benadryl Oral Solution - PO 25 mg QID CATHERINE Administration Heparin Sodium (Porcine) 5,000 unit 07/20/17 06:00 07/22/17 05:43 Heparin - SQ 5,000 unit TID CATHERINE Administration Azithromycin 500 mg/ Dextrose 250 mls @ 250 mls/hr 07/20/17 11:50 07/22/17 09 :51 IVPB 250 mls/hr DAILY CATHERINE Administration Piperacillin Sod/Tazobactam 50 mls @ 100 mls/hr 07/20/17 18:00 07/22/17 09:51 Sod 3.375 gm/ Dextrose IVPB 100 mls/hr Q8H-IV CATHERINE Administration Protocol Levetiracetam 1,000 mg 07/20/17 06:00 07/22/17 05:43 Keppra - PO 1,000 mg TID CATHERINE Administration Multivitamins/Minerals/Vitamin C 1 tab 07/20/17 10:00 07/22/17 09:43 Tab-A-Vit - PO 1 tab DAILY CATHERINE Administration Non-Formulary Medication 1 tab 07/20/17 06:00 Lactase [Lactaid Fast Act] PO TID CATHERINE Non-Formulary Medication 200 mg 07/20/17 10:00 Rufinamide [Banzel] PO BID CATHERINE Non-Formulary Medication 100 mg 07/20/17 13:45 Testosterone Cypionate [Testosterone Cypionate] IM WEEKLY CATHERINE [id number] Ethyl Esters 1 gm 07/20/17 10:00 07/22/17 09:42 Lovaza - PO 1 gm BID CATHERINE Administration Phenobarbital 60 mg 07/20/17 00:03 07/21/17 22:46 Phenobarbital - PO 60 mg HS CATHERINE Administration Senna 1 tab 07/20/17 22:00 07/22/17 09:50 Senna - PO Not Given BID CATHERINE Tamsulosin HCl 0.4 mg 07/20/17 22:00 07/21/17 22:46 Flomax - PO 0.4 mg HS CATHERINE Administration Last Vital Signs Temp Pulse Resp BP Pulse Ox 98.6 F 104 H 20 137/105 95 07/22/17 05:30 07/22/17 05:30 07/22/17 05:30 07/22/17 05:30 07/21/17 21:00 Intake & Output 07/19/17 07/20/17 07/21/17 07/22/17 23:59 23:59 23:59 23:59 Intake Total 460 120 Output Total 600 Balance -140 120 Weight 166 lb 14.4 oz 160 lb 8 oz 158 lb General alert, CV S1 S2 RRR no murmur/rub/gallop Lungs mild wheezing, decreased breath sounds bases anteriorly Extremities contracted B/L LE 1+ pitting edema CBCD WBC 9.8 K/mm3 (4.0-10.0) 07/22/17 06:30 RBC 4.79 M/mm3 (4.00-5.60) 07/22/17 06:30 Hgb 14.1 GM/dL (11.7-16.9) D 07/22/17 06:30 Hct 43.0 % (35.4-49) 07/22/17 06:30 MCV 89.9 fl (80-96) 07/22/17 06:30 MCHC 32.8 g/dl (32.0-35.9) 07/22/17 06:30 RDW 17.6 % (11.9-15.9) H 07/22/17 06:30 Plt Count 354 K/MM3 (134-434) D 07/22/17 06:30 MPV 8.8 fl (7.5-11.1) 07/22/17 06:30 CMP Sodium 142 mmol/L (136-145) 07/22/17 06:30 Potassium 4.4 mmol/L (3.5-5.1) D 07/22/17 06:30 Chloride 105 mmol/L (98-107) 07/22/17 06:30 Carbon Dioxide 27 mmol/L (21-32) 07/22/17 06:30 Anion Gap 10 (8-16) 07/22/17 06:30 BUN 11 mg/dL (7-18) 07/22/17 06:30 Creatinine 0.8 mg/dL (0.7-1.3) 07/22/17 06:30 Creat Clearance w eGFR > 60 (>60) 07/22/17 06:30 Calcium 8.2 mg/dL (8.5-10.1) L 07/22/17 06:30 Total Bilirubin 0.3 mg/dL (0.2-1.0) 07/22/17 06:30 AST 26 U/L (15-37) 07/22/17 06:30 ALT 33 U/L (12-78) 07/22/17 06:30 Alkaline Phosphatase 178 U/L (45-117) H 07/22/17 06:30 Total Protein 6.0 g/dl (6.4-8.2) L 07/22/17 06:30 Albumin 2.4 g/dl (3.4-5.0) L 07/22/17 06:30 Microbiology 07/19/17 21:00 Blood Culture - Preliminary Blood - Peripheral Venous NO GROWTH OBTAINED AFTER 48 HOURS, INCUBATION TO CONTINUE FOR 3 DAYS. 07/19/17 20:38 Blood Culture - Preliminary Blood - Peripheral Venous NO GROWTH OBTAINED AFTER 48 HOURS, INCUBATION TO CONTINUE FOR 3 DAYS. 07/20/17 18:00 Legionella Antigen - Final Urine For Antigen Detection Streptococcus pneumoniae Antigen (M - Final 07/19/17 23:05 Urine Culture - Final Urine - Urine Clean Catch NO GROWTH OBTAINED ASSESSMENT AND PLAN: 47yo M wt PMH systolic CHF, CP, epilepsy from [facility] presented to the ER with shortness of breath for 3 days and found to be septic in the ER 1. Acute hypoxic respiratory failure-saturating 97% on 3L NC. repeat CXR done yesterday showing congestion. BP imrpvoed. rickey give lasix 40mg IV once and monitor BP if stable will cont with diuresis. supplemental oxygen as needed to maintain spO2 >90% 2. Severe Sepsis due to PNA- clinically stable. on azithro/zosyn day 3. ID on board. f/u Cx 3. Acute on chronic systolic CHF- remains volume overloaded. no longer hypotensive. will give lasix 40mg IVP now. if tolerates will give additional dose and make BID. mild tachycardia with betablocker held due to hypotension. will re-start at low dose. echo done and noted to have global hypokinesis. would benefit from ischemia eval but will need to treat infection first. cardio on board. daily weights, strict I&O, 4. Tropinemia- flat trend of troponins. likely demand due to hypoxia and/or sepsis. ischemia workup when more stable 5. dysphagia- MBS done continue with puree diet adn nectar thickened liquids. aspiration precautions. elevate HOB. 6. CP 7. epilepsy- no reports of seizure like activity. cont antieleptics 8. DVT ppx- hep sq Visit type - Emergency Visit Emergency Visit: Yes ED Registration Date: 07/19/17 Care time: The patient presented to the Emergency Department on the above date and was hospitalized for further evaluation of their emergent condition. - New Patient This patient is new to me today: No - Critical Care Critical Care patient: No - Discharge Referral Referred to [facility] Med P.C.: No
[2017-07-22] MEDS ORDERED: FUROSEMIDE 40 MG/4 ML INJECTABLE VIAL IVPUSH ONE (10:22)
--- NOTE | 2017-07-22 10:44 | PN ---
Progress Note, Physician History of Present Illness: No CV events Unable to obtain subjective Hx (non verbal) Tele: ST to 100-120s - Current Medication List Current Medications: Active Medications Albuterol/Ipratropium (Duoneb -) 1 amp NEB RQID [facility] Last Admin: 07/22/17 07:44 Dose: 1 amp Carbamazepine (Tegretol Xr -) 300 mg PO BID [facility] Last Admin: 07/22/17 09:51 Dose: 300 mg Carvedilol (Coreg -) 3.125 mg PO BID [facility] Cholecalciferol (Vitamin D3 -) 2,000 unit PO BID [facility] Last Admin: 07/22/17 09:43 Dose: 2,000 unit Clotrimazole (Lotrimin 1% Cream -) 1 applic TP BID [facility] Last Admin: 07/22/17 09:42 Dose: 1 applic Diphenhydramine HCl (Benadryl Oral Solution -) 25 mg PO QID [facility] Last Admin: 07/22/17 09:42 Dose: 25 mg Furosemide (Lasix Injection -) 40 mg IVPUSH ONCE ONE Stop: 07/22/17 10:23 Heparin Sodium (Porcine) (Heparin -) 5,000 unit SQ TID [facility] Last Admin: 07/22/17 05:43 Dose: 5,000 unit Azithromycin 500 mg/ Dextrose 250 mls @ 250 mls/hr IVPB DAILY [facility] Last Admin: 07/22/17 09:51 Dose: 250 mls/hr Piperacillin Sod/Tazobactam (Sod 3.375 gm/ Dextrose) 50 mls @ 100 mls/hr IVPB Q8H-IV [facility]; Protocol Last Admin: 07/22/17 09:51 Dose: 100 mls/hr Levetiracetam (Keppra -) 1,000 mg PO TID [facility] Last Admin: 07/22/17 05:43 Dose: 1,000 mg Multivitamins/Minerals/Vitamin C (Tab-A-Vit -) 1 tab PO DAILY [facility] Last Admin: 07/22/17 09:43 Dose: 1 tab Non-Formulary Medication (Lactase [Lactaid Fast Act]) 1 tab PO TID [facility] Non-Formulary Medication (Rufinamide [Banzel]) 200 mg PO BID [facility] Non-Formulary Medication (Testosterone Cypionate [Testosterone Cypionate]) 100 mg IM WEEKLY [facility] [id number]-3-[id number] Ethyl Esters (Lovaza -) 1 gm PO BID [facility] Last Admin: 07/22/17 09:42 Dose: 1 gm Phenobarbital (Phenobarbital -) 60 mg PO [facility] Last Admin: 07/21/17 22:46 Dose: 60 mg Senna (Senna -) 1 tab PO BID [facility] Last Admin: 07/22/17 09:50 Dose: Not Given Tamsulosin HCl (Flomax -) 0.4 mg PO [facility] Last Admin: 07/21/17 22:46 Dose: 0.4 mg - Objective Vital Signs: Vital Signs Temperature 98.6 F 07/22/17 10:00 Pulse Rate 106 H 07/22/17 10:00 Respiratory Rate 22 07/22/17 10:00 Blood Pressure 144/90 07/22/17 10:00 O2 Sat by Pulse Oximetry (%) 95 07/21/17 21:00 Constitutional: Yes: Mild Distress Eyes: Yes: WNL HENT: Yes: WNL Neck: Yes: WNL Cardiovascular: Yes: Tachycardia Respiratory: Yes: CTA Bilaterally Gastrointestinal: Yes: Normal Bowel Sounds Extremities: Yes: WNL Edema: No Labs: CBC, BMP 07/22/17 06:30 07/22/17 06:30 Assessment/Plan 47 yo resident of [facility] with 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 sob/hypoxia/sepsis - congestive changes similar to April when patient had pulmonary infiltrates and not edema. Patient presented with bandemia, low grade fevers and infectious sx's. Patient had bp drop late afternoon after lasix. BNP lower than prior. -holding lasix for now, cont abx 6/2: Does not appear volume overloaded. Continue to hold diuresis abnormal troponins/new systolic cardiomyopathy - low-intermediate elevation, flat trend with new anterolateral twi c/w demand in setting of tachycardia, hypoxia and infection. - lyte repletion prn - echo with new systolic cardiomyopathy in setting of pna/sepsis. Recommend reassessment of EF as outpatient when PNA resolves completely to assess for improvement. If no improvement than will need outpatient work up for cardiomyopathy. -holding bb, jacob due to low bp likely 2/2 infection 07/22: BP to 140s now. May start low dose coreg 3.125mg BID.
--- NOTE | 2017-07-22 11:33 | PN ---
Progress Note, Physician History of Present Illness: Awake Non verbal Breathing less labored +cough noted Afebrile WBC improved- WNL - Current Medication List Current Medications: Active Medications Albuterol/Ipratropium (Duoneb -) 1 amp NEB RQID [facility] Last Admin: 07/22/17 07:44 Dose: 1 amp Carbamazepine (Tegretol Xr -) 300 mg PO BID [facility] Last Admin: 07/22/17 09:51 Dose: 300 mg Carvedilol (Coreg -) 3.125 mg PO BID [facility] Cholecalciferol (Vitamin D3 -) 2,000 unit PO BID [facility] Last Admin: 07/22/17 09:43 Dose: 2,000 unit Clotrimazole (Lotrimin 1% Cream -) 1 applic TP BID [facility] Last Admin: 07/22/17 09:42 Dose: 1 applic Diphenhydramine HCl (Benadryl Oral Solution -) 25 mg PO QID [facility] Last Admin: 07/22/17 09:42 Dose: 25 mg Heparin Sodium (Porcine) (Heparin -) 5,000 unit SQ TID [facility] Last Admin: 07/22/17 05:43 Dose: 5,000 unit Azithromycin 500 mg/ Dextrose 250 mls @ 250 mls/hr IVPB DAILY [facility] Last Admin: 07/22/17 09:51 Dose: 250 mls/hr Piperacillin Sod/Tazobactam (Sod 3.375 gm/ Dextrose) 50 mls @ 100 mls/hr IVPB Q8H-IV [facility]; Protocol Last Admin: 07/22/17 09:51 Dose: 100 mls/hr Levetiracetam (Keppra -) 1,000 mg PO TID [facility] Last Admin: 07/22/17 05:43 Dose: 1,000 mg Multivitamins/Minerals/Vitamin C (Tab-A-Vit -) 1 tab PO DAILY [facility] Last Admin: 07/22/17 09:43 Dose: 1 tab Non-Formulary Medication (Lactase [Lactaid Fast Act]) 1 tab PO TID [facility] Non-Formulary Medication (Rufinamide [Banzel]) 200 mg PO BID [facility] Non-Formulary Medication (Testosterone Cypionate [Testosterone Cypionate]) 100 mg IM WEEKLY [facility] [id number]-4-[id number] Ethyl Esters (Lovaza -) 1 gm PO BID [facility] Last Admin: 06/02/18 09:42 Dose: 1 gm Phenobarbital (Phenobarbital -) 60 mg PO [facility] Last Admin: 07/21/17 22:46 Dose: 60 mg Senna (Senna -) 1 tab PO BID [facility] Last Admin: 07/22/17 09:50 Dose: Not Given Tamsulosin HCl (Flomax -) 0.4 mg PO [facility] Last Admin: 07/21/17 22:46 Dose: 0.4 mg - Objective Vital Signs: Vital Signs Temperature 98.6 F 07/22/17 10:00 Pulse Rate 106 H 07/22/17 10:00 Respiratory Rate 22 07/22/17 10:00 Blood Pressure 144/90 07/22/17 10:00 O2 Sat by Pulse Oximetry (%) 95 07/21/17 21:00 Constitutional: Yes: No Distress Cardiovascular: Yes: Regular Rate and Rhythm, S1, S2 Respiratory: Yes: Rhonchi Gastrointestinal: Yes: Normal Bowel Sounds, Soft. No: Tenderness Labs: CBC, BMP 07/22/17 06:30 07/22/17 06:30 Assessment/Plan Pneumonia, possible HCAP ?CHF CP/MR Continue empiric zithromax/ zosyn
[2017-07-22] MEDS: CARVEDILOL 3.125 MG TABLET (FP) PO SCH ×2 (12:39→21:05)
[2017-07-22] MEDS ORDERED: LACTASE PO SCH (17:45)
[2017-07-22] MEDS: RUFINAMIDE PO SCH (21:02)
[2017-07-22] MEDS: LACTASE PO SCH (21:02)
[2017-07-22] MEDS: TAMSULOSIN HCL 0.4 MG CAP.ER.24H (FP) PO SCH (21:04)
[2017-07-22] MEDS: PHENobarbital 30 MG TABLET PO SCH (21:04)
[2017-07-22] MEDS: ACETAMINOPHEN 325 MG TABLET (FP) PO PRN (21:04)
[2017-07-23] MEDS: PIPERACILLIN/TAZOB 3.375 GM 3.375 GM in DEXTROSE 5%-WATER - 50 ML IVPB SCH ×3 (01:35→17:40)
[2017-07-23] MEDS: levETIRAcetam 500 MG TABLET (FP) PO SCH ×3 (06:32→21:51)
[2017-07-23] MEDS: HEPARIN NA (PORCINE) 5,000 UNITS/ML 1ML VIAL SQ SCH ×3 (06:32→21:52)
[2017-07-23 07:15] LABS: BASO % 0.5 % (0-2.0); EOS % 2.8 % (0-4.5); HEMATOCRIT 42.8 % (35.4-49); HEMOGLOBIN 14.2 GM/dL (11.7-16.9); LYMPH % 12.5 % (8-40); MCH 29.3 pg (25.7-33.7); MCHC 33.1 g/dl (32.0-35.9); MEAN CELL VOLUME 88.7 fl (80-96); MEAN PLT VOLUME 8.7 fl (7.5-11.1); MONO % 4.9 % (3.8-10.2); NEUT % 79.3 % (42.8-82.8); PLATELET COUNT 342 K/MM3 (134-434); RBC 4.83 M/mm3 (4.00-5.60); RDW 17.5 % (11.9-15.9); WHITE BLOOD COUNT 10.5 K/mm3 (4.0-10.0)
[2017-07-23 07:35] LABS: ANION GAP 11 (8-16); BLOOD UREA NITROGEN 11 mg/dL (7-18); CALCIUM 8.1 mg/dL (8.5-10.1); CHLORIDE 105 mmol/L (98-107); CO2 26 mmol/L (21-32); CREATININE 0.7 mg/dL (0.7-1.3); GLUCOSE,RANDOM 79 mg/dL (74-106); MAGNESIUM 2.1 mg/dL (1.8-2.4); PHOSPHOROUS 3.6 mg/dL (2.5-4.9); SODIUM 142 mmol/L (136-145)
[2017-07-23] MEDS: LACTASE PO SCH ×3 (07:47→17:40)
[2017-07-23] MEDS: ALBUTEROL SO4 2.5/IPRATROPIUM 0.5 INH SOL 3 ML VIAL.NEB. NEB SCH ×4 (08:15→20:34)
[2017-07-23] MEDS ORDERED: PIPERACILLIN/TAZOBACTAM 3.375 GM VIAL IVPB ONE ×2 (09:52→16:51)
[2017-07-23] MEDS ORDERED: DEXTROSE 5%-WATER - 50 ML IVPB ONE ×2 (09:52→16:51)
[2017-07-23] MEDS: AZITHROMYCIN IVPB 500 MG in DEXTROSE 5%-WATER - 250 ML IVPB SCH (09:55)
[2017-07-23] MEDS: OMEGA-3 ACID ETHYL ESTERS (FATTY-ACIDS) 1 GM CAPSULE (FP) PO SCH ×2 (09:56→21:50)
[2017-07-23] MEDS: CHOLECALCIFEROL (VITAMIN D3) 1,000 UNIT TABLET (FP) PO SCH ×2 (09:56→21:51)
[2017-07-23] MEDS: diphenhydrAMINE HCL 12.5 MG/5 ML UNIT-DOSE CUPS PO SCH ×4 (09:56→21:49)
[2017-07-23] MEDS: SENNOSIDES 8.6MG TABLET (FP) PO SCH ×2 (09:57→21:52)
[2017-07-23] MEDS: CARVEDILOL 3.125 MG TABLET (FP) PO SCH (09:57)
[2017-07-23] MEDS: MULTIVITAMINS (DAILY MVI) TABLET (FP) PO SCH (09:57)
[2017-07-23] MEDS: RUFINAMIDE PO SCH ×2 (09:59→21:50)
[2017-07-23] MEDS: CLOTRIMAZOLE 1% CREAM 15 GM TUBE TP SCH ×2 (10:00→21:49)
--- NOTE | 2017-07-23 10:06 | PN ---
Progress Note, Physician History of Present Illness: No CV events overnight Unable to obtain subjective assessment. - Current Medication List Current Medications: Active Medications Acetaminophen (Tylenol -) 650 mg PO Q4H PRN PRN Reason: FEVER Last Admin: 07/22/17 21:04 Dose: 650 mg Albuterol/Ipratropium (Duoneb -) 1 amp NEB RQID [facility] Last Admin: 07/23/17 08:15 Dose: 1 amp Carbamazepine (Tegretol Xr -) 300 mg PO BID [facility] Last Admin: 07/22/17 21:03 Dose: 300 mg Carvedilol (Coreg -) 3.125 mg PO BID [facility] Last Admin: 07/22/17 21:05 Dose: 3.125 mg Cholecalciferol (Vitamin D3 -) 2,000 unit PO BID [facility] Last Admin: 07/22/17 21:04 Dose: 2,000 unit Clotrimazole (Lotrimin 1% Cream -) 1 applic TP BID [facility] Last Admin: 07/22/17 21:03 Dose: 1 applic Diphenhydramine HCl (Benadryl Oral Solution -) 25 mg PO QID [facility] Last Admin: 07/22/17 21:05 Dose: 25 mg Furosemide (Lasix -) 40 mg PO DAILY [facility] Heparin Sodium (Porcine) (Heparin -) 5,000 unit SQ TID [facility] Last Admin: 07/23/17 06:32 Dose: 5,000 unit Azithromycin 500 mg/ Dextrose 250 mls @ 250 mls/hr IVPB DAILY [facility] Last Admin: 07/22/17 09:51 Dose: 250 mls/hr Piperacillin Sod/Tazobactam (Sod 3.375 gm/ Dextrose) 50 mls @ 100 mls/hr IVPB Q8H-IV [facility]; Protocol Last Admin: 07/23/17 01:35 Dose: 100 mls/hr Levetiracetam (Keppra -) 1,000 mg PO TID [facility] Last Admin: 07/23/17 06:32 Dose: 1,000 mg Multivitamins/Minerals/Vitamin C (Tab-A-Vit -) 1 tab PO DAILY [facility] Last Admin: 07/22/17 09:43 Dose: 1 tab Non-Formulary Medication (Rufinamide [Banzel]) 1,400 mg PO BID [facility] Last Admin: 07/22/17 21:02 Dose: 1,400 mg Non-Formulary Medication (Testosterone Cypionate [Testosterone Cypionate]) 100 mg IM WEEKLY [facility] Non-Formulary Medication (Lactase [Lactaid Fast Act]) 1 tab PO TIDCM [facility] Last Admin: 07/23/17 07:47 Dose: 1 tab Luvjh-1-[id number] Ethyl Esters (Lovaza -) 1 gm PO BID [facility] Last Admin: 07/22/17 21:05 Dose: 1 gm Phenobarbital (Phenobarbital -) 60 mg PO [facility] Last Admin: 07/22/17 21:04 Dose: 60 mg Senna (Senna -) 1 tab PO BID [facility] Last Admin: 07/22/17 21:06 Dose: Not Given Tamsulosin HCl (Flomax -) 0.4 mg PO [facility] Last Admin: 07/22/17 21:04 Dose: 0.4 mg - Objective Vital Signs: Vital Signs Temperature 97.9 F 07/23/17 06:00 Pulse Rate 96 H 07/23/17 06:00 Respiratory Rate 24 07/23/17 06:00 Blood Pressure 148/99 07/23/17 06:00 O2 Sat by Pulse Oximetry (%) 98 07/23/17 06:18 Constitutional: Yes: Well Nourished, No Distress, Calm Eyes: Yes: WNL HENT: Yes: WNL Neck: Yes: WNL Cardiovascular: Yes: Regular Rate and Rhythm, Murmur Respiratory: Yes: CTA Bilaterally Gastrointestinal: Yes: Normal Bowel Sounds Musculoskeletal: Yes: WNL Extremities: Yes: WNL Edema: No Labs: CBC, BMP 07/23/17 06:30 07/23/17 06:30 Assessment/Plan 47 yo resident of [facility] with 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 sob/hypoxia/sepsis - congestive changes similar to April when patient had pulmonary infiltrates and not edema. Patient presented with bandemia, low grade fevers and infectious sx's. Patient had bp drop late afternoon after lasix. BNP lower than prior. -holding lasix for now, cont abx 6/: Does not appear volume overloaded. Continue to hold diuresis 07/23: Furosemide started by primary team. Tolerating. abnormal troponins/new systolic cardiomyopathy - low-intermediate elevation, flat trend with new anterolateral twi c/w demand in setting of tachycardia, hypoxia and infection. - lyte repletion prn - echo with new systolic cardiomyopathy in setting of pna/sepsis. Recommend reassessment of EF as outpatient when PNA resolves completely to assess for improvement. If no improvement than will need outpatient work up for cardiomyopathy. -holding bb, jacob due to low bp likely 2/2 infection 07/22: BP to 140s now. May start low dose coreg 3.125mg BID. 07/23: BP remains elevated. Will titrate up Coreg to 6.25 BID
[2017-07-23] MEDS: FUROSEMIDE 40 MG TABLET (FP) PO SCH (11:00)
[2017-07-23] MEDS: ACETAMINOPHEN 325 MG TABLET (FP) PO PRN ×2 (12:06→21:50)
--- NOTE | 2017-07-23 12:14 | PN ---
Progress Note (short form) - Note Progress Note: resting comfortable Current Medications Generic Name Dose Route Start Last Admin Trade Name Freq PRN Reason Stop Dose Admin Acetaminophen 650 mg 07/22/17 20:05 07/23/17 12:06 Tylenol - PO 650 mg Q4H PRN Administration FEVER Albuterol/Ipratropium 1 amp 07/20/17 08:58 07/23/17 11:38 Duoneb - NEB 1 amp RQID CATHERINE Administration Carbamazepine 300 mg 07/20/17 01:30 07/23/17 09:58 Tegretol Xr - PO 300 mg BID CATHERINE Administration Carvedilol 6.25 mg 07/23/17 22:00 Coreg - PO BID [facility] Cholecalciferol 2,000 unit 07/20/17 10:00 07/23/17 09:56 Vitamin D3 - PO 2,000 unit BID [facility]ERINE Administration Clotrimazole 1 applic 07/20/17 15:20 07/23/17 10:00 Lotrimin 1% Cream - TP 1 applic BID C[facility]ERINE Administration Diphenhydramine HCl 25 mg 07/19/17 23:45 07/23/17 09:56 Benadryl Oral Solution - PO 25 mg QID CATHERINE Administration Furosemide 40 mg 07/23/17 10:00 07/23/17 11:00 Lasix - PO 40 mg DAILY [facility] Administration Heparin Sodium (Porcine) 5,000 unit 07/20/17 06:00 07/23/17 06:32 Heparin - SQ 5,000 unit TID [facility] Administration Azithromycin 500 mg/ Dextrose 250 mls @ 250 mls/hr 07/20/17 11:50 07/23/17 09 :55 IVPB 250 mls/hr DAILY [facility] Administration Piperacillin Sod/Tazobactam 50 mls @ 100 mls/hr 07/20/17 18:00 07/23/17 09:55 Sod 3.375 gm/ Dextrose IVPB 100 mls/hr Q8H-IV [facility] Administration Protocol Levetiracetam 1,000 mg 07/20/17 06:00 07/23/17 06:32 Keppra - PO 1,000 mg TID [facility] Administration Multivitamins/Minerals/Vitamin C 1 tab 07/20/17 10:00 07/23/17 09:57 Tab-A-Vit - PO 1 tab DAILY [facility] Administration Non-Formulary Medication 1,400 mg 07/22/17 22:00 07/23/17 09:59 Rufinamide [Banzel] PO 1,400 mg BID [facility] Administration Non-Formulary Medication 100 mg 07/20/17 13:45 Testosterone Cypionate [Testosterone Cypionate] IM WEEKLY [facility] Non-Formulary Medication 1 tab 07/22/17 19:30 07/23/17 11:23 Lactase [Lactaid Fast Act] PO 1 tab TIDCM [facility] Administration Kxlye-3-[id number] Ethyl Esters 1 gm 07/20/17 10:00 07/23/17 09:56 Lovaza - PO 1 gm BID [facility] Administration Phenobarbital 60 mg 07/20/17 00:03 07/22/17 21:04 Phenobarbital - PO 60 mg HS [facility] Administration Senna 1 tab 07/20/17 22:00 07/23/17 09:57 Senna - PO 1 tab BID [facility] Administration Tamsulosin HCl 0.4 mg 07/20/17 22:00 07/22/17 21:04 Flomax - PO 0.4 mg HS [facility] Administration Last Vital Signs Temp Pulse Resp BP Pulse Ox 97.9 F 96 H 24 148/99 98 07/23/17 06:00 07/23/17 06:00 07/23/17 06:00 07/23/17 06:00 07/23/17 06:18 Intake & Output 07/20/17 07/21/17 07/22/17 07/23/17 23:59 23:59 23:59 23:59 Intake Total 460 120 460 Output Total 600 200 Balance -140 120 -200 460 Weight 160 lb 8 oz 158 lb 154 lb 9.6 oz General alert, CV S1 S2 RRR no murmur/rub/gallop Lungs CTA B/L no wheezing/rales/rhonchi Extremities contracted B/L LE no pitting edema CBCD WBC 10.5 K/mm3 (4.0-10.0) H 07/23/17 06:30 RBC 4.83 M/mm3 (4.00-5.60) 07/23/17 06:30 Hgb 14.2 GM/dL (11.7-16.9) 07/23/17 06:30 Hct 42.8 % (35.4-49) 07/23/17 06:30 MCV 88.7 fl (80-96) 07/23/17 06:30 MCHC 33.1 g/dl (32.0-35.9) 07/23/17 06:30 RDW 17.5 % (11.9-15.9) H 07/23/17 06:30 Plt Count 342 K/MM3 (134-434) 07/23/17 06:30 MPV 8.7 fl (7.5-11.1) 07/23/17 06:30 CMP Sodium 142 mmol/L (136-145) 07/23/17 06:30 Potassium 4.0 mmol/L (3.5-5.1) 07/23/17 06:30 Chloride 105 mmol/L (98-107) 07/23/17 06:30 Carbon Dioxide 26 mmol/L (21-32) 07/23/17 06:30 Anion Gap 11 (8-16) 07/23/17 06:30 BUN 11 mg/dL (7-18) 07/23/17 06:30 Creatinine 0.7 mg/dL (0.7-1.3) 07/23/17 06:30 Creat Clearance w eGFR > 60 (>60) 07/22/17 06:30 Calcium 8.1 mg/dL (8.5-10.1) L 07/23/17 06:30 Total Bilirubin 0.3 mg/dL (0.2-1.0) 07/22/17 06:30 AST 26 U/L (15-37) 07/22/17 06:30 ALT 33 U/L (12-78) 07/22/17 06:30 Alkaline Phosphatase 178 U/L (45-117) H 07/22/17 06:30 Total Protein 6.0 g/dl (6.4-8.2) L 07/22/17 06:30 Albumin 2.4 g/dl (3.4-5.0) L 07/22/17 06:30 Microbiology 07/19/17 21:00 Blood - Peripheral Venous Blood Culture - Preliminary NO GROWTH OBTAINED AFTER 72 HOURS, INCUBATION TO CONTINUE FOR 2 DAYS. 07/19/17 20:38 Blood - Peripheral Venous Blood Culture - Preliminary NO GROWTH OBTAINED AFTER 72 HOURS, INCUBATION TO CONTINUE FOR 2 DAYS. 07/20/17 18:00 Urine For Antigen Detection Legionella Antigen - Final 07/20/17 18:00 Urine For Antigen Detection Streptococcus pneumoniae Antigen (M - Final 07/19/17 23:05 Urine - Urine Clean Catch Urine Culture - Final NO GROWTH OBTAINED ASSESSMENT AND PLAN: 47yo M wtih PMH systolic CHF, CP, epilepsy from [facility] presented to the ER with shortness of breath for 3 days and found to be septic in the ER 1. Acute hypoxic respiratory failure-saturating 98% on 3L NC. clinically improved,. will titrate down supplemental oxygen as tolerated. cont to treat PNA. supplemental oxygen as needed to maintain spO2 >90% 2. Severe Sepsis due to PNA- Tm 100.4 clinically stable. on azithro/zosyn day 4. will cont current medications given low grade fever, consider switching to po if improves over next 24H. ID on board. f/u Cx 3. Acute on chronic systolic CHF- now appears euvolemic. hsa severely reduced EF. will place on lasix 40mg po and monitor. uptitrate coreg to 6.25mg. will need cardiac ischemia eval once treatement for infection is completed. cardio on board. daily weights, strict I&O, 4. Tropinemia- flat trend of troponins. likely demand due to hypoxia and/or sepsis. ischemia workup when more stable 5. dysphagia- MBS done continue with puree diet and nectar thickened liquids. aspiration precautions. elevate HOB. 6. CP 7. epilepsy- no reports of seizure like activity. cont antieleptics 8. DVT ppx- hep sq Visit type - Emergency Visit Emergency Visit: Yes ED Registration Date: 07/19/17 Care time: The patient presented to the Emergency Department on the above date and was hospitalized for further evaluation of their emergent condition. - New Patient This patient is new to me today: No - Critical Care Critical Care patient: No - Discharge Referral Referred to [facility] Med P.C.: No
[2017-07-23] MEDS ORDERED: PT OWN MED DRAWER 7, Y5N ONE (18:05)
[2017-07-23] MEDS: CARVEDILOL 6.25 MG TABLET (FP) PO SCH (21:50)
[2017-07-23] MEDS: TAMSULOSIN HCL 0.4 MG CAP.ER.24H (FP) PO SCH (21:51)
[2017-07-23] MEDS: PHENobarbital 30 MG TABLET PO SCH (21:52)
[2017-07-24] MEDS ORDERED: PIPERACILLIN/TAZOBACTAM 3.375 GM VIAL IVPB ONE ×3 (00:44→17:30)
[2017-07-24] MEDS ORDERED: DEXTROSE 5%-WATER - 50 ML IVPB ONE ×3 (00:44→17:30)
[2017-07-24] MEDS: PIPERACILLIN/TAZOB 3.375 GM 3.375 GM in DEXTROSE 5%-WATER - 50 ML IVPB SCH ×3 (01:48→17:37)
[2017-07-24] MEDS: levETIRAcetam 500 MG TABLET (FP) PO SCH ×3 (06:24→22:54)
[2017-07-24] MEDS: HEPARIN NA (PORCINE) 5,000 UNITS/ML 1ML VIAL SQ SCH ×3 (06:24→22:55)
[2017-07-24] MEDS: ALBUTEROL SO4 2.5/IPRATROPIUM 0.5 INH SOL 3 ML VIAL.NEB. NEB SCH ×4 (07:36→20:20)
[2017-07-24] MEDS: LACTASE PO SCH ×3 (08:00→17:37)
[2017-07-24 09:58] LABS: BASO % 0.5 % (0-2.0); HEMATOCRIT 42.7 % (35.4-49); HEMOGLOBIN 13.9 GM/dL (11.7-16.9); LYMPH % 14.6 % (8-40); MCH 29.1 pg (25.7-33.7); MCHC 32.5 g/dl (32.0-35.9); MEAN CELL VOLUME 89.6 fl (80-96); MEAN PLT VOLUME 8.6 fl (7.5-11.1); MONO % 3.4 % (3.8-10.2); NEUT % 79.5 % (42.8-82.8); PLATELET COUNT 341 K/MM3 (134-434); RBC 4.76 M/mm3 (4.00-5.60); RDW 17.9 % (11.9-15.9); WHITE BLOOD COUNT 9.7 K/mm3 (4.0-10.0)
[2017-07-24] MEDS ORDERED: PT OWN MED DRAWER 7, Y5N ONE ×2 (10:35→21:15)
[2017-07-24 10:44] LABS: ALBUMIN 2.5 g/dl (3.4-5.0); ALK PHOS 148 U/L (45-117); ANION GAP 5 (8-16); BILIRUBIN,TOTAL 0.2 mg/dL (0.2-1.0); BLOOD UREA NITROGEN 11 mg/dL (7-18); CALCIUM 8.3 mg/dL (8.5-10.1); CHLORIDE 105 mmol/L (98-107); CO2 32 mmol/L (21-32); CREATININE 0.9 mg/dL (0.7-1.3); GLUCOSE,RANDOM 117 mg/dL (74-106); POTASSIUM 4.5 mmol/L (3.5-5.1); SGOT/AST 19 U/L (15-37); SGPT/ALT 32 U/L (12-78); SODIUM 142 mmol/L (136-145); TOT PROT 5.9 g/dl (6.4-8.2)
[2017-07-24] MEDS: CARVEDILOL 6.25 MG TABLET (FP) PO SCH (10:49)
[2017-07-24] MEDS: diphenhydrAMINE HCL 12.5 MG/5 ML UNIT-DOSE CUPS PO SCH ×4 (10:49→22:54)
[2017-07-24] MEDS: FUROSEMIDE 40 MG TABLET (FP) PO SCH (10:49)
[2017-07-24] MEDS: MULTIVITAMINS (DAILY MVI) TABLET (FP) PO SCH (10:50)
[2017-07-24] MEDS: CLOTRIMAZOLE 1% CREAM 15 GM TUBE TP SCH ×2 (10:50→21:40)
[2017-07-24] MEDS: SENNOSIDES 8.6MG TABLET (FP) PO SCH ×2 (10:50→22:56)
[2017-07-24] MEDS: OMEGA-3 ACID ETHYL ESTERS (FATTY-ACIDS) 1 GM CAPSULE (FP) PO SCH ×2 (10:50→22:54)
[2017-07-24] MEDS: RUFINAMIDE PO SCH ×2 (10:50→22:55)
[2017-07-24] MEDS: AZITHROMYCIN IVPB 500 MG in DEXTROSE 5%-WATER - 250 ML IVPB SCH (10:50)
[2017-07-24] MEDS: CHOLECALCIFEROL (VITAMIN D3) 1,000 UNIT TABLET (FP) PO SCH ×2 (10:50→22:54)
--- NOTE | 2017-07-24 11:39 | PN ---
Progress Note, Physician History of Present Illness: Awake Non verbal Breathing non- labored Still with cough Afebrile WBC improved- WNL - Current Medication List Current Medications: Active Medications Acetaminophen (Tylenol -) 650 mg PO Q4H PRN PRN Reason: FEVER Last Admin: 07/23/17 21:50 Dose: 650 mg Albuterol/Ipratropium (Duoneb -) 1 amp NEB RQID [facility] Last Admin: 07/24/17 07:36 Dose: 1 amp Carbamazepine (Tegretol Xr -) 300 mg PO BID [facility] Last Admin: 07/24/17 10:50 Dose: 300 mg Carvedilol (Coreg -) 6.25 mg PO BID [facility] Last Admin: 07/24/17 10:49 Dose: 6.25 mg Cholecalciferol (Vitamin D3 -) 2,000 unit PO BID [facility] Last Admin: 07/24/17 10:50 Dose: 2,000 unit Clotrimazole (Lotrimin 1% Cream -) 1 applic TP BID [facility] Last Admin: 07/24/17 10:50 Dose: 1 applic Diphenhydramine HCl (Benadryl Oral Solution -) 25 mg PO QID [facility] Last Admin: 07/24/17 10:49 Dose: 25 mg Furosemide (Lasix -) 40 mg PO DAILY [facility] Last Admin: 07/24/17 10:49 Dose: 40 mg Heparin Sodium (Porcine) (Heparin -) 5,000 unit SQ TID [facility] Last Admin: 07/24/17 06:24 Dose: 5,000 unit Azithromycin 500 mg/ Dextrose 250 mls @ 250 mls/hr IVPB DAILY [facility] Last Admin: 07/24/17 10:50 Dose: 250 mls/hr Piperacillin Sod/Tazobactam (Sod 3.375 gm/ Dextrose) 50 mls @ 100 mls/hr IVPB Q8H-IV [facility]; Protocol Last Admin: 07/24/17 10:51 Dose: 100 mls/hr Levetiracetam (Keppra -) 1,000 mg PO TID [facility] Last Admin: 07/24/17 06:24 Dose: 1,000 mg Multivitamins/Minerals/Vitamin C (Tab-A-Vit -) 1 tab PO DAILY [facility] Last Admin: 07/24/17 10:50 Dose: 1 tab Non-Formulary Medication (Rufinamide [Banzel]) 1,400 mg PO BID [facility] Last Admin: 07/24/17 10:50 Dose: 1,400 mg Non-Formulary Medication (Testosterone Cypionate [Testosterone Cypionate]) 100 mg IM WEEKLY [facility] Non-Formulary Medication (Lactase [Lactaid Fast Act]) 1 tab PO TIDCM [facility] Last Admin: 07/24/17 08:00 Dose: 1 tab [id number]-2-[id number] Ethyl Esters (Lovaza -) 1 gm PO BID [facility] Last Admin: 07/24/17 10:50 Dose: 1 gm Phenobarbital (Phenobarbital -) 60 mg PO [facility] Last Admin: 07/23/17 21:52 Dose: 60 mg Senna (Senna -) 1 tab PO BID [facility] Last Admin: 07/24/17 10:50 Dose: 1 tab Tamsulosin HCl (Flomax -) 0.4 mg PO [facility] Last Admin: 07/23/17 21:51 Dose: 0.4 mg - Objective Vital Signs: Vital Signs Temperature 98.3 F 07/24/17 06:00 Pulse Rate 92 H 07/24/17 06:00 Respiratory Rate 24 07/24/17 06:00 Blood Pressure 132/78 07/24/17 06:00 O2 Sat by Pulse Oximetry (%) 96 07/24/17 05:55 Constitutional: Yes: No Distress, Obese Cardiovascular: Yes: Regular Rate and Rhythm, S2 Respiratory: Yes: Rhonchi Gastrointestinal: Yes: Normal Bowel Sounds, Soft, Abdomen, Obese. No: Tenderness Labs: CBC, BMP 07/24/17 09:20 07/24/17 09:20 Assessment/Plan Pneumonia, possible HCAP ?CHF CP/MR Continue empiric zithromax/ zosyn day #5
--- NOTE | 2017-07-24 11:59 | PN ---
Teaching Attending Note Name of Resident: Levi Austin ATTENDING PHYSICIAN STATEMENT I saw and evaluated the patient. I reviewed the resident's note and discussed the case with the resident. I agree with the resident's findings and plan as documented. SUBJECTIVE:aid reports hes been having non productive cough since this AM. noted by overnight RN that he desaturated to 86% and improved with supplemental oxygen. current receiving neb treatment OBJECTIVE: Last Vital Signs Temp Pulse Resp BP Pulse Ox 98.3 F 92 H 24 132/78 96 07/24/17 06:00 07/24/17 06:00 07/24/17 06:00 07/24/17 06:00 07/24/17 05:55 Intake & Output 07/21/17 07/22/17 07/23/17 07/24/17 23:59 23:59 23:59 23:59 Intake Total 120 630 10 Output Total 200 Balance 120 -200 630 10 Weight 158 lb 154 lb 9.6 oz 155 lb 3.2 oz General resting comfortable CV S1 S2 RRR no murmur/rub/gallop lungs coarse breath sounds anteriorly Extremities no pedal edema ASSESSMENT AND PLAN: 47yo M wtih PMH systolic CHF, CP, epilepsy from [facility] presented to the ER with shortness of breath for 3 days and found to be septic in the ER 1. Acute hypoxic respiratory failure-saturating 96% on 3L NC. will repeat CXR to evaluate as due to body habitus unable to fully examine. consider CT chest if continues to be hypoxic. will titrate down supplemental oxygen as tolerated. cont to treat PNA. supplemental oxygen as needed to maintain spO2 >90% 2. Severe Sepsis due to PNA- afebrile. on azithro/zosyn day 5. ID on board. f/u Cx 3. Acute on chronic systolic CHF- now appears euvolemic. titrate up heart failure medication as tolerated. on lasix 40mg daily, will increase coreg to 12.5mg BID. will need cardiac ischemia eval once treatement for infection is completed. cardio on board. daily weights, strict I&O, 4. Tropinemia- flat trend of troponins. likely demand due to hypoxia and/or sepsis. ischemia workup when more stable 5. dysphagia- MBS done continue with puree diet and nectar thickened liquids. aspiration precautions. elevate HOB. 6. CP 7. epilepsy- no reports of seizure like activity. cont antieleptics 8. DVT ppx- hep sq
--- NOTE | 2017-07-24 12:25 | PN ---
Progress Note, MATERIAL COMBINER - Note Progress Note: Selected Entries 07/23/17 07/23/17 07/23/17 02:02 06:00 11:29 Breakfast 100% Lunch Temperature 97.3 F L 97.9 F 07/23/17 07/23/17 07/24/17 15:00 19:45 02:00 Breakfast Lunch 75% Temperature 98.4 F 98.8 F 99.0 F 07/24/17 06:00 Breakfast Lunch Temperature 98.3 F Laboratory Tests 07/24/17 09:20 WBC 9.7 Pt on Dys Puree/nectar thick liquids. Tolerating diet at this time.
--- NOTE | 2017-07-24 14:12 | PN ---
Progress Note (short form) - Note Progress Note: CC: sob S: per aide, still intermittently diaphoretic. otherwise no change in demeanor. non-verbal. coreg dose increased to 12.5 mg bid today (to start this evening). BP improved today. Current Medications Acetaminophen (Tylenol -) 650 mg PO Q4H PRN PRN Reason: FEVER Last Admin: 07/23/17 21:50 Dose: 650 mg Albuterol/Ipratropium (Duoneb -) 1 amp NEB RQID [facility] Last Admin: 07/24/17 11:55 Dose: 1 amp Carbamazepine (Tegretol Xr -) 300 mg PO BID [facility] Last Admin: 07/24/17 10:50 Dose: 300 mg Carvedilol (Coreg -) 12.5 mg PO BID [facility] Cholecalciferol (Vitamin D3 -) 2,000 unit PO BID [facility] Last Admin: 07/24/17 10:50 Dose: 2,000 unit Clotrimazole (Lotrimin 1% Cream -) 1 applic TP BID [facility] Last Admin: 07/24/17 10:50 Dose: 1 applic Diphenhydramine HCl (Benadryl Oral Solution -) 25 mg PO QID [facility] Last Admin: 07/24/17 10:49 Dose: 25 mg Furosemide (Lasix -) 40 mg PO DAILY [facility] Last Admin: 07/24/17 10:49 Dose: 40 mg Heparin Sodium (Porcine) (Heparin -) 5,000 unit SQ TID [facility] Last Admin: 07/24/17 06:24 Dose: 5,000 unit Azithromycin 500 mg/ Dextrose 250 mls @ 250 mls/hr IVPB DAILY [facility] Last Admin: 07/24/17 10:50 Dose: 250 mls/hr Piperacillin Sod/Tazobactam (Sod 3.375 gm/ Dextrose) 50 mls @ 100 mls/hr IVPB Q8H-IV [facility]; Protocol Last Admin: 07/24/17 10:51 Dose: 100 mls/hr Levetiracetam (Keppra -) 1,000 mg PO TID [facility] Last Admin: 07/24/17 06:24 Dose: 1,000 mg Multivitamins/Minerals/Vitamin C (Tab-A-Vit -) 1 tab PO DAILY [facility] Last Admin: 07/24/17 10:50 Dose: 1 tab Non-Formulary Medication (Rufinamide [Banzel]) 1,400 mg PO BID [facility] Last Admin: 07/24/17 10:50 Dose: 1,400 mg Non-Formulary Medication (Testosterone Cypionate [Testosterone Cypionate]) 100 mg IM WEEKLY [facility] Non-Formulary Medication (Lactase [Lactaid Fast Act]) 1 tab PO TIDCM [facility] Last Admin: 07/24/17 08:00 Dose: 1 tab [id number] Ethyl Esters (Lovaza -) 1 gm PO BID [facility] Last Admin: 07/24/17 10:50 Dose: 1 gm Phenobarbital (Phenobarbital -) 60 mg PO [facility] Last Admin: 07/23/17 21:52 Dose: 60 mg Senna (Senna -) 1 tab PO BID [facility] Last Admin: 07/24/17 10:50 Dose: 1 tab Tamsulosin HCl (Flomax -) 0.4 mg PO [facility] Last Admin: 07/23/17 21:51 Dose: 0.4 mg Vital Signs - 24 hr 07/23/17 07/23/17 07/23/17 15:00 16:00 19:45 Temperature 98.4 F 98.8 F Pulse Rate 103 H 101 H 91 H Respiratory 22 22 Rate Blood Pressure 131/90 130/88 O2 Sat by Pulse 97 Oximetry (%) 07/23/17 07/23/17 07/24/17 21:00 23:37 00:00 Temperature Pulse Rate 98 H Respiratory 22 Rate Blood Pressure O2 Sat by Pulse 99 98 99 Oximetry (%) 07/24/17 07/24/17 07/24/17 02:00 02:45 03:00 Temperature 99.0 F Pulse Rate 96 H 82 82 Respiratory 22 Rate Blood Pressure 138/83 O2 Sat by Pulse 86 L 97 Oximetry (%) 07/24/17 07/24/17 07/24/17 05:55 06:00 08:00 Temperature 98.3 F Pulse Rate 92 H 102 H Respiratory 24 Rate Blood Pressure 132/78 O2 Sat by Pulse 96 99 Oximetry (%) 07/24/17 07/24/17 07/24/17 09:00 12:00 12:17 Temperature Pulse Rate 98 H Respiratory 24 Rate Blood Pressure O2 Sat by Pulse 99 99 99 Oximetry (%) Intake & Output 07/22/17 07/23/17 07/24/17 07/25/17 07:59 07:59 07:59 07:59 Intake Total 70 10 630 Output Total 200 Balance 70 -190 630 Weight 155 lb 3.2 oz nad, calm jvd flat, neck supple + wheezes, nl effort regular. nl s1, s2 no mrg. + bs soft nt nd, no hsm ext with trace soft edema. no c/c + dp/pt awake, alert. non-verbal does not follow commands no jaundice, + diaphoresis. CBC, BMP 07/24/17 09:20 07/24/17 09:20 Laboratory Tests 07/22/17 07/23/17 07/24/17 06:30 06:30 09:20 Magnesium 2.1 Total Bilirubin 0.2 D AST 19 D ALT 32 Alkaline Phosphatase 148 H Albumin 2.5 L TSH 2.65 ekg: sr, new anterolateral t wave changes. tele: sr/sinus tach echo 06/2017: nl lv size. LV sys fn severely reduced. (global). nl rv size/ fn. 1+ lae. nl valves. no pericardial effusion echo 04/2017 tds: gross decrease in systolic fn (moderate). tds for rwma. RV/ atria not well visualized. no significant MV/AV abnormaliteis. TV/PV not well visualized. no pericardial effusion. chest ct 04/2017: images and report reviewed. bilateral pulmonary infiltrates. very small left pleural effusion. small pericardial effusion. see emr for detailed findings. 06/2017 cxr: congestive changes (also described on April cxr when patient had pulmonary infiltrates pna). Possibly superimposed early infiltrate. 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 sob/hypoxia/sepsis - congestive changes similar to April when patient had pulmonary infiltrates and not edema. Patient presented with bandemia, low grade fevers and infectious sx's. Patient had bp drop late afternoon after lasix. BNP lower than prior. -holding lasix for now, cont abx 07/22: Does not appear volume overloaded. given one dose of lasix 40 mg IV x 1. 07/23: PO furosemide started by primary team. Tolerating. 07/24: will check ct scan to determine what portion of lung pathology is infection vs. edema. consider retrial of lasix 40 mg daily starting today. abnormal troponins/new systolic cardiomyopathy - low-intermediate elevation, flat trend with new anterolateral twi c/w demand in setting of tachycardia, hypoxia and infection. - initially held bb, jacob due to low bp likely 2/2 infection - April echo with new systolic cardiomyopathy in setting of pna/sepsis. Recommend reassessment of EF as outpatient when PNA resolves completely to assess for improvement. If no improvement than will need outpatient work up for cardiomyopathy. - lyte repletion prn daily weights, i/o's. 07/22: BP to 140s now. May start low dose coreg 3.125mg BID. 07/23: BP remains elevated. Will titrate up Coreg to 6.25 BID 07/24: uptitrated coreg to 12.5 mg bid --> improved bp control. jacob remains on hold. Will resume next.
--- NOTE | 2017-07-24 16:56 | PN ---
Physical Exam: SUBJECTIVE: Patient seen and examined at bedside. Pt is nonverbal. OBJECTIVE: Vital Signs Period Temp Pulse Resp BP Sys/Velasco Pulse Ox Last 24 Hr 98 F-99.0 F 82-102 22-24 130-146/77-88 86-99 Nonverbal and Uncommunicative. Limited exam Gen: Off bipap. Sitting in bed in no apparent distress. HEENT: NCAT Neck: supple Cor: RRR, normal s1/s2, no m/r/g Pulm: CTA b/l Abd: soft, normoactive bowel sounds Ext: contracted 2/2 cerebral palsy. edematous Laboratory Results - last 24 hr 07/24/17 07/24/17 09:20 09:20 WBC 9.7 RBC 4.76 Hgb 13.9 Hct 42.7 MCV 89.6 MCH 29.1 MCHC 32.5 RDW 17.9 H Plt Count 341 MPV 8.6 Neutrophils % 79.5 Lymphocytes % 14.6 Monocytes % 3.4 L Eosinophils % 2.0 Basophils % 0.5 Nucleated RBC % 0 Sodium 142 Potassium 4.5 Chloride 105 Carbon Dioxide 32 D Anion Gap 5 L BUN 11 Creatinine 0.9 D Creat Clearance w eGFR > 60 Random Glucose 117 H D Calcium 8.3 L Total Bilirubin 0.2 D AST 19 D ALT 32 Alkaline Phosphatase 148 H Total Protein 5.9 L Albumin 2.5 L Active Medications Generic Name Dose Route Start Last Admin Trade Name Freq PRN Reason Stop Dose Admin Acetaminophen 650 mg 07/22/17 20:05 07/23/17 21:50 Tylenol - PO 650 mg Q4H PRN Administration FEVER Albuterol/Ipratropium 1 amp 07/20/17 08:58 07/24/17 16:36 Duoneb - NEB 1 amp RQID [facility] Administration Carbamazepine 300 mg 07/20/17 01:30 07/24/17 10:50 Tegretol Xr - PO 300 mg BID [facility] Administration Carvedilol 12.5 mg 07/24/17 22:00 Coreg - PO BID [facility] Cholecalciferol 2,000 unit 07/20/17 10:00 07/24/17 10:50 Vitamin D3 - PO 2,000 unit BID [facility] Administration Clotrimazole 1 applic 07/20/17 15:20 07/24/17 10:50 Lotrimin 1% Cream - TP 1 applic BID [facility] Administration Diphenhydramine HCl 25 mg 07/19/17 23:45 07/24/17 14:00 Benadryl Oral Solution - PO 25 mg QID [facility] Administration Furosemide 40 mg 07/23/17 10:00 07/24/17 10:49 Lasix - PO 40 mg DAILY [facility] Administration Heparin Sodium (Porcine) 5,000 unit 07/20/17 06:00 07/24/17 15:10 Heparin - SQ 5,000 unit TID [facility] Administration Azithromycin 500 mg/ Dextrose 250 mls @ 250 mls/hr 07/20/17 11:50 07/24/17 10 :50 IVPB 250 mls/hr DAILY [facility] Administration Piperacillin Sod/Tazobactam 50 mls @ 100 mls/hr 07/20/17 18:00 07/24/17 10:51 Sod 3.375 gm/ Dextrose IVPB 100 mls/hr Q8H-IV [facility] Administration Protocol Levetiracetam 1,000 mg 07/20/17 06:00 07/24/17 15:11 Keppra - PO 1,000 mg TID [facility] Administration Multivitamins/Minerals/Vitamin C 1 tab 07/20/17 10:00 07/24/17 10:50 Tab-A-Vit - PO 1 tab DAILY [facility] Administration Non-Formulary Medication 1,400 mg 07/22/17 22:00 07/24/17 10:50 Rufinamide [Banzel] PO 1,400 mg BID [facility] Administration Non-Formulary Medication 100 mg 07/20/17 13:45 Testosterone Cypionate [Testosterone Cypionate] IM WEEKLY [facility] Non-Formulary Medication 1 tab 07/22/17 19:30 07/24/17 12:00 Lactase [Lactaid Fast Act] PO 1 tab TIDCM [facility] Administration Wvjix-3-[id number] Ethyl Esters 1 gm 07/20/17 10:00 07/24/17 10:50 Lovaza - PO 1 gm BID [facility] Administration Phenobarbital 60 mg 07/20/17 00:03 07/23/17 21:52 Phenobarbital - PO 60 mg HS [facility] Administration Senna 1 tab 07/20/17 22:00 07/24/17 10:50 Senna - PO 1 tab BID [facility] Administration Tamsulosin HCl 0.4 mg 07/20/17 22:00 06/03/18 21:51 Flomax - PO 0.4 mg HS [facility] Administration ASSESSMENT/PLAN: Pt is a 47 y/o M with a PMHx of CHF, cerebral palsy, epilepsy, hx of fractures, renal stones, factor VIII deficiency, [facility] resident who presented to hospital for a reported 3 days of shortness of breath. He was admitted for HCAP vs CHF exacerbation. #Acute hypoxic respiratory failure 2/2 HCAP vs CHF exacerbation -clinical findings on admission -I/O's -Daily weights -raise head of bed -coreg -f/u repeat chest CT -Sats 98% on 2L. Note that pt has spastic episodes during which he holds his breath and O2 sat tends to drop, but baseline O2 requirement stable #CHF -severe hypokinesis on echo -Cardio consulted: rec reassessment of cardiac function as out pt, - tsh 2.65 -Lasix #Sepsis ? 2/2 PNA - Recent hospitalization for HCAP - Diffuse congestive changes, ? infiltrate -blood cultures neg -urine cultures neg -Off BiPap today -azithromycin -zosyn -lactic acidosis resolved -ID consult appreciated -Speech and swallow eval appreciated -Modified barium swallow unremarkable #Seizure disorder -c/w home meds -Carbamazepine -Keppra -Phenobarbitol #Retention/BPH: chronic -continue tamsulosin #FEN -No standing fluids -lytes wnl -dysphagia puree. feed seated #Prophylaxis -heparin 5000 TID #Disposition -admit telemetry Levi Austin MD PGY-1 IM Visit type - Emergency Visit Emergency Visit: No - New Patient This patient is new to me today: No - Critical Care Critical Care patient: No - Discharge Referral Referred to [facility] No
[2017-07-24] MEDS: FUROSEMIDE 40 MG/4 ML INJECTABLE VIAL IVPUSH SCH (20:11)
[2017-07-24] MEDS: PHENobarbital 30 MG TABLET PO SCH (22:55)
[2017-07-24] MEDS: CARVEDILOL 12.5 MG TABLET (FP) PO SCH (22:55)
[2017-07-24] MEDS: TAMSULOSIN HCL 0.4 MG CAP.ER.24H (FP) PO SCH (22:55)
[2017-07-25] MEDS ORDERED: DEXTROSE 5%-WATER - 50 ML IVPB ONE ×3 (01:37→16:56)
[2017-07-25] MEDS ORDERED: PIPERACILLIN/TAZOBACTAM 3.375 GM VIAL IVPB ONE ×3 (01:37→16:56)
[2017-07-25] MEDS: PIPERACILLIN/TAZOB 3.375 GM 3.375 GM in DEXTROSE 5%-WATER - 50 ML IVPB SCH ×3 (01:48→17:01)
[2017-07-25] MEDS ORDERED: PT OWN MED DRAWER 7, Y5N ONE ×3 (06:37→22:21)
[2017-07-25] MEDS: HEPARIN NA (PORCINE) 5,000 UNITS/ML 1ML VIAL SQ SCH ×3 (07:07→23:22)
[2017-07-25] MEDS: levETIRAcetam 500 MG TABLET (FP) PO SCH ×3 (07:07→23:22)
[2017-07-25 07:38] LABS: BASO % 0.5 % (0-2.0); EOS % 1.2 % (0-4.5); HEMATOCRIT 42.3 % (35.4-49); LYMPH % 12.6 % (8-40); MCH 29.3 pg (25.7-33.7); MEAN CELL VOLUME 88.7 fl (80-96); MEAN PLT VOLUME 8.7 fl (7.5-11.1); MONO % 4.8 % (3.8-10.2); NEUT % 80.9 % (42.8-82.8); PLATELET COUNT 348 K/MM3 (134-434); RBC 4.77 M/mm3 (4.00-5.60); RDW 17.8 % (11.9-15.9); WHITE BLOOD COUNT 10.1 K/mm3 (4.0-10.0)
[2017-07-25] MEDS: ALBUTEROL SO4 2.5/IPRATROPIUM 0.5 INH SOL 3 ML VIAL.NEB. NEB SCH ×4 (07:43→20:24)
[2017-07-25] MEDS: LACTASE PO SCH ×3 (07:49→17:00)
--- NOTE | 2017-07-25 08:24 | PN ---
Teaching Attending Note Name of Resident: Levi Austin ATTENDING PHYSICIAN STATEMENT I saw and evaluated the patient. I reviewed the resident's note and discussed the case with the resident. I agree with the resident's findings and plan as documented with exceptions below. SUBJECTIVE: Patient seen and examined. unable to assess for ROS. OBJECTIVE: Vital Signs Period Temp Pulse Resp BP Sys/Velasco Pulse Ox Last 24 Hr 97.8 F-98.4 F 89-102 20-24 101-146/69-83 96-99 Intake & Output 07/22/17 07/23/17 07/24/17 07/25/17 23:59 23:59 23:59 23:59 Intake Total 630 360 70 Output Total 200 Balance -200 630 360 70 Weight 154 lb 9.6 oz 154 lb 154 lb 9 oz General: sitting in bed, no acute distress Chest: poor effort, occasional scattered rhonchi Abdomen: soft, obese, NT Extremities: pos 1+ pedal edema Home Medications Medication Instructions Recorded Carbamazepine [Carbamazepine ER] 300 mg PO Q12H 05/18/17 Cholecalciferol (Vitamin D3) 2,000 unit PO BID 05/18/17 [Vitamin D3] Diphenhydramine [Benadryl 12.5 10 ml PO Q6H 05/18/17 MG/5 ML Oral Solution -] Lactase [Lactaid Fast Act] 1 tab PO TID 05/18/17 Multivitamins [Multivit ([facility] 1 tab PO DAILY 05/18/17 Formulary)] Paloma-3S/Dha/Epa/Fish Oil [Fish 1 each PO BID 05/18/17 Oil Paloma-3 Softgel] Phenobarbital 32.4 mg PO HS 05/18/17 Phenobarbital 64.8 mg PO HS 05/18/17 Tamsulosin HCl [Flomax] 0.4 mg PO HS 05/18/17 Carbamazepine [Carbamazepine ER] 300 mg PO BID 07/19/17 Clotrimazole [Lotrimin 1% Cream -] 1 applic TP BID 07/19/17 Diazepam Rectal Gel [Diastat 10 mg ID ONCE PRN 07/19/17 Rectal Gel -] Diphenhydramine [Benadryl Oral 25 mg PO Q6H 07/19/17 Solution -] Hydrocortisone 1% Ointment [Hytone 1 applic TP BID 07/19/17 1% Ointment -] Lactulose 20 gm PO TID 07/19/17 Levetiracetam 1,000 mg PO TID 07/19/17 Multivitamin [Multiple Vitamins] 1 each PO DAILY 07/19/17 Oxycodone HCl/Acetaminophen 1 tab PO Q4H PRN 07/19/17 [Percocet 5-325 mg Tablet] Phenobarbital 32.4 mg PO HS 07/19/17 Sennosides [Senna] 8.6 mg PO BID 07/19/17 Testosterone Cypionate 100 mg IM WEEKLY 07/19/17 Active Medications Acetaminophen (Tylenol -) 650 mg PO Q4H PRN PRN Reason: FEVER Last Admin: 07/23/17 21:50 Dose: 650 mg Albuterol/Ipratropium (Duoneb -) 1 amp NEB RQID [facility] Last Admin: 07/25/17 07:43 Dose: 1 amp Carbamazepine (Tegretol Xr -) 300 mg PO BID [facility] Last Admin: 07/24/17 22:56 Dose: 300 mg Carvedilol (Coreg -) 12.5 mg PO BID [facility] Last Admin: 07/24/17 22:55 Dose: 12.5 mg Cholecalciferol (Vitamin D3 -) 2,000 unit PO BID [facility] Last Admin: 07/24/17 22:54 Dose: 2,000 unit Clotrimazole (Lotrimin 1% Cream -) 1 applic TP BID [facility] Last Admin: 07/24/17 21:40 Dose: 1 applic Diphenhydramine HCl (Benadryl Oral Solution -) 25 mg PO QID [facility] Last Admin: 07/24/17 22:54 Dose: 25 mg Furosemide (Lasix Injection -) 40 mg IVPUSH DAILY [facility] Last Admin: 07/24/17 20:11 Dose: 40 mg Heparin Sodium (Porcine) (Heparin -) 5,000 unit SQ TID [facility] Last Admin: 07/25/17 07:07 Dose: 5,000 unit Azithromycin 500 mg/ Dextrose 250 mls @ 250 mls/hr IVPB DAILY [facility] Last Admin: 07/24/17 10:50 Dose: 250 mls/hr Piperacillin Sod/Tazobactam (Sod 3.375 gm/ Dextrose) 50 mls @ 100 mls/hr IVPB Q8H-IV [facility]; Protocol Last Admin: 07/25/17 01:48 Dose: 100 mls/hr Levetiracetam (Keppra -) 1,000 mg PO TID [facility] Last Admin: 07/25/17 07:07 Dose: 1,000 mg Multivitamins/Minerals/Vitamin C (Tab-A-Vit -) 1 tab PO DAILY [facility] Last Admin: 07/24/17 10:50 Dose: 1 tab Non-Formulary Medication (Rufinamide [Banzel]) 1,400 mg PO BID [facility] Last Admin: 07/24/17 22:55 Dose: 1,400 mg Non-Formulary Medication (Testosterone Cypionate [Testosterone Cypionate]) 100 mg IM WEEKLY [facility] Non-Formulary Medication (Lactase [Lactaid Fast Act]) 1 tab PO TIDCM [facility] Last Admin: 07/25/17 07:49 Dose: 1 tab Zljzq-1-Abff Ethyl Esters (Lovaza -) 1 gm PO BID [facility] Last Admin: 07/24/17 22:54 Dose: 1 gm Phenobarbital (Phenobarbital -) 60 mg PO [facility] Last Admin: 07/24/17 22:55 Dose: 60 mg Senna (Senna -) 1 tab PO BID [facility] Last Admin: 07/24/17 22:56 Dose: 1 tab Tamsulosin HCl (Flomax -) 0.4 mg PO [facility] Last Admin: 07/24/17 22:55 Dose: 0.4 mg Laboratory Results - last 24 hr 07/25/17 07/25/17 06:30 06:30 WBC 10.1 H RBC 4.77 Hgb 14.0 Hct 42.3 MCV 88.7 MCH 29.3 MCHC 33.0 RDW 17.8 H Plt Count 348 MPV 8.7 Absolute Neuts (auto) 8.1 Neutrophils % 80.9 Lymphocytes % 12.6 Monocytes % 4.8 Eosinophils % 1.2 Basophils % 0.5 Nucleated RBC % 0 Sodium 142 Potassium 4.3 Chloride 104 Carbon Dioxide 30 Anion Gap 8 BUN 16 D Creatinine 1.0 Creat Clearance w eGFR > 60 Random Glucose 82 D Calcium 8.7 Total Bilirubin 0.3 D AST 21 ALT 34 Alkaline Phosphatase 138 H Total Protein 6.2 L Albumin 2.6 L Microbiology 07/19/17 21:00 Blood - Peripheral Venous Blood Culture - Final NO GROWTH AFTER 5 DAYS INCUBATION 07/19/17 20:38 Blood - Peripheral Venous Blood Culture - Final NO GROWTH AFTER 5 DAYS INCUBATION 07/23/17 15:45 Sputum - Endotracheal Suction W/O Vent Gram Stain - Final 07/20/17 18:00 Urine For Antigen Detection Legionella Antigen - Final 07/20/17 18:00 Urine For Antigen Detection Streptococcus pneumoniae Antigen (M - Final 07/19/17 23:05 Urine - Urine Clean Catch Urine Culture - Final NO GROWTH OBTAINED 2D echo and CT chest results reviewed ASSESSMENT AND PLAN: 47yo M wtih PMH systolic CHF, Cerebral palsy, epilepsy from [facility] presented to the ER with shortness of breath for 3 days and found to be septic in the ER -Sepsis likely secondary to multifocal PNA -Acute hypoxic respiratory failure, from above +/- acute Systolic HF exacerbation -New cardiomyopathy EF 30% -Elevated Troponin with anterolateral EKG changes, likely demand ischemia from above -Dysphagia -Cerebral palsy -Epilepsy Plan; Zosyn/azithromycin day 6, cultures neg. CT chest noted. Transition to augmentin on dc. Pureed nectar thick diet with aspiration precautions. Discussed with Dr. Sanchez, IV lasix for now, strict I/Os and bipap prn Ischemia w/u and repeat Echo outpatient once infectious process resolved. Pulmonary input. Continue home anti-epileptics DVTPPx with heparin Dispo pending clinical improvement, in 1-2 days back to [place] if continues to improve.
[2017-07-25 09:00] LABS: ALBUMIN 2.6 g/dl (3.4-5.0); ALK PHOS 138 U/L (45-117); ANION GAP 8 (8-16); BILIRUBIN,TOTAL 0.3 mg/dL (0.2-1.0); BLOOD UREA NITROGEN 16 mg/dL (7-18); CALCIUM 8.7 mg/dL (8.5-10.1); CHLORIDE 104 mmol/L (98-107); CO2 30 mmol/L (21-32); GLUCOSE,RANDOM 82 mg/dL (74-106); POTASSIUM 4.3 mmol/L (3.5-5.1); SGOT/AST 21 U/L (15-37); SGPT/ALT 34 U/L (12-78); SODIUM 142 mmol/L (136-145); TOT PROT 6.2 g/dl (6.4-8.2)
[2017-07-25] MEDS: SENNOSIDES 8.6MG TABLET (FP) PO SCH ×2 (10:26→23:23)
[2017-07-25] MEDS: FUROSEMIDE 40 MG/4 ML INJECTABLE VIAL IVPUSH SCH (10:26)
[2017-07-25] MEDS: CARVEDILOL 12.5 MG TABLET (FP) PO SCH (10:26)
[2017-07-25] MEDS: OMEGA-3 ACID ETHYL ESTERS (FATTY-ACIDS) 1 GM CAPSULE (FP) PO SCH ×2 (10:26→23:22)
[2017-07-25] MEDS: CHOLECALCIFEROL (VITAMIN D3) 1,000 UNIT TABLET (FP) PO SCH ×2 (10:26→23:25)
[2017-07-25] MEDS: MULTIVITAMINS (DAILY MVI) TABLET (FP) PO SCH (10:27)
[2017-07-25] MEDS: diphenhydrAMINE HCL 12.5 MG/5 ML UNIT-DOSE CUPS PO SCH ×4 (10:27→23:21)
[2017-07-25] MEDS: AZITHROMYCIN IVPB 500 MG in DEXTROSE 5%-WATER - 250 ML IVPB SCH (10:27)
[2017-07-25] MEDS: CLOTRIMAZOLE 1% CREAM 15 GM TUBE TP SCH ×2 (10:28→23:45)
[2017-07-25] MEDS: RUFINAMIDE PO SCH ×2 (10:28→23:26)
--- NOTE | 2017-07-25 11:32 | PN ---
Progress Note, Physician History of Present Illness: Awake Non verbal Resists exam Breathing non- labored Still with occasional cough Afebrile WBC 10.1 CT ground glass appearing lung tay read as pulm vasc congestion, L effusion, RUL/RML bronchial thickening - Current Medication List Current Medications: Active Medications Acetaminophen (Tylenol -) 650 mg PO Q4H PRN PRN Reason: FEVER Last Admin: 07/23/17 21:50 Dose: 650 mg Albuterol/Ipratropium (Duoneb -) 1 amp NEB RQID [facility] Last Admin: 07/25/17 07:43 Dose: 1 amp Carbamazepine (Tegretol Xr -) 300 mg PO BID [facility] Last Admin: 07/25/17 10:45 Dose: 300 mg Carvedilol (Coreg -) 12.5 mg PO BID [facility] Last Admin: 07/25/17 10:26 Dose: 12.5 mg Cholecalciferol (Vitamin D3 -) 2,000 unit PO BID [facility] Last Admin: 07/25/17 10:26 Dose: 2,000 unit Clotrimazole (Lotrimin 1% Cream -) 1 applic TP BID [facility] Last Admin: 07/25/17 10:28 Dose: 1 applic Diphenhydramine HCl (Benadryl Oral Solution -) 25 mg PO QID [facility] Last Admin: 07/25/17 10:27 Dose: 25 mg Furosemide (Lasix Injection -) 40 mg IVPUSH DAILY [facility] Last Admin: 07/25/17 10:26 Dose: 40 mg Heparin Sodium (Porcine) (Heparin -) 5,000 unit SQ TID [facility] Last Admin: 07/25/17 07:07 Dose: 5,000 unit Azithromycin 500 mg/ Dextrose 250 mls @ 250 mls/hr IVPB DAILY [facility] Last Admin: 07/25/17 10:27 Dose: 250 mls/hr Piperacillin Sod/Tazobactam (Sod 3.375 gm/ Dextrose) 50 mls @ 100 mls/hr IVPB Q8H-IV [facility]; Protocol Last Admin: 07/25/17 10:27 Dose: 100 mls/hr Levetiracetam (Keppra -) 1,000 mg PO TID [facility] Last Admin: 07/25/17 07:07 Dose: 1,000 mg Multivitamins/Minerals/Vitamin C (Tab-A-Vit -) 1 tab PO DAILY [facility] Last Admin: 07/25/17 10:27 Dose: 1 tab Non-Formulary Medication (Rufinamide [Banzel]) 1,400 mg PO BID [facility] Last Admin: 07/25/17 10:28 Dose: 1,400 mg Non-Formulary Medication (Testosterone Cypionate [Testosterone Cypionate]) 100 mg IM WEEKLY [facility] Non-Formulary Medication (Lactase [Lactaid Fast Act]) 1 tab PO TIDCM [facility] Last Admin: 07/25/17 07:49 Dose: 1 tab Yueag-2-Tvhg Ethyl Esters (Lovaza -) 1 gm PO BID [facility] Last Admin: 07/25/17 10:26 Dose: 1 gm Phenobarbital (Phenobarbital -) 60 mg PO [facility] Last Admin: 07/24/17 22:55 Dose: 60 mg Senna (Senna -) 1 tab PO BID [facility] Last Admin: 07/25/17 10:26 Dose: 1 tab Tamsulosin HCl (Flomax -) 0.4 mg PO [facility] Last Admin: 07/24/17 22:55 Dose: 0.4 mg - Objective Vital Signs: Vital Signs Temperature 98.2 F 07/25/17 05:57 Pulse Rate 96 H 07/25/17 05:57 Respiratory Rate 20 07/25/17 05:57 Blood Pressure 120/83 07/25/17 05:57 O2 Sat by Pulse Oximetry (%) 96 07/25/17 07:43 Constitutional: Yes: No Distress Eyes: Yes: Conjunctiva Clear Cardiovascular: Yes: Regular Rate and Rhythm, S1, S2 Respiratory: Yes: Diminished Gastrointestinal: Yes: Normal Bowel Sounds, Soft, Abdomen, Obese. No: Tenderness Labs: CBC, BMP 07/25/17 06:30 07/25/17 06:30 Assessment/Plan Pneumonia, possible HCAP ?CHF CP/MR Empiric zithromax/ zosyn day #6 May substitute Augmentin 875mg po bid x7d
--- NOTE | 2017-07-25 11:49 | PN ---
Progress Note (short form) - Note Progress Note: CC: sob S: per aide, breathing appears more comfortable today. otherwise no change in demeanor. non-verbal. coreg dose increased to 12.5 mg bid last yesterday and switched from 40 mg lasix po to 40 mg IV lasix daily yesterday. Current Medications Acetaminophen (Tylenol -) 650 mg PO Q4H PRN PRN Reason: FEVER Last Admin: 07/23/17 21:50 Dose: 650 mg Albuterol/Ipratropium (Duoneb -) 1 amp NEB RQID [facility] Last Admin: 07/25/17 07:43 Dose: 1 amp Carbamazepine (Tegretol Xr -) 300 mg PO BID [facility] [place] Last Admin: 07/25/17 10:45 Dose: 300 mg Carvedilol (Coreg -) 12.5 mg PO BID [facility] [place] Last Admin: 07/25/17 10:26 Dose: 12.5 mg Cholecalciferol (Vitamin D3 -) 2,000 unit PO BID [facility] [place] Last Admin: 07/25/17 10:26 Dose: 2,000 unit Clotrimazole (Lotrimin 1% Cream -) 1 applic TP BID [facility] [place] Last Admin: 07/25/17 10:28 Dose: 1 applic Diphenhydramine HCl (Benadryl Oral Solution -) 25 mg PO QID [facility] [place] Last Admin: 07/25/17 10:27 Dose: 25 mg Furosemide (Lasix Injection -) 40 mg IVPUSH DAILY [facility] Last Admin: 07/25/17 10:26 Dose: 40 mg Heparin Sodium (Porcine) (Heparin -) 5,000 unit SQ TID [facility] [place] Last Admin: 07/25/17 07:07 Dose: 5,000 unit Azithromycin 500 mg/ Dextrose 250 mls @ 250 mls/hr IVPB DAILY [facility] [place] Last Admin: 07/25/17 10:27 Dose: 250 mls/hr Piperacillin Sod/Tazobactam (Sod 3.375 gm/ Dextrose) 50 mls @ 100 mls/hr IVPB Q8H-IV [facility] [place]; Protocol Last Admin: 07/25/17 10:27 Dose: 100 mls/hr Levetiracetam (Keppra -) 1,000 mg PO TID [facility] [place] Last Admin: 07/25/17 07:07 Dose: 1,000 mg Multivitamins/Minerals/Vitamin C (Tab-A-Vit -) 1 tab PO DAILY [facility] [place] Last Admin: 07/25/17 10:27 Dose: 1 tab Non-Formulary Medication (Rufinamide [Banzel]) 1,400 mg PO BID [facility] [place] Last Admin: 07/25/17 10:28 Dose: 1,400 mg Non-Formulary Medication (Testosterone Cypionate [Testosterone Cypionate]) 100 mg IM WEEKLY [facility] [place] Non-Formulary Medication (Lactase [Lactaid Fast Act]) 1 tab PO TIDCM [facility] [place] Last Admin: 07/25/17 11:41 Dose: 1 tab Hrjuy-2-Nrnq Ethyl Esters (Lovaza -) 1 gm PO BID [facility] [place] Last Admin: 07/25/17 10:26 Dose: 1 gm Phenobarbital (Phenobarbital -) 60 mg PO [facility] Last Admin: 07/24/17 22:55 Dose: 60 mg Senna (Senna -) 1 tab PO BID [facility] Last Admin: 07/25/17 10:26 Dose: 1 tab Tamsulosin HCl (Flomax -) 0.4 mg PO [facility] Last Admin: 07/24/17 22:55 Dose: 0.4 mg Vital Signs - 24 hr 07/24/17 07/24/17 07/24/17 12:00 12:17 14:03 Temperature 98 F Pulse Rate 98 H 99 H Respiratory 22 Rate Blood Pressure 146/77 O2 Sat by Pulse 99 99 Oximetry (%) 07/24/17 07/24/17 07/24/17 16:00 16:35 19:50 Temperature 97.8 F Pulse Rate 102 H Respiratory 20 Rate Blood Pressure 115/69 O2 Sat by Pulse 99 98 Oximetry (%) 07/24/17 07/24/17 07/25/17 20:00 21:00 05:50 Temperature 98.4 F 98.2 F Pulse Rate 98 H 89 Respiratory 20 20 Rate Blood Pressure 101/77 107/72 O2 Sat by Pulse 98 Oximetry (%) 07/25/17 07/25/17 05:57 07:43 Temperature 98.2 F Pulse Rate 96 H Respiratory 20 Rate Blood Pressure 120/83 O2 Sat by Pulse 96 Oximetry (%) Intake & Output 07/23/17 07/24/17 07/25/17 07/26/17 07:59 07:59 07:59 07:59 Intake Total 10 630 420 Output Total 200 Balance -190 630 420 Weight 155 lb 3.2 oz 154 lb 9 oz nad, calm jvd flat, neck supple bibasilar rales, nl effort regular. nl s1, s2 no mrg. + bs soft nt nd, no hsm ext with trace soft edema. no c/c + dp/pt awake, alert. non-verbal does not follow commands no jaundice, diaphoresis. CBC, BMP 07/25/17 06:30 07/25/17 06:30 Microbiology 07/23/17 15:45 Sputum - Endotracheal Suction W/O Vent Sputum Culture - Preliminary Yeast Like Organism Laboratory Tests 07/25/17 06:30 Total Bilirubin 0.3 D AST 21 ALT 34 Alkaline Phosphatase 138 H Albumin 2.6 L ekg: sr, new anterolateral t wave changes. tele: sr/sinus tach echo 06/2017: nl lv size. LV sys fn severely reduced. (global). nl rv size/ fn. 1+ lae. nl valves. no pericardial effusion echo 04/2017 tds: gross decrease in systolic fn (moderate). tds for rwma. RV/ atria not well visualized. no significant MV/AV abnormalities. TV/PV not well visualized. no pericardial effusion. chest ct 07/2017: upper lobe predominant vascular congestion with bilateral mosaic attenuation/air trapping. bronchial wall thickening and peripheral subpleural opacities on right. trace left pleural effusion. CM, small pericardial effusion. chest ct 04/2017: images and report reviewed. bilateral pulmonary infiltrates. very small left pleural effusion. small pericardial effusion. see emr for detailed findings. 06/2017 cxr: congestive changes (also described on April cxr when patient had pulmonary infiltrates pna). Possibly superimposed early infiltrate. 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 sob/hypoxia/sepsis - congestive changes similar to April when patient had pulmonary infiltrates and not edema. Patient presented with bandemia, low grade fevers and infectious sx's. Patient had bp drop late afternoon after lasix. BNP lower than prior. -holding lasix for now, cont abx 07/22: Does not appear volume overloaded. given one dose of lasix 40 mg IV x 1. 07/23: PO furosemide started by primary team. Tolerating. 07/24: will check ct scan to determine what portion of lung pathology is infection vs. edema. consider retrial of lasix 40 mg daily starting today. 07/25: sputum + for yeast. chest ct scan with mild congestion. 40 IV lasix started yesterday. abnormal troponins/new systolic cardiomyopathy - low-intermediate elevation, flat trend with new anterolateral twi c/w demand in setting of tachycardia, hypoxia and infection. - initially held bb, jacob due to low bp likely 2/2 infection - April echo with new systolic cardiomyopathy in setting of pna/sepsis. Recommend reassessment of EF as outpatient when PNA resolves completely to assess for improvement. If no improvement than will need outpatient work up for cardiomyopathy. - lyte repletion prn daily weights, i/o's. 07/22: BP to 140s now. May start low dose coreg 3.125mg BID. 07/23: BP remains elevated. Will titrate up Coreg to 6.25 BID 07/24: uptitrated to coreg to 12.5 mg bid --> improved bp control. jacob remains on hold. Will resume next. 07/25: bp running on lower end after increasing coreg to 12.5 and switching to iv lasix yesterday. Will decrease coreg back down to 6.25 mg bid to make bp room for acei. bmp stable on iv lasix, con't. hgb and lft's stable, will add asa, statin for primary prevention.
--- NOTE | 2017-07-25 15:10 | PN ---
Progress Note, [employer] - Note Progress Note: Selected Entries 07/23/17 07/23/17 07/23/17 02:02 06:00 11:29 Breakfast 100% Lunch Temperature 97.3 F L 97.9 F 07/23/17 07/23/17 07/24/17 15:00 19:45 02:00 Breakfast Lunch 75% Temperature 98.4 F 98.8 F 99.0 F 07/24/17 06:00 Breakfast Lunch Temperature 98.3 F Laboratory Tests 07/24/17 09:20 WBC 9.7 Selected Entries 07/24/17 07/24/17 07/24/17 02:00 06:00 14:03 Breakfast Lunch Temperature 99.0 F 98.3 F 98 F 07/24/17 07/24/17 07/25/17 19:50 20:00 05:50 Breakfast Lunch Temperature 97.8 F 98.4 F 98.2 F 07/25/17 07/25/17 07/25/17 05:57 07:10 12:02 Breakfast 100% Lunch 75% Temperature 98.2 F 07/25/17 12:26 Breakfast Lunch 100% Temperature Laboratory Tests 07/23/17 07/24/17 07/25/17 06:30 09:20 06:30 WBC 10.5 H 9.7 10.1 H Pt on Dys Puree/nectar thick liquids. Tolerating diet at this time.
--- NOTE | 2017-07-25 18:46 | PN ---
Physical Exam: SUBJECTIVE: Patient seen and examined at bedside. Pt is nonverbal. OBJECTIVE: Vital Signs Period Temp Pulse Resp BP Sys/Velasco Pulse Ox Last 24 Hr 97.8 F-98.4 F 89-102 20-20 101-120/69-83 96-98 Nonverbal and Uncommunicative. Limited exam Gen: Sitting in bed in no apparent distress. HEENT: NCAT Neck: supple Cor: RRR, normal s1/s2, no m/r/g Pulm: CTA b/l Abd: soft, normoactive bowel sounds Ext: contracted 2/2 cerebral palsy. edematous Laboratory Results - last 24 hr 07/25/17 07/25/17 06:30 06:30 WBC 10.1 H RBC 4.77 Hgb 14.0 Hct 42.3 MCV 88.7 MCH 29.3 MCHC 33.0 RDW 17.8 H Plt Count 348 MPV 8.7 Absolute Neuts (auto) 8.1 Neutrophils % 80.9 Lymphocytes % 12.6 Monocytes % 4.8 Eosinophils % 1.2 Basophils % 0.5 Nucleated RBC % 0 Sodium 142 Potassium 4.3 Chloride 104 Carbon Dioxide 30 Anion Gap 8 BUN 16 D Creatinine 1.0 Creat Clearance w eGFR > 60 Random Glucose 82 D Calcium 8.7 Total Bilirubin 0.3 D AST 21 ALT 34 Alkaline Phosphatase 138 H Total Protein 6.2 L Albumin 2.6 L Active Medications Generic Name Dose Route Start Last Admin Trade Name Freq PRN Reason Stop Dose Admin Acetaminophen 650 mg 07/22/17 20:05 07/23/17 21:50 Tylenol - PO 650 mg Q4H PRN Administration FEVER Albuterol/Ipratropium 1 amp 07/20/17 08:58 07/25/17 11:47 Duoneb - NEB 1 amp RQID CATHERINE Administration Aspirin 81 mg 07/26/17 10:00 Ecotrin - PO DAILY CATHERINE Atorvastatin Calcium 10 mg 07/25/17 22:00 Lipitor - PO HS CATHERINE Carbamazepine 300 mg 07/20/17 01:30 07/25/17 10:45 Tegretol Xr - PO 300 mg BID CATHERINE Administration Carvedilol 6.25 mg 07/25/17 22:00 Coreg - PO BID CATHERINE Cholecalciferol 2,000 unit 07/20/17 10:00 07/25/17 10:26 Vitamin D3 - PO 2,000 unit BID CATHERINE Administration Clotrimazole 1 applic 07/20/17 15:20 07/25/17 10:28 Lotrimin 1% Cream - TP 1 applic BID CATHERINE Administration Diphenhydramine HCl 25 mg 07/19/17 23:45 07/25/17 17:00 Benadryl Oral Solution - PO 25 mg QID CATHERINE Administration Furosemide 40 mg 07/24/17 19:00 07/25/17 10:26 Lasix Injection - IVPUSH 40 mg DAILY CATHERINE Administration Heparin Sodium (Porcine) 5,000 unit 07/20/17 06:00 07/25/17 15:00 Heparin - SQ 5,000 unit TID CATHERINE Administration Azithromycin 500 mg/ Dextrose 250 mls @ 250 mls/hr 07/20/17 11:50 07/25/17 10 :27 IVPB 250 mls/hr DAILY CATHERINE Administration Piperacillin Sod/Tazobactam 50 mls @ 100 mls/hr 07/20/17 18:00 07/25/17 17:01 Sod 3.375 gm/ Dextrose IVPB 100 mls/hr Q8H-IV CATHERINE Administration Protocol Levetiracetam 1,000 mg 07/20/17 06:00 07/25/17 15:00 Keppra - PO 1,000 mg TID CATHERINE Administration Multivitamins/Minerals/Vitamin C 1 tab 07/20/17 10:00 07/25/17 10:27 Tab-A-Vit - PO 1 tab DAILY CATHERINE Administration Non-Formulary Medication 1,400 mg 07/22/17 22:00 07/25/17 10:28 Rufinamide [Banzel] PO 1,400 mg BID CATHERINE Administration Non-Formulary Medication 100 mg 07/20/17 13:45 Testosterone Cypionate [Testosterone Cypionate] IM WEEKLY CATHERINE Non-Formulary Medication 1 tab 07/22/17 19:30 07/25/17 17:00 Lactase [Lactaid Fast Act] PO 1 tab TIDCM CATHERINE Administration Oytni-1-Vuwq Ethyl Esters 1 gm 07/20/17 10:00 07/25/17 10:26 Lovaza - PO 1 gm BID CATHERINE Administration Phenobarbital 60 mg 07/20/17 00:03 07/24/17 22:55 Phenobarbital - PO 60 mg HS CATHERINE Administration Senna 1 tab 07/20/17 22:00 07/25/17 10:26 Senna - PO 1 tab BID CATHERINE Administration Tamsulosin HCl 0.4 mg 07/20/17 22:00 07/24/17 22:55 Flomax - PO 0.4 mg HS CATHERINE Administration ASSESSMENT/PLAN: Pt is a 47 y/o M with a PMHx of CHF, cerebral palsy, epilepsy, hx of fractures, renal stones, factor VIII deficiency, [facility] resident who presented to hospital for a reported 3 days of shortness of breath. He was admitted for HCAP vs CHF exacerbation. #Acute hypoxic respiratory failure 2/2 HCAP vs CHF exacerbation -clinical findings on admission -I/O's -Daily weights -raise head of bed -coreg 6.25 -f/u repeat chest CT -Sats 98% on 2L. Note that pt has spastic episodes during which he holds his breath and O2 sat tends to drop, but baseline O2 requirement stable #CHF - severe hypokinesis on echo - Cardio consulted: rec reassessment of cardiac function as out pt - tsh 2.65 - Lasix - cardio recs keeping patient on lasix for tomorrow #Sepsis ? 2/2 PNA -Recent hospitalization for HCAP -Diffuse congestive changes, ? infiltrate -blood cultures neg -urine cultures neg -Off BiPap -azithromycin -zosyn -lactic acidosis resolved -ID consult appreciated -Speech and swallow eval appreciated -Modified barium swallow unremarkable #Seizure disorder -c/w home meds -Carbamazepine -Keppra -Phenobarbitol #Retention/BPH: chronic -continue tamsulosin #FEN -No standing fluids -lytes wnl -dysphagia puree. feed seated #Prophylaxis -heparin 5000 TID #Disposition -admit telemetry Levi Austin MD PGY-1 IM Visit type - Emergency Visit Emergency Visit: No - New Patient This patient is new to me today: No - Critical Care Critical Care patient: No - Discharge Referral Referred to [facility] No
--- NOTE | 2017-07-25 21:24 | PN ---
Physical Exam: SUBJECTIVE: Patient seen and examined OBJECTIVE: Vital Signs Period Temp Pulse Resp BP Sys/Velasco Pulse Ox Last 24 Hr 97.4 F-98.2 F 89-96 20-20 105-120/72-83 96-98 GENERAL: The patient is awake, alert, and fully oriented, in no acute distress. HEAD: Normal with no signs of trauma. EYES: PERRL, extraocular movements intact, sclera anicteric, conjunctiva clear. No ptosis. ENT: Ears normal, nares patent, oropharynx clear without exudates, moist mucous membranes. NECK: Trachea midline, full range of motion, supple. LUNGS: Breath sounds equal, clear to auscultation bilaterally, no wheezes, no crackles, no accessory muscle use. HEART: Regular rate and rhythm, S1, S2 without murmur, rub or gallop. ABDOMEN: Soft, nontender, nondistended, normoactive bowel sounds, no guarding, no rebound, no hepatosplenomegaly, no masses. EXTREMITIES: 2+ pulses, warm, well-perfused, no edema. NEUROLOGICAL: Cranial nerves II through XII grossly intact. Normal speech, gait not observed. PSYCH: Normal mood, normal affect. SKIN: Warm, dry, normal turgor, no rashes or lesions noted Laboratory Results - last 24 hr 07/25/17 07/25/17 06:30 06:30 WBC 10.1 H RBC 4.77 Hgb 14.0 Hct 42.3 MCV 88.7 MCH 29.3 MCHC 33.0 RDW 17.8 H Plt Count 348 MPV 8.7 Absolute Neuts (auto) 8.1 Neutrophils % 80.9 Lymphocytes % 12.6 Monocytes % 4.8 Eosinophils % 1.2 Basophils % 0.5 Nucleated RBC % 0 Sodium 142 Potassium 4.3 Chloride 104 Carbon Dioxide 30 Anion Gap 8 BUN 16 D Creatinine 1.0 Creat Clearance w eGFR > 60 Random Glucose 82 D Calcium 8.7 Total Bilirubin 0.3 D AST 21 ALT 34 Alkaline Phosphatase 138 H Total Protein 6.2 L Albumin 2.6 L Active Medications Generic Name Dose Route Start Last Admin Trade Name Freq PRN Reason Stop Dose Admin Acetaminophen 650 mg 07/22/17 20:05 07/23/17 21:50 Tylenol - PO 650 mg Q4H PRN Administration FEVER Albuterol/Ipratropium 1 amp 07/20/17 08:58 07/25/17 16:22 Duoneb - NEB 1 amp RQID CATHERINE Administration Aspirin 81 mg 07/26/17 10:00 Ecotrin - PO DAILY CATHERINE Atorvastatin Calcium 10 mg 07/25/17 22:00 Lipitor - PO HS CATHERINE Carbamazepine 300 mg 07/20/17 01:30 07/25/17 10:45 Tegretol Xr - PO 300 mg BID CATHERINE Administration Carvedilol 6.25 mg 07/25/17 22:00 Coreg - PO BID CATHERINE Cholecalciferol 2,000 unit 07/20/17 10:00 07/25/17 10:26 Vitamin D3 - PO 2,000 unit BID CATHERINE Administration Clotrimazole 1 applic 07/20/17 15:20 07/25/17 10:28 Lotrimin 1% Cream - TP 1 applic BID CATHERINE Administration Diphenhydramine HCl 25 mg 07/19/17 23:45 07/25/17 17:00 Benadryl Oral Solution - PO 25 mg QID CATHERINE Administration Furosemide 40 mg 07/24/17 19:00 07/25/17 10:26 Lasix Injection - IVPUSH 40 mg DAILY CATHERINE Administration Heparin Sodium (Porcine) 5,000 unit 07/20/17 06:00 07/25/17 15:00 Heparin - SQ 5,000 unit TID CATHERINE Administration Azithromycin 500 mg/ Dextrose 250 mls @ 250 mls/hr 07/20/17 11:50 07/25/17 10 :27 IVPB 250 mls/hr DAILY CATHERINE Administration Piperacillin Sod/Tazobactam 50 mls @ 100 mls/hr 07/20/17 18:00 07/25/17 17:01 Sod 3.375 gm/ Dextrose IVPB 100 mls/hr Q8H-IV CATHERINE Administration Protocol Levetiracetam 1,000 mg 07/20/17 06:00 07/25/17 15:00 Keppra - PO 1,000 mg TID CATHERINE Administration Multivitamins/Minerals/Vitamin C 1 tab 07/20/17 10:00 07/25/17 10:27 Tab-A-Vit - PO 1 tab DAILY CATHERINE Administration Non-Formulary Medication 1,400 mg 07/22/17 22:00 07/25/17 10:28 Rufinamide [Banzel] PO 1,400 mg BID CATHERINE Administration Non-Formulary Medication 100 mg 07/20/17 13:45 Testosterone Cypionate [Testosterone Cypionate] IM WEEKLY CATHERINE Non-Formulary Medication 1 tab 07/22/17 19:30 07/25/17 17:00 Lactase [Lactaid Fast Act] PO 1 tab TIDCM CATHERINE Administration Twhcl-5-Ocfo Ethyl Esters 1 gm 07/20/17 10:00 07/25/17 10:26 Lovaza - PO 1 gm BID CATHERINE Administration Phenobarbital 60 mg 07/20/17 00:03 07/24/17 22:55 Phenobarbital - PO 60 mg HS CATHERINE Administration Senna 1 tab 07/20/17 22:00 07/25/17 10:26 Senna - PO 1 tab BID CATHERINE Administration Tamsulosin HCl 0.4 mg 07/20/17 22:00 07/24/17 22:55 Flomax - PO 0.4 mg HS CATHERINE Administration ASSESSMENT/PLAN:
[2017-07-25] MEDS ORDERED: ATORVASTATIN CA 10 MG TABLET (FP) PO SCH (22:00)
[2017-07-25] MEDS: CARVEDILOL 6.25 MG TABLET (FP) PO SCH (23:21)
[2017-07-25] MEDS: TAMSULOSIN HCL 0.4 MG CAP.ER.24H (FP) PO SCH (23:22)
[2017-07-25] MEDS: PHENobarbital 30 MG TABLET PO SCH (23:23)
[2017-07-26] MEDS ORDERED: PIPERACILLIN/TAZOBACTAM 3.375 GM VIAL IVPB ONE ×2 (02:52→09:39)
[2017-07-26] MEDS ORDERED: DEXTROSE 5%-WATER - 50 ML IVPB ONE ×2 (02:53→09:39)
[2017-07-26] MEDS: PIPERACILLIN/TAZOB 3.375 GM 3.375 GM in DEXTROSE 5%-WATER - 50 ML IVPB SCH ×2 (03:33→09:58)
[2017-07-26 06:44] LABS: BASO % 0.6 % (0-2.0); EOS % 1.1 % (0-4.5); HEMATOCRIT 42.3 % (35.4-49); HEMOGLOBIN 14.1 GM/dL (11.7-16.9); LYMPH % 19.2 % (8-40); MCH 29.3 pg (25.7-33.7); MCHC 33.2 g/dl (32.0-35.9); MEAN CELL VOLUME 88.3 fl (80-96); MEAN PLT VOLUME 8.9 fl (7.5-11.1); MONO % 6.2 % (3.8-10.2); NEUT % 72.9 % (42.8-82.8); PLATELET COUNT 337 K/MM3 (134-434); RBC 4.79 M/mm3 (4.00-5.60); RDW 17.8 % (11.9-15.9); WHITE BLOOD COUNT 8.5 K/mm3 (4.0-10.0)
[2017-07-26 06:50] LABS: CHLORIDE 102 mmol/L (98-107); POTASSIUM 4.1 mmol/L (3.5-5.1); SODIUM 139 mmol/L (136-145)
[2017-07-26 06:59] LABS: ALBUMIN 2.8 g/dl (3.4-5.0); ALK PHOS 140 U/L (45-117); ANION GAP 9 (8-16); BILIRUBIN,TOTAL 0.3 mg/dL (0.2-1.0); BLOOD UREA NITROGEN 16 mg/dL (7-18); CALCIUM 8.6 mg/dL (8.5-10.1); CO2 28 mmol/L (21-32); GLUCOSE,RANDOM 88 mg/dL (74-106); MAGNESIUM 2.2 mg/dL (1.8-2.4); SGOT/AST 23 U/L (15-37); SGPT/ALT 36 U/L (12-78); TOT PROT 6.5 g/dl (6.4-8.2)
[2017-07-26] MEDS: HEPARIN NA (PORCINE) 5,000 UNITS/ML 1ML VIAL SQ SCH ×2 (07:36→15:42)
[2017-07-26] MEDS: levETIRAcetam 500 MG TABLET (FP) PO SCH ×2 (07:36→15:42)
[2017-07-26] MEDS: LACTASE PO SCH ×2 (07:54→11:20)
--- NOTE | 2017-07-26 08:36 | PN ---
Teaching Attending Note Name of Resident: Levi Austin ATTENDING PHYSICIAN STATEMENT I saw and evaluated the patient. I reviewed the resident's note and discussed the case with the resident. I agree with the resident's findings and plan as documented with exceptions below. SUBJECTIVE: Patient seen and examined. more awake and pleasant OBJECTIVE: Vital Signs Period Temp Pulse Resp BP Sys/Velasco Pulse Ox Last 24 Hr 97.4 F-98.0 F 90-96 20-20 105-118/53-92 96-100 Intake & Output 07/23/17 07/24/17 07/25/17 07/26/17 23:59 23:59 23:59 23:59 Intake Total 630 360 990 Balance 630 360 990 Weight 154 lb 9.6 oz 154 lb 154 lb 9 oz 153 lb 2 oz General; sitting in bed in no acute distress, pleasant Chest: poor effort with occasional rales Home Medications Medication Instructions Recorded Carbamazepine [Carbamazepine ER] 300 mg PO Q12H 05/18/17 Cholecalciferol (Vitamin D3) 2,000 unit PO BID 05/18/17 [Vitamin D3] Diphenhydramine [Benadryl 12.5 10 ml PO Q6H 05/18/17 MG/5 ML Oral Solution -] Lactase [Lactaid Fast Act] 1 tab PO TID 05/18/17 Multivitamins [Multivit ([facility] 1 tab PO DAILY 05/18/17 Formulary)] [place]-3S/Dha/Epa/Fish Oil [Fish 1 each PO BID 05/18/17 Oil [place]-3 Softgel] Phenobarbital 32.4 mg PO HS 05/18/17 Phenobarbital 64.8 mg PO HS 05/18/17 Tamsulosin HCl [Flomax] 0.4 mg PO HS 05/18/17 Carbamazepine [Carbamazepine ER] 300 mg PO BID 07/19/17 Clotrimazole [Lotrimin -] 1 applic TP BID 07/19/17 Diazepam Rectal Gel [Diastat 10 mg AR ONCE PRN 07/19/17 Rectal Gel -] Diphenhydramine [Benadryl 12.5 25 mg PO Q6H 07/19/17 MG/5 ML Oral Solution -] Hydrocortisone 1% Ointment [Hytone 1 applic TP BID 07/19/17 1% Ointment -] Lactulose 20 gm PO TID 07/19/17 Levetiracetam 1,000 mg PO TID 07/19/17 Multivitamin [Multiple Vitamins] 1 each PO DAILY 07/19/17 Oxycodone HCl/Acetaminophen 1 tab PO Q4H PRN 07/19/17 [Percocet 5-325 mg Tablet] Phenobarbital 32.4 mg PO HS 07/19/17 Sennosides [Senna] 8.6 mg PO BID 07/19/17 Testosterone Cypionate 100 mg IM WEEKLY 07/19/17 Active Medications Acetaminophen (Tylenol -) 650 mg PO Q4H PRN PRN Reason: FEVER Last Admin: 07/23/17 21:50 Dose: 650 mg Albuterol/Ipratropium (Duoneb -) 1 amp NEB RQID [facility] Last Admin: 07/25/17 20:24 Dose: 1 amp Aspirin (Ecotrin -) 81 mg PO DAILY [facility] Atorvastatin Calcium (Lipitor -) 10 mg PO HS [facility] Last Admin: 07/25/17 23:22 Dose: 10 mg Carbamazepine (Tegretol Xr -) 300 mg PO BID [facility] Last Admin: 07/25/17 23:26 Dose: 300 mg Carvedilol (Coreg -) 6.25 mg PO BID [facility] Last Admin: 07/25/17 23:21 Dose: 6.25 mg Cholecalciferol (Vitamin D3 -) 2,000 unit PO BID [facility] Last Admin: 07/25/17 23:25 Dose: 2,000 unit Clotrimazole (Lotrimin 1% Cream -) 1 applic TP BID [facility] Last Admin: 07/25/17 23:45 Dose: 1 applic Diphenhydramine HCl (Benadryl Oral Solution -) 25 mg PO QID [facility] Last Admin: 07/25/17 23:21 Dose: 25 mg Furosemide (Lasix Injection -) 40 mg IVPUSH DAILY [facility] Last Admin: 07/25/17 10:26 Dose: 40 mg Heparin Sodium (Porcine) (Heparin -) 5,000 unit SQ TID [facility] Last Admin: 07/26/17 07:36 Dose: 5,000 unit Azithromycin 500 mg/ Dextrose 250 mls @ 250 mls/hr IVPB DAILY [facility] Last Admin: 07/25/17 10:27 Dose: 250 mls/hr Piperacillin Sod/Tazobactam (Sod 3.375 gm/ Dextrose) 50 mls @ 100 mls/hr IVPB Q8H-IV CATHERINE; Protocol Last Admin: 07/26/17 03:33 Dose: 100 mls/hr Levetiracetam (Keppra -) 1,000 mg PO TID [facility] Last Admin: 07/26/17 07:36 Dose: 1,000 mg Multivitamins/Minerals/Vitamin C (Tab-A-Vit -) 1 tab PO DAILY [facility] Last Admin: 07/25/17 10:27 Dose: 1 tab Non-Formulary Medication (Rufinamide [Banzel]) 1,400 mg PO BID [facility] Last Admin: 07/25/17 23:26 Dose: 1,400 mg Non-Formulary Medication (Testosterone Cypionate [Testosterone Cypionate]) 100 mg IM WEEKLY [facility] Non-Formulary Medication (Lactase [Lactaid Fast Act]) 1 tab PO TIDCM [facility] Last Admin: 07/26/17 07:54 Dose: 1 tab [id number] Ethyl Esters (Lovaza -) 1 gm PO BID [facility] Last Admin: 07/25/17 23:22 Dose: 1 gm Phenobarbital (Phenobarbital -) 60 mg PO [facility] Last Admin: 07/25/17 23:23 Dose: 60 mg Senna (Senna -) 1 tab PO BID [facility] Last Admin: 07/25/17 23:23 Dose: 1 tab Tamsulosin HCl (Flomax -) 0.4 mg PO [facility] Last Admin: 07/25/17 23:22 Dose: 0.4 mg Abnormal Lab Results 07/25/17 07/26/17 07/26/17 06:30 06:00 06:00 RDW 17.8 H Alkaline Phosphatase 138 H 140 H Total Protein 6.2 L Albumin 2.6 L 2.8 L Microbiology 07/23/17 15:45 Sputum - Endotracheal Suction W/O Vent Gram Stain - Final 07/23/17 15:45 Sputum - Endotracheal Suction W/O Vent Sputum Culture - Preliminary Yeast Like Organism 07/19/17 21:00 Blood - Peripheral Venous Blood Culture - Final NO GROWTH AFTER 5 DAYS INCUBATION 07/19/17 20:38 Blood - Peripheral Venous Blood Culture - Final NO GROWTH AFTER 5 DAYS INCUBATION 07/20/17 18:00 Urine For Antigen Detection Legionella Antigen - Final 07/20/17 18:00 Urine For Antigen Detection Streptococcus pneumoniae Antigen (M - Final 07/19/17 23:05 Urine - Urine Clean Catch Urine Culture - Final NO GROWTH OBTAINED ASSESSMENT AND PLAN: 47yo M wtih PMH systolic CHF, Cerebral palsy, epilepsy from [facility] presented to the ER with shortness of breath for 3 days and found to be septic in the ER -Sepsis likely secondary to multifocal PNA -Acute hypoxic respiratory failure, from above +/- acute Systolic HF exacerbation -New cardiomyopathy EF 30% -Elevated Troponin with anterolateral EKG changes, likely demand ischemia from above -Dysphagia -Cerebral palsy -Epilepsy Plan; doing well, transition to oral lasix and antibiotics. Dysphagia pureed diet with nectar thick liquids and aspiration precautions. ASA/coreg/statin D/c to [facility] today with outpatient cardiology follow up.
[2017-07-26] MEDS: ALBUTEROL SO4 2.5/IPRATROPIUM 0.5 INH SOL 3 ML VIAL.NEB. NEB SCH ×3 (08:56→15:25)
[2017-07-26] MEDS: diphenhydrAMINE HCL 12.5 MG/5 ML UNIT-DOSE CUPS PO SCH ×2 (09:58→15:42)
[2017-07-26] MEDS: CARVEDILOL 6.25 MG TABLET (FP) PO SCH (09:59)
[2017-07-26] MEDS: SENNOSIDES 8.6MG TABLET (FP) PO SCH (09:59)
[2017-07-26] MEDS: CHOLECALCIFEROL (VITAMIN D3) 1,000 UNIT TABLET (FP) PO SCH (09:59)
[2017-07-26] MEDS: CLOTRIMAZOLE 1% CREAM 15 GM TUBE TP SCH (09:59)
[2017-07-26] MEDS: MULTIVITAMINS (DAILY MVI) TABLET (FP) PO SCH (09:59)
[2017-07-26] MEDS: OMEGA-3 ACID ETHYL ESTERS (FATTY-ACIDS) 1 GM CAPSULE (FP) PO SCH (09:59)
[2017-07-26] MEDS: FUROSEMIDE 40 MG/4 ML INJECTABLE VIAL IVPUSH SCH (09:59)
[2017-07-26] MEDS: RUFINAMIDE PO SCH (10:00)
[2017-07-26] MEDS ORDERED: ASPIRIN COATED 81 MG TABLET.EC PO SCH (10:00)
[2017-07-26] MEDS: AZITHROMYCIN IVPB 500 MG in DEXTROSE 5%-WATER - 250 ML IVPB SCH (10:01)
--- NOTE | 2017-07-26 10:20 | PN ---
Progress Note (short form) - Note Progress Note: s: does not communicate, appears comfortable, no overnight events o: Vital Signs Period Temp Pulse Resp BP Sys/Velasco Pulse Ox Last 24 Hr 97.3 F-98.0 F 90-104 20-20 105-125/53-92 96-100 nad, agitated jvd flat, neck supple diffuse rhonchi, nl effort regular. nl s1, s2 no mrg. + bs soft nd ext with trace soft edema. no c/c awake, alert. non-verbal does not follow commands no jaundice, diaphoresis Current Medications Generic Name Dose Route Start Last Admin Trade Name Freq PRN Reason Stop Dose Admin Acetaminophen 650 mg 07/22/17 20:05 07/23/17 21:50 Tylenol - PO 650 mg Q4H PRN Administration FEVER Albuterol/Ipratropium 1 amp 07/20/17 08:58 07/26/17 08:56 Duoneb - NEB 1 amp RQID CATHERINE Administration Aspirin 81 mg 07/26/17 10:00 07/26/17 09:59 Ecotrin - PO 81 mg DAILY CATHERINE Administration Atorvastatin Calcium 10 mg 07/25/17 22:00 07/25/17 23:22 Lipitor - PO 10 mg HS CATHERINE Administration Carbamazepine 300 mg 07/20/17 01:30 07/25/17 23:26 Tegretol Xr - PO 300 mg BID CATHERINE Administration Carvedilol 6.25 mg 07/25/17 22:00 07/26/17 09:59 Coreg - PO 6.25 mg BID CATHERINE Administration Cholecalciferol 2,000 unit 07/20/17 10:00 07/26/17 09:59 Vitamin D3 - PO 2,000 unit BID CATHERINE Administration Clotrimazole 1 applic 07/20/17 15:20 07/26/17 09:59 Lotrimin 1% Cream - TP 1 applic BID CATHERINE Administration Diphenhydramine HCl 25 mg 07/19/17 23:45 07/26/17 09:58 Benadryl Oral Solution - PO 25 mg QID CATHERINE Administration Furosemide 40 mg 07/24/17 19:00 07/26/17 09:59 Lasix Injection - IVPUSH 40 mg DAILY CATHERINE Administration Heparin Sodium (Porcine) 5,000 unit 07/20/17 06:00 07/26/17 07:36 Heparin - SQ 5,000 unit TID CATHERINE Administration Azithromycin 500 mg/ Dextrose 250 mls @ 250 mls/hr 07/20/17 11:50 07/26/17 10 :01 IVPB 250 mls/hr DAILY CATHERINE Administration Piperacillin Sod/Tazobactam 50 mls @ 100 mls/hr 07/20/17 18:00 07/26/17 09:58 Sod 3.375 gm/ Dextrose IVPB 100 mls/hr Q8H-IV CATHERINE Administration Protocol Levetiracetam 1,000 mg 07/20/17 06:00 07/26/17 07:36 Keppra - PO 1,000 mg TID CATHERINE Administration Multivitamins/Minerals/Vitamin C 1 tab 07/20/17 10:00 07/26/17 09:59 Tab-A-Vit - PO 1 tab DAILY CATHERINE Administration Non-Formulary Medication 1,400 mg 07/22/17 22:00 07/26/17 10:00 Rufinamide [Banzel] PO 1,400 mg BID CATHERINE Administration Non-Formulary Medication 100 mg 07/20/17 13:45 Testosterone Cypionate [Testosterone Cypionate] IM WEEKLY CATHERINE Non-Formulary Medication 1 tab 07/22/17 19:30 07/26/17 07:54 Lactase [Lactaid Fast Act] PO 1 tab TIDCM CATHERINE Administration [id number] Ethyl Esters 1 gm 07/20/17 10:00 07/26/17 09:59 Lovaza - PO 1 gm BID CATHERINE Administration Phenobarbital 60 mg 07/20/17 00:03 07/25/17 23:23 Phenobarbital - PO 60 mg HS CATHERINE Administration Senna 1 tab 07/20/17 22:00 07/26/17 09:59 Senna - PO 1 tab BID CATHERINE Administration Tamsulosin HCl 0.4 mg 07/20/17 22:00 07/25/17 23:22 Flomax - PO 0.4 mg HS CATHERINE Administration CBC, BMP 07/26/17 06:00 07/26/17 06:00 ekg: sr, new anterolateral t wave changes. tele: sr echo 06/2017: nl lv size. LV sys fn severely reduced. (global). nl rv size/ fn. 1+ lae. nl valves. no pericardial effusion echo 04/2017 tds: gross decrease in systolic fn (moderate). tds for rwma. RV/ atria not well visualized. no significant MV/AV abnormalities. TV/PV not well visualized. no pericardial effusion. chest ct 07/2017: upper lobe predominant vascular congestion with bilateral mosaic attenuation/air trapping. bronchial wall thickening and peripheral subpleural opacities on right. trace left pleural effusion. CM, small pericardial effusion. chest ct 04/2017: images and report reviewed. bilateral pulmonary infiltrates. very small left pleural effusion. small pericardial effusion. see emr for detailed findings. 06/2017 cxr: congestive changes (also described on April cxr when patient had pulmonary infiltrates pna). Possibly superimposed early infiltrate. ASSESSMENT/PLAN 47 [facility] with 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 sob/hypoxia/sepsis - congestive changes similar to April when patient had pulmonary infiltrates and not edema. Patient presented with bandemia, low grade fevers and infectious sx's. Patient had bp drop late afternoon after lasix. BNP lower than prior. -holding lasix for now, cont abx 07/22: Does not appear volume overloaded. given one dose of lasix 40 mg IV x 1. 07/23: PO furosemide started by primary team. Tolerating. 07/24: will check ct scan to determine what portion of lung pathology is infection vs. edema. consider retrial of lasix 40 mg daily starting today. 07/25: sputum + for yeast. chest ct scan with mild congestion. 40 IV lasix started yesterday. 07/26: can continue iv lasix for now, cr stable. would change to po lasix on dc. abnormal troponins/new systolic cardiomyopathy - low-intermediate elevation, flat trend with new anterolateral twi c/w demand in setting of tachycardia, hypoxia and infection. - initially held bb, jacob due to low bp likely 2/2 infection - April echo with new systolic cardiomyopathy in setting of pna/sepsis. Recommend reassessment of EF as outpatient when PNA resolves completely to assess for improvement. If no improvement than will need outpatient work up for cardiomyopathy. - lyte repletion prn daily weights, i/o's. 07/22: BP to 140s now. May start low dose coreg 3.125mg BID. 07/23: BP remains elevated. Will titrate up Coreg to 6.25 BID 07/24: uptitrated to coreg to 12.5 mg bid --> improved bp control. jacob remains on hold. Will resume next. 07/25-: bp running on lower end after increasing coreg to 12.5 and switching to iv lasix yesterday. Will decrease coreg back down to 6.25 mg bid to make bp room for acei. bmp stable on iv lasix, con't. hgb and lft's stable, will add asa, statin for primary prevention.
[2017-07-26] MEDS ORDERED: PT OWN MED DRAWER 7, Y5N ONE (11:18)
--- NOTE | 2017-07-26 11:21 | PN ---
Progress Note (short form) - Note Progress Note: PULMONARY CONSULTATION DICTATED 07/26/17 IMP ACUTE HYPOXEMIC RESPIRATORY FAILURE CHF CARDIOMYOPATHY WITH SEVERE LV SYSTOLIC DYSFUNCTION PERICADIAL EFFUSION RECENT PNEUMONIA CEREBRAL PALSY SEIZURE DISORDER MENTAL RETARDATION PLAN IV LASIX SUPPLEMENTAL O2 NIPPV IF NEEDED ABX PER ID DAILY WTS F/U CHEST X-RAYS DR PEDRO Problem List - Problems (1) CHF (congestive heart failure) Code(s): I50.9 - HEART FAILURE, UNSPECIFIED (2) Pulmonary congestion Code(s): R09.89 - OTH SYMPTOMS AND SIGNS INVOLVING THE CIRC AND RESP SYSTEMS (3) Shortness of breath Code(s): R06.02 - SHORTNESS OF BREATH (4) Cardiomyopathy Code(s): I42.9 - CARDIOMYOPATHY, UNSPECIFIED (5) Severe left ventricular systolic dysfunction Code(s): I51.9 - HEART DISEASE, UNSPECIFIED (6) Cerebral palsy Code(s): G80.9 - CEREBRAL PALSY, UNSPECIFIED (7) Acute hypoxemic respiratory failure Code(s): J96.01 - ACUTE RESPIRATORY FAILURE WITH HYPOXIA (8) Seizure Code(s): R56.9 - UNSPECIFIED CONVULSIONS
--- NOTE | 2017-07-26 13:35 | CONS ---
DATE OF CONSULTATION: 07/26/2017 REFERRING PHYSICIAN: Angela Ca MD The patient is a 47-year-old white male with past medical history of congestive heart failure, recently hospitalized with pneumonia in May 2017, was intubated, successfully extubated, transferred back to [facility]; cerebral palsy, severe mental retardation, history of fractures, renal stones, Factor VIII deficiency, admitted to [facility] on July 19 with complaint of 3-day history of increasing shortness of breath. According to nurse, the patient has several doses of albuterol and Levaquin which have not offered any improvement. He also was treated with steroids. He presented to the emergency room. On admission, it is felt that he has sepsis. He is placed on broad-spectrum antibiotics as per ID. On admission he was also noted to be in marked respiratory distress with hypoxic respiratory failure and placed on BiPAP with some clinical improvement. He was evaluated by cardiology consult, Dr. Lizarraga, felt that the patient most likely had sepsis as well as CHF. Followup echocardiogram on July 20 revealed severe LV systolic dysfunction with severe global hypokinesis, left ventricle. Patient was also placed on Lasix. Of note is the patient underwent a CT scan of the chest on July 24. Findings compatible with pulmonary vascular congestion, small bilateral pleural effusions, as well as increasing pericardial effusion. No further history is available at this time. PAST MEDICAL HISTORY: Again includes the mental retardation, cerebral palsy, recent pneumonia, status post sepsis, Factor VIII deficiency, seizure disorder. CURRENT MEDICATIONS: Include Banzel, testosterone, lactase, Tylenol, Zithromax, piperacillin, Tegretol, Keppra, Lotrimin, Lovaza, phenobarbital, DuoNeb, Coreg, senna, Benadryl, Lipitor, Lasix, Tab-A-[place], Ecotrin, vitamin D3. PHYSICAL EXAMINATION: General: The patient is a well-developed, well-nourished male, awake, mildly congested but in no acute distress on Ventimask. Vital Signs: Temperature is 97.3, respiratory rate is 20, blood pressure is 125/90, O2 saturation is 97% on unknown quantity of oxygen. HEENT: Head is normocephalic, atraumatic. Neck: Supple. Heart: Regular, S1, S2. Chest: Bilateral crackles as well as scattered rhonchi. Abdomen: Soft. Bowel sounds are positive. Extremities: No cyanosis or edema. LABORATORY: WBC is 8.5, the hemoglobin 14.1, hematocrit 42.3. The platelet count is 337,000, 72 polys, 19 lymphs, and 6 monos. BUN 16, creatinine 1.0. Troponin on admission 8806. Chest CT is noted earlier. IMPRESSION: 1. Status post acute hypoxemic respiratory failure and multiple factors decompensated congestive heart failure secondary to severe left ventricular systolic function. 2. Possible sepsis pneumonia, although no definitive infiltrates present on chest x-ray, although infiltrates did not appear infectious-appearing on CAT scan. 3. . 4. Cerebral palsy. 5. Severe mental retardation. 6. Factor VIII deficiency. 7. Recent pneumonia, respiratory failure. PLAN: Antibiotics as per ID, Lasix, supplemental O2, effusion, cultures negative. Strict I's and O's. Followup [facility]. HIRO PEDRO M.D. [id number]
[2017-07-26 14:20] VITALS: BP 105/75; PULSE 102; TEMP 97.4
--- NOTE | 2017-07-26 15:45 | DS ---
Physical Exam: SUBJECTIVE: Patient seen and examined at bedside. Pt is nonverbal. OBJECTIVE: Vital Signs Period Temp Pulse Resp BP Sys/Velasco Pulse Ox Last 24 Hr 97.3 F-98.0 F 90-104 20-20 105-125/53-92 96-100 PHYSICAL EXAM Nonverbal and Uncommunicative. Limited exam Gen: Sitting in bed in no apparent distress. HEENT: NCAT Neck: supple Cor: RRR, normal s1/s2, no m/r/g Pulm: CTA b/l Abd: soft, normoactive bowel sounds Ext: contracted 2/2 cerebral palsy. edematous LABS Laboratory Results - last 24 hr 07/26/17 07/26/17 06:00 06:00 WBC 8.5 RBC 4.79 Hgb 14.1 Hct 42.3 MCV 88.3 MCH 29.3 MCHC 33.2 RDW 17.8 H Plt Count 337 MPV 8.9 Absolute Neuts (auto) 6.2 Neutrophils % 72.9 Lymphocytes % 19.2 D Monocytes % 6.2 Eosinophils % 1.1 Basophils % 0.6 Nucleated RBC % 0 Sodium 139 Potassium 4.1 Chloride 102 Carbon Dioxide 28 Anion Gap 9 BUN 16 Creatinine 1.0 Creat Clearance w eGFR > 60 Random Glucose 88 Calcium 8.6 Magnesium 2.2 Total Bilirubin 0.3 AST 23 ALT 36 Alkaline Phosphatase 140 H Total Protein 6.5 Albumin 2.8 L HOSPITAL COURSE: Date of Admission:07/19/17 Date of Discharge: 07/26/17 Pt is a 47 y/o M with a PMHx of CHF, cerebral palsy, epilepsy, hx of fractures, renal stones, factor VIII deficiency, [facility] resident who presented to hospital for a reported 3 days of shortness of breath. He was admitted for HCAP vs CHF exacerbation. Pt was diagnosied with Acute hypoxic respiratory failure 2/2 HCAP vs CHF exacerbation. His I/O's were monitored, and had daily weights measured. Head of bed was elevated. Coreg 6.25 was started, and he had chest CT with mild congestion and chronic changes ? scarring/atalectasis. Cardiomegaly was also noted. Pt was noted to have brief periods in which O2 sat dropped. However these were intermittent and occurred only when pt would hold his breath. Sats return to baseline once breathing resumed. Pt has hx of CHF. He had severe hypokinesis on echo. Cardio was consulted and recommended reassessment of cardiac function as out pt. Pt was kept on lasix. There was concern for Sepsis ? 2/2 PNA. Pt had a recent hospitalization for HCAP. He had diffuse congestive changes, ? infiltrate on CXR. Blood and urine cultures were ultimately neg. He was temporarily on BiPap but was weaned off. ID was consult. He was given azithromycin and zosyn. Initially, pt had lactic acidosis, which resolved. Speech and swallow eval was appreciated. Modified barium swallow was unremarkable. Pt's seizure disorder was treated with home meds. Pt's retention/BPH (chronic) was treated with tamsulosin. Pt is in NAD and stable for discharge back to [facility]. Minutes to complete discharge: 30 Discharge Summary Reason For Visit: PULMONARY CONGESTION,REACTIVE AIRWAY DISASE Current Active Problems Acute hypoxemic respiratory failure (Acute) CHF (congestive heart failure) (Acute) Cardiomyopathy (Acute) Cerebral palsy (Acute) Pneumonia (Acute) Pulmonary congestion (Acute) Reactive airway disease with acute exacerbation (Acute) Seizure (Acute) Severe left ventricular systolic dysfunction (Acute) Condition: Good - Instructions Diet, Activity, Other Instructions: Pt was admitted to the hospital for pneumonia. Following antibiotic per Infectious disease recommendations: Augmentin 825 mg twice daily for 7 days. Please follow up with cardiology outpatient Dr. Sanchez in 2 weeks. You will need a repeat 2D echo and additional testing including stress test accordingly then. The following new heart medications have been added per cardiology recommendations. ASA 81 mg daily Coreg 6.25 mg PO twice daily Atorvastatin 10 mg at bedtime Lasix 40 mg daily. Advise daily weights and notify doctor if weight gain > 3 lbs in 2 days. You will need your potassium and kidney function monitored with your doctor Blood test BMP (Basic metabolic panel) in 1 week with your doctor. Diet: [place] thick dysphagia pureed diet with 1:1 assistance and aspiration precautions If new fevers, cough, trouble breathing, chest pain or new concerns, call 911 or come to ED. Referrals: Kiana Sanchez MD [Staff Physician] - 2 Weeks Michelle Palomo MD [Staff Physician] - 1 Week [facility]position: [facility] - Home Medications Comprehensive Discharge Medication List: Ambulatory Orders Carbamazepine [Carbamazepine ER] 300 mg PO Q12H 05/18/17 Cholecalciferol (Vitamin D3) [Vitamin D3] 2,000 unit PO BID 05/18/17 Diphenhydramine [Benadryl 12.5 MG/5 ML Oral Solution -] 10 ml PO Q6H 05/18/17 Lactase [Lactaid Fast Act] 1 tab PO TID 05/18/17 Multivitamins [Multivit ([facility] Formulary)] 1 tab PO DAILY 05/18/17 [place]-3S/Dha/Epa/Fish Oil [Fish Oil [place]-3 Softgel] 1 each PO BID 05/18/17 Phenobarbital 32.4 mg PO HS 05/18/17 Phenobarbital 64.8 mg PO HS 05/18/17 Tamsulosin HCl [Flomax] 0.4 mg PO HS 05/18/17 Carbamazepine [Carbamazepine ER] 300 mg PO BID 07/19/17 Clotrimazole [Lotrimin -] 1 applic TP BID 07/19/17 Diazepam Rectal Gel [Diastat Rectal Gel -] 10 mg MD ONCE PRN 07/19/17 Diphenhydramine [Benadryl 12.5 MG/5 ML Oral Solution -] 25 mg PO Q6H 07/19/17 Hydrocortisone 1% Ointment [Hytone 1% Ointment -] 1 applic TP BID 07/19/17 Lactulose 20 gm PO TID 07/19/17 Levetiracetam 1,000 mg PO TID 07/19/17 Multivitamin [Multiple Vitamins] 1 each PO DAILY 07/19/17 Oxycodone HCl/Acetaminophen [Percocet 5-325 mg Tablet] 1 tab PO Q4H PRN Phenobarbital 32.4 mg PO HS 07/19/17 Sennosides [Senna] 8.6 mg PO BID 07/19/17 Testosterone Cypionate 100 mg IM WEEKLY 07/19/17 Aspirin Coated [Ecotrin -] 81 mg PO DAILY tablet.ec 07/26/17 Atorvastatin Ca [Lipitor] 10 mg PO HS tablet 07/26/17 Carvedilol [Coreg -] 6.25 mg PO BID tablet 07/26/17 Furosemide [Lasix -] 40 mg PO DAILY #30 tablet 07/26/17 This patient is new to me today: No Emergency Visit: No Critical Care patient: No - Discharge Referral Referred to [facility] Med [facility].C.: No
== END 2017-07-26 17:47 | DRG 720 ==
LOC: JER 19:25 → JERBED 23:05 → J4W 07-20 14:04
PROVIDERS: ADMIT Internal Medicine; ATTEND Hospitalist
PROC: 5A09357 Assistance with Respiratory Ventilation, Less than 24 Consecutive Hours, Continuous Positive Airway Pressure (ICD-10-PCS; principal; 2017-07-19)
DX: A41.9 Sepsis, unspecified organism (principal); G80.9 Cerebral palsy, unspecified; F73 Profound intellectual disabilities; G40.909 Epilepsy, unspecified, not intractable, without status epilepticus; M81.0 Age-related osteoporosis without current pathological fracture; E29.1 Testicular hypofunction; R00.0 Tachycardia, unspecified; N20.0 Calculus of kidney; J45.41 Moderate persistent asthma with (acute) exacerbation; J18.9 Pneumonia, unspecified organism; D66 Hereditary factor VIII deficiency; I24.8 Other forms of acute ischemic heart disease; N40.1 Benign prostatic hyperplasia with lower urinary tract symptoms; R33.8 Other retention of urine; J96.01 Acute respiratory failure with hypoxia; I50.23 Acute on chronic systolic (congestive) heart failure; I42.8 Other cardiomyopathies; R13.10 Dysphagia, unspecified; I31.3 Pericardial effusion (noninflammatory); E66.9 Obesity, unspecified; Z68.29 Body mass index [BMI] 29.0-29.9, adult
CPT/HCPCS: 36415; 36600; 71045-TC-FY; 71250-TC; 74230-TC-FY; 80048; 80053; 81003; 81015; 82375; 82550; 82803; 83050; 83605; 83735; 83880; 84100; 84443; 84484; 85025; 87040; 87070; 87077; 87086; 87205; 87899; 92611-GN; 93005; 93010; 93306-TC; 94640; 94660; 99284-25; J1644; J7030; J7620

== ENCOUNTER 2018-09-26 16:40 | Emergency (ER) | payer OTHER | END 2018-09-27 01:18 | disposition short-term general hospital (02) | LOC: JER 09-27 01:18 | PROC: 3E0337Z Introduction of Electrolytic and Water Balance Substance into Peripheral Vein, Percutaneous Approach (ICD-10-PCS; principal; 2018-09-26) | PROC: 3E0337Z Introduction of Electrolytic and Water Balance Substance into Peripheral Vein, Percutaneous Approach (ICD-10-PCS; 2018-09-26) | PROC: 3E03329 Introduction of Other Anti-infective into Peripheral Vein, Percutaneous Approach (ICD-10-PCS; 2018-09-26) | PROC: 3E03329 Introduction of Other Anti-infective into Peripheral Vein, Percutaneous Approach (ICD-10-PCS; 2018-09-26) | PROC: 3E033NZ Introduction of Analgesics, Hypnotics, Sedatives into Peripheral Vein, Percutaneous Approach (ICD-10-PCS; 2018-09-26) | PROC: 3E033NZ Introduction of Analgesics, Hypnotics, Sedatives into Peripheral Vein, Percutaneous Approach (ICD-10-PCS; 2018-09-26) | DX: A41.89 Other specified sepsis (principal); H66.92 Otitis media, unspecified, left ear; H60.592 Other noninfective acute otitis externa, left ear; H70.92 Unspecified mastoiditis, left ear; D72.829 Elevated white blood cell count, unspecified; G80.9 Cerebral palsy, unspecified; F72 Severe intellectual disabilities; G40.909 Epilepsy, unspecified, not intractable, without status epilepticus; D66 Hereditary factor VIII deficiency; I50.9 Heart failure, unspecified; Z99.3 Dependence on wheelchair; Z74.01 Bed confinement status ==

== ENCOUNTER 2019-01-09 16:15 | Emergency (ER) | payer OTHER ==
--- NOTE | 2019-01-09 16:24 | PDOC ---
Rapid Medical Evaluation Time Seen by Provider: 01/09/19 16:20 Medical Evaluation: Allergies Allergy/AdvReac Type Severity Reaction Status Date / Time lactose AdvReac Verified 07/24/17 22:12 01/09/19 16:21 Pt with complaints of: here for eval for right foot/leg pain, xray done today which showed fx Pt on brief exam: winces with palpation when lifting the foot off wheelchair pt ordered for: none, xray showed distal tibial fx pt to proceed to the ED Discharge Disposition - Diagnosis Right tibial fracture - Discharge Dispostion Disposition: HOME Condition at time of disposition: Stable - Referrals Referrals: Avery Gallegos MD [Staff Physician] - Des Isidro MD [Staff Physician] - - Patient Instructions Printed Discharge Instructions: DI for Shinbone Fracture Additional Instructions: Follow-up with orthopedics in 1 to 2 days without fail for further evaluation and treatment. Please apply ice 20 min on and 20 min off to the leg. Keep the splint dry. Please keep a pillow between the legs. - Post Discharge Activity
[2019-01-09 16:27] VITALS: BP 139/79; PULSE 89; TEMP 98; BMI 25.9
--- NOTE | 2019-01-09 17:39 | PDOC ---
*Physical Exam - Vital Signs Last Vital Signs Temp Pulse Resp BP Pulse Ox 98 F 89 19 139/79 97 01/09/19 16:24 01/09/19 16:24 01/09/19 16:24 01/09/19 16:24 01/09/19 16:24 - Physical Exam Comments: 01/09/19 18:03 Gen: awake, nonverbal ext: ttp distal tib R leg, pedal pulses intact neuro: awake, nonverbal, moaning, at baseline ms Medical Decision Making - Medical Decision Making 01/09/19 17:38 48yo male from [facility] with outpt xray of the distal tib with a distal tib fx -will discuss with orthopedics -will need splinting -pt is wheelchair bound 01/09/19 18:[address] Isidro - recommends long leg posterior splint to mid thigh and then u splint to lower leg recommends pillow between legs -recommends follow up as outpt with orthopedics 01/09/19 18:35 splint applied reduction film shows good alignment pt tolerated the procedure well wiggling toes after the procedure, brisk cap refill pt stable for dc back to [facility] and outpt ortho follow up Discharge - Discharge Information Problems reviewed: Yes Clinical Impression/Diagnosis: Right tibial fracture Condition: Stable Disposition: HOME - Follow up/Referral Referrals: Avery Gallegos MD [Staff Physician] - Des Isidro MD [Staff Physician] - - Patient Discharge Instructions Additional Instructions: Follow-up with orthopedics in 1 to 2 days without fail for further evaluation and treatment. Please apply ice 20 min on and 20 min off to the leg. Keep the splint dry. Please keep a pillow between the legs. - Post Discharge Activity
--- NOTE | 2019-01-09 18:17 | PDOC ---
History of Present Illness - General Chief Complaint: Injury Stated Complaint: Tibial fracture Time Seen by Provider: 01/09/19 16:20 - History of Present Illness Initial Comments: 01/09/19 18:15 43-year-old male sent to the emergency room by the facility where he lives for a right tib fracture unknown mechanism patient is MR with encephalopathy Past History - Past Medical History Allergies/Adverse Reactions: Allergies Allergy/AdvReac Type Severity Reaction Status Date / Time lactose AdvReac Verified 01/09/19 16:27 Home Medications: Ambulatory Orders Aspirin [Rosi Chewable] 81 mg PO DAILY 09/26/18 Atorvastatin Ca [Lipitor] 10 mg PO HS 09/26/18 Carbamazepine [Tegretol -] 600 mg PO BID 09/26/18 Carvedilol [Coreg -] 6.25 mg PO BID 09/26/18 Cholecalciferol (Vitamin D3) [Vitamin D3] 2,000 unit PO DAILY 09/26/18 Diazepam [Diastat Acudial] 1 each RC PRN PRN 09/26/18 Furosemide [Lasix -] 40 mg PO DAILY 09/26/18 Lactase [Lactaid Fast Act] 9,000 unit PO AC 09/26/18 Lactulose 30 ml PO TID 09/26/18 Lisinopril [Prinivil] 5 mg PO DAILY 09/26/18 Taloga-3/Dha/Epa/Fish Oil [Fish Oil 1,000 mg Softgel] 2,000 mg PO BID 09/26/18 Phenobarbital 64.8 mg PO HS 09/26/18 Rufinamide [Banzel] 1,400 mg PO BID 09/26/18 Rufinamide [Banzel] 1,600 mg PO BID 09/26/18 Sennosides [Senna] 8.6 mg PO BID 09/26/18 Zonisamide [Zonegran] 500 mg PO HS 09/26/18 levETIRAcetam [Keppra -] 1,000 mg PO TID 09/26/18 COPD: No CHF: Yes (Last EF 28%) Disorders: Yes (bilateral nephrolithiasis) Seizures: Yes (Baseline Occurrence: daily) Other medical history: CP - Surgical History Orthopedic Surgery: Yes (Humerus fracture s/p left girdlestone procedure) - Psycho Social/Smoking Cessation Hx Smoking History: Never smoked Information on smoking cessation initiated: No Hx Alcohol Use: No Drug/Substance Use Hx: No Review of Systems - Review of Systems Able to Perform ROS?: No *Physical Exam - Vital Signs Last Vital Signs Temp Pulse Resp BP Pulse Ox 98 F 89 19 139/79 97 01/09/19 16:24 01/09/19 16:24 01/09/19 16:24 01/09/19 16:24 01/09/19 16:24 - Physical Exam Comments: 01/09/19 18:15 Right lower extremity is held in external rotation there does not appear to be gross motor deficits unable to ascertain sensation Medical Decision Making - Medical Decision Making 01/09/19 18:16 With a gentle traction and countertraction a posterior and sugar tong splint was applied to the right lower extremity this was tolerated well Discharge - Discharge Information Problems reviewed: Yes Clinical Impression/Diagnosis: Right tibial fracture Clinical Impression/Diagnosis: (Ruled Out): Tibial plateau fracture, right Condition: Stable Disposition: HOME - Admission No - Follow up/Referral Referrals: Avery Gallegos MD [Staff Physician] - - Patient Discharge Instructions Additional Instructions: Follow-up with orthopedics in 1 to 2 days without fail for further evaluation and treatment - Post Discharge Activity
== END 2019-01-09 18:54 | disposition home or self-care (01) ==
LOC: JER 16:15 → JERFT 16:15 → JER 18:54
PROC: 2W3CX1Z Immobilization of Right Lower Arm using Splint (ICD-10-PCS; principal; 2019-01-09)
DX: S82.141A Displaced bicondylar fracture of right tibia, initial encounter for closed fracture (principal); R56.9 Unspecified convulsions; F79 Unspecified intellectual disabilities; G93.40 Encephalopathy, unspecified; I50.9 Heart failure, unspecified; X58.XXXA Exposure to other specified factors, initial encounter; Y93.89 Activity, other specified; Y92.89 Other specified places as the place of occurrence of the external cause
CPT/HCPCS: 29126; 73590-TC-RT-FY; 99281-25

== ENCOUNTER 2020-10-15 11:20 | Emergency (ER) | payer OTHER ==
[2020-10-15 12:36] VITALS: BP 102/62; PULSE 92; TEMP 96.7; BMI 43.2
[2020-10-15] MEDS ORDERED: ACETAMINOPHEN 325 MG TABLET (FP) PO ONE (14:40)
[2020-10-15] MEDS ORDERED: ACETAMINOPHEN 650 MG/20.3 ML ORAL SOLUTION (CUPS) ONE (14:53)
== END 2020-10-15 15:04 | disposition home or self-care (01) ==
LOC: JER 11:20 → JERFT 11:20
DX: S42.294A Other nondisplaced fracture of upper end of right humerus, initial encounter for closed fracture (principal); Y99.9 Unspecified external cause status
CPT/HCPCS: 73060-TC-RT-FY; 99283-25

== ENCOUNTER 2022-06-24 12:42 | Inpatient (IN) | payer OTHER ==
[2022-06-24 14:19] LABS: BASO % 0.4 % (0-2.0); EOS % 1.3 % (0-4.5); HEMATOCRIT 40.3 % (35.4-49); HEMOGLOBIN 13.6 GM/dL (11.7-16.9); LYMPH % 19.8 % (8-40); MCH 30.7 pg (25.7-33.7); MCHC 33.8 g/dl (32.0-35.9); MEAN PLT VOLUME 8.6 fl (7.5-11.1); MONO % 6.8 % (3.8-10.2); NEUT % 71.7 % (42.8-82.8); PLATELET COUNT 254 10^3/uL (134-434); RBC 4.43 M/mm3 (4.00-5.60); RDW 14.1 % (11.9-15.9); WHITE BLOOD COUNT 9.5 K/mm3 (4.0-10.0)
[2022-06-24 14:23] LABS: VENOUS BASE EXCESS 7.1 mmol/L (-2-2); VENOUS O2 SATURATION 55.1 % (70-80); VENOUS PH 7.305 (7.310-7.410)
[2022-06-24 14:25] LABS: VENOUS PCO2 76.8 mmHg (38-52)
[2022-06-24 14:26] LABS: INR 1.01 (0.83-1.09); PROTHROMBIN TIME (PATIENT) 11.7 SEC (9.7-13.0)
[2022-06-24 14:29] LABS: ACTIVATED PTT 30.3 SECONDS (25.2-36.5)
[2022-06-24 14:38] LABS: URINE APPEARANCE CLEAR; URINE BILIRUBIN NEGATIVE (NEGATIVE); URINE COLOR YELLOW; URINE GLUCOSE (UA) NEGATIVE (NEGATIVE); URINE KETONE NEGATIVE (NEGATIVE); URINE LEUK ESTERASE NEGATIVE (NEGATIVE); URINE NITRITE NEGATIVE (NEGATIVE); URINE PROTEIN NEGATIVE (NEGATIVE); URINE UROBILINOGEN 0.2 mg/dL (0.2-1.0)
[2022-06-24 14:38] LABS: CHLORIDE 99 mmol/L (98-107); SODIUM 134 mmol/L (136-145)
[2022-06-24 14:40] LABS: BLOOD UREA NITROGEN 13.5 mg/dL (7-18); CALCIUM 8.4 mg/dL (8.5-10.1); CO2 35 mmol/L (21-32); GLUCOSE,RANDOM 94 mg/dL (74-106)
[2022-06-24 14:44] LABS: CREATININE 0.8 mg/dL (0.55-1.3); SGOT/AST 65 U/L (15-37)
[2022-06-24 14:45] LABS: BILIRUBIN,TOTAL 0.4 mg/dL (0.2-1); TOT PROT 6.9 g/dl (6.4-8.2)
[2022-06-24 14:46] LABS: ALK PHOS 95 U/L (45-117)
[2022-06-24 14:51] LABS: ANION GAP 1 MMOL/L (8-16); POTASSIUM 6.2 mmol/L (3.5-5.1); SGPT/ALT 31 U/L (13-61)
[2022-06-24 16:04] LABS: POTASSIUM 3.9 mmol/L (3.5-5.1)
[2022-06-24 16:09] LABS: CALCIUM 8.4 mg/dL (8.5-10.1)
[2022-06-24 16:10] LABS: BLOOD UREA NITROGEN 13.7 mg/dL (7-18)
[2022-06-24 16:13] LABS: CREATININE 0.7 mg/dL (0.55-1.3)
[2022-06-24] MEDS ORDERED: diazePAM RECTAL GEL 10 MG KIT (PRE-CALIBRATED) RC PRN (17:08)
[2022-06-24] MEDS ORDERED: ACETAMINOPHEN 325 MG TABLET (FP) PO PRN (17:12)
[2022-06-24] MEDS ORDERED: [UNRECOGNIZED DRUG - OTHER] PO SCH (17:15)
[2022-06-24] MEDS ORDERED: LACTASE 9000 UNIT PO SCH (17:15)
[2022-06-24] MEDS: LACTULOSE 20 GM/30 ML UDC (FOR ORAL USE ONLY) PO SCH (21:57)
[2022-06-24] MEDS: HEPARIN NA (PORCINE) 5,000 UNITS/ML 1ML VIAL SQ SCH (21:57)
[2022-06-24] MEDS: SENNOSIDES 8.6MG TABLET (FP) PO SCH (21:57)
[2022-06-24] MEDS: PHENobarbital 30 MG TABLET PO SCH (21:57)
[2022-06-24] MEDS: ATORVASTATIN CA 10 MG TABLET (FP) PO SCH (21:58)
[2022-06-24] MEDS: levETIRAcetam 500 MG TABLET (FP) PO SCH (21:58)
[2022-06-24] MEDS: CARVEDILOL 6.25 MG TABLET (FP) PO SCH (21:59)
[2022-06-24] MEDS: carBAMazepine 200 MG TABLET PO SCH (21:59)
[2022-06-24] MEDS: OMEGA-3 ACID ETHYL ESTERS (FATTY-ACIDS) 1 GM CAPSULE (FP) PO SCH (21:59)
[2022-06-24] MEDS ORDERED: RUFINAMIDE 400 MG PO SCH (22:00)
[2022-06-24] MEDS ORDERED: PATIENT'S OWN MEDICATION (NON-FORMULARY) (Lactulose [Lactulose] 10 GM/15 ML Solution) PO SCH (22:00)
[2022-06-24] MEDS ORDERED: PATIENT'S OWN MEDICATION (NON-FORMULARY) (Omega-3/Dha/Epa/Fish Oil [Fish Oil 1,000 Mg Soft PO SCH (22:00)
[2022-06-24] MEDS: ZONISAMIDE 100 MG/10 ML ORAL SUSPENSION PO SCH (22:34)
[2022-06-25] MEDS: LACTULOSE 20 GM/30 ML UDC (FOR ORAL USE ONLY) PO SCH ×3 (06:28→21:51)
[2022-06-25] MEDS: levETIRAcetam 500 MG TABLET (FP) PO SCH (06:28)
[2022-06-25 07:11] LABS: BASO % 0.4 % (0-2.0); EOS % 1.4 % (0-4.5); HEMATOCRIT 39.1 % (35.4-49); HEMOGLOBIN 13.5 GM/dL (11.7-16.9); LYMPH % 18.8 % (8-40); MCH 31.6 pg (25.7-33.7); MCHC 34.6 g/dl (32.0-35.9); MEAN CELL VOLUME 91.4 fl (80-96); MONO % 6.2 % (3.8-10.2); NEUT % 73.2 % (42.8-82.8); RBC 4.28 M/mm3 (4.00-5.60); RDW 14.6 % (11.9-15.9); WHITE BLOOD COUNT 9.2 K/mm3 (4.0-10.0)
[2022-06-25 07:29] LABS: POTASSIUM 4.3 mmol/L (3.5-5.1)
[2022-06-25 07:33] LABS: ALBUMIN 3.1 g/dl (3.4-5.0); BLOOD UREA NITROGEN 15.8 mg/dL (7-18)
[2022-06-25 07:37] LABS: CREATININE 0.7 mg/dL (0.55-1.3)
[2022-06-25 07:38] LABS: BILIRUBIN,TOTAL 0.2 mg/dL (0.2-1); TOT PROT 6.4 g/dl (6.4-8.2)
[2022-06-25 08:36] LABS: MEAN PLT VOLUME 9.1 fl (7.5-11.1); PLATELET COUNT 195 10^3/uL (134-434)
[2022-06-25] MEDS: OMEGA-3 ACID ETHYL ESTERS (FATTY-ACIDS) 1 GM CAPSULE (FP) PO SCH ×3 (10:35→21:51)
[2022-06-25] MEDS: carBAMazepine 200 MG TABLET PO SCH ×2 (10:35→21:45)
[2022-06-25] MEDS: FUROSEMIDE 40 MG TABLET (FP) PO SCH (10:36)
[2022-06-25] MEDS: LISINOPRIL 5 MG TABLET PO SCH (10:36)
[2022-06-25] MEDS: ASPIRIN 81 MG CHEWABLE TABLETS PO SCH (10:36)
[2022-06-25] MEDS: HEPARIN NA (PORCINE) 5,000 UNITS/ML 1ML VIAL SQ SCH ×2 (10:36→21:28)
[2022-06-25] MEDS: SENNOSIDES 8.6MG TABLET (FP) PO SCH ×2 (10:36→21:51)
[2022-06-25] MEDS: CHOLECALCIFEROL (VIT D3) 1,000 UNIT (25 MCG) TABLET PO SCH (10:36)
[2022-06-25] MEDS: CARVEDILOL 6.25 MG TABLET (FP) PO SCH (10:36)
[2022-06-25] MEDS: PATIENT'S OWN MEDICATION (NON-FORMULARY) (Rufinamide 400 MG Tablet) PO SCH ×2 (10:41→21:51)
[2022-06-25] MEDS ORDERED: ACETAMINOPHEN 325 MG TABLET (FP) PO PRN (12:53)
[2022-06-25] MEDS ORDERED: SODIUM CHLORIDE 0.45% 1,000 ML IV SCH (13:00)
[2022-06-25] MEDS ORDERED: METOPROLOL TARTRATE 5 MG/5 ML VIAL IVPUSH PRN (13:00)
[2022-06-25] MEDS ORDERED: ACETAMINOPHEN 1000 MG/100 ML BAG IVPB PRN (13:03)
[2022-06-25] MEDS ORDERED: ALBUTEROL SO4 2.5/IPRATROPIUM 0.5 INH SOL 3 ML VIAL.NEB. NEB PRN (13:06)
[2022-06-25] MEDS: levETIRAcetam 500 MG/5 ML INJECTION VIAL IVPB SCH ×3 (13:36→21:28)
[2022-06-25 15:05] LABS: ALLENS TEST POSITIVE; ARTERIAL BLOOD GAS BASE EXCESS 1.1 mmol/L (-2-2); ARTERIAL BLOOD GAS PO2 90.8 mmHg (80-100); ARTERIAL BLOOD GAS pH 7.301 (7.350-7.450)
[2022-06-25 18:32] LABS: ARTERIAL BLD GAS O2 SATURATION 94.5 % (95-98); ARTERIAL BLOOD GAS BASE EXCESS 4.2 mmol/L (-2-2); ARTERIAL BLOOD GAS PO2 78.9 mmHg (80-100); ARTERIAL BLOOD GAS pH 7.328 (7.350-7.450)
[2022-06-25 18:34] LABS: ALLENS TEST POSITIVE; VENT MODE S/T
[2022-06-25 18:35] LABS: VENT RATE 16
[2022-06-25 20:21] LABS: ARTERIAL BLD GAS O2 SATURATION 96.8 % (95-98); ARTERIAL BLOOD GAS BASE EXCESS 4.2 mmol/L (-2-2); ARTERIAL BLOOD GAS PO2 96.8 mmHg (80-100); ARTERIAL BLOOD GAS pH 7.339 (7.350-7.450)
[2022-06-25 20:25] LABS: ALLENS TEST POSITIVE
[2022-06-25 20:26] LABS: VENT MODE S/T; VENT RATE 18
[2022-06-25] MEDS: PHENobarbital 30 MG TABLET PO SCH (21:44)
[2022-06-25] MEDS: ATORVASTATIN CA 10 MG TABLET (FP) PO SCH (21:51)
[2022-06-25] MEDS: ZONISAMIDE 100 MG/10 ML ORAL SUSPENSION PO SCH (21:52)
[2022-06-26 05:52] LABS: ARTERIAL BLD GAS O2 SATURATION 95.6 % (95-98); ARTERIAL BLOOD GAS BASE EXCESS 2.7 mmol/L (-2-2); ARTERIAL BLOOD GAS PO2 83.4 mmHg (80-100); ARTERIAL BLOOD GAS pH 7.349 (7.350-7.450)
[2022-06-26 05:54] LABS: VENT MODE S/T; VENT RATE 20
[2022-06-26] MEDS: LACTULOSE 20 GM/30 ML UDC (FOR ORAL USE ONLY) PO SCH ×3 (06:15→23:15)
[2022-06-26] MEDS: levETIRAcetam 500 MG/5 ML INJECTION VIAL IVPB SCH ×3 (06:15→23:12)
[2022-06-26 06:46] LABS: POTASSIUM 3.9 mmol/L (3.5-5.1)
[2022-06-26 06:48] LABS: BLOOD UREA NITROGEN 14.1 mg/dL (7-18); CALCIUM 8.6 mg/dL (8.5-10.1)
[2022-06-26 06:51] LABS: CREATININE 0.6 mg/dL (0.55-1.3)
[2022-06-26 06:53] LABS: BILIRUBIN,TOTAL 0.3 mg/dL (0.2-1); TOT PROT 6.4 g/dl (6.4-8.2)
[2022-06-26] MEDS: LISINOPRIL 5 MG TABLET PO SCH (10:13)
[2022-06-26] MEDS: SENNOSIDES 8.6MG TABLET (FP) PO SCH ×2 (10:13→23:15)
[2022-06-26] MEDS: ASPIRIN 300 MG SUPP.RECT RC SCH (10:13)
[2022-06-26] MEDS: HEPARIN NA (PORCINE) 5,000 UNITS/ML 1ML VIAL SQ SCH ×2 (10:13→23:12)
[2022-06-26] MEDS: PATIENT'S OWN MEDICATION (NON-FORMULARY) (Rufinamide 400 MG Tablet) PO SCH ×2 (10:14→23:15)
[2022-06-26] MEDS: OMEGA-3 ACID ETHYL ESTERS (FATTY-ACIDS) 1 GM CAPSULE (FP) PO SCH ×2 (10:14→23:15)
[2022-06-26] MEDS: CHOLECALCIFEROL (VIT D3) 1,000 UNIT (25 MCG) TABLET PO SCH (10:14)
[2022-06-26] MEDS: ALBUTEROL SO4 2.5/IPRATROPIUM 0.5 INH SOL 3 ML VIAL.NEB. NEB SCH ×3 (11:46→20:20)
[2022-06-26] MEDS: ATORVASTATIN CA 10 MG TABLET (FP) PO SCH (23:15)
[2022-06-26] MEDS: ZONISAMIDE 100 MG/10 ML ORAL SUSPENSION PO SCH (23:16)
[2022-06-27] MEDS: levETIRAcetam 500 MG/5 ML INJECTION VIAL IVPB SCH ×2 (06:13→13:02)
[2022-06-27 06:15] LABS: ARTERIAL BLD GAS O2 SATURATION 98.1 % (95-98); ARTERIAL BLOOD GAS BASE EXCESS -2.5 mmol/L (-2-2); ARTERIAL BLOOD GAS PO2 125.2 mmHg (80-100); ARTERIAL BLOOD GAS pH 7.302 (7.350-7.450)
[2022-06-27 06:20] LABS: ALLENS TEST POSITIVE; VENT MODE S/T
[2022-06-27 06:21] LABS: VENT RATE 20
[2022-06-27] MEDS: LACTULOSE 20 GM/30 ML UDC (FOR ORAL USE ONLY) PO SCH ×2 (06:21→13:02)
[2022-06-27] MEDS: ALBUTEROL SO4 2.5/IPRATROPIUM 0.5 INH SOL 3 ML VIAL.NEB. NEB SCH ×4 (07:20→20:33)
[2022-06-27 07:27] LABS: BASO % 0.4 % (0-2.0); EOS % 0.5 % (0-4.5); HEMATOCRIT 40.5 % (35.4-49); HEMOGLOBIN 14.2 GM/dL (11.7-16.9); LYMPH % 14.5 % (8-40); MCH 31.8 pg (25.7-33.7); MCHC 35.2 g/dl (32.0-35.9); MEAN CELL VOLUME 90.5 fl (80-96); MEAN PLT VOLUME 9.3 fl (7.5-11.1); MONO % 4.7 % (3.8-10.2); NEUT % 79.9 % (42.8-82.8); PLATELET COUNT 210 10^3/uL (134-434); RBC 4.48 M/mm3 (4.00-5.60); RDW 13.7 % (11.9-15.9); WHITE BLOOD COUNT 10.1 K/mm3 (4.0-10.0)
[2022-06-27 07:39] LABS: POTASSIUM 4.4 mmol/L (3.5-5.1)
[2022-06-27 07:45] LABS: CALCIUM 8.7 mg/dL (8.5-10.1)
[2022-06-27 07:46] LABS: BLOOD UREA NITROGEN 17.6 mg/dL (7-18); MAGNESIUM 2.1 mg/dL (1.8-2.4)
[2022-06-27 07:49] LABS: CREATININE 0.6 mg/dL (0.55-1.3); PHOSPHOROUS 2.8 mg/dL (2.5-4.9)
[2022-06-27] MEDS: ASPIRIN 300 MG SUPP.RECT RC SCH (10:53)
[2022-06-27] MEDS: ASPIRIN 81 MG CHEWABLE TABLETS PO SCH (10:55)
[2022-06-27] MEDS: HEPARIN NA (PORCINE) 5,000 UNITS/ML 1ML VIAL SQ SCH ×2 (10:56→22:53)
[2022-06-27] MEDS: LISINOPRIL 5 MG TABLET PO SCH (10:56)
[2022-06-27] MEDS: OMEGA-3 ACID ETHYL ESTERS (FATTY-ACIDS) 1 GM CAPSULE (FP) PO SCH (10:57)
[2022-06-27] MEDS: CHOLECALCIFEROL (VIT D3) 1,000 UNIT (25 MCG) TABLET PO SCH (10:57)
[2022-06-27] MEDS: SENNOSIDES 8.6MG TABLET (FP) PO SCH ×2 (10:57→22:42)
[2022-06-27] MEDS: CARVEDILOL 6.25 MG TABLET (FP) PO SCH ×2 (10:58→22:42)
[2022-06-27] MEDS: PATIENT'S OWN MEDICATION (NON-FORMULARY) (Rufinamide 400 MG Tablet) PO SCH ×2 (11:19→22:45)
[2022-06-27] MEDS: ATORVASTATIN CA 10 MG TABLET (FP) PO SCH (22:42)
[2022-06-27] MEDS: ZONISAMIDE 100 MG/10 ML ORAL SUSPENSION PO SCH (22:43)
[2022-06-28] MEDS: LACTULOSE 20 GM/30 ML UDC (FOR ORAL USE ONLY) PO SCH ×4 (03:58→21:40)
[2022-06-28] MEDS: OMEGA-3 ACID ETHYL ESTERS (FATTY-ACIDS) 1 GM CAPSULE (FP) PO SCH ×3 (03:58→22:45)
[2022-06-28] MEDS ORDERED: levETIRAcetam 500 MG TABLET (FP) PO SCH (06:00)
[2022-06-28 07:11] LABS: HEMATOCRIT 40.4 % (35.4-49); MCH 31.5 pg (25.7-33.7); MCHC 34.6 g/dl (32.0-35.9); MEAN CELL VOLUME 91.2 fl (80-96); MEAN PLT VOLUME 8.9 fl (7.5-11.1); PLATELET COUNT 226 10^3/uL (134-434); RBC 4.43 M/mm3 (4.00-5.60); RDW 13.8 % (11.9-15.9)
[2022-06-28 07:28] LABS: POTASSIUM 4.3 mmol/L (3.5-5.1)
[2022-06-28 07:35] LABS: CALCIUM 8.7 mg/dL (8.5-10.1)
[2022-06-28 07:36] LABS: ALBUMIN 3.2 g/dl (3.4-5.0); BLOOD UREA NITROGEN 13.8 mg/dL (7-18); MAGNESIUM 2.2 mg/dL (1.8-2.4)
[2022-06-28 07:39] LABS: CREATININE 0.6 mg/dL (0.55-1.3); PHOSPHOROUS 2.2 mg/dL (2.5-4.9)
[2022-06-28 07:40] LABS: BILIRUBIN,TOTAL 0.4 mg/dL (0.2-1)
[2022-06-28 07:41] LABS: TOT PROT 6.7 g/dl (6.4-8.2)
[2022-06-28] MEDS: ALBUTEROL SO4 2.5/IPRATROPIUM 0.5 INH SOL 3 ML VIAL.NEB. NEB SCH ×4 (08:11→20:13)
[2022-06-28] MEDS ORDERED: NAPH,MB-DB/K PH,MBDB POWDER PACKET PO ONE (08:31)
[2022-06-28] MEDS: CHOLECALCIFEROL (VIT D3) 1,000 UNIT (25 MCG) TABLET PO SCH (10:02)
[2022-06-28] MEDS: FUROSEMIDE 40 MG TABLET (FP) PO SCH (10:02)
[2022-06-28] MEDS: ASPIRIN 81 MG CHEWABLE TABLETS PO SCH (10:02)
[2022-06-28] MEDS: CARVEDILOL 6.25 MG TABLET (FP) PO SCH ×2 (10:02→21:39)
[2022-06-28] MEDS: HEPARIN NA (PORCINE) 5,000 UNITS/ML 1ML VIAL SQ SCH ×2 (10:03→21:40)
[2022-06-28] MEDS: ASPIRIN 300 MG SUPP.RECT RC SCH (10:03)
[2022-06-28] MEDS: LISINOPRIL 5 MG TABLET PO SCH (10:03)
[2022-06-28] MEDS: SENNOSIDES 8.6MG TABLET (FP) PO SCH ×2 (10:03→21:39)
[2022-06-28] MEDS: PATIENT'S OWN MEDICATION (NON-FORMULARY) (Rufinamide 400 MG Tablet) PO SCH (10:26)
[2022-06-28] MEDS ORDERED: METOPROLOL TARTRATE 5 MG/5 ML VIAL IVPUSH PRN (15:37)
[2022-06-28] MEDS ORDERED: diazePAM RECTAL GEL 10 MG KIT (PRE-CALIBRATED) RC PRN (15:37)
[2022-06-28] MEDS: levETIRAcetam 500 MG TABLET (FP) PO SCH (17:19)
[2022-06-28] MEDS: PHENobarbital 30 MG TABLET PO SCH (21:40)
[2022-06-28] MEDS: ATORVASTATIN CA 10 MG TABLET (FP) PO SCH (21:40)
[2022-06-28] MEDS: ZONISAMIDE 100 MG/10 ML ORAL SUSPENSION PO SCH ×2 (21:40→21:47)
[2022-06-28] MEDS ORDERED: HEPARIN NA (PORCINE) 5,000 UNITS/ML 1ML VIAL SQ SCH (22:00)
[2022-06-28] MEDS ORDERED: RUFINAMIDE PO SCH ×2 (22:00)
[2022-06-29 06:26] LABS: ARTERIAL BLOOD GAS BASE EXCESS 0.5 mmol/L (-2-2); ARTERIAL BLOOD GAS PO2 55.4 mmHg (80-100); ARTERIAL BLOOD GAS pH 7.347 (7.350-7.450)
[2022-06-29 06:33] LABS: ALLENS TEST POSITIVE
[2022-06-29] MEDS: LACTULOSE 20 GM/30 ML UDC (FOR ORAL USE ONLY) PO SCH ×3 (06:35→21:47)
[2022-06-29] MEDS: levETIRAcetam 500 MG TABLET (FP) PO SCH ×2 (06:35→17:18)
[2022-06-29] MEDS: HEPARIN NA (PORCINE) 5,000 UNITS/ML 1ML VIAL SQ SCH ×3 (06:41→21:40)
[2022-06-29] MEDS: ALBUTEROL SO4 2.5/IPRATROPIUM 0.5 INH SOL 3 ML VIAL.NEB. NEB SCH ×4 (07:33→20:00)
[2022-06-29] MEDS: OMEGA-3 ACID ETHYL ESTERS (FATTY-ACIDS) 1 GM CAPSULE (FP) PO SCH ×2 (09:50→21:41)
[2022-06-29] MEDS: FUROSEMIDE 40 MG TABLET (FP) PO SCH (09:50)
[2022-06-29] MEDS: ASPIRIN 81 MG CHEWABLE TABLETS PO SCH (09:50)
[2022-06-29] MEDS: SENNOSIDES 8.6MG TABLET (FP) PO SCH ×2 (09:50→21:40)
[2022-06-29] MEDS: CARVEDILOL 6.25 MG TABLET (FP) PO SCH ×2 (09:50→21:41)
[2022-06-29] MEDS: LISINOPRIL 5 MG TABLET PO SCH (09:50)
[2022-06-29] MEDS: CHOLECALCIFEROL (VIT D3) 1,000 UNIT (25 MCG) TABLET PO SCH (09:50)
[2022-06-29] MEDS ORDERED: ASPIRIN 300 MG SUPP.RECT RC SCH (10:00)
[2022-06-29 17:11] LABS: HEMATOCRIT 41.7 % (35.4-49); HEMOGLOBIN 14.2 GM/dL (11.7-16.9); MCHC 34.2 g/dl (32.0-35.9); MEAN CELL VOLUME 90.8 fl (80-96); MEAN PLT VOLUME 8.9 fl (7.5-11.1); PLATELET COUNT 239 10^3/uL (134-434); RBC 4.59 M/mm3 (4.00-5.60); RDW 14.3 % (11.9-15.9)
[2022-06-29 17:36] LABS: CALCIUM 9.3 mg/dL (8.5-10.1)
[2022-06-29 17:37] LABS: ALBUMIN 3.2 g/dl (3.4-5.0); BLOOD UREA NITROGEN 12.4 mg/dL (7-18)
[2022-06-29 17:40] LABS: CREATININE 0.8 mg/dL (0.55-1.3)
[2022-06-29 17:42] LABS: BILIRUBIN,TOTAL 0.2 mg/dL (0.2-1); TOT PROT 6.9 g/dl (6.4-8.2)
[2022-06-29] MEDS ORDERED: ACETAMINOPHEN 500 MG TABLET (FP) PO PRN (18:06)
[2022-06-29] MEDS: ATORVASTATIN CA 10 MG TABLET (FP) PO SCH (21:41)
[2022-06-29] MEDS: PATIENT'S OWN MEDICATION (NON-FORMULARY) (Rufinamide 400 MG Tablet) PO SCH (21:41)
[2022-06-29] MEDS: PHENobarbital 30 MG TABLET PO SCH (21:41)
[2022-06-29] MEDS: FYCOMPA 12 MG PO SCH (21:43)
[2022-06-29] MEDS: BRIVIACT 100 MG PO SCH (21:43)
[2022-06-29] MEDS: ZONISAMIDE 100 MG/10 ML ORAL SUSPENSION PO SCH (22:47)
[2022-06-30] MEDS: LACTULOSE 20 GM/30 ML UDC (FOR ORAL USE ONLY) PO SCH ×2 (06:40→13:11)
[2022-06-30] MEDS: levETIRAcetam 500 MG TABLET (FP) PO SCH ×2 (06:40→18:38)
[2022-06-30] MEDS: HEPARIN NA (PORCINE) 5,000 UNITS/ML 1ML VIAL SQ SCH ×3 (06:41→23:44)
[2022-06-30] MEDS: ALBUTEROL SO4 2.5/IPRATROPIUM 0.5 INH SOL 3 ML VIAL.NEB. NEB SCH ×4 (07:30→20:21)
[2022-06-30 09:10] LABS: URINE APPEARANCE CLEAR; URINE BILIRUBIN NEGATIVE (NEGATIVE); URINE COLOR YELLOW; URINE GLUCOSE (UA) NEGATIVE (NEGATIVE); URINE KETONE TRACE (NEGATIVE); URINE LEUK ESTERASE NEGATIVE (NEGATIVE); URINE NITRITE NEGATIVE (NEGATIVE); URINE PROTEIN TRACE (NEGATIVE)
[2022-06-30 10:19] LABS: HEMATOCRIT 42.2 % (35.4-49); HEMOGLOBIN 14.3 GM/dL (11.7-16.9); MEAN PLT VOLUME 9.3 fl (7.5-11.1); PLATELET COUNT 249 10^3/uL (134-434); RBC 4.63 M/mm3 (4.00-5.60); WHITE BLOOD COUNT 9.6 K/mm3 (4.0-10.0)
[2022-06-30] MEDS: CHOLECALCIFEROL (VIT D3) 1,000 UNIT (25 MCG) TABLET PO SCH (10:37)
[2022-06-30] MEDS: LISINOPRIL 5 MG TABLET PO SCH (10:37)
[2022-06-30] MEDS: SENNOSIDES 8.6MG TABLET (FP) PO SCH ×2 (10:37→23:44)
[2022-06-30] MEDS: ASPIRIN 81 MG CHEWABLE TABLETS PO SCH (10:37)
[2022-06-30] MEDS: FUROSEMIDE 40 MG TABLET (FP) PO SCH (10:37)
[2022-06-30] MEDS: OMEGA-3 ACID ETHYL ESTERS (FATTY-ACIDS) 1 GM CAPSULE (FP) PO SCH ×2 (10:37→23:45)
[2022-06-30] MEDS: CARVEDILOL 6.25 MG TABLET (FP) PO SCH ×2 (10:37→23:44)
[2022-06-30 10:41] LABS: CALCIUM 9.3 mg/dL (8.5-10.1)
[2022-06-30 10:42] LABS: ALBUMIN 3.3 g/dl (3.4-5.0); BLOOD UREA NITROGEN 12.1 mg/dL (7-18); MAGNESIUM 1.9 mg/dL (1.8-2.4)
[2022-06-30 10:45] LABS: CREATININE 0.8 mg/dL (0.55-1.3)
[2022-06-30 10:46] LABS: BILIRUBIN,TOTAL 0.4 mg/dL (0.2-1)
[2022-06-30 10:47] LABS: TOT PROT 7.2 g/dl (6.4-8.2)
[2022-06-30] MEDS: BRIVIACT 100 MG PO SCH ×2 (10:53→23:46)
[2022-06-30] MEDS: PATIENT'S OWN MEDICATION (NON-FORMULARY) (Rufinamide 400 MG Tablet) PO SCH ×2 (10:53→23:47)
[2022-06-30] MEDS: ATORVASTATIN CA 10 MG TABLET (FP) PO SCH (23:43)
[2022-06-30] MEDS: PHENobarbital 30 MG TABLET PO SCH (23:44)
[2022-06-30] MEDS: FYCOMPA 12 MG PO SCH (23:46)
[2022-07-01] MEDS: LACTULOSE 20 GM/30 ML UDC (FOR ORAL USE ONLY) PO SCH ×3 (00:07→13:43)
[2022-07-01] MEDS: ZONISAMIDE 100 MG/10 ML ORAL SUSPENSION PO SCH (00:07)
[2022-07-01] MEDS: HEPARIN NA (PORCINE) 5,000 UNITS/ML 1ML VIAL SQ SCH ×2 (06:18→13:44)
[2022-07-01] MEDS: levETIRAcetam 500 MG TABLET (FP) PO SCH (06:18)
[2022-07-01] MEDS: ALBUTEROL SO4 2.5/IPRATROPIUM 0.5 INH SOL 3 ML VIAL.NEB. NEB SCH ×3 (07:24→15:02)
[2022-07-01 08:37] LABS: POTASSIUM 4.1 mmol/L (3.5-5.1)
[2022-07-01 08:38] LABS: CALCIUM 9.2 mg/dL (8.5-10.1)
[2022-07-01 08:39] LABS: BLOOD UREA NITROGEN 18.2 mg/dL (7-18)
[2022-07-01 08:42] LABS: CREATININE 0.8 mg/dL (0.55-1.3)
[2022-07-01 09:36] VITALS: BP 119/60; PULSE 103; RESP 16; TEMP 98.9
[2022-07-01] MEDS: CARVEDILOL 6.25 MG TABLET (FP) PO SCH (11:04)
[2022-07-01] MEDS: SENNOSIDES 8.6MG TABLET (FP) PO SCH (11:04)
[2022-07-01] MEDS: ASPIRIN 81 MG CHEWABLE TABLETS PO SCH (11:04)
[2022-07-01] MEDS: LISINOPRIL 5 MG TABLET PO SCH (11:04)
[2022-07-01] MEDS: FUROSEMIDE 40 MG TABLET (FP) PO SCH (11:04)
[2022-07-01] MEDS: CHOLECALCIFEROL (VIT D3) 1,000 UNIT (25 MCG) TABLET PO SCH (11:04)
[2022-07-01] MEDS: PATIENT'S OWN MEDICATION (NON-FORMULARY) (Rufinamide 400 MG Tablet) PO SCH (11:05)
[2022-07-01] MEDS: OMEGA-3 ACID ETHYL ESTERS (FATTY-ACIDS) 1 GM CAPSULE (FP) PO SCH (11:06)
[2022-07-01] MEDS: BRIVIACT 100 MG PO SCH (11:17)
[2022-07-01 22:44] VITALS: BMI 43.2
== END 2022-07-01 15:24 | DRG 133 ==
LOC: JER 12:42 → JERBED 16:39 → J4S 17:54 → OBSVTOIN 06-25 12:55 → J4W 06-26 12:00 → J6S 06-28 14:59
PROVIDERS: ADMIT Internal Medicine; ATTEND Internal Medicine
DX: J96.21 Acute and chronic respiratory failure with hypoxia (principal); J96.22 Acute and chronic respiratory failure with hypercapnia; G40.909 Epilepsy, unspecified, not intractable, without status epilepticus; D66 Hereditary factor VIII deficiency; G80.8 Other cerebral palsy; M81.8 Other osteoporosis without current pathological fracture; E29.1 Testicular hypofunction; I50.22 Chronic systolic (congestive) heart failure; I42.8 Other cardiomyopathies; G47.33 Obstructive sleep apnea (adult) (pediatric); E66.01 Morbid (severe) obesity due to excess calories; Z68.41 Body mass index [BMI] 40.0-44.9, adult; R50.9 Fever, unspecified; J44.9 Chronic obstructive pulmonary disease, unspecified; F79 Unspecified intellectual disabilities
CPT/HCPCS: 0241U-QW; 36415; 36600; 70450-TC; 71045-TC-FY; 71250-TC; 80048; 80053; 80156; 80177; 80184; 81003; 82140; 82803; 82962; 83605; 83735; 83880; 84100; 84443; 84484; 85025; 85027; 85379; 85610; 85730; 87040; 87086; 93005; 93010; 93306-TC; 93970-TC; 94640; 94660; 99285-25; C9803-CS; G0378; J1644; U0003; U0005

== ENCOUNTER 2022-09-20 06:15 | Emergency (ER) | payer OTHER ==
[2022-09-20 06:57] VITALS: BMI 43.0
[2022-09-20] MEDS ORDERED: ALBUTEROL SO4 2.5/IPRATROPIUM 0.5 INH SOL 3 ML VIAL.NEB. NEB ONE ×2 (08:42→08:56)
[2022-09-20] MEDS ORDERED: ACETAMINOPHEN 1000 MG/100 ML BAG IVPB ONE (08:43)
[2022-09-20] MEDS ORDERED: ACETAMINOPHEN INJECTION 100 ML IVPB ONE (08:56)
[2022-09-20] MEDS ORDERED: SODIUM CHLORIDE 0.9% 500 ML INFUS.BAG IV ONE (08:58)
[2022-09-20 09:02] LABS: BASO % 0.3 % (0-2.0); EOS % 0.3 % (0-4.5); HEMATOCRIT 40.4 % (35.4-49); HEMOGLOBIN 13.4 GM/dL (11.7-16.9); LYMPH % 4.3 % (8-40); MCH 30.6 pg (25.7-33.7); MCHC 33.2 g/dl (32.0-35.9); MEAN CELL VOLUME 92.2 fl (80-96); MEAN PLT VOLUME 9.1 fl (7.5-11.1); MONO % 7.1 % (3.8-10.2); PLATELET COUNT 224 10^3/uL (134-434); RBC 4.39 M/mm3 (4.00-5.60); RDW 14.6 % (11.9-15.9); WHITE BLOOD COUNT 10.2 K/mm3 (4.0-10.0)
[2022-09-20 09:07] LABS: INR 1.09 (0.83-1.09); PROTHROMBIN TIME (PATIENT) 12.6 SEC (9.7-13.0)
[2022-09-20 09:09] LABS: ACTIVATED PTT 32.8 SECONDS (25.2-36.5)
[2022-09-20 09:33] LABS: CHLORIDE 102 mmol/L (98-107); SODIUM 141 mmol/L (136-145)
[2022-09-20 09:35] LABS: ALBUMIN 3.1 g/dl (3.4-5.0); ANION GAP 7 MMOL/L (8-16); BLOOD UREA NITROGEN 10.1 mg/dL (7-18); CALCIUM 8.2 mg/dL (8.5-10.1); CO2 33 mmol/L (21-32)
[2022-09-20 09:36] LABS: GLUCOSE,RANDOM 94 mg/dL (74-106)
[2022-09-20 09:38] LABS: SGPT/ALT 33 U/L (13-61)
[2022-09-20 09:39] LABS: CREATININE 0.7 mg/dL (0.55-1.3); SGOT/AST 25 U/L (15-37)
[2022-09-20 09:40] LABS: BILIRUBIN,TOTAL < 0.1 mg/dL (0.2-1); TOT PROT 6.3 g/dl (6.4-8.2)
[2022-09-20 09:41] LABS: ALK PHOS 106 U/L (45-117)
[2022-09-20 10:14] VITALS: RESP 18
[2022-09-20 14:49] LABS: PH,URINE 6.5 (5.0-8.0); URINE APPEARANCE CLEAR; URINE BILIRUBIN NEGATIVE (NEGATIVE); URINE COLOR YELLOW; URINE GLUCOSE (UA) NEGATIVE (NEGATIVE); URINE KETONE NEGATIVE (NEGATIVE); URINE LEUK ESTERASE NEGATIVE (NEGATIVE); URINE NITRITE NEGATIVE (NEGATIVE); URINE PROTEIN NEGATIVE (NEGATIVE); URINE UROBILINOGEN 0.2 mg/dL (0.2-1.0)
[2022-09-20 17:01] VITALS: BP 128/72; PULSE 78; TEMP 98
== END 2022-09-20 17:01 ==
LOC: JER 06:15
PROC: 3E0F7GC Introduction of Other Therapeutic Substance into Respiratory Tract, Via Natural or Artificial Opening (ICD-10-PCS; principal; 2022-09-20)
PROC: 3E033NZ Introduction of Analgesics, Hypnotics, Sedatives into Peripheral Vein, Percutaneous Approach (ICD-10-PCS; 2022-09-20)
DX: U07.1 COVID-19 (principal)
CPT/HCPCS: 0241U-QW; 36415; 71045-TC-FY; 74177-TC; 80053; 81003; 82553; 83605; 85025; 85610; 85730; 86850; 86900; 86901; 87040; 87086; 87186; 93005; 93010; 99285-25

== ENCOUNTER 2024-06-07 11:02 | Inpatient (IN) | payer OTHER ==
[2024-06-07] MEDS ORDERED: ALBUTEROL SO4 2.5/IPRATROPIUM 0.5 INH SOL 3 ML VIAL.NEB. NEB ONE ×2 (11:58→12:44)
[2024-06-07] MEDS: ALBUTEROL SO4 2.5/IPRATROPIUM 0.5 INH SOL 3 ML VIAL.NEB. NEB ONE (12:04)
[2024-06-07 12:06] LABS: ABSOLUTE IMMATURE GRANULOCYTES 0.28 x10^3/uL (0.0-0.031); BASOPHILS # 0.03 x10^3/uL (0.01-0.08); EOSINOPHIL % 2.6 % (0.8-7.0); EOSINOPHILS # 0.27 x10^3/uL (0.04-0.54); HEMATOCRIT 41.7 % (40.1-51.0); HEMOGLOBIN 12.6 g/dL (13.7-17.5); MCHC 30.2 g/dl (32.3-36.5); MEAN PLT VOLUME 10.7 fl (9.4-12.4); MONOCYTE # 0.77 x10^3/uL (0.30-0.82); MONOCYTE % 7.5 % (5.3-12.2); PLATELET COUNT 243 x10^3/uL (163-337); RDW 13.5 % (12.2-16.1)
[2024-06-07 12:13] LABS: INR 1.07 (0.83-1.09); PROTHROMBIN TIME (PATIENT) 11.7 SEC (9.7-13.0)
[2024-06-07 12:16] LABS: ACTIVATED PTT 25.1 SECONDS (25.2-36.5)
[2024-06-07 12:25] LABS: POTASSIUM 5.8 mmol/L (3.5-5.1)
[2024-06-07 12:27] LABS: VENOUS BASE EXCESS 0.6 mmol/L (-2-2); VENOUS O2 SATURATION 48.3 % (70-80); VENOUS PH 7.238 (7.310-7.410)
[2024-06-07 12:29] LABS: CALCIUM 8.9 mg/dL (8.5-10.1)
[2024-06-07 12:30] LABS: ALBUMIN 2.8 g/dl (3.4-5.0); BLOOD UREA NITROGEN 13.8 mg/dL (7-18)
[2024-06-07 12:33] LABS: CREATININE 0.7 mg/dL (0.55-1.3)
[2024-06-07 12:34] LABS: BILIRUBIN,TOTAL 0.5 mg/dL (0.2-1); TOT PROT 6.8 g/dl (6.4-8.2)
[2024-06-07] MEDS: ALBUTEROL SO4 2.5/IPRATROPIUM 0.5 INH SOL 3 ML VIAL.NEB. NEB SCH (12:45)
[2024-06-07 12:51] LABS: URINE APPEARANCE CLEAR; URINE BILIRUBIN NEGATIVE (NEGATIVE); URINE COLOR YELLOW; URINE GLUCOSE (UA) NEGATIVE (NEGATIVE); URINE KETONE NEGATIVE (NEGATIVE); URINE LEUK ESTERASE NEGATIVE (NEGATIVE); URINE NITRITE NEGATIVE (NEGATIVE); URINE PROTEIN NEGATIVE (NEGATIVE); URINE UROBILINOGEN 0.2 mg/dL (0.2-1.0)
[2024-06-07] MEDS ORDERED: PHENobarbital 30 MG TABLET ONE (14:34)
[2024-06-07 14:49] LABS: VENOUS BASE EXCESS 7.9 mmol/L (-2-2); VENOUS O2 SATURATION 48.2 % (70-80); VENOUS PH 7.257 (7.310-7.410)
[2024-06-07] MEDS: PHENobarbital 15 MG TABLET PO ONE (14:49)
[2024-06-07 14:52] LABS: VENOUS PCO2 89.3 mmHg (38-52)
[2024-06-07] MEDS ORDERED: KETAMINE HCL 200 MG/20 ML VIAL ONE ×2 (15:06→15:36)
[2024-06-07] MEDS ORDERED: ROCURONIUM BROMIDE 50 MG/5 ML SYRINGE ONE ×2 (15:06→15:35)
[2024-06-07 15:10] LABS: POTASSIUM 4.3 mmol/L (3.5-5.1)
[2024-06-07 15:12] LABS: BLOOD UREA NITROGEN 14.2 mg/dL (7-18)
[2024-06-07 15:16] LABS: CREATININE 0.6 mg/dL (0.55-1.3)
[2024-06-07] MEDS: KETAMINE HCL 200 MG/20 ML VIAL IVPUSH ONE (15:32)
[2024-06-07] MEDS: ROCURONIUM BROMIDE 50 MG/5 ML VIAL IV ONE (15:37)
[2024-06-07] MEDS ORDERED: PROPOFOL 1,000,000 MCG/100 ML VIAL ONE ×2 (15:47→21:23)
[2024-06-07] MEDS: PROPOFOL 1,000,000 MCG/100 ML VIAL IVPB SCH ×2 (16:23→21:42)
[2024-06-07] MEDS ORDERED: FENTANYL NS IVPB 500 MCG/100 ML BAG IVPB ONE (18:03)
[2024-06-07 18:07] LABS: ARTERIAL BLD GAS O2 SATURATION 99.7 % (95-98); ARTERIAL BLOOD GAS BASE EXCESS 6.8 mmol/L (-2-2); ARTERIAL BLOOD GAS PO2 270.7 mmHg (80-100); ARTERIAL BLOOD GAS pH 7.452 (7.350-7.450)
[2024-06-07 18:15] LABS: ALLENS TEST POSITIVE; VENT MODE AC; VENT RATE 20
[2024-06-07] MEDS: FENTANYL NS IVPB 500 MCG/100 ML BAG IVPB SCH ×2 (19:09→21:45)
[2024-06-07] MEDS: methylPREDNISolone NA SUCC 40 MG/1 ML VIAL IVPUSH SCH (20:59)
[2024-06-07] MEDS ORDERED: PIPERACILLIN/TAZOB 4.5 GM 4.5 GM in DEXTROSE 5%-WATER 100 ML IVPB SCH (21:00)
[2024-06-07] MEDS: levETIRAcetam 500 MG/5 ML INJECTION VIAL IVPB SCH (21:04)
[2024-06-07] MEDS: CHLORHEXIDINE GLUCONATE 4% CLEANSER FOR DECOLONIZATION TP SCH (21:04)
[2024-06-07] MEDS: MUPIROCIN 2% TOPICAL OINTMENT FOR DECOLONIZATION NS SCH (21:09)
[2024-06-07] MEDS ORDERED: FENTANYL IVPB 500 MCG/100 ML BAG IVPB SCH (21:30)
[2024-06-07] MEDS: PIPERACILLIN/TAZOB 4.5 GM 4.5 GM/100 ML BAG IVPB SCH (21:42)
[2024-06-07] MEDS ORDERED: CHLORHEXIDINE GLUCONATE 4% CLEANSER FOR DECOLONIZATION TP SCH (22:00)
[2024-06-07] MEDS ORDERED: MUPIROCIN 2% TOPICAL OINTMENT FOR DECOLONIZATION NS SCH (22:00)
[2024-06-07] MEDS: ACETAMINOPHEN 1000 MG/100 ML BAG IVPB PRN (22:57)
[2024-06-07] MEDS: PHENobarbital 30 MG TABLET PO SCH (23:55)
[2024-06-08 06:54] LABS: ABSOLUTE IMMATURE GRANULOCYTES 0.46 x10^3/uL (0.0-0.031); BASOPHILS # 0.02 x10^3/uL (0.01-0.08); EOSINOPHIL % 0.3 % (0.8-7.0); EOSINOPHILS # 0.03 x10^3/uL (0.04-0.54); HEMATOCRIT 39.1 % (40.1-51.0); HEMOGLOBIN 12.5 g/dL (13.7-17.5); MEAN CELL VOLUME 94.9 fl (79.0-92.2); MONOCYTE # 0.69 x10^3/uL (0.30-0.82); MONOCYTE % 6.6 % (5.3-12.2); PLATELET COUNT 267 x10^3/uL (163-337); RDW 13.2 % (12.2-16.1)
[2024-06-08 07:18] LABS: POTASSIUM 3.2 mmol/L (3.5-5.1)
[2024-06-08 07:21] LABS: CALCIUM 9.5 mg/dL (8.5-10.1)
[2024-06-08 07:22] LABS: BLOOD UREA NITROGEN 15.9 mg/dL (7-18)
[2024-06-08 07:25] LABS: CREATININE 0.8 mg/dL (0.55-1.3); PHOSPHOROUS 1.8 mg/dL (2.5-4.9)
[2024-06-08 07:26] LABS: BILIRUBIN,TOTAL 0.3 mg/dL (0.2-1); TOT PROT 6.2 g/dl (6.4-8.2)
[2024-06-08] MEDS: KCL 10 MEQ IVPB 10 MEQ/100 ML INFUS.BAG IVPB SCH (08:29)
[2024-06-08] MEDS: SODIUM PHOSPHATE - 15 MM in DEXTROSE 5%-WATER - 250 ML IVPB ONE (09:30)
[2024-06-08] MEDS ORDERED: AZITHROMYCIN IVPB 500 MG/250 ML BAG IVPB SCH (10:00)
[2024-06-08] MEDS ORDERED: ENOXAPARIN NA (PORCINE) 40 MG/0.4 ML DISP.SYRIN SQ SCH (10:00)
[2024-06-08 10:25] LABS: INR 1.23 (0.83-1.09); PROTHROMBIN TIME (PATIENT) 13.5 SEC (9.7-13.0)
[2024-06-08] MEDS: PIPERACILLIN/TAZOB 4.5 GM 4.5 GM/100 ML BAG IVPB SCH (17:18)
[2024-06-09 07:28] LABS: ABSOLUTE IMMATURE GRANULOCYTES 0.12 x10^3/uL (0.0-0.031); BASOPHILS # 0.02 x10^3/uL (0.01-0.08); EOSINOPHIL % 0.2 % (0.8-7.0); EOSINOPHILS # 0.02 x10^3/uL (0.04-0.54); HEMATOCRIT 35.3 % (40.1-51.0); HEMOGLOBIN 11.4 g/dL (13.7-17.5); MCHC 32.3 g/dl (32.3-36.5); MEAN CELL VOLUME 93.1 fl (79.0-92.2); MEAN PLT VOLUME 10.4 fl (9.4-12.4); MONOCYTE # 0.38 x10^3/uL (0.30-0.82); MONOCYTE % 4.3 % (5.3-12.2); PLATELET COUNT 242 x10^3/uL (163-337)
[2024-06-09 07:46] LABS: POTASSIUM 3.2 mmol/L (3.5-5.1)
[2024-06-09 07:53] LABS: ALBUMIN 2.8 g/dl (3.4-5.0); CALCIUM 8.4 mg/dL (8.5-10.1); MAGNESIUM 1.9 mg/dL (1.8-2.4)
[2024-06-09 07:56] LABS: CREATININE 0.7 mg/dL (0.55-1.3)
[2024-06-09 07:57] LABS: BILIRUBIN,TOTAL 0.5 mg/dL (0.2-1); TOT PROT 5.9 g/dl (6.4-8.2)
[2024-06-09] MEDS: KCL 10 MEQ IVPB 10 MEQ/100 ML INFUS.BAG IVPB SCH (08:45)
[2024-06-09] MEDS: POTASSIUM CHLORIDE ORAL LIQUID 20 MEQ/15 ML NGT ONE (11:06)
[2024-06-10 07:05] LABS: ABSOLUTE IMMATURE GRANULOCYTES 0.07 x10^3/uL (0.0-0.031); BASOPHILS # 0.01 x10^3/uL (0.01-0.08); EOSINOPHIL % 0.3 % (0.8-7.0); EOSINOPHILS # 0.03 x10^3/uL (0.04-0.54); HEMATOCRIT 36.6 % (40.1-51.0); MCHC 32.8 g/dl (32.3-36.5); MEAN CELL VOLUME 92.7 fl (79.0-92.2); MEAN PLT VOLUME 10.5 fl (9.4-12.4); MONOCYTE # 0.27 x10^3/uL (0.30-0.82); PLATELET COUNT 220 x10^3/uL (163-337)
[2024-06-10 07:32] LABS: POTASSIUM 3.7 mmol/L (3.5-5.1)
[2024-06-10 07:35] LABS: CALCIUM 8.2 mg/dL (8.5-10.1)
[2024-06-10 07:36] LABS: ALBUMIN 2.7 g/dl (3.4-5.0); MAGNESIUM 2.1 mg/dL (1.8-2.4)
[2024-06-10 07:39] LABS: CREATININE 0.5 mg/dL (0.55-1.3)
[2024-06-10 07:41] LABS: BILIRUBIN,TOTAL 0.3 mg/dL (0.2-1); TOT PROT 5.9 g/dl (6.4-8.2)
[2024-06-11 06:46] LABS: ABSOLUTE IMMATURE GRANULOCYTES 0.12 x10^3/uL (0.0-0.031); BASOPHILS # 0.02 x10^3/uL (0.01-0.08); EOSINOPHILS # 0.21 x10^3/uL (0.04-0.54); HEMATOCRIT 39.1 % (40.1-51.0); HEMOGLOBIN 12.1 g/dL (13.7-17.5); MCHC 30.9 g/dl (32.3-36.5); MEAN CELL VOLUME 96.5 fl (79.0-92.2); MEAN PLT VOLUME 10.2 fl (9.4-12.4); MONOCYTE # 0.53 x10^3/uL (0.30-0.82); PLATELET COUNT 258 x10^3/uL (163-337); RDW 14.4 % (12.2-16.1)
[2024-06-11 06:49] LABS: POTASSIUM 4.1 mmol/L (3.5-5.1)
[2024-06-11 06:52] LABS: ALBUMIN 2.8 g/dl (3.4-5.0); CALCIUM 8.5 mg/dL (8.5-10.1)
[2024-06-11 06:53] LABS: MAGNESIUM 2.4 mg/dL (1.8-2.4)
[2024-06-11 06:56] LABS: CREATININE 0.5 mg/dL (0.55-1.3)
[2024-06-11 06:57] LABS: BILIRUBIN,TOTAL 0.3 mg/dL (0.2-1); TOT PROT 6.2 g/dl (6.4-8.2)
[2024-06-11] MEDS: methylPREDNISolone NA SUCC 40 MG/1 ML VIAL IVPUSH SCH (09:17)
[2024-06-11] MEDS: ENOXAPARIN NA (PORCINE) 40 MG/0.4 ML DISP.SYRIN SQ SCH ×2 (13:21→21:53)
[2024-06-11] MEDS: PIPERACILLIN/TAZOB 4.5 GM 4.5 GM/100 ML BAG IVPB SCH (18:55)
[2024-06-11 21:19] VITALS: RESP 18
[2024-06-11] MEDS: levETIRAcetam 500 MG/5 ML INJECTION VIAL IVPB SCH (21:51)
[2024-06-11] MEDS ORDERED: CHLORHEXIDINE GLUCONATE 4% CLEANSER FOR DECOLONIZATION TP SCH (22:00)
[2024-06-11] MEDS ORDERED: MUPIROCIN 2% TOPICAL OINTMENT FOR DECOLONIZATION NS SCH (22:00)
[2024-06-11] MEDS: PHENobarbital 30 MG TABLET PO SCH (23:00)
[2024-06-11] MEDS: PHENobarbital SODIUM 65 MG/1 ML VIAL IVPUSH SCH (23:13)
[2024-06-12] MEDS: PIPERACILLIN/TAZOB 4.5 GM 4.5 GM in DEXTROSE 5%-WATER 100 ML IVPB SCH (01:24)
[2024-06-12] MEDS ORDERED: PATIENT'S OWN MEDICATION (NON-FORMULARY) (Midazolam [Nayzilam] 5 MG/0.1 ML Spray) NS SCH (17:30)
[2024-06-12 19:42] VITALS: BMI 46.2
[2024-06-12] MEDS ORDERED: CENOBAMATE 150 MG PO SCH (22:00)
[2024-06-12] MEDS ORDERED: PATIENT'S OWN MEDICATION (NON-FORMULARY) (Brivaracetam 100 MG Tablet) PO SCH (22:00)
[2024-06-12] MEDS ORDERED: PERAMPANEL 12 MG PO SCH (22:00)
[2024-06-12] MEDS ORDERED: PATIENT'S OWN MEDICATION (NON-FORMULARY) (Rufinamide 400 MG Tablet) PO SCH (22:00)
[2024-06-13 05:57] VITALS: BP 137/84; PULSE 91; TEMP 98.2
[2024-06-13 08:00] LABS: HEMATOCRIT 40.4 % (40.1-51.0); HEMOGLOBIN 12.8 g/dL (13.7-17.5); MCHC 31.7 g/dl (32.3-36.5); MEAN CELL VOLUME 94.8 fl (79.0-92.2); MEAN PLT VOLUME 10.4 fl (9.4-12.4); PLATELET COUNT 273 x10^3/uL (163-337); RDW 14.2 % (12.2-16.1)
[2024-06-13 08:04] LABS: POTASSIUM 3.7 mmol/L (3.5-5.1)
[2024-06-13 08:08] LABS: BLOOD UREA NITROGEN 7.4 mg/dL (7-18)
[2024-06-13 08:10] LABS: CALCIUM 8.7 mg/dL (8.5-10.1)
[2024-06-13 08:11] LABS: CREATININE 0.5 mg/dL (0.55-1.3); PHOSPHOROUS 2.6 mg/dL (2.5-4.9)
[2024-06-13 08:12] LABS: BILIRUBIN,TOTAL 0.4 mg/dL (0.2-1); TOT PROT 6.2 g/dl (6.4-8.2)
== END 2024-06-13 14:50 | disposition home or self-care (01) | DRG 720 ==
LOC: JER 11:02 → JERBED 14:43 → JICU 18:40 → J6S 06-11 14:38
PROVIDERS: ADMIT Internal Medicine Pulmonary Disease; ATTEND Internal Medicine
PROC: 5A1945Z Respiratory Ventilation, 24-96 Consecutive Hours (ICD-10-PCS; principal; 2024-06-07)
PROC: 0BH18EZ Insertion of Endotracheal Airway into Trachea, Via Natural or Artificial Opening Endoscopic (ICD-10-PCS; 2024-06-07)
DX: A41.9 Sepsis, unspecified organism (principal); D66 Hereditary factor VIII deficiency; I11.0 Hypertensive heart disease with heart failure; J18.9 Pneumonia, unspecified organism; R56.9 Unspecified convulsions; J96.22 Acute and chronic respiratory failure with hypercapnia; J96.21 Acute and chronic respiratory failure with hypoxia; E66.01 Morbid (severe) obesity due to excess calories; Z68.42 Body mass index [BMI] 45.0-49.9, adult; G47.33 Obstructive sleep apnea (adult) (pediatric); G80.9 Cerebral palsy, unspecified; N40.0 Benign prostatic hyperplasia without lower urinary tract symptoms; I50.9 Heart failure, unspecified
CPT/HCPCS: 0241U-QW; 36415; 36600; 71045-TC-FY; 80048; 80053; 81003; 82803; 83605; 83735; 84100; 84484; 85025; 85027; 85610; 85730; 86850; 86900; 86901; 87040; 87086; 87635; 87899; 93005; 93010; 93306-TC; 94002; 99291; J0131